=== PATIENT | female | born 1965 | race African-American/Black ===

== ENCOUNTER 2019-01-21 18:12 | Inpatient (IN) | payer MEDICARE ==
[2019-01-21] MEDS ORDERED: Magnesium 2 GM/50 ML BAG (IN WATER) ONE (19:46)
[2019-01-21] MEDS ORDERED: Acetaminophen 325 MG TAB PO PRN (21:33)
[2019-01-21] MEDS ORDERED: Insulin Regular 300 UNITS/3 ML VIAL SC PRN (21:39)
[2019-01-21] MEDS ORDERED: Dextrose 5% in Water 1,000 ML IV PRN (21:39)
[2019-01-21] MEDS ORDERED: HumaLOG 300 UNITS/3 ML VIAL SC PRN (21:39)
[2019-01-21] MEDS ORDERED: Dextrose 50% Abboject 50 ML SYRINGE SLOW IVP PRN (21:39)
[2019-01-21 21:41] LABS: Troponin I 0.016 ng/mL (< 0.028)
[2019-01-21] MEDS ORDERED: Metoprolol Tartrate 100 MG TAB PO SCH ×2 (23:30)
[2019-01-21] MEDS ORDERED: Gabapentin 300 MG CAP PO SCH (23:30)
[2019-01-21] MEDS ORDERED: Insulin Glargine 75 UNITS in Pre-Filled Syringe 1 EACH SC SCH (23:30)
[2019-01-21 23:55] LABS: Troponin I Less than 0.010 ng/mL (< 0.028)
--- NOTE | 2019-01-22 01:20 | HP ---
CHIEF COMPLAINT: Shortness of breath. PRIMARY CARE PHYSICIAN: Jessica Jon MD HISTORY OF PRESENT ILLNESS: Ms. Mcdonald is a very pleasant 53-year-old female who reported to the emergency room in [place] today with 2 days to 3 days of progressive cough and wheezing with worsening intensity and developing some respiratory distress this afternoon prior to arrival. She describes symptoms as tightness, wheezing. She reports that she does have a history of COPD, but when asked she denies a history of CHF or been told that she had a large heart. She does have a past medical history pertinent for non-Hodgkin lymphoma, has been in remission for the last 4 years, anemia, hypertension. In the emergency room, labs white blood cell count 11.7, hemoglobin 8.7. The patient was found to be wheezing, some moderate respiratory distress. Chest x-ray there showed some mild pulmonary vascular congestion, was given 2 DuoNebs, Solu-Medrol 125, Lasix 40, and was sent over to [facility] for admission. The patient also has chronic kidney disease. In November 2018, creatinine was 1.34 today, it is 2.06. The patient was given magnesium 2 g IV piggyback here and then admitted to observation for further management. REVIEW OF SYSTEMS: The patient reports shortness of breath, dyspnea on exertion, some orthopnea and wheezing. Denies any fever or chills. Denies any abdominal pain. Denies nausea, vomiting, diarrhea. Denies any dizziness. All systems were reviewed and are negative unless mentioned above or in HPI. PAST MEDICAL HISTORY: Anemia, hypertension, diabetes, is in remission for non-Hodgkin's lymphoma. PAST SURGICAL HISTORY: None. PSYCHIATRIC HISTORY: None. SOCIAL HISTORY: Denies any alcohol or drug use. Denies any smoking history. She lives at home with her family. KNOWN ALLERGIES: None. CURRENT MEDICATIONS: 1. Albuterol 2 puffs q.4 hours as needed. 2. Norvasc 10 mg p.o. daily. 3. Lipitor 40 mg p.o. daily. 4. Vitamin D2 44077 units p.o. q.7 days. 5. Furosemide 20 mg p.o. b.i.d. 6. Gabapentin 300 mg p.o. t.i.d. 7. Glyburide 5 mg p.o. b.i.d. 8. Levemir 75 units subcu b.i.d. 9. Humalog 20 units subcu t.i.d. 10. Metformin 1000 mg p.o. daily. 11. Toprol-XL 100 mg p.o. b.i.d. 12. Protonix 40 mg p.o. daily. 13. Potassium chloride 10 mEq p.o. daily. 14. Sertraline 2 tablets p.o. daily. 15. Triamterene/hydrochlorothiazide 37.5/25 mg p.o. daily. PHYSICAL EXAMINATION: VITAL SIGNS: Blood pressure 175/87, pulse 75, respiratory rate is 24, temp is 98.3, pO2 sats are 98% on 2 L. CONSTITUTIONAL: The patient appears in mild distress. She appears ill. She is alert and oriented to person, place, and time. HEENT: Head is atraumatic and normocephalic. Eyes, pupils are equally round and reactive to light. Extraocular muscles are intact. ENT; mouth exam is beatris. Mucous membranes are moist. NECK: Normal range of motion. Trachea is midline. RESPIRATORY: Chest breath sounds with occasional rhonchi. No wheezing. Chest expansion is equal. Breath sounds bilaterally decreased in the bases. CARDIOVASCULAR: . ABDOMEN: Nontender. Bowel sounds are heard. Exam is limited by body habitus. No CVA tenderness. BACK: Normal range of motion. EXTREMITIES: Upper extremity normal range of motion. Inspection is normal. Radial pulses normal. Lower extremity, inspection has normal range of motion. Pedal pulses are normal. There is +2 edema. NEUROLOGIC: The patient is alert and oriented to person, place, and time. Speech is normal. SKIN: Warm, dry. Normal color. PSYCHIATRIC: Normal affect. She is alert and oriented to person, place, and time. LABORATORY DATA: EKG in the emergency room shows conduction normal, ST segments, T-waves are normal, axis is normal. PLAN/ASSESSMENT: Dyspnea with a history of chronic obstructive pulmonary disease. The patient was given 3 DuoNebs. We will continue these q.6 hours scheduled. We will hold off on the steroids for now. Patient x-ray shows mild cardiomegaly with some pulmonary congestion. The patient denies a history of congestive heart failure. We will obtain an echocardiogram. The patient's D-dimer was also elevated, [id number] renal failure with a creatinine over 2, get a V/Q scan, x2 troponins undetectable. 1. [id number] kidney, hold any nephrotoxic drugs. Recheck in the morning. 2. Hypercalcemia at 5.2. We will recheck this in the morning. 3. Diabetes type 2. Accu-Cheks before meals and at bedtime, sliding-scale as needed. We will restart her basal insulin. 4. Anemia. The patient has had a drop in her hemoglobin. Check guaiac. Recheck in the a.m. 5. History of hypertension. We will restart home medications. We will trend. 6. Hyperlipidemia. We will restart home medications. Hospital course dependent on clinical findings. Case discussed with Dr. Amaya who agrees with plan. Job ID: [id number]
[2019-01-22 05:29] LABS: #Lymphocytes 0.9 thou/uL (1.20-3.40); #Monocytes 0.2 thou/uL (0.11-0.59); #Neutrophils 12.1 thou/uL (1.40-6.50); %Basophils 0.1 % (0.0-1.0); %Eosinophils 0.1 % (0.0-10.0); %Lymphocytes 6.7 % (21.0-51.0); %Monocytes 1.5 % (0.0-10.0); %Neutrophils 91.6 % (42.0-75.0); Hemoglobin 8.8 g/dL (12.0-16.0); Mean Corpuscular HGB CONC 30.2 g/dL (32.0-36.0); Mean Corpuscular Hemoglobin 23.8 pg (27.0-31.0); Mean Corpuscular Volume 78.8 fL (78.0-98.0); Mean Platelet Volume 9.4 fL (7.4-10.4); Platelet Count 343 thou/uL (130-400); RBC Distribution Width 16.8 % (11.5-14.5); Red Blood Cell (RBC) Count 3.68 mill/uL (4.20-5.40); White Blood Cell (WBC) Count 13.2 thou/uL (4.8-10.8)
[2019-01-22 06:03] LABS: ALT (SGPT) 12 U/L (8-55); AST (SGOT) 7 U/L (5-34); Albumin 3.7 g/dL (3.5-5.0); Alkaline Phosphatase 145 U/L (40-110); Anion Gap 13 mmol/L (10-20); BUN (Urea Nitrogen) 41 mg/dL (9.8-20.1); Bilirubin, Total 0.5 mg/dL (0.2-1.2); Calc. Creatinine Clearance 86 mL/min (70-130); Carbon Dioxide 23 mmol/L (22-29); Chloride 105 mmol/L (98-107); Estimated GFR-MDRD 34; Glucose 280 mg/dL (70-105); Potassium 5.6 mmol/L (3.5-5.1); Protein, Total 6.7 g/dL (6.0-8.3); Sodium 135 mmol/L (136-145)
[2019-01-22] MEDS: HumaLOG 300 UNITS/3 ML VIAL SC SCH ×3 (08:30→16:34)
[2019-01-22] MEDS: Insulin Glargine 75 UNITS in Pre-Filled Syringe 1 EACH SC SCH ×2 (08:30→21:38)
[2019-01-22] MEDS: Gabapentin 300 MG CAP PO SCH ×3 (08:32→20:34)
[2019-01-22] MEDS: Atorvastatin Calcium 40 MG TAB PO SCH (08:32)
[2019-01-22] MEDS ORDERED: Furosemide 40 MG/4 ML VIAL SLOW IVP SCH (09:00)
[2019-01-22] MEDS ORDERED: Heparin 5,000 UNITS/ML VIAL SC SCH (09:00)
[2019-01-22] MEDS ORDERED: Triamterene/Hydrochlorothiazide 37.5 mg/25 mg Tablet PO SCH (09:00)
[2019-01-22] MEDS ORDERED: INSULIN DETEMIR 75 UNIT SC SCH (09:00)
[2019-01-22 10:16] LABS: Troponin I Less than 0.010 ng/mL (< 0.028)
[2019-01-22] MEDS: Ipratropium Bromide 2.5 ml Neb NEB SCH ×4 (10:35→22:53)
--- NOTE | 2019-01-22 11:13 | NM ---
VENTILATION PERFUSION SCAN: INDICATION: Shortness of breath. Tachypnea. Elevated D-dimer. COMPARISON: Correlation is made to a portable chest film of 01/21/2019. That exam showed mild vascular congestio n. FINDINGS: Ventilation scan performed administering 13 mCi of inhaled Xenon gas. Images show symmetric ventilation. No ventilation defect or significant air trapping. Perfusion scan performed administering 6.5 mCi of Technetium labelled MAA IV. Lungs were imaged in 8 projections. No perfusion defect. IMPRESSION: Low probability of pulmonary embolus. POS: OFF
--- NOTE | 2019-01-22 11:15 | PDOC.HOSPP ---
- Subjective Encounter Date: 01/22/19 Encounter Time: 11:15 Subjective: Patient reports SOB with minimal exertion over the past 2 days. Associated with orthopnea and PND. Reports 10 lb weight gain over the past 4-5 days. Reports that her abdomen has gotten bigger and dresses are tighter to wear. Reports new onset leg swelling over the past week. Denies cough, wheezing, fever, chills, chest pain. Has palpitations with activity but no lightheadedness. No urinary symptoms. Never tested for GENOVEVA. Reports history of asthma as a child and uses albuterol PRN. Never smoked. Diagnosed with CHF 4 yrs ago but never had LHC or stress test. Denies CAD, [place], CVA. Has DM for about 15 yrs now. - Objective Vital Signs & Weight: Vital Signs (12 hours) Temp Pulse Resp BP Pulse Ox 01/22/19 11:00 98.3 F 73 18 152/74 H 98 01/22/19 07:13 97.1 F L 70 20 149/75 H 98 01/22/19 06:35 95 01/22/19 06:34 67 16 01/22/19 04:05 97.1 F L 73 16 160/76 H 97 01/22/19 00:23 81 18 92 L 01/21/19 23:30 98 F 94 20 188/90 H 96 Weight Weight 350 lb I&O: 01/21/19 01/22/19 01/23/19 06:59 06:59 06:59 Intake Total 590 Output Total 1050 Balance -460 Result Diagrams: 01/22/19 05:13 01/22/19 05:13 Additional Labs: Accuchecks 01/22/19 01/21/19 05:16 22:33 POC Glucose 279 H 279 H Hospitalist ROS - Medication Medications: Active Medications Generic Name Dose Route Start Last Admin Trade Name Freq PRN Reason Stop Dose Admin Atorvastatin Calcium 40 mg 01/22/19 09:00 01/22/19 08:32 Lipitor PO 40 mg DAILY JONATHAN Administration Cholecalciferol 1,000 units 01/22/19 09:00 01/22/19 08:31 Vitamin D3 PO 1,000 units DAILY JONATHAN Administration Gabapentin 300 mg 01/22/19 09:00 01/22/19 08:32 Neurontin PO 300 mg TID JONATHAN Administration Heparin Sodium (Porcine) 5,000 units 01/22/19 09:00 01/22/19 08:30 Heparin SC 5,000 units TID JONATHAN Administration Insulin Glargine 75 units/ 0.75 mls @ 0 mls/hr 01/22/19 09:00 01/22/19 08:30 Miscellaneous Medication SC 0.75 mls BID JONATHAN Administration Insulin Human Lispro 20 units 01/22/19 08:00 01/22/19 08:30 Humalog SC 20 units TID-WM JONATHAN Administration Ipratropium [place] 2.5 ml 01/22/19 10:30 01/22/19 10:35 Atrovent NEB Not Given [id number] JONATHAN Metoprolol Succinate 100 mg 01/22/19 09:00 01/22/19 08:32 Toprol Xl PO 100 mg BID JONATHAN Administration Pantoprazole Sodium 40 mg 01/22/19 09:00 01/22/19 08:32 Protonix PO 40 mg DAILY JONATHAN Administration Sertraline HCl 200 mg 01/22/19 09:00 01/22/19 08:32 Zoloft PO 200 mg DAILY JONATHAN Administration Sodium Polystyrene Sulfonate 15 gm 01/22/19 08:15 01/22/19 08:31 Kayexalate Oral Susp 15 Gm/60 Ml PO 01/22/19 12:00 15 gm NOW JONATHAN Administration - Exam General Appearance: ill appearing (in mild distress) Eye: PERRL, anicteric sclera ENT: normocephalic atraumatic, no oropharyngeal lesions, moist mucosa Neck: supple, symmetric, no thyromegaly, no lymphadenopathy Heart: RRR, no murmur, no gallops, normal peripheral pulses Heart - other findings: Bilateral 2+ pitting pedal edema present Respiratory: normal chest expansion, no tachypnea Respiratory - other findings: Reduced air entry bilateral bases with mild creps Gastrointestinal: soft, non-tender, normal bowel sounds, no palpable masses Gastrointestinal - other findings: obese Extremities: no cyanosis, no clubbing, 2+ LE edema Skin: normal turgor, no lesions, no rashes Neurological: cranial nerve grossly intact, normal sensation to touch, no focal deficits Musculoskeletal: normal tone, normal strength, no muscle wasting Psychiatric: normal affect, normal behavior, A&O x 3 Hosp A/P (1) CHF (congestive heart failure) Code(s): I50.9 - HEART FAILURE, UNSPECIFIED Status: Acute Qualifiers: Heart failure type: unspecified Heart failure chronicity: acute on chronic Qualified Code(s): I50.9 - Heart failure, unspecified Plan: History of CHF 4 yrs ago but patient not aware which type Never had ischemia evaluation Patient now with orthopnea, weight gain, PND and pedal edema Switch to inpatient status. Expected to stay at least 2 midnights High risk due to need for IV diuretics and CARLA on CKD Cardio consult ECHO done this AM IV lasix and fluid restriction Pillai cath for strict I/Os (2) Hyperkalemia Code(s): E87.5 - HYPERKALEMIA Status: Acute Plan: PO kayaxelate given x 1 (3) CARLA (acute kidney injury) Code(s): N17.9 - ACUTE KIDNEY FAILURE, UNSPECIFIED Status: Acute Plan: Baseline creatinine of 1.3 Now with worsened function Related to CHF exacerbation Nephrology consulted Avoid nephrotoxic meds and hypotension Renal US ordered (4) DM type 2 (diabetes mellitus, type 2) Status: Chronic Qualifiers: Diabetes mellitus assisted insulin use: with row boss hoeing use Diabetes mellitus complication status: with kidney complications Diabetes mellitus complication detail: with chronic kidney disease Chronic kidney disease stage : stage 3 (moderate) Qualified Code(s): E11.22 - Type 2 diabetes mellitus with diabetic chronic kidney disease; N18.3 - Chronic kidney disease, stage 3 ( moderate); Z79.4 - 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 Self consulted PTH elevated (5) Hyperparathyroidism Code(s): E21.3 - HYPERPARATHYROIDISM, UNSPECIFIED Status: Chronic Plan: Likely related to CKD and Vit. D deficiency Continue Vit. D supplementation Nephrology consulted (6) Vitamin D deficiency Code(s): E55.9 - VITAMIN D DEFICIENCY, UNSPECIFIED Status: Chronic Plan: Replacement (7) GENOVEVA (obstructive sleep apnea) Code(s): G47.33 - OBSTRUCTIVE SLEEP APNEA (ADULT) (PEDIATRIC) Status: Suspected Plan: Never had a PSG done Pulm. consulted and case DW Dr. Calderón Also suspicion for OHS. ABG ordered to evaluate for hypercapnia (8) Asthma Code(s): J45.909 - UNSPECIFIED ASTHMA, UNCOMPLICATED Status: Chronic Qualifiers: Asthma severity: mild Asthma persistence: intermittent Asthma complication type: uncomplicated Qualified Code(s): J45.20 - Mild intermittent asthma, uncomplicated Plan: On albuterol PRN Duonebs PRN for now Not in exacerbation Pulm. consulted (9) HTN (hypertension) Code(s): I10 - ESSENTIAL (PRIMARY) HYPERTENSION Status: Chronic Qualifiers: Hypertension type: essential hypertension Qualified Code(s): I10 - Essential (primary) hypertension Plan: Hold anti-HTN due to being on IV diuretics and her CARLA (10) Morbid obesity with BMI of 50.0-59.9, adult Code(s): E66.01 - MORBID (SEVERE) OBESITY DUE TO EXCESS CALORIES; Z68.43 - BODY MASS INDEX (BMI) 50.0-59.9, ADULT Status: Chronic - Plan plan discussed w/ family, pillai catheter, DVT proph w/heparin
--- NOTE | 2019-01-22 11:52 | CON ---
DATE OF CONSULTATION: REASON FOR CONSULTATION: Hyperkalemia. HISTORY OF PRESENT ILLNESS: This is a very pleasant 53-year-old female, living in [place], presented to the hospital with shortness of breath. The patient had a creatinine of 2.0, which decreased to 1.89, prior baseline in November was 1.3. The patient denies headache, numbness, tingling, or weakness. Denies nausea, vomiting, or chest pain. The patient was admitted for possible COPD exacerbation and rule out myocardial infarction. PAST MEDICAL HISTORY: Significant for hypertension, non-Hodgkin lymphoma, and anemia. PAST SURGICAL HISTORY: None. SOCIOECONOMIC HISTORY: No alcohol or drug use. FAMILY HISTORY: Negative for ESRD. ALLERGIES: REVIEWED. MEDICATIONS: Home medications list, reviewed. Hospital medications list, reviewed. REVIEW OF SYSTEMS: A 15-point review of systems was performed and was negative except for positives noted above. GENERAL: HEAD: NECK: No swelling or lumps. NOSE: No epistaxis or discharge. EYES: No diplopia or pain. RESPIRATORY: CARDIOVASCULAR: GASTROINTESTINAL: /FOAM FABRICATOR: MUSCULOSKELETAL: No joint pain. NEUROPSYCHIATIC SYSTEMS: No suicidal ideation. No ideation. SKIN: Denies any rash or ulcer. CONSTITUTIONAL: No fever or chills. PHYSICAL EXAMINATION: GENERAL: The patient is awake and alert. VITAL SIGNS: Afebrile, pulse 73, blood pressure 152/74. GENERAL APPEARANCE AND MENTAL STATUS: Fair. HEAD/NECK: Normocephalic. Atraumatic. EYES: EOMI. No deformity. EARS: Clear. No ulcers. NOSE: Intact. No lesions. MOUTH: Clear. No discharge. THROAT: Clear. No exudate. LUNGS: Clear. No crackles. CARDIAC: S1, S2. No rub. ABDOMEN: Benign. Bowel sounds positive. GENITALIA/RECTUM: Ureña absent. BACK/EXTREMITIES: Edema 0+. NEUROLOGICAL: Alert and motor intact. SKIN: LYMPHATICS: LABORATORY DATA: Reviewed. ASSESSMENT AND PLAN: 1. Acute kidney injury with chronic kidney disease, most likely due to progressive diabetic nephropathy versus acute tubular necrosis. We will follow renal function closely and await echo. 2. Hypertension, stable. 3. Anemia, stable. 4. Hyperkalemia. We will stop heparin and recheck potassium. 5. Proteinuria. We will order random urine protein to creatinine ratio and follow labs closely. Job ID: [id number]
--- NOTE | 2019-01-22 12:48 | ULT ---
RENAL ULTRASOUND: HISTORY: Acute kidney insufficiency. FINDINGS: Both kidneys measure approximately 11 cm in length. No evidence of hydronephrosis. No renal mass [place]. Cortical thickness and echogenicity appears preserved. Images of the bladder region show no evidence of distended bladder. The bladder appears to be contra cted and is not evaluated. IMPRESSION: Unremarkable renal ultrasound. POS: OFF
[2019-01-22 12:49] LABS: Actual Bicarbonate (HCO3a) 26.1 mEq/L (22-28); Base Excess (BEa) -0.6 mEq/L (-2.0 to +3.0); CO2 Tension 53.1 mmHg (35.0-45.0); Calcium, Ionized 1.21 mmol/L (1.12-1.30); Carboxyhemoglobin (COHb) 1.2 gm% (0.0-3.0); Potassium - ABG Lab 5.02 mmol/L (3.70-5.30); pH, Arterial 7.31 (7.35-7.45)
[2019-01-22 12:51] LABS: O2 Tension (PaO2) 53.1 mmHg (80.0-100.0)
[2019-01-22 12:52] LABS: ALV-art Gradient 30.255 (0-20); Puncture Site RRA
[2019-01-22 13:47] LABS: ALV-art Gradient 13.905 (0-20); Actual Bicarbonate (HCO3a) 23.8 mEq/L (22-28); Base Excess (BEa) -2.4 mEq/L (-2.0 to +3.0); CO2 Tension 47.7 mmHg (35.0-45.0); Calcium, Ionized 1.21 mmol/L (1.12-1.30); Hemoglobin (Hb) 9.3 g/dL (12.0-16.0); O2 Tension (PaO2) 76.2 mmHg (80.0-100.0); Potassium - ABG Lab 4.83 mmol/L (3.70-5.30); Puncture Site RRA; pH, Arterial 7.32 (7.35-7.45)
[2019-01-22 13:52] LABS: Anion Gap 14 mmol/L (10-20); BUN (Urea Nitrogen) 42 mg/dL (9.8-20.1); Calc. Creatinine Clearance 89 mL/min (70-130); Calcium 9.3 mg/dL (7.8-10.44); Carbon Dioxide 24 mmol/L (22-29); Chloride 105 mmol/L (98-107); Estimated GFR-MDRD 35; Glucose 94 mg/dL (70-105); Potassium 5.3 mmol/L (3.5-5.1); Sodium 138 mmol/L (136-145)
[2019-01-22] MEDS: Furosemide 40 MG/4 ML VIAL SLOW IVP SCH (14:09)
--- NOTE | 2019-01-22 14:28 | CON ---
DATE OF CONSULTATION: 01/22/2019 CONSULTING PHYSICIAN: Sebastián Caraballo. REASON FOR CONSULTATION: Shortness of breath. HISTORY OF PRESENT ILLNESS: The patient is a 53-year-old female, who comes into the hospital with increasing shortness of breath over the last one week. She tells me that she has a history of congestive heart failure and she has been accumulating fluid for the last several days. She says she has been told she has asthma in the past and has used inhalers at home. She has been given some diuretics in this hospitalization and started to breathe better. PAST MEDICAL HISTORY: 1. Diastolic congestive heart failure. 2. Anemia. 3. Hypertension. 4. Diabetes mellitus. 5. Non-Hodgkin lymphoma. PAST SURGICAL HISTORY: Unremarkable. SOCIAL HISTORY: Nonsmoker. Does not consume alcohol. Lives at home with her family. ALLERGIES: NONE. MEDICATIONS: Prior to admission; 1. Albuterol. 2. Norvasc. 3. Lipitor. 4. Vitamin D2. 5. Furosemide. 6. Gabapentin. 7. Glyburide. 8. Levemir insulin. 9. Humalog insulin. 10. Metformin. 11. Metoprolol-XL. 12. Protonix. 13. Sertraline. 14. Triamterene/hydrochlorothiazide. REVIEW OF SYSTEMS: Remarkable for swelling and increased shortness of breath. No nausea, vomiting, hematemesis, melena, hematochezia, hematuria, or dysuria. PHYSICAL EXAMINATION: VITAL SIGNS: Temperature 98.3, pulse 73, respirations 18, O2 saturation 98% on 2 L, and blood pressure 152/74. Height 5 feet 9 inches, weight 350 pounds, and BMI is 51. GENERAL: She is awake and alert, and in no distress. HEENT: She has a class 4 Mallampati airway. NECK: Without adenopathy or JVD. LUNGS: Diminished breath sounds in the bases. CARDIAC: S1 and S2. Regular without audible murmur. ABDOMEN: Soft and nontender. EXTREMITIES: She has 2+ edema from her thighs downward. Her chest x-ray shows cardiomegaly poorly penetrated film. A perfusion pulmonary scan was low probability for pulmonary emboli. LABORATORY DATA: White blood cell count 13, hematocrit 29, and platelet count 343. A pH of 7.32, pCO2 of 47, pO2 of 76, that was on room air. Sodium 138, potassium 5.3, chloride 105, CO2 of 24, BUN 42, creatinine 1.8, and glucose 94. Parathyroid hormone level is 236 and calcium level is 9.3. ASSESSMENT: 1. Diastolic congestive heart failure with fluid overload. 2. Renal insufficiency. 3. Secondary hyperparathyroidism. 4. Probable underlying obstructive sleep apnea/cor pulmonale/obesity hypoventilation syndrome. PLAN: Agree with the diuretics, nebulization therapy, and general cardiac workup. As an outpatient, she will need a sleep study to further workup for GENOVEVA. Job ID: [id number]
[2019-01-22 15:25] LABS: Bilirubin Negative (Negative); Blood, Urine Negative (Negative); Clarity Clear (Clear); Glucose, Urine (Dipstick) Normal (Negative); Leukocyte Negative Leu/uL (Negative); Nitrite Negative (Negative); Protein, Urine (Dipstick) 20 mg/dL (Neg-Trace); Urobilinogen Normal mg/dL (Less than 2)
[2019-01-22 15:43] LABS: Creatinine, Urine 20.11 mg/dL (47-110)
--- NOTE | 2019-01-22 17:01 | CON ---
DATE OF CONSULTATION: 01/22/2019 REASON FOR CONSULTATION: Shortness of breath. HISTORY OF PRESENT ILLNESS: Ms. Mcdonald is a pleasant 53-year-old female, who comes to the hospital for worsening shortness of breath. She states for the last week, she has been noticing accumulation of fluid in her legs and getting a lot more shortness of breath to the point where she had to come in for evaluation. She has had this happened in the past. She has been told at some point she had asthma. She has been given some IV diuretics and has already urinated a whole lot of fluid and is feeling much better already. PAST MEDICAL HISTORY: 1. History of diastolic heart failure in the past. 2. Anemia. 3. Hypertension. 4. Type 2 diabetes. 5. Non-Hodgkin's lymphoma in the past. PAST SURGICAL HISTORY: None. SOCIAL HISTORY: No alcohol, tobacco, or drugs. OUTPATIENT MEDICATIONS: Include; 1. Albuterol. 2. Metformin 1000 mg a day. 3. Insulin lispro 20 units t.i.d. 4. Levemir 75 units b.i.d. 5. Sertraline. 6. Triamterene-hydrochlorothiazide. 7. Potassium chloride 10 mEq a day. 8. Atorvastatin 40 mg a day. 9. Furosemide 20 mg b.i.d. 10. Amlodipine 10 mg a day. 11. Pantoprazole 40 mg a day. 12. Metoprolol succinate 100 mg b.i.d. 13. Vitamin D. 14. Gabapentin. 15. Glyburide 5 mg b.i.d. ALLERGIES: PENICILLIN GIVES HER HIVES. REVIEW OF SYSTEMS: A 12-point review of system is unremarkable except stated in history of present illness. FAMILY HISTORY: Noncontributory. PHYSICAL EXAMINATION: VITAL SIGNS: Temperature 98.3, pulse 72, respiratory rate 18, sat 98% on 2 L, blood pressure 138/65. GENERAL: Awake, alert, and oriented x3. No distress. HEENT: Normocephalic and atraumatic. NECK: Supple. LUNGS: Clear. CARDIOVASCULAR: S1 and S2. No S3 or S4. Distant heart sounds. ABDOMEN: Soft. Positive bowel sounds. EXTREMITIES: 2+ edema. SKIN: Warm and dry. LABORATORY DATA: Laboratory work was reviewed. White count of 13, hemoglobin 8.8, hematocrit of 29, platelet count of 243. ABG was reviewed chemistries were reviewed. Sodium 138, potassium is 5.3, BUN of 42, creatinine 1.83, this is down from 1.89 after some diuresis. PTH was elevated. Alkaline phosphatase was elevated. Troponin I is undetectable. UA unremarkable. EKG was reviewed. Chest x-ray was reviewed. Echocardiogram showed what appeared to be normal EF, however, this is difficult to assess. There is a technically difficult study. Right ventricular pressures are elevated estimated about 41 mmHg that is assuming 5 mmHg from the IVC which was not well seen. ASSESSMENT: 1. Acute on chronic diastolic heart failure. 2. Type 2 diabetes. 3. Obesity. 4. Concern for obesity hypoventilation syndrome and severe sleep apnea. PLAN: 1. Agree with continued IV diuresis. She is already feeling much better. 2. I will recommend a MUGA scan to get a better evaluation of her LV function. Her inferior wall and inferolateral wall, I cannot really see on the echo and I cannot tell if they are hypokinetic or normokinetic. Thank you for letting us to participate in the care of your patient. We will follow. Job ID: [id number]
[2019-01-23] MEDS: Ipratropium Bromide 2.5 ml Neb NEB SCH ×6 (02:29→22:43)
[2019-01-23 04:20] LABS: #Basophils 0.1 thou/uL (0.0-0.2); #Eosinphils 0.1 thou/uL (0.0-0.7); #Lymphocytes 2.6 thou/uL (1.20-3.40); #Monocytes 0.5 thou/uL (0.11-0.59); #Neutrophils 9.6 thou/uL (1.40-6.50); %Basophils 0.5 % (0.0-1.0); %Eosinophils 0.7 % (0.0-10.0); %Lymphocytes 20.1 % (21.0-51.0); %Monocytes 3.8 % (0.0-10.0); %Neutrophils 74.9 % (42.0-75.0); Hemoglobin 9.1 g/dL (12.0-16.0); Mean Corpuscular HGB CONC 30.4 g/dL (32.0-36.0); Mean Corpuscular Hemoglobin 23.8 pg (27.0-31.0); Mean Corpuscular Volume 78.3 fL (78.0-98.0); Mean Platelet Volume 9.5 fL (7.4-10.4); Platelet Count 404 thou/uL (130-400); RBC Distribution Width 16.8 % (11.5-14.5); White Blood Cell (WBC) Count 12.8 thou/uL (4.8-10.8)
[2019-01-23 04:44] LABS: ALT (SGPT) 16 U/L (8-55); AST (SGOT) 9 U/L (5-34); Albumin 3.8 g/dL (3.5-5.0); Alkaline Phosphatase 139 U/L (40-110); Anion Gap 12 mmol/L (10-20); BUN (Urea Nitrogen) 45 mg/dL (9.8-20.1); Bilirubin, Total 0.6 mg/dL (0.2-1.2); Calc. Creatinine Clearance 92 mL/min (70-130); Calcium 9.5 mg/dL (7.8-10.44); Carbon Dioxide 29 mmol/L (22-29); Chloride 103 mmol/L (98-107); Estimated GFR-MDRD 36; Glucose 64 mg/dL (70-105); Potassium 4.3 mmol/L (3.5-5.1); Protein, Total 6.8 g/dL (6.0-8.3); Sodium 140 mmol/L (136-145)
[2019-01-23] MEDS: Furosemide 40 MG/4 ML VIAL SLOW IVP SCH ×2 (05:58→14:23)
[2019-01-23] MEDS ORDERED: Furosemide 40 MG/4 ML VIAL ONE (05:59)
[2019-01-23 06:12] VITALS: BMI 52.0
[2019-01-23] MEDS: HumaLOG 300 UNITS/3 ML VIAL SC SCH ×3 (09:04→17:22)
[2019-01-23] MEDS: Insulin Glargine 75 UNITS in Pre-Filled Syringe 1 EACH SC SCH ×2 (09:07→20:54)
[2019-01-23] MEDS: Atorvastatin Calcium 40 MG TAB PO SCH (09:14)
[2019-01-23] MEDS: Gabapentin 300 MG CAP PO SCH ×3 (09:15→20:53)
--- NOTE | 2019-01-23 13:09 | PDOC.HOSPP ---
- Subjective Encounter Date: 01/23/19 Encounter Time: 13:00 Subjective: f/u for Acute/Chronic diast CHF on IV Lasix. Overall feels better and less SOB. Ambulated in halls today. - Objective Vital Signs & Weight: Vital Signs (12 hours) Temp Pulse Resp BP Pulse Ox 01/23/19 12:00 96.6 F L 66 28 H 170/83 H 92 L 01/23/19 10:19 68 16 93 L 01/23/19 07:33 97.5 F L 66 18 133/64 95 01/23/19 06:57 77 18 96 01/23/19 04:00 97.9 F 64 24 H 145/66 H 93 L 01/23/19 02:29 53 L 16 94 L Weight Weight 352 lb 4.8 oz I&O: 01/22/19 01/23/19 01/24/19 06:59 06:59 06:59 Intake Total 590 840 Output Total 1050 1700 Balance -460 -860 Result Diagrams: 01/23/19 03:51 01/23/19 03:51 Additional Labs: Accuchecks 01/23/19 01/23/19 01/22/19 10:24 05:38 20:07 POC Glucose 120 H 97 128 H Microbiology 01/22/19 11:40 Stool Stool Occult Blood (CAROL) - Final Laboratory Tests 01/22/19 01/22/19 01/23/19 05:13 13:25 03:51 WBC 13.2 H Hgb 8.8 L Neutrophils % 91.6 H 74.9 Potassium 5.3 H BUN 42 H Creatinine 1.83 H Radiology Reviewed by me: Yes (Echo - Grade I/III diast dsfxn, LV not fully assessed) EKG Reviewed by me: Yes (Tele - SR) Hospitalist ROS - Medication Medications: Active Medications Generic Name Dose Route Start Last Admin Trade Name Freq PRN Reason Stop Dose Admin Acetaminophen 650 mg 01/21/19 21:33 01/22/19 17:04 Tylenol PO 650 mg Q4H PRN Administration Headache/Fever/Mild Pain (1-3) Atorvastatin Calcium 40 mg 01/22/19 09:00 01/23/19 09:14 Lipitor PO 40 mg DAILY JONATHAN Administration Cholecalciferol 1,000 units 01/22/19 09:00 01/23/19 09:14 Vitamin D3 PO 1,000 units DAILY JONATHAN Administration Furosemide 60 mg 01/22/19 14:00 01/23/19 05:58 Lasix SLOW IVP 60 mg 0600,1400 JONATHAN Administration Gabapentin 300 mg 01/22/19 09:00 01/23/19 09:15 Neurontin PO 300 mg TID JONATHAN Administration Insulin Glargine 75 units/ 0.75 mls @ 0 mls/hr 01/22/19 09:00 01/23/19 09:07 Miscellaneous Medication SC Not Given BID JONATHAN Insulin Human Lispro 20 units 01/22/19 08:00 01/23/19 12:09 Humalog SC Not Given TID-WM JONATHAN Ipratropium [place] 2.5 ml 01/22/19 10:30 01/23/19 10:19 Atrovent NEB 2.5 ml [id number] JONATAHN Administration Metoprolol Succinate 100 mg 01/22/19 09:00 01/23/19 09:15 Toprol Xl PO 100 mg BID JONATHAN Administration Pantoprazole Sodium 40 mg 01/22/19 09:00 01/23/19 09:15 Protonix PO 40 mg DAILY JONATHAN Administration Sertraline HCl 200 mg 01/22/19 09:00 01/23/19 09:15 Zoloft PO 200 mg DAILY JONATHAN Administration - Exam General Appearance: NAD, awake alert Eye: PERRL, anicteric sclera ENT: normocephalic atraumatic, no oropharyngeal lesions Neck: supple, symmetric, no JVD, no thyromegaly, no lymphadenopathy Heart: RRR, no gallops, no rubs, normal peripheral pulses Respiratory: CTAB Respiratory - other findings: diminished in bases bilat, scattered coarse sounds Gastrointestinal: soft, non-tender, non-distended, normal bowel sounds Extremities: no cyanosis, no clubbing, 2+ LE edema Skin: normal turgor, no lesions Neurological: cranial nerve grossly intact, no new deficit Musculoskeletal: normal tone, generalized weakness Psychiatric: normal affect, A&O x 3 Hosp A/P (1) Acute on chronic diastolic (congestive) heart failure Code(s): I50.33 - ACUTE ON CHRONIC DIASTOLIC (CONGESTIVE) HEART FAILURE Status : Acute Plan: Continue Lasix 60mg IV BID, serial I/O's, accurate daily weights, MUGA scan pending (2) CARLA (acute kidney injury) Code(s): N17.9 - ACUTE KIDNEY FAILURE, UNSPECIFIED Status: Acute Plan: Improved, avoid nephrotoxic meds and limit contrast exposure, serial creatinine (3) Hyperkalemia Code(s): E87.5 - HYPERKALEMIA Status: Acute Plan: Resolved, continue serial monitoring (4) DM type 2 (diabetes mellitus, type 2) Status: Chronic Qualifiers: Diabetes mellitus correction insulin use: with correction use Diabetes mellitus complication status: with kidney complications Diabetes mellitus complication detail: with chronic kidney disease Chronic kidney disease stage : stage 3 (moderate) Qualified Code(s): E11.22 - Type 2 diabetes mellitus with diabetic chronic kidney disease; N18.3 - Chronic kidney disease, stage 3 ( moderate); Z79.4 - intermediate (current) use of insulin Plan: Hold Glargine due to relative hypoglycemia, serial accuchecks, ISS (5) HTN (hypertension) Code(s): I10 - ESSENTIAL (PRIMARY) HYPERTENSION Status: Chronic Qualifiers: Hypertension type: essential hypertension Qualified Code(s): I10 - Essential (primary) hypertension Plan: Stable, continue current BP regimen, serial monitoring (6) Morbid obesity with BMI of 50.0-59.9, adult Code(s): E66.01 - MORBID (SEVERE) OBESITY DUE TO EXCESS CALORIES; Z68.43 - BODY MASS INDEX (BMI) 50.0-59.9, ADULT Status: Chronic (7) GENOVEVA (obstructive sleep apnea) Code(s): G47.33 - OBSTRUCTIVE SLEEP APNEA (ADULT) (PEDIATRIC) Status: Chronic Plan: Outpt sleep study - Plan plan discussed w/ family, PT/OT, social insurance adviser, out of bed/ambulate Stable currently Continue Lasix 60mg IV BID OOB/ambulate MUGA scan pending AM lab: BMP Likely home in 24h
--- NOTE | 2019-01-23 13:20 | PRG ---
DATE OF SERVICE: 01/23/2019 SUBJECTIVE: This is a 53-year-old female, being seen for acute kidney injury. The patient denies any nausea, vomiting, or chest pain. OBJECTIVE: GENERAL: The patient is awake and alert. VITAL SIGNS: Afebrile, pulse 75, breathing at 16, blood pressure was 133/64. GENERAL APPEARANCE AND MENTAL STATUS: Fair. HEAD/NECK: Normocephalic. Atraumatic. EYES: EOMI. No deformity. EARS: Clear. No ulcers. NOSE: Intact. No lesions. MOUTH: Clear. No discharge. THROAT: Clear. No exudate. LUNGS: Clear. No crackles. CARDIAC: S1, S2. No rub. ABDOMEN: Benign. Bowel sounds positive. GENITALIA/RECTUM: Ureña absent. BACK/EXTREMITIES: Edema 0+. NEUROLOGICAL: Alert and motor intact. SKIN: LYMPHATICS: LABORATORY DATA: Reviewed. ASSESSMENT AND PLAN: 1. Acute kidney injury with chronic kidney disease, stage 3, stable. 2. Acute tubular necrosis, improved. 3. Hypertension, stable. 4. Anemia, stable. Medication based on GFR, appropriate. No indication for dialysis. Renal ultrasound shows no hydronephrosis or renal mass. Proteinuria 1.5 g. We will consider ADRIANA inhibitor once renal function improves. Job ID: [id number]
--- NOTE | 2019-01-23 13:27 | PRG ---
DATE OF SERVICE: 01/23/2019 SUBJECTIVE: Ms. Mcdonald is sitting up in bed. She feels better today. She is not having difficulty breathing at this time. OBJECTIVE: VITAL SIGNS: Her temperature is 96.6, pulse 66, respirations 20, O2 saturation 92% on room air, blood pressure 170/83. HEENT: Unchanged. NECK: No adenopathy or JVD. CHEST: Clear. CARDIAC: S1 and S2. Regular. ABDOMEN: Soft. EXTREMITIES: No edema. LABORATORY DATA: White blood cell count 12.8, hematocrit 29.8, and platelet count 404. Sodium 140, potassium 4.3, BUN 45, creatinine 1.7, and glucose 64. ASSESSMENT: 1. Diastolic heart failure. 2. Renal insufficiency. 3. Likely underlying GENOVEVA/obesity hypoventilation syndrome. PLAN: 1. Continue diuresis. 2. Outpatient sleep study. 3. Not much more at this time. Job ID: [id number]
--- NOTE | 2019-01-23 15:17 | PDOC.CPN ---
- Subjective Date: 01/23/19 Time: 15:15 Interval history: She feels much better. - Review of Systems General: denies: fever/chills, weight/appetite/sleep changes, night sweats, fatigue Respiratory: denies: cough, congestion, shortness of breath, exercise intolerance Cardiovascular: denies: chest pain, palpitation, edema, paroxysmal nocturnal dyspnea, orthopnea Gastrointestinal: denies: nausea, vomiting, diarrhea, constipation, abd pain, GI bleeding Musculoskeletal: denies: pain, tenderness, stiffness, swelling, arthritis/ arthralgias Neurological: denies: numbness, syncope, seizure, weakness - Objective Allergies/Adverse Reactions: Allergies Allergy/AdvReac Type Severity Reaction Status Date / Time Penicillins Allergy Hives Verified 01/21/19 22:07 Visit Medications: Current Medications Acetaminophen (Tylenol) 650 mg PO Q4H PRN PRN Reason: Headache/Fever/Mild Pain (1-3) Last Admin: 01/22/19 17:04 Dose: 650 mg Albuterol/Ipratropium (Duoneb) 3 ml NEB [id number] PRN PRN Reason: SOB &/or Wheezing Atorvastatin Calcium (Lipitor) 40 mg PO DAILY [facility] Last Admin: 01/23/19 09:14 Dose: 40 mg Cholecalciferol (Vitamin D3) 1,000 units PO DAILY [facility] Last Admin: 01/23/19 09:14 Dose: 1,000 units Dextrose/Water (Dextrose 50%) 25 gm SLOW IVP PRN PRN PRN Reason: Hypoglycemia Furosemide (Lasix) 60 mg SLOW IVP 0600,1400 [facility] Last Admin: 01/23/19 14:23 Dose: 60 mg Gabapentin (Neurontin) 300 mg PO TID [facility] Last Admin: 01/23/19 14:23 Dose: 300 mg Glucagon (Glucagon) 1 mg IM PRN PRN PRN Reason: Hypoglycemia Dextrose/Water (D5w) 1,000 mls @ 0 mls/hr IV .Q0M PRN PRN Reason: Hypoglycemia Insulin Glargine 75 units/ (Miscellaneous Medication) 0.75 mls @ 0 mls/hr SC BID [facility] Last Admin: 01/23/19 09:07 Dose: Not Given Insulin Human Lispro (Humalog) 0 units SC .MILD SLIDING SCALE PRN PRN Reason: Mild Correctional Scale Insulin Human Lispro (Humalog) 20 units SC TID-WM [facility] Last Admin: 01/23/19 12:09 Dose: Not Given Insulin Human Regular (Humulin R) 0 units SC .BEDTIME SLIDING SC PRN PRN Reason: Bedtime Correctional Scale Ipratropium [place] (Atrovent) 2.5 ml NEB [id number] [facility] Last Admin: 01/23/19 13:57 Dose: 2.5 ml Metoprolol Succinate (Toprol Xl) 100 mg PO BID [facility] Last Admin: 01/23/19 09:15 Dose: 100 mg Pantoprazole Sodium (Protonix) 40 mg PO DAILY [facility] Last Admin: 01/23/19 09:15 Dose: 40 mg Sertraline HCl (Zoloft) 200 mg PO DAILY [facility] Last Admin: 01/23/19 09:15 Dose: 200 mg Sodium Chloride (Flush - Normal Saline) 10 ml IVF PRN PRN PRN Reason: Saline Flush Vital Signs & Weight: Vital Signs Temp Pulse Resp BP Pulse Ox 01/23/19 15:12 97 F L 68 18 144/68 H 95 01/23/19 13:57 67 18 93 L 01/23/19 12:00 96.6 F L 66 28 H 170/83 H 92 L 01/23/19 10:19 68 16 93 L 01/23/19 07:33 97.5 F L 66 18 133/64 95 01/23/19 06:57 77 18 96 01/23/19 04:00 97.9 F 64 24 H 145/66 H 93 L Weight 352 lb 4.8 oz - Physical Exam General: alert & oriented x3 HEENT: mucus membranes moist, normocephaly Neck: supple neck, midline trachea Cardiac: regular rate and rhythm, no murmur Lungs: normal breath sounds Neuro: grossly intact Abdomen: active bowel sounds, soft, non-tender Extremities: 1+ LE edema Skin: clear Musculoskeletal: no pain - Labs Result Diagrams: 01/23/19 03:51 01/23/19 03:51 Troponin/CKMB Troponin I Less than 0.010 ng/mL (< 0.028) 01/22/19 09:34 - Telemetry Sinus rhythms and dysrhythmias: sinus rhythm - Assessment/Plan Assessment/Plan: 1. Acute diastolic CHF 2. Obesity 3. Probably GENOVEVA PLAN: - Continue IV lasix today,Switch to PO tomorrow. - MUGA scan tomorrow. - If LV function normal may d/c home with follow up for GENOVEVA evaluation.;
[2019-01-24] MEDS: Ipratropium Bromide 2.5 ml Neb NEB SCH ×4 (02:26→16:16)
[2019-01-24 05:03] LABS: Anion Gap 11 mmol/L (10-20); BUN (Urea Nitrogen) 41 mg/dL (9.8-20.1); Calc. Creatinine Clearance 95 mL/min (70-130); Calcium 8.9 mg/dL (7.8-10.44); Carbon Dioxide 33 mmol/L (22-29); Chloride 98 mmol/L (98-107); Estimated GFR-MDRD 37; Glucose 180 mg/dL (70-105); Sodium 138 mmol/L (136-145)
[2019-01-24] MEDS: Furosemide 40 MG/4 ML VIAL SLOW IVP SCH ×2 (05:20→14:44)
[2019-01-24] MEDS: HumaLOG 300 UNITS/3 ML VIAL SC SCH ×3 (07:59→16:56)
[2019-01-24] MEDS: Gabapentin 300 MG CAP PO SCH ×2 (09:37→14:44)
[2019-01-24] MEDS: Atorvastatin Calcium 40 MG TAB PO SCH (09:37)
[2019-01-24] MEDS: Insulin Glargine 75 UNITS in Pre-Filled Syringe 1 EACH SC SCH (09:38)
--- NOTE | 2019-01-24 10:14 | PRG ---
DATE OF SERVICE: 01/24/2019 SUBJECTIVE: The patient is feeling better. She has no acute complaints regarding her breathing. OBJECTIVE: VITAL SIGNS: Temperature 97.6, pulse 60, respirations 18, O2 saturation 93% on room air, blood pressure 137/66. HEENT: Unremarkable. NECK: No adenopathy or JVD. LUNGS: Clear anteriorly. CARDIAC: S1, S2. Regular. ABDOMEN: Soft. EXTREMITIES: No edema. ASSESSMENT: 1. Diastolic heart dysfunction with pulmonary edema. 2. Likely underlying obstructive sleep apnea. PLAN: She needs an outpatient sleep study down the road. She can follow up with me in the office for that. No further pulmonary intervention plan at this time. We will sign off. Please recall further assistance as needed. Job ID: [id number]
--- NOTE | 2019-01-24 13:41 | NM ---
MUGA SCAN: HISTORY: Shortness of breath. Exam requested to evaluate LV function RADIOPHARMACEUTICAL: 32.3 mCi technetium 99m labeled RBCs injected intravenously. Comparison: None FINDINGS: The left ventricular ejection fraction [id number] Wall motion is normal. IMPRESSION: LVEF is 73%.
--- NOTE | 2019-01-24 13:58 | PRG ---
DATE OF SERVICE: 01/24/2019 SUBJECTIVE: A 53-year-old female, being seen for acute kidney injury. The patient denied any nausea, vomiting, or chest pain. OBJECTIVE: CONSTITUTIONAL: The patient is awake and alert. VITAL SIGNS: Afebrile, pulse 68, breathing 16, and blood pressure 137/66. GENERAL APPEARANCE AND MENTAL STATUS: Fair. HEAD/NECK: Normocephalic. Atraumatic. EYES: EOMI. No deformity. EARS: Clear. No ulcers. NOSE: Intact. No lesions. MOUTH: Clear. No discharge. THROAT: Clear. No exudate. LUNGS: Clear. No crackles. CARDIAC: S1, S2. No rub. ABDOMEN: Benign. Bowel sounds positive. GENITALIA/RECTUM: Ureña absent. BACK/EXTREMITIES: Edema 0+. NEUROLOGICAL: Alert and motor intact. SKIN: LYMPHATICS: LABORATORY DATA: Labs show hemoglobin 9.1. Creatinine 1.7. ASSESSMENT AND PLAN: 1. Acute kidney injury with chronic kidney disease stage 3, stable. 2. Hypertension, stable. 3. Anemia, stable. 4. Acute tubular necrosis, stable. No indication for dialysis. Job ID: [id number]
--- NOTE | 2019-01-24 14:57 | PDOC.CPN ---
- Subjective Date: 01/24/19 Time: 14:56 Interval history: She is doing much better. MUGA scan pending. - Review of Systems General: denies: fever/chills, weight/appetite/sleep changes, night sweats, fatigue Respiratory: denies: cough, congestion, shortness of breath, exercise intolerance Cardiovascular: denies: chest pain, palpitation, edema, paroxysmal nocturnal dyspnea, orthopnea Gastrointestinal: denies: nausea, vomiting, diarrhea, constipation, abd pain, GI bleeding Musculoskeletal: denies: pain, tenderness, stiffness, swelling, arthritis/ arthralgias Neurological: denies: numbness, syncope, seizure, weakness - Objective Allergies/Adverse Reactions: Allergies Allergy/AdvReac Type Severity Reaction Status Date / Time Penicillins Allergy Hives Verified 01/21/19 22:07 Visit Medications: Current Medications Acetaminophen (Tylenol) 650 mg PO Q4H PRN PRN Reason: Headache/Fever/Mild Pain (1-3) Last Admin: 01/22/19 17:04 Dose: 650 mg Albuterol/Ipratropium (Duoneb) 3 ml NEB [id number] PRN PRN Reason: SOB &/or Wheezing Last Admin: 01/24/19 10:58 Dose: 3 ml Atorvastatin Calcium (Lipitor) 40 mg PO DAILY [facility] Last Admin: 01/24/19 09:37 Dose: 40 mg Cholecalciferol (Vitamin D3) 1,000 units PO DAILY [facility] Last Admin: 01/24/19 09:37 Dose: 1,000 units Dextrose/Water (Dextrose 50%) 25 gm SLOW IVP PRN PRN PRN Reason: Hypoglycemia Furosemide (Lasix) 60 mg SLOW IVP 0600,1400 [facility] Last Admin: 01/24/19 14:44 Dose: 60 mg Gabapentin (Neurontin) 300 mg PO TID [facility] Last Admin: 01/24/19 14:44 Dose: 300 mg Glucagon (Glucagon) 1 mg IM PRN PRN PRN Reason: Hypoglycemia Dextrose/Water (D5w) 1,000 mls @ 0 mls/hr IV .Q0M PRN PRN Reason: Hypoglycemia Insulin Glargine 75 units/ (Miscellaneous Medication) 0.75 mls @ 0 mls/hr SC BID [facility] Last Admin: 01/24/19 09:38 Dose: 0.75 mls Insulin Human Lispro (Humalog) 0 units SC .MILD SLIDING SCALE PRN PRN Reason: Mild Correctional Scale Insulin Human Lispro (Humalog) 20 units SC TID-WM [facility] Last Admin: 01/24/19 13:17 Dose: Not Given Insulin Human Regular (Humulin R) 0 units SC .BEDTIME SLIDING SC PRN PRN Reason: Bedtime Correctional Scale Ipratropium [place] (Atrovent) 2.5 ml NEB [id number] [facility] Last Admin: 01/24/19 10:58 Dose: Not Given Metoprolol Succinate (Toprol Xl) 100 mg PO BID [facility] Last Admin: 01/24/19 09:37 Dose: 100 mg Pantoprazole Sodium (Protonix) 40 mg PO DAILY [facility] Last Admin: 01/24/19 09:37 Dose: 40 mg Sertraline HCl (Zoloft) 200 mg PO DAILY [facility] Last Admin: 01/24/19 09:37 Dose: 200 mg Sodium Chloride (Flush - Normal Saline) 10 ml IVF PRN PRN PRN Reason: Saline Flush Last Admin: 01/23/19 20:52 Dose: 10 ml Vital Signs & Weight: Vital Signs Temp Pulse Resp BP BP Pulse Ox 01/24/19 13:44 78 18 157/79 H 01/24/19 11:08 98.2 F 68 16 171/76 H 100 01/24/19 07:55 93 L 01/24/19 07:53 97.6 F 68 18 137/66 93 L 01/24/19 03:30 97.3 F L 75 20 124/60 94 L Weight 338 lb 9.6 oz - Physical Exam General: alert & oriented x3 HEENT: mucus membranes moist Neck: supple neck Cardiac: regular rate and rhythm, no murmur Lungs: normal breath sounds Neuro: grossly intact Abdomen: active bowel sounds, soft, non-tender Extremities: 1+ LE edema Skin: clear Musculoskeletal: no pain - Labs Result Diagrams: 01/23/19 03:51 01/24/19 04:08 Troponin/CKMB Troponin I Less than 0.010 ng/mL (< 0.028) 01/22/19 09:34 - Telemetry Sinus rhythms and dysrhythmias: sinus rhythm - Assessment/Plan Assessment/Plan: 1. Acute diastolic CHF 2. Obesity 3. Probably GENOVEVA PLAN: - Switch to PO lasix today. - MUGA scan pending. - If LV function normal may d/c home with follow up in 1 month with me and for GENOVEVA evaluation with Dr. Calderón.
[2019-01-24] MEDS ORDERED: Heparin 1,000 UNITS/ML VIAL ONE (15:53)
[2019-01-24 16:04] VITALS: TEMP 98.3
[2019-01-24 18:22] VITALS: BP 144/65
--- NOTE | 2019-01-25 05:44 | DIS ---
DATE OF ADMISSION: 01/22/2019 DATE OF DISCHARGE: 01/24/2019 DISCHARGE DIAGNOSES: 1. [id number] diastolic congestive heart failure with ejection fraction of 70%. 2. Acute kidney injury on chronic kidney disease stage 3. 3. Hyperkalemia, resolved. 4. Diabetes mellitus type 2 with nephropathy. 5. Hypertension, labile. 6. Morbid obesity. 7. Obstructive sleep apnea, suspected. CONSULTATIONS: 1. Dr. Calderón with Pulmonology Service. 2. Dr. Self with Nephrology Service. 3. Dr. Carrillo with Cardiology Service. PERTINENT LABORATORY AND X-RAY FINDINGS: Potassium ranging between 4.0 to 5.6. Creatinine ranging between 1.73-1.89. Estimated GFR ranging between 34-37. Troponin I negative x3. CBC showed a white blood cell count ranging between 12.8 to 13.2, hemoglobin ranging between 8.8 to 9.1, MCV 78. Stool Hemoccult x1, 01/22/2019. Portable chest x-ray dated 01/21/2019, showed mild cardiomegaly with pulmonary vascular congestion. Ventilation perfusion scan dated 01/22/2019, showed low probability for pulmonary embolus. Bilateral renal ultrasound dated 01/22/2019, showed negative findings. 2D transthoracic echocardiogram dated 01/22/2019, showed technically limited exam due to body habitus. Grade 1/3 diastolic dysfunction noted. Right ventricular systolic pressure 41 mmHg. MUGA scan dated 01/24/2019, showed ejection fraction of 73%. HOSPITAL COURSE: The patient was initially admitted to the telemetry unit after presenting with increased shortness of breath and lower extremity edema. Chest imaging confirmed pulmonary vascular congestion and the patient received IV Lasix. The patient was also initially treated with bronchodilator therapy with DuoNebs and IV Solu-Medrol. The patient continued to diurese with IV Lasix throughout the hospital course with approximate 10-pound weight loss during the hospital stay. Cardiac evaluation included 2D transthoracic echocardiogram and MUGA scan showing preserved ejection fraction of 73%. The patient continued IV Lasix with symptomatic improvement and decrease dyspnea with exertion. The patient was also noted with mild CARLA on chronic kidney disease, avoiding nephrotoxic agents and serial creatinine monitoring. Renal function stabilized with supportive management with recommendations for ongoing outpatient surveillance. Overall, the patient did remain clinically stable during the hospital course. The patient was noted with symptoms and signs consistent with obstructive sleep apnea with pulmonology recommending outpatient sleep study after discharge. I have examined the patient at the time of discharge and discussed followup instructions. The patient verbalized understanding and agreement, ready for discharge on 01/24/2019. DISCHARGE MEDICATIONS: 1. Albuterol sulfate 2 puffs inhaled q.4 hours p.r.n. 2. Norvasc 10 mg p.o. daily. 3. Lipitor 40 mg p.o. daily. 4. Vitamin D2 20258 units p.o. q.7 days. 5. Lasix 20 mg p.o. b.i.d. 6. Gabapentin 300 mg p.o. t.i.d. 7. Glyburide 5 mg p.o. b.i.d. 8. Levemir 75 units subcutaneously b.i.d. 9. Humalog 20 units subcutaneously t.i.d. with meals. 10. Metformin 1000 mg p.o. daily. 11. Toprol-XL 100 mg p.o. b.i.d. 12. Protonix 40 mg p.o. daily. 13. Potassium chloride 10 mEq p.o. daily. 14. Sertraline 200 mg p.o. daily. FOLLOWUP: The patient may follow up with her primary care provider, Dr. Fry within 7 days of discharge. The patient will follow up with Dr. Carrillo 2 to 3 weeks after discharge. The patient will follow up with Dr. Norm Calderón of pulmonology Service. CONDITION ON DISCHARGE: Stable. ACTIVITY: Ad-reina. DIET: Heart healthy and ADA. CODE STATUS: Full. DISPOSITION: To home 01/24/2019. TIME SPENT WITH PATIENT: Total time preparing and coordinating discharge is 31 minutes. Job ID: [id number]
== END 2019-01-24 18:36 | disposition home or self-care (01) | DRG 291 ==
LOC: ERS 18:12 → 2SW 21:31 → OBSVTOIN 01-22 08:06 → 2NO 01-22 10:22
PROVIDERS: ADMIT Internal Medicine; ATTEND Internal Medicine
DX: I13.0 Hypertensive heart and chronic kidney disease with heart failure and stage 1 through stage 4 chronic kidney disease, or unspecified chronic kidney disease (principal); I50.33 Acute on chronic diastolic (congestive) heart failure; N17.0 Acute kidney failure with tubular necrosis; C85.90 Non-Hodgkin lymphoma, unspecified, unspecified site; N25.81 Secondary hyperparathyroidism of renal origin; Z68.43 Body mass index [BMI] 50.0-59.9, adult; J44.9 Chronic obstructive pulmonary disease, unspecified; D63.1 Anemia in chronic kidney disease; E83.52 Hypercalcemia; E78.5 Hyperlipidemia, unspecified; E87.5 Hyperkalemia; G47.33 Obstructive sleep apnea (adult) (pediatric); J45.20 Mild intermittent asthma, uncomplicated; E66.01 Morbid (severe) obesity due to excess calories; N18.3 Chronic kidney disease, stage 3 (moderate); E11.22 Type 2 diabetes mellitus with diabetic chronic kidney disease; Z79.4 Long term (current) use of insulin; Z88.0 Allergy status to penicillin; Z88.8 Allergy status to other drugs, medicaments and biological substances
CPT/HCPCS: 36415; 36416; 76770; 78472; 78582; 80048; 80053; 81003; 82274; 82570; 82805; 83970; 84156; 84484; 85025; 93306; 94640; 96365; A9540; A9558; A9604; J1644; J1815; J1940; J3475; J7620

== ENCOUNTER 2019-02-07 17:36 | Inpatient (IN) | payer MEDICARE ==
[2019-02-07] MEDS ORDERED: Calcium Carbonate 500 MG ChewTAB PO PRN (20:13)
[2019-02-07] MEDS ORDERED: Senokot S 8.6-50 MG TAB PO PRN (20:13)
[2019-02-07] MEDS ORDERED: Guaifenesin DM 100-10/5 ML UDCUP PO PRN (20:13)
[2019-02-07] MEDS ORDERED: Ondansetron ODT 4 MG TAB PO PRN (20:13)
[2019-02-07] MEDS ORDERED: Bisacodyl 5 MG TAB PO PRN (20:13)
[2019-02-07] MEDS ORDERED: Acetaminophen 325 MG TAB PO PRN (20:13)
[2019-02-07] MEDS ORDERED: HYDROcodone/Acetaminophen 5/325 mg Tablet PO PRN (20:13)
[2019-02-07] MEDS ORDERED: Morphine 2 MG/ML SYRINGE SLOW IVP PRN (20:17)
[2019-02-07] MEDS ORDERED: Dextrose 5% in Water 1,000 ML IV PRN (20:18)
[2019-02-07] MEDS ORDERED: Dextrose 50% Abboject 50 ML SYRINGE SLOW IVP PRN (20:18)
[2019-02-07] MEDS ORDERED: Furosemide 100 MG/10 ML VIAL SLOW IVP SCH (20:45)
--- NOTE | 2019-02-07 20:59 | HP ---
PRESENTING COMPLAINT: Shortness of breath and wheeze with cough since 1 week. HISTORY OF PRESENT ILLNESS: Tamara Portillo is a 53-year-old female with past medical history of longstanding hypertension, relatively uncontrolled, diabetes mellitus type 2, history of non-Hodgkin's lymphoma treated with chemotherapy for 2 years, diagnosed 3 years ago, she has not seen her oncologist since over the last one year, recent admission 2 months ago for shortness of breath with echocardiogram showing EF of about 65%, although for study, but also noted grade 3 diastolic dysfunction with elevated right ventricular systolic pressure at 41 mm Hg. The patient presented because of worsening shortness of breath and wheezing since one week. She admits to a 20 pounds weight gain since the last one month after her last hospitalization. She denies any sputum. She denies any fever or chills. She denies any cough contact. Shortness of breath initially started out with exertion, but later became at rest. She has intermittent cough that is nonproductive. She admits to orthopnea with paroxysmal nocturnal dyspnea. She admits to increasing body swelling. She denies any recent travel. No chest pain. PAST MEDICAL HISTORY: Hypertension, diabetes mellitus, non-Hodgkin's lymphoma, obesity. PAST SURGICAL HISTORY: Unknown. ALLERGIES: PENICILLIN. SOCIAL HISTORY: The patient is a lifelong nonsmoker. No history of alcohol or illicit drug use. FAMILY HISTORY: Significant for history of CAD and CVA in her mother. REVIEW OF SYSTEMS: All systems reviewed x14 were negative. The patient denies any hematochezia or hematemesis. PHYSICAL EXAMINATION: VITAL SIGNS: Initially on presentation, blood pressure was 152/63 eight hours ago. Current blood pressure of 191/81, pulse of 76, respiratory rate of 19, on 2 L nasal cannula with O2 saturation 100%. GENERAL: Moderately obese, middle-aged female, not in any distress on nasal cannula O2. HEENT: Head is atraumatic, normocephalic. Pupils equal, reactive to light. No periorbital edema. [place] conjunctivae. Moist oral mucosa. NECK: No JVD. No carotid bruit. RESPIRATORY: Coarse crepitation at bilateral bases. No wheeze or rhonchi elicited. CARDIOVASCULAR: S1, S2. Rate and rhythm regular. No reproducible chest wall tenderness. ABDOMEN: Obese, soft. Bowel sounds positive. No epigastric tenderness. No CVA tenderness. No suprapubic fullness. MUSCULOSKELETAL/EXTREMITIES: 1 to 2+ bilateral pedal edema, more prominent over the left lower extremity. No calf tenderness. Negative Homans sign. NEUROLOGIC: The patient is alert conversant. No neurological focal motor deficit. LABORATORY DATA: Chest x-ray shows mild pulmonary congestive changes, otherwise no acute cardiological event. Echo from 01/22/2019, reviewed with diastolic dysfunction and normal EF, although poor study and MUGA scan recommended. Perfusion study from 01/22/2019 also show normal perfusion. Labs today, creatinine of 1.45, potassium of 5.0, hemoglobin of 9.6. EKG shows normal sinus rhythm, no ST-segment changes. IMPRESSION: 1. Acute diastolic congestive heart failure exacerbation, likely due to uncontrolled hypertension and unrestricted salt intake. 2. Questionable history of chronic obstructive pulmonary disease although patient denies record. 3. Hypertension-uncontrolled. 4. Chronic kidney disease stage 3. 5. Obesity. 6. Diabetes mellitus. PLAN: We will manage the patient for the following in an inpatient setting. 1. Acute diastolic CHF exacerbation. We will start the patient on IV Lasix 80 mg q.12h for now. Monitor intake and output. Follow daily weights. No need for repeat echocardiogram given poor studies due to size and last echo. Possibility of pulmonary hypertension consistent with patient symptoms. The patient might benefit from pulmonary evaluation for elevated pulmonary hypertension. 2. COPD-doubt and less likely at this time. We will do DuoNeb p.r.n. but no steroids as likely it will worsen CHF exacerbation. Follow with diuresis. 3. Hypertension, on amlodipine and Lasix. We will add hydralazine since elevated creatinine for now. 4. CKD stage 3. We will consult Nephrology. Progressive CKD may be contributing to patient's fluid retention. It may also be beneficial to rule out nephrotic range proteinuria causing the patient's fluid retention. 5. Advanced directive, the patient is full code. 6. DVT prophylaxis with subcutaneous Lovenox. 7. Diabetes mellitus. Continue home insulin detemir dose as well as glyburide. We will hold metformin for now. Insulin sliding scale with Accu-Cheks. Total time spent in review of record, discussion with patient and explaining fluid restriction as well as reduce salt intake and followup greater than 60 minutes. Job ID: [id number]
[2019-02-07] MEDS ORDERED: INSULIN DETEMIR 75 UNIT SC SCH (21:00)
[2019-02-07 21:01] LABS: Anion Gap 12 mmol/L (10-20); BUN (Urea Nitrogen) 19 mg/dL (9.8-20.1); Calc. Creatinine Clearance 0 mL/min (70-130); Calcium 9.9 mg/dL (7.8-10.44); Carbon Dioxide 33 mmol/L (22-29); Chloride 98 mmol/L (98-107); Estimated GFR-MDRD 43; Glucose 269 mg/dL (70-105); Iron Binding Capacity, Total 318 mcg/dL (265-497); Potassium 4.5 mmol/L (3.5-5.1); Sodium 138 mmol/L (136-145)
[2019-02-07 21:06] LABS: Troponin I Less than 0.010 ng/mL (< 0.028)
[2019-02-07 21:09] LABS: Iron 28 ug/dL (50-170); Iron Binding Capacity, Total 318 mcg/dL (265-497)
[2019-02-07 23:48] LABS: Troponin I Less than 0.010 ng/mL (< 0.028)
[2019-02-08 00:47] VITALS: BMI 50.5
[2019-02-08] MEDS: Insulin Glargine 75 UNITS in Pre-Filled Syringe 1 EACH SC SCH ×3 (01:12→21:54)
[2019-02-08] MEDS: hydrALAZINE 25 MG TAB PO SCH ×4 (01:19→19:14)
[2019-02-08] MEDS: Gabapentin 300 MG CAP PO SCH ×4 (01:19→19:14)
[2019-02-08 04:29] LABS: Bacteria/HPF 2+ HPF (None Seen); Bilirubin Negative (Negative); Blood, Urine Negative (Negative); Clarity Clear (Clear); Glucose, Urine (Dipstick) Normal (Negative); Leukocyte Negative Leu/uL (Negative); Nitrite Negative (Negative); Protein, Urine (Dipstick) 50 mg/dL (Neg-Trace); RBC/HPF 0-3 HPF (0-3); Squamous Epithelial 0-3 HPF (0-3); Urobilinogen Normal mg/dL (Less than 2); WBC/HPF 0-3 HPF (0-3)
[2019-02-08 04:30] LABS: Unclassified Crystals Rare HPF (None Seen)
[2019-02-08 05:00] LABS: #Eosinphils 0.2 thou/uL (0.0-0.7); #Lymphocytes 0.9 thou/uL (1.20-3.40); #Monocytes 0.5 thou/uL (0.11-0.59); #Neutrophils 9.9 thou/uL (1.40-6.50); %Basophils 0.1 % (0.0-1.0); %Eosinophils 1.3 % (0.0-10.0); %Neutrophils 86.6 % (42.0-75.0); Mean Corpuscular Hemoglobin 23.4 pg (27.0-31.0); Mean Corpuscular Volume 77.9 fL (78.0-98.0); Mean Platelet Volume 10.7 fL (7.4-10.4); Platelet Count 298 thou/uL (130-400); RBC Distribution Width 17.7 % (11.5-14.5); Red Blood Cell (RBC) Count 3.86 mill/uL (4.20-5.40); White Blood Cell (WBC) Count 11.5 thou/uL (4.8-10.8)
[2019-02-08 05:09] LABS: Anion Gap 16 mmol/L (10-20); BUN (Urea Nitrogen) 24 mg/dL (9.8-20.1); Calc. Creatinine Clearance 98 mL/min (70-130); Calcium 9.4 mg/dL (7.8-10.44); Carbon Dioxide 26 mmol/L (22-29); Chloride 99 mmol/L (98-107); Estimated GFR-MDRD 40; Glucose 296 mg/dL (70-105); Magnesium 1.3 mg/dL (1.6-2.6); Potassium 4.7 mmol/L (3.5-5.1); Sodium 136 mmol/L (136-145)
[2019-02-08] MEDS: hydrALAZINE 20 MG/ML VIAL SLOW IVP PRN ×2 (05:37→17:59)
[2019-02-08] MEDS ORDERED: Furosemide 100 MG/10 ML VIAL SLOW IVP SCH (06:00)
[2019-02-08] MEDS ORDERED: Amlodipine 10 MG TAB PO SCH (09:00)
[2019-02-08] MEDS ORDERED: Furosemide 40 MG/4 ML VIAL SLOW IVP SCH (09:15)
[2019-02-08] MEDS: Enoxaparin Sodium 40 MG/0.4 ML SYRINGE SC SCH (10:08)
[2019-02-08] MEDS: glyBURIDE 5 MG TAB PO SCH ×2 (10:08→17:53)
[2019-02-08] MEDS: Atorvastatin Calcium 40 MG TAB PO SCH (10:08)
[2019-02-08] MEDS ORDERED: Albuterol Sulfate 2.5 mg/3 ml Neb NEB PRN (10:09)
--- NOTE | 2019-02-08 10:41 | PDOC.HOSPP ---
- Subjective Subjective: Pt is doing well. She just showered without difficulty. - Objective Vital Signs & Weight: Vital Signs (12 hours) Temp Pulse Resp BP BP Pulse Ox 02/08/19 07:21 97.7 F 85 18 147/68 H 98 02/08/19 05:37 79 172/78 H 02/08/19 03:24 97.8 F 83 18 168/81 H 93 L 02/08/19 01:40 99 02/08/19 01:19 83 159/77 H 02/08/19 00:47 97.5 F L 83 16 159/77 H 99 02/08/19 00:46 97.5 F L 83 16 159/77 H 99 Weight Weight 342 lb I&O: 02/07/19 02/08/19 02/09/19 06:59 06:59 06:59 Intake Total 400 Output Total 1500 Balance -1100 Result Diagrams: 02/08/19 04:19 02/08/19 04:19 Additional Labs: Accuchecks 02/08/19 05:38 POC Glucose 283 H Hospitalist ROS - Medication Medications: Active Medications Generic Name Dose Route Start Last Admin Trade Name Freq PRN Reason Stop Dose Admin Amlodipine Besylate 10 mg 02/08/19 09:00 02/08/19 10:08 Norvasc PO 10 mg DAILY JONATHAN Administration Atorvastatin Calcium 40 mg 02/08/19 09:00 02/08/19 10:08 Lipitor PO 40 mg DAILY JONATHAN Administration Enoxaparin Sodium 40 mg 02/08/19 09:00 02/08/19 10:08 Lovenox SC 40 mg 0900 JONATHAN Administration Furosemide 40 mg 02/08/19 09:15 02/08/19 10:10 Lasix SLOW IVP 02/08/19 11:15 40 mg NOW JONATHAN Administration Gabapentin 300 mg 02/07/19 21:00 02/08/19 10:09 Neurontin PO 300 mg TID JONATHAN Administration Glyburide 5 mg 02/08/19 08:00 02/08/19 10:08 Diabeta PO 5 mg BID-WM JONATHAN Administration Hydralazine HCl 10 mg 02/07/19 20:17 02/08/19 05:37 Apresoline SLOW IVP 10 mg Q4H PRN Administration Blood Pressure Hydralazine HCl 25 mg 02/07/19 21:00 02/08/19 10:09 Apresoline PO 25 mg TID JONATHAN Administration Insulin Glargine 75 units/ 0.75 mls @ 0 mls/hr 02/07/19 21:00 02/08/19 01:12 Miscellaneous Medication SC Not Given BID JONATHAN Levofloxacin 750 mg 02/08/19 09:00 02/08/19 10:09 Levaquin PO 750 mg DAILY JONATHAN Administration - Exam General Appearance: NAD, awake alert Heart: RRR, no murmur, no gallops, no rubs Respiratory: CTAB, no wheezes, no rales, no ronchi, normal chest expansion, no tachypnea Extremities: 2+ LE edema Hosp A/P (1) CKD (chronic kidney disease), stage III Code(s): N18.3 - CHRONIC KIDNEY DISEASE, STAGE 3 (MODERATE) Status: Acute (2) DM type 2 (diabetes mellitus, type 2) Status: Chronic Qualifiers: Diabetes mellitus custodial insulin use: with custodial use Diabetes mellitus complication status: with kidney complications Diabetes mellitus complication detail: with chronic kidney disease Chronic kidney disease stage : stage 3 (moderate) Qualified Code(s): E11.22 - Type 2 diabetes mellitus with diabetic chronic kidney disease; N18.3 - Chronic kidney disease, stage 3 ( moderate); Z79.4 - termite helper (current) use of insulin (3) HTN (hypertension) Code(s): I10 - ESSENTIAL (PRIMARY) HYPERTENSION Status: Chronic Qualifiers: Hypertension type: essential hypertension Qualified Code(s): I10 - Essential (primary) hypertension (4) Morbid obesity with BMI of 50.0-59.9, adult Code(s): E66.01 - MORBID (SEVERE) OBESITY DUE TO EXCESS CALORIES; Z68.43 - BODY MASS INDEX (BMI) 50.0-59.9, ADULT Status: Chronic (5) GENOVEVA (obstructive sleep apnea) Code(s): G47.33 - OBSTRUCTIVE SLEEP APNEA (ADULT) (PEDIATRIC) Status: Chronic (6) Iron deficiency anemia Code(s): D50.9 - IRON DEFICIENCY ANEMIA, UNSPECIFIED Status: Acute (7) Hypomagnesemia Code(s): E83.42 - HYPOMAGNESEMIA Status: Acute - Plan Acute on chronic exacerbation of diastolic CHF stage III: Dec Lasix from 80 IV BID to 40 IV BID. Will monitor potassium and replace orally prn. Acute hypoxic respiratory failure: Pulmonology consulted. Will follow recommendations. Pt off O2 and sats are good on room air. CKD Stage IIIB: Nephrology consulted. Will follow recommendations. DM Type II: Continue home glyburide and insulin glargine, humalog. Accuchecks. Anemia: Start oral iron supplementation. Hypomag: IV Mag. Recheck in am. Do not suspect UTI. MIRIAM Davenport.
[2019-02-08] MEDS: HumaLOG 300 UNITS/3 ML VIAL SC PRN (13:33)
--- NOTE | 2019-02-08 14:01 | CON ---
DATE OF CONSULTATION: REASON FOR CONSULTATION: CKD, stage 3. HISTORY OF PRESENT ILLNESS: This is a very pleasant 53-year-old female, who was admitted last night for shortness of breath and wheezing. The patient denies any nausea, vomiting, or chest pain. Her baseline creatinine has ranged anywhere from since last year. PAST MEDICAL HISTORY: Hypertension, diabetes mellitus, obesity, non-Hodgkin lymphoma. SURGICAL HISTORY: Unknown. ALLERGIES: REVIEWED. HOME MEDICATIONS: List reviewed. HOSPITAL MEDICATIONS: Reviewed. SOCIAL HISTORY: No alcohol or drug use. FAMILY HISTORY: Negative for ESRD. REVIEW OF SYSTEMS: A 15-point review of system was performed, negative except for positive noted above. GENERAL: HEAD: NECK: No swelling or lumps. NOSE: No epistaxis or discharge. EYES: No diplopia or pain. 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 NEUROPSYCHIATIC SYSTEMS: No suicidal ideation. No ideation. SKIN: Denies any rash or ulcer. CONSTITUTIONAL: No fever or chills. PHYSICAL EXAMINATION: CONSTITUTIONAL: The patient is awake and alert. VITAL SIGNS: Afebrile. Pulse 85, breathing 16, blood pressure 147/68. GENERAL APPEARANCE AND MENTAL STATUS: Fair. HEAD/NECK: Normocephalic. Atraumatic. EYES: EOMI. No deformity. EARS: Clear. No ulcers. NOSE: Intact. No lesions. MOUTH: Clear. No discharge. THROAT: Clear. No exudate. LUNGS: Clear. No crackles. CARDIAC: S1, S2. No rub. ABDOMEN: Benign. Bowel sounds positive. GENITALIA/RECTUM: Ureña absent. BACK/EXTREMITIES: Edema 0+. NEUROLOGICAL: Alert and motor intact. SKIN: LYMPHATICS: LABORATORY DATA: Reviewed. ASSESSMENT AND PLAN: 1. Chronic kidney disease, stage with acute kidney injury due to hypertension, stable. 2. Anemia, stable. 3. Medication based on GFR, appropriate. No indication for dialysis. 4. Proteinuria, it is controlled. Job ID: [id number]
[2019-02-08] MEDS: Furosemide 40 MG/4 ML VIAL SLOW IVP SCH (14:54)
[2019-02-08] MEDS ORDERED: Sodium Chloride 0.9% 250 ML IVPB SCH (16:00)
[2019-02-09] MEDS: hydrALAZINE 20 MG/ML VIAL SLOW IVP PRN ×2 (03:43→12:09)
[2019-02-09 04:14] LABS: #Eosinphils 0.2 thou/uL (0.0-0.7); #Lymphocytes 2.2 thou/uL (1.20-3.40); #Monocytes 0.6 thou/uL (0.11-0.59); #Neutrophils 8.6 thou/uL (1.40-6.50); %Basophils 0.2 % (0.0-1.0); %Eosinophils 1.6 % (0.0-10.0); %Monocytes 4.8 % (0.0-10.0); %Neutrophils 74.4 % (42.0-75.0); Hemoglobin 10.1 g/dL (12.0-16.0); Mean Corpuscular HGB CONC 30.1 g/dL (32.0-36.0); Mean Corpuscular Hemoglobin 23.5 pg (27.0-31.0); Mean Corpuscular Volume 78.2 fL (78.0-98.0); Mean Platelet Volume 9.7 fL (7.4-10.4); Platelet Count 378 thou/uL (130-400); RBC Distribution Width 17.5 % (11.5-14.5); Red Blood Cell (RBC) Count 4.29 mill/uL (4.20-5.40); White Blood Cell (WBC) Count 11.6 thou/uL (4.8-10.8)
[2019-02-09 04:31] LABS: Anion Gap 14 mmol/L (10-20); BUN (Urea Nitrogen) 27 mg/dL (9.8-20.1); Calc. Creatinine Clearance 101 mL/min (70-130); Calcium 9.6 mg/dL (7.8-10.44); Carbon Dioxide 33 mmol/L (22-29); Chloride 97 mmol/L (98-107); Estimated GFR-MDRD 41; Glucose 123 mg/dL (70-105); Potassium 3.7 mmol/L (3.5-5.1); Sodium 140 mmol/L (136-145)
[2019-02-09] MEDS: Furosemide 40 MG/4 ML VIAL SLOW IVP SCH ×2 (05:11→13:30)
[2019-02-09] MEDS ORDERED: Amlodipine 10 MG TAB PO SCH (08:08)
[2019-02-09] MEDS: Gabapentin 300 MG CAP PO SCH ×3 (08:29→20:55)
[2019-02-09] MEDS: Ferrous Sulfate 325 MG TAB PO SCH (08:30)
[2019-02-09] MEDS: glyBURIDE 5 MG TAB PO SCH ×2 (08:30→16:34)
[2019-02-09] MEDS: Spironolactone 25 MG TAB PO SCH (08:30)
[2019-02-09] MEDS: hydrALAZINE 25 MG TAB PO SCH ×3 (08:30→20:55)
[2019-02-09] MEDS: Atorvastatin Calcium 40 MG TAB PO SCH (08:30)
[2019-02-09] MEDS: Insulin Glargine 75 UNITS in Pre-Filled Syringe 1 EACH SC SCH ×2 (08:31→20:56)
[2019-02-09] MEDS: Enoxaparin Sodium 40 MG/0.4 ML SYRINGE SC SCH (08:31)
[2019-02-09] MEDS: Lisinopril 5 MG TAB PO SCH (09:12)
--- NOTE | 2019-02-09 09:54 | PDOC.HOSPP ---
- Subjective Subjective: Pt reports that she is doing well today and is about to get up and walk with PT. Breathing difficulty has resolved. - Objective Vital Signs & Weight: Vital Signs (12 hours) Temp Pulse Resp BP BP Pulse Ox 02/09/19 08:29 97.8 F 92 20 138/68 95 02/09/19 07:30 94 L 02/09/19 03:43 90 169/73 H 02/09/19 03:00 98.3 F 93 18 169/80 H 94 L 02/08/19 23:43 157/72 H Weight Weight 342 lb I&O: 02/08/19 02/09/19 02/10/19 06:59 06:59 06:59 Intake Total 400 1430 Output Total 1500 3050 Balance -1100 -1620 Result Diagrams: 02/09/19 03:41 02/09/19 03:41 Additional Labs: Accuchecks 02/09/19 02/08/19 02/08/19 03:54 20:21 16:38 POC Glucose 131 H 164 H 147 H 02/08/19 11:19 POC Glucose 240 H Hospitalist ROS - Medication Medications: Active Medications Generic Name Dose Route Start Last Admin Trade Name Freq PRN Reason Stop Dose Admin Albuterol Sulfate 90 mg 02/08/19 10:09 02/09/19 03:56 Ventolin NEB 90 mg DAILY PRN Administration Dyspnea/Wheezing/SOB Atorvastatin Calcium 40 mg 02/08/19 09:00 02/09/19 08:30 Lipitor PO 40 mg DAILY JONATHAN Administration Enoxaparin Sodium 40 mg 02/08/19 09:00 02/09/19 08:31 Lovenox SC 40 mg 0900 JONATHAN Administration Ferrous Sulfate 325 mg 02/09/19 08:00 02/09/19 08:30 Feosol PO 325 mg QAM-WM JONATHAN Administration Furosemide 40 mg 02/08/19 14:00 02/09/19 05:11 Lasix SLOW IVP 40 mg 0600,1400 JONATHAN Administration Gabapentin 300 mg 02/07/19 21:00 02/09/19 08:29 Neurontin PO 300 mg TID JONATHAN Administration Glyburide 5 mg 02/08/19 08:00 02/09/19 08:30 Diabeta PO 5 mg BID-WM JONATHAN Administration Hydralazine HCl 10 mg 02/07/19 20:17 02/09/19 03:43 Apresoline SLOW IVP 10 mg Q4H PRN Administration Blood Pressure Hydralazine HCl 25 mg 02/07/19 21:00 02/09/19 08:30 Apresoline PO 25 mg TID JONATHAN Administration Insulin Glargine 75 units/ 0.75 mls @ 0 mls/hr 02/07/19 21:00 02/09/19 08:31 Miscellaneous Medication SC 0.75 mls BID JONATHAN Administration Insulin Human Lispro 0 units 02/07/19 20:18 02/08/19 13:33 Humalog SC 6 unit .AGGRESSIVE SLIDING PRN Administration Aggressive Correctional Scale Lisinopril 5 mg 02/09/19 09:00 02/09/19 09:12 Zestril PO 5 mg DAILY JONATHAN Administration Spironolactone 25 mg 02/09/19 09:00 02/09/19 08:30 Aldactone PO 25 mg DAILY JONATHAN Administration Venlafaxine HCl 75 mg 02/09/19 09:00 02/09/19 08:30 Effexor PO 75 mg DAILY JOANTHAN Administration - Exam General Appearance: NAD, awake alert Heart: RRR, no gallops, no rubs, murmur present (I/ systolic murmur at right upper sternal border) Respiratory: CTAB, no wheezes, no rales, no ronchi, normal chest expansion, no tachypnea Gastrointestinal: soft, non-tender, non-distended Extremities - other findings: trace edema Hosp A/P (1) CKD (chronic kidney disease), stage III Code(s): N18.3 - CHRONIC KIDNEY DISEASE, STAGE 3 (MODERATE) Status: Acute (2) DM type 2 (diabetes mellitus, type 2) Status: Chronic Qualifiers: Diabetes mellitus superintendent container terminal insulin use: with correction use Diabetes mellitus complication status: with kidney complications Diabetes mellitus complication detail: with chronic kidney disease Chronic kidney disease stage : stage 3 (moderate) Qualified Code(s): E11.22 - Type 2 diabetes mellitus with diabetic chronic kidney disease; N18.3 - Chronic kidney disease, stage 3 ( moderate); Z79.4 - assisted (current) use of insulin (3) HTN (hypertension) Code(s): I10 - ESSENTIAL (PRIMARY) HYPERTENSION Status: Chronic Qualifiers: Hypertension type: essential hypertension Qualified Code(s): I10 - Essential (primary) hypertension (4) Morbid obesity with BMI of 50.0-59.9, adult Code(s): E66.01 - MORBID (SEVERE) OBESITY DUE TO EXCESS CALORIES; Z68.43 - BODY MASS INDEX (BMI) 50.0-59.9, ADULT Status: Chronic (5) GENOVEVA (obstructive sleep apnea) Code(s): G47.33 - OBSTRUCTIVE SLEEP APNEA (ADULT) (PEDIATRIC) Status: Chronic (6) Iron deficiency anemia Code(s): D50.9 - IRON DEFICIENCY ANEMIA, UNSPECIFIED Status: Acute (7) Hypomagnesemia Code(s): E83.42 - HYPOMAGNESEMIA Status: Acute - Plan Acute on chronic exacerbation of diastolic CHF grade I/III: Switch from IV Lasix to PO prn. Will discharge patient with oral potassium to take along with Lasix. Discontinued Amlodipine and added Lisinopril 5 mg and Coreg 3.125 mg. Recommend patient to follow up with cardiology outpatient. Acute hypoxic respiratory failure: Pt off O2 and sats are good on room air. Resolved. CKD Stage IIIB: Nephrology said no dialysis needed at this time. Proteinuria controlled. DM Type II: Continue home glyburide and insulin glargine, humalog. Accuchecks. Anemia: Start oral iron supplementation. Hypomag: IV Mag. Pt to ambulate with PT this morning. If doing well, will discharge this afternoon.
[2019-02-09] MEDS: HumaLOG 300 UNITS/3 ML VIAL SC PRN (11:21)
--- NOTE | 2019-02-09 14:16 | PRG ---
DATE OF SERVICE: 02/09/2019 SUBJECTIVE: A 53-year-old female, being seen for acute kidney injury. The patient denies any nausea, vomiting, or chest pain. OBJECTIVE: GENERAL: The patient is awake and alert. VITAL SIGNS: Afebrile, pulse 101, breathing 16, blood pressure 131/70. GENERAL APPEARANCE AND MENTAL STATUS: Fair. HEAD/NECK: Normocephalic. Atraumatic. EYES: EOMI. No deformity. EARS: Clear. No ulcers. NOSE: Intact. No lesions. MOUTH: Clear. No discharge. THROAT: Clear. No exudate. LUNGS: Clear. No crackles. CARDIAC: S1, S2. No rub. ABDOMEN: Benign. Bowel sounds positive. GENITALIA/RECTUM: Ureña absent. BACK/EXTREMITIES: Edema 0+. NEUROLOGICAL: Alert and motor intact. SKIN: LYMPHATICS: LABORATORY DATA: Reviewed. ASSESSMENT AND PLAN: 1. Chronic kidney disease, stage 3, stable. 2. Hypertension, stable. 3. Anemia, stable. 4. Medication based on GFR, appropriate. Job ID: [id number]
[2019-02-09] MEDS ORDERED: Carvedilol 3.125 MG TAB PO SCH (17:00)
[2019-02-10] MEDS ORDERED: Carvedilol 3.125 MG TAB PO SCH (06:13)
[2019-02-10] MEDS: Furosemide 40 MG/4 ML VIAL SLOW IVP SCH (06:24)
--- NOTE | 2019-02-10 09:07 | PDOC.HOSPP ---
- Subjective Subjective: Patient reports that she is doing well and breathing without difficulty. She is resting comfortably in the bed. - Objective Vital Signs & Weight: Vital Signs (12 hours) Temp Pulse Resp BP BP Pulse Ox 02/10/19 07:59 94 L 02/10/19 07:56 98.2 F 107 H 18 132/67 94 L 02/10/19 04:16 97.7 F 106 H 16 122/59 L 93 L Weight Weight 339 lb 8.19 oz I&O: 02/09/19 02/10/19 02/11/19 06:59 06:59 06:59 Intake Total 1430 1989 Output Total 3050 1800 Balance -1620 190 Result Diagrams: 02/09/19 03:41 02/09/19 03:41 Additional Labs: Accuchecks 02/09/19 02/09/19 02/09/19 20:41 16:59 10:58 POC Glucose 209 H 138 H 168 H Hospitalist ROS - Medication Medications: Active Medications Generic Name Dose Route Start Last Admin Trade Name Freq PRN Reason Stop Dose Admin Albuterol Sulfate 90 mg 02/08/19 10:09 02/09/19 03:56 Ventolin NEB 90 mg DAILY PRN Administration Dyspnea/Wheezing/SOB Atorvastatin Calcium 40 mg 02/08/19 09:00 02/09/19 08:30 Lipitor PO 40 mg DAILY JONATHAN Administration Enoxaparin Sodium 40 mg 02/08/19 09:00 02/09/19 08:31 Lovenox SC 40 mg 0900 JONATHAN Administration Ferrous Sulfate 325 mg 02/09/19 08:00 02/09/19 08:30 Feosol PO 325 mg QAM-WM JONATHAN Administration Furosemide 40 mg 02/08/19 14:00 02/10/19 06:24 Lasix SLOW IVP 40 mg 0600,1400 JONATHAN Administration Gabapentin 300 mg 02/07/19 21:00 02/09/19 20:55 Neurontin PO 300 mg TID JONATHAN Administration Glyburide 5 mg 02/08/19 08:00 02/09/19 16:34 Diabeta PO 5 mg BID-WM JONATHAN Administration Hydralazine HCl 10 mg 02/07/19 20:17 02/09/19 12:09 Apresoline SLOW IVP 10 mg Q4H PRN Administration Blood Pressure Hydralazine HCl 25 mg 02/07/19 21:00 02/09/19 20:55 Apresoline PO 25 mg TID JONATHAN Administration Insulin Glargine 75 units/ 0.75 mls @ 0 mls/hr 02/07/19 21:00 02/09/19 20:56 Miscellaneous Medication SC 0.75 mls BID JONATHAN Administration Insulin Human Lispro 0 units 02/07/19 20:18 02/09/19 11:21 Humalog SC 3 unit .AGGRESSIVE SLIDING PRN Administration Aggressive Correctional Scale Lisinopril 5 mg 02/09/19 09:00 02/09/19 09:12 Zestril PO 5 mg DAILY JONATHAN Administration Sodium Chloride 10 ml 02/07/19 20:13 02/10/19 06:24 Flush - Normal Saline IVF 10 ml PRN PRN Administration Saline Flush Spironolactone 25 mg 02/09/19 09:00 02/09/19 08:30 Aldactone PO 25 mg DAILY JONATHAN Administration Venlafaxine HCl 75 mg 02/09/19 09:00 02/09/19 08:30 Effexor PO 75 mg DAILY JONATHAN Administration - Exam General Appearance: NAD, awake alert Heart: RRR, no murmur, no gallops, no rubs Respiratory: CTAB, no wheezes, no rales, no ronchi, normal chest expansion, no tachypnea, normal percussion Gastrointestinal: soft, non-tender, non-distended Extremities: 1+ LE edema Hosp A/P (1) CKD (chronic kidney disease), stage III Code(s): N18.3 - CHRONIC KIDNEY DISEASE, STAGE 3 (MODERATE) Status: Acute (2) DM type 2 (diabetes mellitus, type 2) Status: Chronic Qualifiers: Diabetes mellitus termite treater helper insulin use: with skilled nursing use Diabetes mellitus complication status: with kidney complications Diabetes mellitus complication detail: with chronic kidney disease Chronic kidney disease stage : stage 3 (moderate) Qualified Code(s): E11.22 - Type 2 diabetes mellitus with diabetic chronic kidney disease; N18.3 - Chronic kidney disease, stage 3 ( moderate); Z79.4 - retirement (current) use of insulin (3) HTN (hypertension) Code(s): I10 - ESSENTIAL (PRIMARY) HYPERTENSION Status: Chronic Qualifiers: Hypertension type: essential hypertension Qualified Code(s): I10 - Essential (primary) hypertension (4) Morbid obesity with BMI of 50.0-59.9, adult Code(s): E66.01 - MORBID (SEVERE) OBESITY DUE TO EXCESS CALORIES; Z68.43 - BODY MASS INDEX (BMI) 50.0-59.9, ADULT Status: Chronic (5) GENOVEVA (obstructive sleep apnea) Code(s): G47.33 - OBSTRUCTIVE SLEEP APNEA (ADULT) (PEDIATRIC) Status: Chronic (6) Iron deficiency anemia Code(s): D50.9 - IRON DEFICIENCY ANEMIA, UNSPECIFIED Status: Acute (7) Hypomagnesemia Code(s): E83.42 - HYPOMAGNESEMIA Status: Acute - Plan Acute on chronic exacerbation of diastolic CHF grade I/III: Will discharge pt on Lasix 20 PO daily and oral potassium. On Lisinopril 5 mg and Coreg 6.25 mg. Recommend patient to follow up with cardiology outpatient. Acute hypoxic respiratory failure: Resolved. Will discharge patient with prn nebs. CKD Stage IIIB: Nephrology says renal function stable. Follow up outpatient. DM Type II: Continue home glyburide and insulin glargine, humalog. Accuchecks. Anemia: Start oral iron supplementation. Hypomag: Awating level this morning Plan to discharge patient today after Mg level returns. Follow up with PCP.
[2019-02-10] MEDS: hydrALAZINE 25 MG TAB PO SCH (09:47)
[2019-02-10] MEDS: Enoxaparin Sodium 40 MG/0.4 ML SYRINGE SC SCH (09:47)
[2019-02-10] MEDS: Atorvastatin Calcium 40 MG TAB PO SCH (09:48)
[2019-02-10] MEDS: Gabapentin 300 MG CAP PO SCH (09:48)
[2019-02-10] MEDS: glyBURIDE 5 MG TAB PO SCH (09:48)
[2019-02-10] MEDS: Lisinopril 5 MG TAB PO SCH (09:48)
[2019-02-10] MEDS: Ferrous Sulfate 325 MG TAB PO SCH (09:48)
[2019-02-10] MEDS: Spironolactone 25 MG TAB PO SCH (09:49)
[2019-02-10] MEDS: Insulin Glargine 75 UNITS in Pre-Filled Syringe 1 EACH SC SCH (09:49)
[2019-02-10] MEDS: HumaLOG 300 UNITS/3 ML VIAL SC PRN (10:39)
[2019-02-10 11:38] VITALS: BP 113/66; TEMP 97.9
--- NOTE | 2019-02-10 12:49 | PRG ---
DATE OF SERVICE: 02/10/2019 SUBJECTIVE: A 53-year-old female, being seen for acute kidney injury. The patient denies any nausea, vomiting, or chest pain. OBJECTIVE: See above. Awake, alert, in no acute distress. CONSTITUTIONAL: The patient is awake, alert. VITAL SIGNS: Afebrile, pulse 76, breathing 16, blood pressure 113/66. GENERAL APPEARANCE AND MENTAL STATUS: Fair. HEAD/NECK: Normocephalic. Atraumatic. EYES: EOMI. No deformity. EARS: Clear. No ulcers. NOSE: Intact. No lesions. MOUTH: Clear. No discharge. THROAT: Clear. No exudate. LUNGS: Clear. No crackles. CARDIAC: S1, S2. No rub. ABDOMEN: Benign. Bowel sounds positive. GENITALIA/RECTUM: Ureña absent. BACK/EXTREMITIES: Edema 0+. NEUROLOGICAL: Alert and motor intact. SKIN: LYMPHATICS: LABORATORY DATA: Labs reviewed. ASSESSMENT AND PLAN: 1. Stage 3 chronic kidney disease, stable. 2. Hypertension, stable. 3. Anemia, stable. 4. Medication based on GFR appropriate. Job ID: [id number]
--- NOTE | 2019-02-11 13:59 | DIS ---
DATE OF ADMISSION: 02/07/2019 DATE OF DISCHARGE: 02/10/2019 DISCHARGE DIAGNOSES: 1. Acute on chronic diastolic congestive heart failure. 2. Acute hypoxic respiratory failure. 3. Chronic kidney disease, stage IIIB. 4. Diabetes mellitus type 2. 5. Anemia. 6. Hypomagnesemia. 7. Morbid obesity. 8. Obstructive sleep apnea. 9. Iron deficiency anemia. HISTORY OF PRESENT ILLNESS: The patient is a 53-year-old female, who had recently been admitted to the hospital with decompensated heart failure, at which time, she had an echocardiogram, which revealed diastolic dysfunction. Ejection fraction could not fully be elucidated on echo. Therefore, she had a MUGA scan, which revealed an ejection fraction of 73%. The patient presented back to the hospital on this occasion with shortness of breath over approximately 1 week. She also had a 20-pound weight gain and it was unclear that she had been completely compliant with diet recommendations. Her chest x-ray showed mild pulmonary congestive changes. Creatinine was 1.5. EKG showed normal sinus rhythm with no ST-segment changes. HOSPITAL COURSE: The patient was admitted to the hospital with decompensated congestive heart failure. She had 2+ peripheral edema. She was subsequently diuresed and she was seen in consultation by Nephrology. Her GFR was at her baseline if not a little better. She responded well to diuresis, fluid restrictions, and appropriate diet and once her symptoms had improved, edema improved, she was able to wean off the oxygen and had good oxygen saturations on room air. She was noted to have hypomagnesemia with some difficulty in getting her supplementation ordered appropriately. At the time of discharge, it was at 1.5 , and she would be prescribed oral supplementation. She did have iron studies with an iron level of 28, TIBC 318, and percent saturation 9% with ferritin levels of 107 on the day of discharge. Please see the dictated progress note for physical exam findings. DISPOSITION: The patient is discharged to home. ACTIVITY: As tolerated. She will be on a heart healthy, low-sodium diet. DISCHARGE MEDICATIONS: Will include; 1. Carvedilol 6.25 mg one p.o. b.i.d. 2. Ferrous sulfate 325 mg daily. 3. DuoNebs t.i.d. 4. Lisinopril 5 mg daily. 5. Magnesium 200 mg b.i.d. 6. Insulin Humalog 15 units subcu t.i.d. 7. Detemir insulin 75 units subcu b.i.d. 8. Potassium chloride 10 mEq p.o. daily. 9. Atorvastatin 40 mg daily. 10. Lasix 20 mg b.i.d. 11. Protonix 40 mg daily. 12. Vitamin D2 5000 units q.week. 13. Gabapentin 300 mg t.i.d. 14. Glyburide 5 mg b.i.d. 15. Venlafaxine 75 mg daily. 16. Aldactone 25 mg daily. 17. Albuterol ProAir 90 mcg inhalation q.6 hours p.r.n. 18. Amlodipine will be discontinued. 19. Metoprolol-XL will be discontinued and we will give Coreg. FOLLOWUP: She will have follow up with Dr. Carol Fry, Dr. Robert Self, and Dr. Luciano Otoole. She can return to the hospital should she need to do so at any time in the future. Time spent in discharge activities was 31 min. Job ID: [id number] MTDD
== END 2019-02-10 11:55 | disposition home or self-care (01) | DRG 291 ==
LOC: ERS 17:36 → ERHOLD 22:13 → 2NO 02-08 00:41
PROVIDERS: ADMIT Internal Medicine; ATTEND Internal Medicine
DX: I13.0 Hypertensive heart and chronic kidney disease with heart failure and stage 1 through stage 4 chronic kidney disease, or unspecified chronic kidney disease (principal); I50.33 Acute on chronic diastolic (congestive) heart failure; J96.01 Acute respiratory failure with hypoxia; C85.90 Non-Hodgkin lymphoma, unspecified, unspecified site; Z68.43 Body mass index [BMI] 50.0-59.9, adult; N17.9 Acute kidney failure, unspecified; Z88.0 Allergy status to penicillin; E11.22 Type 2 diabetes mellitus with diabetic chronic kidney disease; N18.3 Chronic kidney disease, stage 3 (moderate); R80.9 Proteinuria, unspecified; Z79.4 Long term (current) use of insulin; E66.01 Morbid (severe) obesity due to excess calories; G47.33 Obstructive sleep apnea (adult) (pediatric); D50.9 Iron deficiency anemia, unspecified; E83.42 Hypomagnesemia; R40.2362 Coma scale, best motor response, obeys commands, at arrival to emergency department; R40.2142 Coma scale, eyes open, spontaneous, at arrival to emergency department; R40.2252 Coma scale, best verbal response, oriented, at arrival to emergency department; J44.9 Chronic obstructive pulmonary disease, unspecified
CPT/HCPCS: 36415; 36416; 80048; 81001; 82274; 82728; 83540; 83550; 83735; 85025; 93005; 93798; 94640; J0360; J1650; J1815; J1940; J3475; J3490; J7611

== ENCOUNTER 2020-01-14 14:14 | Inpatient (IN) | payer MEDICARE ==
[2020-01-14] MEDS ORDERED: Rocuronium Bromide 10 MG/ML (10ML VIAL) ONE (14:17)
[2020-01-14] MEDS ORDERED: Ketamine 50 MG/ML (10ML VIAL) ONE (14:17)
[2020-01-14] MEDS ORDERED: Nitroglycerin 2% Ointment 1 INCH/1 GM Packet ONE ×3 (14:34→17:22)
[2020-01-14] MEDS ORDERED: Furosemide 40 MG/4 ML VIAL ONE (14:34)
[2020-01-14] MEDS ORDERED: Propofol 1,000 MG/100 ML VIAL IV ONE ×2 (14:39→17:52)
[2020-01-14] MEDS ORDERED: cefTRIAXone\\ROCEPHIN 2 GM VIAL ONE (14:59)
--- NOTE | 2020-01-14 15:04 | RAD ---
EXAM: Chest one view: HISTORY: Congestive heart failure exacerbation, altered mental status COMPARISON: 10/03/2019 FINDINGS: Endotracheal tube and NG tube in place. Heart size: Within normal limits. Lungs: Evidence for bilateral perihilar alveolar edema. Slight blunting of the costophrenic angles. No evidence for confluent lobar pneumonia, significant pleural effusion, acute edema, or pneumothorax , or other significant acute process. IMPRESSION: Evidence for bilateral perihilar edema and possible small pleural effusions Continued short-term follow-up.
[2020-01-14] MEDS ORDERED: Azithromycin 500 MG in Sodium Chloride 0.9% 250 ML 250 ML IVPB SCH (15:15)
[2020-01-14 15:28] LABS: Bacteria/HPF 3+ HPF (None Seen); Bilirubin Negative (Negative); Blood, Urine 2+ (Negative); Clarity Turbid (Clear); Glucose, Urine (Dipstick) 30 mg/dL (Negative); Ketone, Urine Negative (Negative); Leukocyte Negative Leu/uL (Negative); Nitrite Negative (Negative); Protein, Urine (Dipstick) 600 mg/dL (Neg-Trace); Specific Gravity, Urine 1.015 (1.002-1.036); Squamous Epithelial 0-3 HPF (0-3); Urobilinogen Normal mg/dL (Less than 2)
[2020-01-14 15:43] LABS: ALT (SGPT) 14 U/L (8-55); AST (SGOT) 14 U/L (5-34); Albumin 3.5 g/dL (3.5-5.0); Alkaline Phosphatase 170 U/L (40-110); Anion Gap 15 mmol/L (10-20); BUN (Urea Nitrogen) 21 mg/dL (9.8-20.1); Bilirubin, Total 0.5 mg/dL (0.2-1.2); Calc. Creatinine Clearance 0 mL/min (70-130); Calcium 8.6 mg/dL (7.8-10.44); Carbon Dioxide 27 mmol/L (22-29); Chloride 103 mmol/L (98-107); Globulin 2.9 g/dL (2.4-3.5); Glucose 222 mg/dL (70-105); Potassium 4.3 mmol/L (3.5-5.1); Protein, Total 6.4 g/dL (6.0-8.3); Sodium 141 mmol/L (136-145)
[2020-01-14 15:48] LABS: #Eosinphils 0.1 thou/uL (0.0-0.7); #Lymphocytes 0.5 thou/uL (1.20-3.40); #Monocytes 0.5 thou/uL (0.11-0.59); #Neutrophils 12.3 thou/uL (1.40-6.50); %Basophils 0.2 % (0.0-1.0); %Eosinophils 0.4 % (0.0-10.0); %Lymphocytes 4.1 % (21.0-51.0); %Neutrophils 91.3 % (42.0-75.0); Hemoglobin 8.1 g/dL (12.0-16.0); Mean Corpuscular HGB CONC 29.6 g/dL (32.0-36.0); Mean Corpuscular Hemoglobin 23.7 pg (27.0-31.0); Mean Corpuscular Volume 79.8 fL (78.0-98.0); Mean Platelet Volume 9.7 fL (7.4-10.4); Platelet Count 346 thou/uL (130-400); RBC Distribution Width 17.3 % (11.5-14.5); Red Blood Cell (RBC) Count 3.43 mill/uL (4.20-5.40); White Blood Cell (WBC) Count 13.4 thou/uL (4.8-10.8)
--- NOTE | 2020-01-14 16:02 | RAD ---
EXAM: Chest one view: HISTORY: Intubation and central line placement COMPARISON: 01/14/2020 FINDINGS: Right central line placed with the tip extending into the distal superior vena cava. Distal NG tube i s poorly seen on this study. Endotracheal tube remains in satisfactory location. Heart size: Within normal limits. Lungs: Stable extensive bilateral perihilar mostly alveolar parenchymal changes. IMPRESSION: Lines in place. No new process.
[2020-01-14 17:01] LABS: Actual Bicarbonate (HCO3a) 27.3 mEq/L (22-28); Analyzer IN Cardio ER; Base Excess (BEa) 1.9 mEq/L (-2.0 to +3.0); CO2 Tension 47.4 mmHg (35.0-45.0); Calcium, Ionized (arterial) 1.11 mmol/L (1.12-1.30); Carboxyhemoglobin (COHb) 0.5 gm% (0.0-3.0); Hemoglobin (Hb) 8.6 g/dL (12.0-16.0); O2 Tension (PaO2), arterial 101.2 mmHg (80.0-100.0); Potassium - ABG Lab 4.27 mmol/L (3.70-5.30); pH, Arterial 7.38 (7.35-7.45)
[2020-01-14 17:05] LABS: Puncture Site LRA
[2020-01-14 17:07] LABS: SARS-CoV-2 NAA Rapid Test Not Detected (NotDetected)
[2020-01-14] MEDS ORDERED: Acetaminophen 650 MG Suppository PR PRN (17:39)
[2020-01-14] MEDS ORDERED: Bisacodyl 10 MG SUPP PR PRN (17:39)
[2020-01-14] MEDS ORDERED: Acetaminophen 650 MG/20.3 ML UDCUP PO PRN (17:39)
[2020-01-14] MEDS ORDERED: Insulin Regular 300 UNITS/3 ML VIAL SC PRN ×2 (17:45)
[2020-01-14] MEDS ORDERED: Dextrose 5% in Water 1,000 ML IV PRN (17:45)
[2020-01-14] MEDS ORDERED: Ventilator Sedation Protocol 1 EACH FS SCH (17:45)
[2020-01-14] MEDS ORDERED: Dextrose 50% Abboject 50 ML SYRINGE SLOW IVP PRN (17:45)
[2020-01-14] MEDS ORDERED: methylPREDNISolone Sod Succ 40 MG VIAL IVP SCH (18:00)
[2020-01-14 18:27] LABS: Troponin I 0.042 ng/mL (< 0.028)
[2020-01-14] MEDS ORDERED: Propofol BOLUS 1,000 MG/100 ML VIAL IV PRN (19:00)
[2020-01-14] MEDS ORDERED: Fentanyl BOLUS 250 ML IVPB PRN (19:00)
[2020-01-14] MEDS ORDERED: Morphine 2 MG/ML VIAL SLOW IVP PRN (19:00)
[2020-01-14] MEDS ORDERED: DISCONTINUE PREVIOUS NARCOTIC PAIN MEDICATIONS AND BENZODIAZEPINES FS SCH (19:00)
[2020-01-14] MEDS: Lorazepam 2 MG/ML VIAL SLOW IVP PRN ×2 (19:26→23:08)
[2020-01-14] MEDS: methylPREDNISolone Sod Succ 40 MG VIAL IVP SCH (19:26)
[2020-01-14] MEDS: Propofol 1,000 MG/100 ML VIAL IV PRN ×4 (19:27→23:08)
[2020-01-14] MEDS: Sodium Chloride 0.9% 1,000 ML IV SCH (19:42)
--- NOTE | 2020-01-14 19:58 | PDOC.HHP ---
Hospitalist HPI - History of Present Illness Shortness of breath History of Present Illness: Patient is 54-year-old female with chronic diastolic heart failure, asthma, obstructive sleep apnea and hypertension was brought in by EMS with above complaints. At this time patient is intubated and sedated. Per ER record EMS was called due to worsening shortness of breath. Initially patient was hypotensive with blood pressure of 240/130. Nitroglycerin patch was placed after which blood pressure dropped to 95/71. Nitroglycerin patch was subsequently removed. Her O2 saturation initially was 89% on room air. She was placed on CPAP. Her mental status gradually worsened requiring intubation. A central line was also placed at the same time. Per daughter, Patient has been SOB with wheezing for last 3-4 days and has been progressively getting worse. No CP/syncope reported to family by patient. PAST MEDICAL HISTORY: Bronchial asthma, chronic diastolic heart failure, obstructive sleep apneacurrently not on CPAP, ?Obesity hypoventilation, hypertension, diabetes mellitus type 2, morbid obesity, chronic anemia, history of non-Hodgkin's lymphoma completed chemotherapy, chronic hypoxic respiratory failure on home oxygen PAST SURGICAL HISTORY: Cholecystectomy, tubal ligation, Port-A-Cath, lymph node removal SOCIAL HISTORY: Currently lives at home close to her family. Patient is disabled. She ambulates with the help of a walker. No tobacco, alcohol or drug use FAMILY HISTORY: Diabetes and hypertension runs in her family. Breast cancer in her mother. Father in his 60s from massive ME. ED Course: MEDICATION ADMINISTRATION SUMMARY Sat Jan 14, 2020 19:57 Drug Name Dose Ordered Route Status Time *ketamine injection 150 mg IV Push Canceled 14:21 01/14/2020 *azithromycin intravenous 500 mg IV Piggy Back Given 15:51 01/14/2020 *Rocephin injection 2 g IV Piggy Back Given 15:35 01/14/2020 *Diprivan titrate mcg/kg/min IV Fluid Infusion Given 15:02 01/14/2020 *sodium chloride 0.9 % intravenous 1 L IV Fluid Infusion Given 14:47 01/14/2020 *furosemide injection 80 mg IV Push Given 14:45 01/14/2020 *Nitro-Bid transdermal 1 inch Topical Given 14:44 01/14/2020 *vecuronium bromide 150 mg IV Push Given 14:28 01/14/2020 *Amidate 30 mg IV Push Given 14:27 01/14/2020 Hospitalist ROS - Review of Systems ROS unobtainable: due to endotracheal tube - Medication Medications: Allergies Penicillins Allergy (Verified 05/15/19 04:57) Hives Medication Instructions Recorded Confirmed Type Atorvastatin Calcium [Lipitor] 40 mg PO DAILY 01/21/19 10/03/19 History Ergocalciferol (Vitamin D2) 5,000 unit PO Q7DAYS 01/21/19 10/03/19 History [Vitamin D2] Furosemide 20 mg PO BID 01/21/19 10/03/19 History Gabapentin 300 mg PO TID 01/21/19 10/03/19 History Insulin Detemir [Levemir Flextouch] 75 units SC BID 01/21/19 10/03/19 History Insulin Lispro [Humalog Kwikpen 15 unit SQ TID-WM 01/21/19 10/03/19 History U-100] Pantoprazole Sodium 40 mg PO DAILY 01/21/19 10/03/19 History Potassium Chloride 10 meq PO DAILY 01/21/19 10/03/19 History Albuterol Sulfate [Proair 90 mcg IH DAILY PRN 02/08/19 10/03/19 History Respiclick] Venlafaxine HCl [Effexor] 75 mg PO DAILY 02/08/19 10/03/19 History Ferrous Sulfate [Feosol] 325 mg PO QA-WM #30 tab 02/10/19 10/03/19 Rx Ipratropium/Albuterol Sulfate 3 ml NEB QID PRN #30 neb 02/10/19 10/03/19 Rx [DuoNeb] Lisinopril 20 mg PO DAILY 10/03/19 10/03/19 History Metoprolol Succinate 100 mg PO BID 10/03/19 10/03/19 History metFORMIN HCl [Metformin HCl] 1,000 mg PO DAILY 10/03/19 10/03/19 History NIFEdipine [Procardia XL] 60 mg PO DAILY #30 tab 10/06/19 Rx - Exam General Appearance: ill appearing Eye: PERRL, anicteric sclera ENT: normocephalic atraumatic, no oropharyngeal lesions Neck: supple, symmetric Neck - other findings: JVD cannot be appreciated due to body habitus Heart: RRR, no gallops, no rubs, normal peripheral pulses Respiratory: no wheezes, rales, rhonchi, tachypneic Respiratory - other findings: Intubated Gastrointestinal: soft, normal bowel sounds, no guarding, no rigidity Gastrointestinal - other findings: Obese Extremities: no cyanosis, 2+ LE edema Skin: normal turgor Neurological - other findings: Neuro/psych exam limited due to current mentation Hospitalist Results - Labs Result Diagrams: 01/14/20 15:06 01/14/20 15:06 Lab results: WBC 13.4 thou/uL (4.8-10.8) H 01/14/20 15:06 Hgb 8.1 g/dL (12.0-16.0) L 01/14/20 15:06 Hct 27.4 % (36.0-47.0) L 01/14/20 15:06 MCV 79.8 fL (78.0-98.0) 01/14/20 15:06 Plt Count 346 thou/uL (130-400) 01/14/20 15:06 Neutrophils % 91.3 % (42.0-75.0) H 01/14/20 15:06 ABG pH 7.38 (7.35-7.45) 01/14/20 14:56 ABG pCO2 47.4 mmHg (35.0-45.0) H 01/14/20 14:56 ABG pO2 101.2 mmHg (80.0-100.0) H 01/14/20 14:56 Sodium 141 mmol/L (136-145) 01/14/20 15:06 Potassium 4.3 mmol/L (3.5-5.1) 01/14/20 15:06 Chloride 103 mmol/L (98-107) 01/14/20 15:06 Carbon Dioxide 27 mmol/L (22-29) 01/14/20 15:06 BUN 21 mg/dL (9.8-20.1) H 01/14/20 15:06 Creatinine 1.44 mg/dL (0.6-1.1) H 01/14/20 15:06 Glucose 222 mg/dL (70-105) H 01/14/20 15:06 Calcium 8.6 mg/dL (7.8-10.44) 01/14/20 15:06 Total Bilirubin 0.5 mg/dL (0.2-1.2) 01/14/20 15:06 AST 14 U/L (5-34) 01/14/20 15:06 ALT 14 U/L (8-55) 01/14/20 15:06 Alkaline Phosphatase 170 U/L (40-110) H 01/14/20 15:06 Troponin I 0.042 ng/mL (< 0.028) H 01/14/20 17:50 B-Natriuretic Peptide 348.2 pg/mL (0-100) H 01/14/20 15:06 Serum Total Protein 6.4 g/dL (6.0-8.3) 01/14/20 15:06 Albumin 3.5 g/dL (3.5-5.0) 01/14/20 15:06 Urine Ketones Negative mg/dL (Negative) 01/14/20 14:54 Urine Blood 2+ (Negative) A 01/14/20 14:54 Urine Nitrite Negative (Negative) 01/14/20 14:54 Ur Leukocyte Esterase Negative Kei/uL (Negative) 01/14/20 14:54 Urine RBC 4-6 HPF (0-3) A 01/14/20 14:54 Urine WBC 4-6 HPF (0-3) A 01/14/20 14:54 Ur Squamous Epith Cells 0-3 HPF (0-3) 01/14/20 14:54 Urine Bacteria 3+ HPF (None Seen) A 01/14/20 14:54 ABG pH 7.38 (7.35-7.45) 01/14/20 14:56 ABG pCO2 47.4 mmHg (35.0-45.0) H 01/14/20 14:56 ABG Base Excess 1.9 mEq/L (-2.0 to +3.0) 01/14/20 14:56 - EKG Interpretation EKG: Sinus rhythmreviewed by me - Radiology Interpretation Chest x-ray Status: image reviewed by me Additional Comment: Evidence for bilateral perihilar edema and possible small pleural effusions Hospitalist H&P A/P - Plan Plan: Acute hypoxic and hypercapnic respiratory failure Acute on chronic diastolic heart failure exacerbation Acute asthma exacerbation Hypertension with hypertensive urgency on admission Diabetes mellitus type 2 Obstructive sleep apnea Morbid obesity with a BMI 51.2 Chronic anemia with hemoglobin 8.1 CKD stage III Suspected UTI Hyperlipidemia Anxiety Plan: Patient will be monitored in the intensive care unit. We will continue mechanical ventilation. Consult pulmonary critical care. IV diuretics. Ventilation sedation protocol. Empiric antibiotics. Nitroglycerin patch as needed restart home medications once verified. Insulin sliding scale. Urine cultures have been sent. Recheck ABGs and chest x-ray in a.m. Verify home medications. Full code for now. Will verify the CODE STATUS with the family. Daughter is the DPOA based on previous records. DVT and GI prophylaxis.
[2020-01-14] MEDS: fentaNYL Citrate/PF 2,000 MCG in Sodium Chloride 0.9% 60 ML IV SCH (20:14)
[2020-01-14] MEDS ORDERED: Senokot S 8.6-50 MG TAB PO PRN (20:17)
[2020-01-14] MEDS: Enoxaparin Sodium 40 MG/0.4 ML SYRINGE SC SCH (20:24)
[2020-01-14] MEDS: Lisinopril 20 MG TAB PO SCH (20:39)
[2020-01-14] MEDS: hydrALAZINE 20 MG/ML VIAL SLOW IVP PRN (20:50)
[2020-01-14] MEDS: Furosemide 40 MG/4 ML VIAL SLOW IVP SCH (20:58)
[2020-01-14] MEDS ORDERED: Famotidine 20 MG TAB PO SCH (21:00)
[2020-01-14] MEDS ORDERED: Famotidine/PF 20 mg/2ml Vial SLOW IVP SCH (21:00)
[2020-01-14] MEDS: Labetalol HCl 100 MG/20 ML VIAL SLOW IVP PRN (21:45)
[2020-01-14] MEDS ORDERED: Nitroglycerin 2% Ointment 1 INCH/1 GM Packet TOP SCH ×2 (22:00→23:00)
[2020-01-14 22:40] LABS: Troponin I 0.037 ng/mL (< 0.028)
[2020-01-15] MEDS: Propofol 1,000 MG/100 ML VIAL IV PRN ×11 (00:54→22:58)
[2020-01-15] MEDS: hydrALAZINE 20 MG/ML VIAL SLOW IVP PRN ×2 (02:14→07:30)
[2020-01-15] MEDS: methylPREDNISolone Sod Succ 40 MG VIAL IVP SCH ×4 (02:15→20:30)
[2020-01-15] MEDS: Labetalol HCl 100 MG/20 ML VIAL SLOW IVP PRN (04:42)
[2020-01-15 04:54] LABS: Reticulocyte Count 1.5 % (0.5-1.5)
[2020-01-15 04:59] LABS: INR-International Normal Ratio 1.2; PTT 37.3 sec (22.9-36.1); Prothrombin Time 15.1 sec (12.0-14.7)
[2020-01-15 05:16] LABS: Anion Gap 18 mmol/L (10-20); BUN (Urea Nitrogen) 26 mg/dL (9.8-20.1); Calc. Creatinine Clearance 103 mL/min (70-130); Calcium 8.6 mg/dL (7.8-10.44); Carbon Dioxide 26 mmol/L (22-29); Chloride 100 mmol/L (98-107); Glucose 252 mg/dL (70-105); Iron 11 ug/dL (50-170); Iron Binding Capacity, Total 240 mcg/dL (265-497); Magnesium 1.1 mg/dL (1.6-2.6); Potassium 3.4 mmol/L (3.5-5.1); Sodium 141 mmol/L (136-145)
[2020-01-15 05:19] LABS: Troponin I 0.037 ng/mL (< 0.028)
[2020-01-15] MEDS: Furosemide 40 MG/4 ML VIAL SLOW IVP SCH (05:53)
[2020-01-15] MEDS: Nitroglycerin 2% Ointment 1 INCH/1 GM Packet TOP SCH ×2 (05:53→14:38)
[2020-01-15] MEDS ORDERED: Furosemide 40 MG/4 ML VIAL SLOW IVP SCH ×2 (06:00→22:00)
[2020-01-15] MEDS: Insulin Regular 300 UNITS/3 ML VIAL SC PRN ×4 (06:04→17:49)
[2020-01-15 07:28] LABS: Actual Bicarbonate (HCO3a) 25.6 mEq/L (22-28); Base Excess (BEa) 3.5 mEq/L (-2.0 to +3.0); CO2 Tension 28.8 mmHg (35.0-45.0); Calcium, Ionized (arterial) 1.05 mmol/L (1.12-1.30); Carboxyhemoglobin (COHb) 0.3 gm% (0.0-3.0); Hemoglobin (Hb) 7.9 g/dL (12.0-16.0)
[2020-01-15 07:30] LABS: O2 Tension (PaO2), arterial 59.9 mmHg (80.0-100.0); Puncture Site RRA; pH, Arterial 7.57 (7.35-7.45)
--- NOTE | 2020-01-15 08:41 | RAD ---
Chest one view HISTORY: Respiratory failure. Follow-up. COMPARISON: 01/14/2020. FINDINGS: Cardiac silhouette is magnified and upper limits of normal in size. Margins partially obscu red by ill-defined patchy infiltrates throughout each lung, including the lung bases. Upper lobe infiltrates have progressed slightly. Mediastinum is midline. Lines and tubes unchanged in position. Pulmonary vasculature markedly engorged. No evidence of pneumothorax. IMPRESSION : Interval worsening of upper lobe infiltrates. Bibasilar infiltrates, pulmonary vascular congestion, a nd other findings are otherwise stable.
[2020-01-15] MEDS: Aspirin Chewable 81 MG TAB PO SCH (08:54)
[2020-01-15] MEDS ORDERED: FLU VACC QS2020-21(6MOS UP)/PF 60 MCG/0.5 ML SYRINGE IM ONE (09:00)
--- NOTE | 2020-01-15 10:57 | CON ---
DATE OF CONSULTATION: 01/14/2020 HISTORY OF PRESENT ILLNESS: Corine Mcdonald is a morbidly obese female, 162 pounds, recently discharged from the hospital with COPD exacerbation, asthma, CHF, comes into the hospital with a pulse of 89, shortness of breath, worsening mentation, on CPAP. She was intubated after she got worse. Now in the ICU. PAST MEDICAL HISTORY: Additional past medical history is well outlined. 1. Obesity hypoventilation syndrome. 2. Anemia. 3. Hypertension. 4. Non-Hodgkin lymphoma. 5. COPD. 6. Diabetes. 7. Obesity. 8. Probably diastolic dysfunction. PREVIOUS SURGERIES: In 2013, lymph node from the groin, lymphoma, unclear whom she is seeing, previous gallbladder surgery, tubal ligation. SOCIAL HISTORY: No alcohol or tobacco abuse. ALLERGIES: PENICILLIN. CHRONIC MEDICATIONS: 1. Metformin. 2. Effexor. 3. Potassium. 4. Procardia 60. 5. Metoprolol 100. 6. . 7. Neb treatment. 8. Insulin. 9. Gabapentin. 10. Lasix. ALLERGIES: PENICILLIN. REVIEW OF SYSTEMS: Unremarkable. PHYSICAL EXAMINATION: VITAL SIGNS: Pulse 72, blood pressure 160/100, sats 97%, respirations 20. CHEST: Decreased breath sounds. No wheezing. No crackles. CARDIAC: Normal S1, S2. No gallops. ABDOMEN: No masses. DIAGNOSTIC DATA: X-ray shows questionable infiltrate, cardiomegaly. PO2 of 101, pCO2 or 47, pH 7.38, rate of 28, 80%, PEEP of 5, pressure support 10. White count 13,000, H and H of 8 and 27, platelet count is normal. Lytes are normal. Creatinine 1.4. Urine infection. Coronavirus serology done, negative. ASSESSMENT: Morbid obesity, respiratory failure, diastolic dysfunction, chronic asthma, probable sleep apnea, azotemia. Steroids, neb treatment, broad-spectrum antibiotics. DVT prophylaxis and proton pump inhibitors. We will wean as tolerated. over the next 24 to 48 hours when she stabilizes. We will notify Dr. Calderón. TIME SPENT: 45 minutes of critical care time. Job ID: [id number]
[2020-01-15 11:14] LABS: #Lymphocytes 0.5 thou/uL (1.20-3.40); #Monocytes 0.3 thou/uL (0.11-0.59); #Neutrophils 10.4 thou/uL (1.40-6.50); %Basophils 0.4 % (0.0-1.0); %Eosinophils 0.1 % (0.0-10.0); %Lymphocytes 4.2 % (21.0-51.0); %Monocytes 2.2 % (0.0-10.0); %Neutrophils 93.1 % (42.0-75.0); Mean Corpuscular HGB CONC 30.8 g/dL (32.0-36.0); Mean Corpuscular Hemoglobin 23.7 pg (27.0-31.0); Mean Corpuscular Volume 76.9 fL (78.0-98.0); Mean Platelet Volume 10.2 fL (7.4-10.4); Platelet Count 341 thou/uL (130-400); RBC Distribution Width 18.2 % (11.5-14.5); Red Blood Cell (RBC) Count 2.96 mill/uL (4.20-5.40); White Blood Cell (WBC) Count 11.2 thou/uL (4.8-10.8)
--- NOTE | 2020-01-15 13:11 | PRG ---
DATE OF SERVICE: 01/15/2020 Morbidly obese female, remains intubated in the vent, sedated. OBJECTIVE: VITAL SIGNS: Temperature is 98, pulse 81, blood pressure is 140/80, sats %, respiratory rate 18. CHEST: No wheezing, no crackles. CARDIAC: Normal S1, S2. ABDOMEN: No masses. LABORATORY STUDIES: pO2 is 59, pCO2 of 28, pH 7.57, rate of 20, 40%, PEEP of 5. Creatinine is 1.6, it has gone up. Sodium 141, potassium 3.4 ASSESSMENT: Respiratory failure, morbid obesity, diastolic dysfunction, mildly elevated BNP. PLAN: She is getting too much diuretics. She has mainly diastolic dysfunction. Restart home medication including Cardizem. Continue steroids, neb treatment, antibiotics. We will notify Dr. Calderón in the morning. One-half hour of critical time. Job ID: [id number]
[2020-01-15] MEDS ORDERED: Insulin Glargine 25 UNITS in Pre-Filled Syringe 1 EACH SC SCH (13:15)
[2020-01-15] MEDS: cefTRIAXone\\ROCEPHIN 1 GM in Sodium Chloride 0.9% 100 ML IVPB SCH (14:34)
[2020-01-15] MEDS: Albumin 25% 25 GM/100 ML BOT IVPB SCH ×2 (14:38→22:55)
--- NOTE | 2020-01-15 14:59 | CON ---
DATE OF CONSULTATION: 01/15/2020 REASON FOR CONSULTATION: Respiratory failure, history of COPD, and diastolic heart failure. PRIMARY SHOWER ATTENDANT: Dr. Micah Carrillo. HISTORY OF PRESENT ILLNESS: Ms. Mcdonald is a 54-year-old woman with the above listed problems as well as morbid obesity. The patient came in with the difficulty breathing and progressive difficulty and required intubation. The patient's family member says that Ms. Mcdonald gets worse when the "weather changes." REVIEW OF SYSTEMS: Currently not available as she is intubated and on ventilator. PHYSICAL EXAMINATION: VITAL SIGNS: Her blood pressure 150/70, pulse 80 and it is sinus. LUNGS: Clear anteriorly, laterally. CARDIAC: Normal S1, normal S2. ABDOMEN: Obese, nontender. EXTREMITIES: Warm, dry. No clubbing or cyanosis. There is mild edema. PERTINENT LABORATORY DATA: Her creatinine went from 1.44 to 1.60, which is really near her baseline. Potassium 3.4. Troponin 0.037. BNP is 348. Chest x-ray reveals mildly enlarged pulmonary vasculature, probably some congestive heart failure. Her BNP was 348. ASSESSMENT: 1. Morbid obesity, BMI is over 50. 2. History of diastolic congestive heart failure. 3. History of hypertension. 4. Renal insufficiency. PLAN: 1. We will reduce metoprolol dose. Patients with diastolic heart failure frequently do better with somewhat more rapid heart rate. 2. Give an extra dose of Lasix tonight. We will follow with you. Job ID: [id number]
--- NOTE | 2020-01-15 16:27 | PDOC.HOSPP ---
- Subjective Encounter Date: 01/15/20 Encounter Time: 12:30 Subjective: Patient seen and examined for respiratory failure. Remains on mechanical ventilation. Tube feeding started. Poor urine output per RN. No other overnight events. - Objective Vital Signs & Weight: Vital Signs (12 hours) Temp Pulse Resp BP Pulse Ox 01/15/20 16:00 10 L 01/15/20 15:07 77 148/69 H 01/15/20 15:00 97.6 F 01/15/20 14:00 10 L 01/15/20 13:20 70 01/15/20 12:00 10 L 01/15/20 11:00 98.4 F 01/15/20 10:40 81 140/65 01/15/20 10:00 12 01/15/20 08:00 12 95 01/15/20 07:30 81 177/84 H 01/15/20 07:17 81 177/84 H 01/15/20 07:00 98.2 F 01/15/20 06:00 20 Weight Weight 355 lb 6.162 oz Most Recent Monitor Data Heart Rate from ECG 74 NIBP 135/65 NIBP BP-Mean 88 Respiration from ECG 10 SpO2 95 I&O: 01/14/20 01/15/20 01/16/20 06:59 06:59 06:59 Intake Total 2098 195 Output Total 1620 552 Balance 478 -357 Result Diagrams: 01/15/20 11:02 01/15/20 04:05 Additional Labs: Accuchecks 01/15/20 01/15/20 01/15/20 12:38 09:39 00:10 POC Glucose 227 H 262 H 192 H 01/14/20 21:55 POC Glucose 146 H Abnormal Lab Results - Last 48 hrs 01/14/20 14:54: Urine Clarity Turbid A, Urine Protein 600 A, Urine Blood 2+ A, Urine RBC 4-6 A, Urine WBC 4-6 A, Urine Bacteria 3+ A 01/14/20 14:56: ABG pCO2 47.4 H, ABG pO2 101.2 H, ABG O2 Content 11.8 L, ABG Hematocrit 25.0 L, ABG Hemoglobin 8.6 L, A-a O2 Gradient 409.950 H, Ionized Calcium 1.11 L 01/14/20 15:06: B-Natriuretic Peptide 348.2 H 01/14/20 15:06: WBC 13.4 H, RBC 3.43 L, Hgb 8.1 L, Hct 27.4 L, MCH 23.7 L, MCHC 29.6 L, RDW 17.3 H, Neutrophils % 91.3 H, Lymphocytes % 4.1 L, Neutrophils # 12.3 H, Lymphocytes # 0.5 L 01/14/20 15:06: BUN 21 H, Creatinine 1.44 H, Alkaline Phosphatase 170 H 01/14/20 17:50: Troponin I 0.042 H 01/14/20 22:06: Troponin I 0.037 H 01/15/20 04:05: Potassium 3.4 L, BUN 26 H, Creatinine 1.60 H, Magnesium 1.1 L, Iron 11 L, TIBC 240 L 01/15/20 04:05: Troponin I 0.037 H 01/15/20 04:05: PT 15.1 H, APTT 37.3 H 01/15/20 07:18: ABG pH 7.57 H*, ABG pCO2 28.8 L, ABG pO2 59.9 L*, ABG O2 Sat (Measured) 92.8 L, ABG O2 Content 10.3 L, ABG Base Excess 3.5 H, ABG Hematocrit 23.0 L, ABG Hemoglobin 7.9 L, ABG Oxyhemoglobin 92.2 L, ABG Deoxyhemoglobin 7.2 H, A-a O2 Gradient 189.300 H, Ionized Calcium 1.05 L, Potassium 3.20 L 01/15/20 11:02: WBC 11.2 H, RBC 2.96 L, Hgb 7.0 L, Hct 22.7 L, MCV 76.9 L, MCH 23.7 L, MCHC 30.8 L, RDW 18.2 H, Neutrophils % 93.1 H, Lymphocytes % 4.2 L, Neutrophils # 10.4 H, Lymphocytes # 0.5 L Microbiology - Entire Visit 01/14/20 14:54 Urine pillai catheter Urine Culture - Preliminary NO GROWTH AT 24 HOURS Radiology Reviewed by me: Yes (Chest x-raypulmonary vascular congestion) EKG Reviewed by me: Yes (Sinus rhythm on telemetry) Hospitalist ROS - Review of Systems ROS unobtainable: due to mental status - Medication Medications: Active Medications Generic Name Dose Route Start Last Admin Trade Name Freq PRN Reason Stop Dose Admin Albumin Human 25 gm 01/15/20 14:00 01/15/20 14:38 Albumin 25% 25 Gm/100 Ml Bot IVPB 01/16/20 14:01 25 gm Q8HR JONATHAN Administration Albuterol/Ipratropium 3 ml 01/14/20 19:00 01/15/20 13:20 Ipratropium/Albuterol Sulfate 3 Ml Neb NEB 3 ml [id number] JONATHAN Administration Aspirin 81 mg 01/15/20 09:00 01/15/20 08:54 Aspirin Chewable 81 Mg Tab PO 81 mg DAILY JONATHAN Administration Diltiazem HCl 30 mg 01/15/20 15:00 01/15/20 14:34 Diltiazem Hcl 30 Mg Tablet PO 30 mg TID JONATHAN Administration Enoxaparin Sodium 40 mg 01/14/20 21:00 01/14/20 20:24 Enoxaparin Sodium 40 Mg/0.4 Ml Syringe SC 40 mg 2100 JONATHAN Administration Hydralazine HCl 10 mg 01/14/20 20:06 01/15/20 07:30 Hydralazine 20 Mg/Ml Vial SLOW IVP 10 mg Q4H PRN Administration SBP Greater Than 180 Sodium Chloride 1,000 mls @ 30 mls/hr 01/14/20 19:15 01/14/20 19:42 Normal Saline 0.9% IV 1,000 mls .Q24H JONATHAN Administration Ceftriaxone Sodium 1 gm/ 100 mls @ 200 mls/hr 01/15/20 15:00 01/15/20 14:34 Sodium Chloride IVPB 100 mls 1500 JONATHAN Administration Fentanyl Citrate 2,000 mcg/ 100 mls @ 0 mls/hr 01/14/20 19:00 01/14/20 20:14 Sodium Chloride IV 02/13/20 19:00 100 mls INF JONATHAN Administration Protocol Per Protocol Insulin Human Regular 0 units 01/14/20 19:07 01/15/20 14:11 Insulin Regular 300 Units/3 Ml Vial SC 6 unit .AGGRESSIVE SLIDING PRN Administration Aggressive [employer]al Scale Labetalol HCl 10 mg 01/14/20 20:15 01/15/20 04:42 Labetalol Hcl 100 Mg/20 Ml Vial SLOW IVP 10 mg Q4H PRN Administration Systolic BP > 180 Lisinopril 20 mg 01/14/20 21:00 01/14/20 20:39 Lisinopril 20 Mg Tab PO 20 mg HS JONATHAN Administration Lorazepam 2 mg 01/14/20 19:00 01/14/20 23:08 Lorazepam 2 Mg/Ml Vial SLOW IVP 02/13/20 19:00 2 mg Q1H PRN Administration Breakthrough agitation Methylprednisolone Sodium Succinate 40 mg 01/14/20 21:00 01/15/20 14:37 Methylprednisolone Sod Succ 40 Mg Vial IVP 40 mg 0300,0900,1500,2100 JONATHAN Administration Nitroglycerin 1 inch 01/15/20 06:00 01/15/20 14:38 Nitroglycerin 2% Ointment 1 Inch/1 Gm Packet TOP 1 inch Q8HR JONATHAN Administration Pantoprazole Sodium 40 mg 01/15/20 09:00 01/15/20 08:54 Pantoprazole 40 Mg Tab PO 40 mg DAILY JONATHAN Administration Propofol 1,000 mg 01/14/20 19:00 01/15/20 14:29 Propofol 1,000 Mg/100 Ml Vial IV 02/13/20 19:00 1,000 mg INF PRN Administration TO ACHIEVE GOAL RASS Protocol - Exam General Appearance: ill appearing General - other findings: On mechanical ventilation Neck: supple Heart: RRR, no gallops, no rubs, normal peripheral pulses Respiratory: no wheezes, normal chest expansion, rales, rhonchi Respiratory - other findings: Intubated Gastrointestinal: soft, normal bowel sounds, no guarding, no rigidity Extremities: no cyanosis, no clubbing, 2+ LE edema Skin: normal turgor, no lesions Neurological - other findings: Neuro/psych exam limited due to current mentation Hosp A/P - Plan DVT proph w/SCDs Acute hypoxic and hypercapnic respiratory failure Acute on chronic diastolic heart failure exacerbation Acute asthma exacerbation Hypertension with hypertensive urgency on admission Diabetes mellitus type 2 Hypomagnesemia/hypokalemia Obstructive sleep apnea Morbid obesity with a BMI 51.2 Chronic anemia with hemoglobin 8.1 due to iron deficiency CKD stage III Suspected UTI Hyperlipidemia Anxiety Penicillin allergy Plan: Continue supportive care. Diuretics discontinued this morning. Await cardiology input. Continue nebulizer treatment. Add IV albumin. Reticulocyte 1.5. Replace magnesium. 1 dose of iron infusion. Continue tube feeding. Add Lantus at low-dose and gradually increase based on the blood sugars. Discontinue Nitropatch. Recheck labs in a.m. Continue empiric antibiotics. Continue ventilation sedation protocol. Continue current dose of Toprol-XL
[2020-01-15] MEDS ORDERED: Electrolyte Replacement Protocol 1 EACH IVPB PRN (16:31)
[2020-01-15] MEDS ORDERED: Electrolyte Replacement Protocol FS PRN (16:45)
[2020-01-15] MEDS: Azithromycin 500 MG in Sodium Chloride 0.9% 250 ML 250 ML IVPB SCH (16:57)
[2020-01-15] MEDS ORDERED: Iron, Sodium Ferric Gluconate 250 MG in Sodium Chloride 0.9% 100 ML IVPB SCH (17:00)
[2020-01-15] MEDS ORDERED: Magnesium Sulfate 4 GM in Sodium Chloride 0.9% 250 ML 250 ML IVPB SCH (17:00)
[2020-01-15] MEDS: Sodium Chloride 0.9% 1,000 ML IV SCH (20:28)
[2020-01-15] MEDS: Insulin Glargine 25 UNITS in Pre-Filled Syringe 1 EACH SC SCH (20:29)
[2020-01-15] MEDS: Enoxaparin Sodium 40 MG/0.4 ML SYRINGE SC SCH (20:30)
[2020-01-15] MEDS: Lisinopril 20 MG TAB PO SCH (20:31)
[2020-01-15] MEDS: fentaNYL Citrate/PF 2,000 MCG in Sodium Chloride 0.9% 60 ML IV SCH (23:35)
[2020-01-16] MEDS: Propofol 1,000 MG/100 ML VIAL IV PRN ×8 (00:37→23:20)
[2020-01-16] MEDS: Insulin Regular 300 UNITS/3 ML VIAL SC PRN ×3 (00:44→12:59)
[2020-01-16] MEDS: methylPREDNISolone Sod Succ 40 MG VIAL IVP SCH ×3 (02:51→20:13)
[2020-01-16] MEDS: Albumin 25% 25 GM/100 ML BOT IVPB SCH (05:34)
[2020-01-16 05:42] LABS: #Lymphocytes 0.6 thou/uL (1.20-3.40); #Monocytes 0.3 thou/uL (0.11-0.59); #Neutrophils 9.5 thou/uL (1.40-6.50); %Eosinophils 0.2 % (0.0-10.0); %Lymphocytes 5.3 % (21.0-51.0); %Monocytes 2.6 % (0.0-10.0); %Neutrophils 91.9 % (42.0-75.0); Hemoglobin 6.8 g/dL (12.0-16.0); Mean Corpuscular HGB CONC 30.2 g/dL (32.0-36.0); Mean Corpuscular Hemoglobin 23.6 pg (27.0-31.0); Mean Corpuscular Volume 78.2 fL (78.0-98.0); Mean Platelet Volume 10.1 fL (7.4-10.4); Platelet Count 318 thou/uL (130-400); RBC Distribution Width 17.8 % (11.5-14.5); Red Blood Cell (RBC) Count 2.87 mill/uL (4.20-5.40); White Blood Cell (WBC) Count 10.4 thou/uL (4.8-10.8)
[2020-01-16 06:05] LABS: Phosphorus 4.1 mg/dL (2.3-4.7)
[2020-01-16 06:06] LABS: Anion Gap 16 mmol/L (10-20); BUN (Urea Nitrogen) 33 mg/dL (9.8-20.1); Calc. Creatinine Clearance 72 mL/min (70-130); Calcium 8.6 mg/dL (7.8-10.44); Carbon Dioxide 30 mmol/L (22-29); Chloride 99 mmol/L (98-107); Glucose 258 mg/dL (70-105); Potassium 3.5 mmol/L (3.5-5.1); Sodium 141 mmol/L (136-145)
[2020-01-16] MEDS ORDERED: Magnesium 2 GM/50 ML 2 GM in Premix Bag 1 BAG IVPB SCH (06:30)
[2020-01-16] MEDS ORDERED: Potassium Chloride 20 MEQ TAB PO SCH (06:45)
[2020-01-16] MEDS ORDERED: Furosemide 40 MG/4 ML VIAL SLOW IVP SCH (07:45)
[2020-01-16] MEDS ORDERED: Metolazone 5 MG TAB PER TUBE SCH (07:45)
--- NOTE | 2020-01-16 07:54 | PRG ---
DATE OF SERVICE: 01/16/2020 A 35 minutes of critical care time. SUBJECTIVE: This patient is intubated on mechanical ventilation. She will wake up. OBJECTIVE: VITAL SIGNS: Temperature 98.4, pulse 81, blood pressure 173/81, and O2 saturation 100%. 24-hour intake 3034 and output 1424. It looks like she has been in positive fluid balance since admission and her weight is up about 6 pounds. HEENT: Remarkable for a 7.5 endotracheal tube in the mouth. NECK: No adenopathy or JVD. LUNGS: Diminished breath sounds bilaterally. CARDIOVASCULAR: S1 and S2. Regular. ABDOMEN: Obese, soft, and nontender. EXTREMITIES: No clubbing or cyanosis. Has trace edema throughout. LABORATORY DATA: White blood cell count 10.4, hematocrit 22.5, and platelet count 318. ABG pending. Sodium 141, potassium 3.5, chloride 99, CO2 of 30, BUN 33, creatinine 2.2, and glucose 258. ASSESSMENT: 1. Acute respiratory failure requiring mechanical ventilation. 2. Diastolic heart dysfunction. 3. Profound volume overload. 4. Renal insufficiency. PLAN: 1. I would actually like to see her diuresis some even though that will affect her renal function somewhat. Continue antihypertensive control. 2. Try to reduce sedation in hopes of extubating her soon. Job ID: [id number]
[2020-01-16] MEDS: Aspirin Chewable 81 MG TAB PO SCH (08:14)
[2020-01-16] MEDS: Folic Acid 1 MG TAB PER TUBE SCH (08:14)
[2020-01-16] MEDS: Multivit, Therapeutic 1 TAB PER TUBE SCH (08:15)
[2020-01-16 08:18] LABS: Actual Bicarbonate (HCO3a) 30.8 mEq/L (22-28); Calcium, Ionized (arterial) 1.12 mmol/L (1.12-1.30); Carboxyhemoglobin (COHb) 1.1 gm% (0.0-3.0); Hemoglobin (Hb) 8.3 g/dL (12.0-16.0); O2 Tension (PaO2), arterial 70.7 mmHg (80.0-100.0); Potassium - ABG Lab 3.77 mmol/L (3.70-5.30); pH, Arterial 7.32 (7.35-7.45)
--- NOTE | 2020-01-16 08:25 | RAD ---
PORTABLE CHEST: INDICATION: CCU followup on ventilator. COMPARISON: 01/15/2020. FINDINGS/IMPRESSION: ET tube, NG tube, and central line are unchanged. Bilateral effusions. Linear opacity in the right upper lung is stable possibly representing subsegmental atelectasis. Hazy perihilar infiltrates appe ar unchanged. POS: AGW
[2020-01-16 08:54] LABS: CO2 Tension 60.8 mmHg (35.0-45.0); Puncture Site LRA
[2020-01-16] MEDS ORDERED: Insulin Glargine 25 UNITS in Pre-Filled Syringe 1 EACH SC SCH (09:00)
[2020-01-16] MEDS: Cyanocobalamin (Vitamin B-12) 1,000 MCG TAB PER TUBE SCH (09:09)
[2020-01-16] MEDS: Insulin Glargine 25 UNITS in Pre-Filled Syringe 1 EACH SC SCH (11:39)
--- NOTE | 2020-01-16 11:52 | PDOC.HOSPP ---
- Subjective Encounter Date: 01/16/20 Encounter Time: 11:51 Subjective: intubated on vent.sedated - Objective Vital Signs & Weight: Vital Signs (12 hours) Temp Pulse Resp BP Pulse Ox 01/16/20 11:10 77 162/98 H 01/16/20 11:00 97.8 F 01/16/20 10:00 10 L 01/16/20 08:12 84 204/97 H 01/16/20 08:10 84 12 95 01/16/20 08:00 98.4 F 10 L 95 01/16/20 06:00 10 L 01/16/20 04:00 10 L 01/16/20 02:45 74 150/61 H 01/16/20 02:00 10 L 01/16/20 00:00 10 L Weight Weight 361 lb 12.457 oz Most Recent Monitor Data Heart Rate from ECG 83 NIBP 162/98 NIBP BP-Mean 119 Respiration from ECG 10 SpO2 94 I&O: 01/15/20 01/16/20 01/17/20 06:59 06:59 06:59 Intake Total 2098 3034 188 Output Total 1620 1424 137 Balance 478 1610 51 Result Diagrams: 01/16/20 03:55 01/16/20 03:55 Additional Labs: Accuchecks 01/16/20 01/16/20 01/15/20 09:16 00:16 20:35 POC Glucose 227 H 208 H 228 H 01/15/20 01/15/20 16:52 12:38 POC Glucose 217 H 227 H Hospitalist ROS - Medication Medications: Active Medications Generic Name Dose Route Start Last Admin Trade Name Freq PRN Reason Stop Dose Admin Albuterol/Ipratropium 3 ml 01/14/20 19:00 01/16/20 08:10 Ipratropium/Albuterol Sulfate 3 Ml Neb NEB 3 ml [id number] JONATHAN Administration Aspirin 81 mg 01/15/20 09:00 01/16/20 08:14 Aspirin Chewable 81 Mg Tab PO 81 mg DAILY JONATHAN Administration Bisacodyl 10 mg 01/14/20 17:39 01/16/20 05:33 Bisacodyl 10 Mg Supp CA 10 mg DAILYPRN PRN Administration Constipation Cyanocobalamin 1,000 mcg 01/16/20 09:00 01/16/20 09:09 Cyanocobalamin (Vitamin B-12) 1,000 Mcg Tab PER TUBE 1,000 mcg DAILY JONATHAN Administration Diltiazem HCl 30 mg 01/15/20 15:00 01/16/20 08:14 Diltiazem Hcl 30 Mg Tablet PO 30 mg TID JONATHAN Administration Enoxaparin Sodium 40 mg 01/14/20 21:00 01/15/20 20:30 Enoxaparin Sodium 40 Mg/0.4 Ml Syringe SC 40 mg 2100 JONATHAN Administration Folic Acid 1 mg 01/16/20 09:00 01/16/20 08:14 Folic Acid 1 Mg Tab PER TUBE 1 mg DAILY JONATHAN Administration Hydralazine HCl 10 mg 01/14/20 20:06 01/15/20 07:30 Hydralazine 20 Mg/Ml Vial SLOW IVP 10 mg Q4H PRN Administration SBP Greater Than 180 Azithromycin 500 mg/ Sodium 250 mls @ 250 mls/hr 01/15/20 14:00 01/15/20 16:57 Chloride IVPB 250 mls 1400 JONATHAN Administration Sodium Chloride 1,000 mls @ 30 mls/hr 01/14/20 19:15 01/15/20 20:28 Normal Saline 0.9% IV 1,000 mls .Q24H JONATHAN Administration Ceftriaxone Sodium 1 gm/ 100 mls @ 200 mls/hr 01/15/20 15:00 01/15/20 14:34 Sodium Chloride IVPB 100 mls 1500 JONATHAN Administration Fentanyl Citrate 2,000 mcg/ 100 mls @ 0 mls/hr 01/14/20 19:00 01/15/20 23:35 Sodium Chloride IV 02/13/20 19:00 100 mls INF JONATHAN Administration Protocol Per Protocol Insulin Glargine 25 units/ 0.25 mls @ 0 mls/hr 01/15/20 21:00 01/16/20 11:39 Miscellaneous Medication SC 0.25 mls BID JONATHAN Administration Insulin Human Regular 0 units 01/14/20 17:45 01/15/20 20:36 Insulin Regular 300 Units/3 Ml Vial SC 3 units .BEDTIME SLIDING SC PRN Administration Bedtime Correctional Scale Insulin Human Regular 0 units 01/14/20 19:07 01/16/20 09:35 Insulin Regular 300 Units/3 Ml Vial SC 6 unit .AGGRESSIVE SLIDING PRN Administration Aggressive Correctional Scale Labetalol HCl 10 mg 01/14/20 20:15 01/15/20 04:42 Labetalol Hcl 100 Mg/20 Ml Vial SLOW IVP 10 mg Q4H PRN Administration Systolic BP > 180 Lisinopril 20 mg 01/14/20 21:00 01/15/20 20:31 Lisinopril 20 Mg Tab PO 20 mg HS JONATHAN Administration Lorazepam 2 mg 01/14/20 19:00 01/14/20 23:08 Lorazepam 2 Mg/Ml Vial SLOW IVP 02/13/20 19:00 2 mg Q1H PRN Administration Breakthrough agitation Methylprednisolone Sodium Succinate 20 mg 01/16/20 09:00 01/16/20 09:08 Methylprednisolone Sod Succ 40 Mg Vial IVP 20 mg BID JONATHAN Administration Metoprolol Succinate 50 mg 01/15/20 21:00 01/16/20 08:14 Metoprolol Succinate Xl 50 Mg Tab PO 50 mg BID JONATHAN Administration Multivitamins 1 tab 01/16/20 09:00 01/16/20 08:15 Multivit, Therapeutic 1 Tab PER TUBE 1 tab DAILY JONATHAN Administration Pantoprazole Sodium 40 mg 01/15/20 09:00 01/16/20 08:15 Pantoprazole 40 Mg Tab PO 40 mg DAILY JONATHAN Administration Propofol 1,000 mg 01/14/20 19:00 01/16/20 08:00 Propofol 1,000 Mg/100 Ml Vial IV 02/13/20 19:00 1,000 mg INF PRN Administration TO ACHIEVE GOAL RASS Protocol - Exam Neck: no JVD Heart: RRR, no murmur Respiratory - other findings: clear anterior. marked decreased BS with rales post Gastrointestinal: soft, non-tender, non-distended, normal bowel sounds Extremities - other findings: mild anasarca Hosp A/P (1) Acute on chronic diastolic (congestive) heart failure Code(s): I50.33 - ACUTE ON CHRONIC DIASTOLIC (CONGESTIVE) HEART FAILURE Status: Resolved (2) Acute respiratory failure with hypoxia Code(s): J96.01 - ACUTE RESPIRATORY FAILURE WITH HYPOXIA Status: Acute (3) Asthma Code(s): J45.909 - UNSPECIFIED ASTHMA, UNCOMPLICATED Status: Chronic Qualifiers: Asthma severity: mild Asthma persistence: intermittent Asthma comp lication type: uncomplicated Qualified Code(s): J45.20 - Mild intermittent asthma, uncomplicated (4) DM type 2 (diabetes mellitus, type 2) Status: Chronic Qualifiers: Diabetes mellitus fdc insulin use: with terminal system operator use Diabetes mellitus complication status: with kidney complications Diabetes mellitus complication detail: with chronic kidney disease Chronic kidney disease stage: stage 3 (moderate) Qualified Code(s): E11.22 - Type 2 diabetes mellitus with diabetic chronic kidney disease; N18.3 - Chronic kidney disease, stage 3 (moderate); Z79.4 - vermin exterminator (current) use of insulin (5) HTN (hypertension) Code(s): I10 - ESSENTIAL (PRIMARY) HYPERTENSION Status: Chronic Qualifiers: Hypertension type: essential hypertension - Plan wean from vent as able Cardiology reduced b-danielle gentle diuresis accu/ss [place] insulin
[2020-01-16] MEDS ORDERED: Insulin Glargine 35 UNITS in Pre-Filled Syringe 1 EACH SC SCH (12:00)
[2020-01-16] MEDS: Labetalol HCl 100 MG/20 ML VIAL SLOW IVP PRN (13:48)
[2020-01-16] MEDS: Azithromycin 500 MG in Sodium Chloride 0.9% 250 ML 250 ML IVPB SCH (14:14)
[2020-01-16] MEDS: hydrALAZINE 20 MG/ML VIAL SLOW IVP PRN (15:25)
[2020-01-16] MEDS: cefTRIAXone\\ROCEPHIN 1 GM in Sodium Chloride 0.9% 100 ML IVPB SCH (15:26)
[2020-01-16] MEDS: fentaNYL Citrate/PF 2,000 MCG in Sodium Chloride 0.9% 60 ML IV SCH (15:45)
--- NOTE | 2020-01-16 18:34 | PRG ---
DATE OF SERVICE: 01/16/2020 SUBJECTIVE: Ms. Mcdonald is currently intubated and sedated. OBJECTIVE: VITAL SIGNS: Blood pressure 180/90, pulse 80, respirations 20. LUNGS: Clear to auscultation. HEART: Regular rate and rhythm. ABDOMEN: Soft, nontender, and nondistended. EXTREMITIES: 2+ pitting edema. PERTINENT LABORATORY DATA: Hemoglobin 6.8. Creatinine 2.27. IMPRESSION: 1. Diastolic dysfunction. 2. Malignant hypertension. 3. Chronic kidney disease. 4. Morbid obesity. 5. Respiratory failure. RECOMMENDATIONS: 1. Continue pulmonary support. 2. On p.o. Cardizem and we will add IV Cardizem. Continue ICU support. Job ID: [id number]
[2020-01-16] MEDS: Enoxaparin Sodium 40 MG/0.4 ML SYRINGE SC SCH (20:12)
[2020-01-16] MEDS: Lisinopril 20 MG TAB PO SCH (20:12)
[2020-01-16] MEDS: Sodium Chloride 0.9% 1,000 ML IV SCH (20:13)
[2020-01-16] MEDS: Insulin Glargine 35 UNITS in Pre-Filled Syringe 1 EACH SC SCH (23:24)
[2020-01-17] MEDS: Propofol 1,000 MG/100 ML VIAL IV PRN ×5 (03:17→21:54)
[2020-01-17] MEDS: Insulin Regular 300 UNITS/3 ML VIAL SC PRN (04:21)
[2020-01-17 04:33] LABS: Anion Gap 18 mmol/L (10-20); BUN (Urea Nitrogen) 43 mg/dL (9.8-20.1); Calc. Creatinine Clearance 62 mL/min (70-130); Carbon Dioxide 30 mmol/L (22-29); Chloride 99 mmol/L (98-107); Glucose 179 mg/dL (70-105); Phosphorus 5.6 mg/dL (2.3-4.7); Potassium 3.5 mmol/L (3.5-5.1); Sodium 143 mmol/L (136-145)
[2020-01-17 05:27] LABS: #Lymphocytes 1.1 thou/uL (1.20-3.40); #Monocytes 0.7 thou/uL (0.11-0.59); #Neutrophils 11.9 thou/uL (1.40-6.50); %Basophils 0.1 % (0.0-1.0); %Eosinophils 0.3 % (0.0-10.0); %Lymphocytes 7.9 % (21.0-51.0); %Monocytes 4.9 % (0.0-10.0); %Neutrophils 86.8 % (42.0-75.0); Anisocytosis SLIGHT = 6-15 cells (100X) (0-5/hpf); Hemoglobin 7.4 g/dL (12.0-16.0); MDiff Complete? YES; Mean Corpuscular HGB CONC 30.1 g/dL (32.0-36.0); Mean Corpuscular Hemoglobin 23.5 pg (27.0-31.0); Mean Corpuscular Volume 78.1 fL (78.0-98.0); Mean Platelet Volume 9.9 fL (7.4-10.4); Platelet Count 387 thou/uL (130-400); Red Blood Cell (RBC) Count 3.15 mill/uL (4.20-5.40); White Blood Cell (WBC) Count 13.7 thou/uL (4.8-10.8)
[2020-01-17 06:51] LABS: Actual Bicarbonate (HCO3a) 29.1 mEq/L (22-28); Base Excess (BEa) 3.1 mEq/L (-2.0 to +3.0); CO2 Tension 52.5 mmHg (35.0-45.0); Calcium, Ionized (arterial) 1.12 mmol/L (1.12-1.30); Carboxyhemoglobin (COHb) 0.6 gm% (0.0-3.0); Hemoglobin (Hb) 7.8 g/dL (12.0-16.0); O2 Tension (PaO2), arterial 74.6 mmHg (80.0-100.0); Puncture Site RRA; pH, Arterial 7.36 (7.35-7.45)
[2020-01-17 06:52] LABS: ALV-art Gradient 144.975 mmHg (0-20)
--- NOTE | 2020-01-17 07:57 | PDOC.HOSPP ---
- Subjective Encounter Date: 01/17/20 Encounter Time: 07:53 Subjective: unresponsive - Objective Vital Signs & Weight: Vital Signs (12 hours) Temp Pulse Resp BP Pulse Ox 01/17/20 07:19 70 169/81 H 01/17/20 06:00 10 L 01/17/20 04:00 97.7 F 13 01/17/20 02:39 79 161/91 H 01/17/20 02:00 10 L 01/17/20 00:26 64 10 L 97 01/17/20 00:00 98.5 F 10 L 01/16/20 22:26 68 144/69 H 01/16/20 22:00 10 L 01/16/20 20:12 123/57 L 01/16/20 20:00 98.4 F 10 L 97 Weight Admit Weight 361 lb Weight 337 lb 8.443 oz Most Recent Monitor Data Heart Rate from ECG 74 NIBP 169/81 NIBP BP-Mean 110 Respiration from ECG 10 SpO2 99 I&O: 01/16/20 01/17/20 01/18/20 06:59 06:59 06:59 Intake Total 3034 1464 Output Total 1424 2232 155 Balance 1610 -768 -155 Result Diagrams: 01/17/20 03:20 01/17/20 03:30 Additional Labs: Accuchecks 01/17/20 01/16/20 01/16/20 03:22 23:07 20:17 POC Glucose 170 H 133 H 142 H 01/16/20 01/16/20 01/16/20 16:38 12:22 09:16 POC Glucose 177 H 200 H 227 H Hospitalist ROS - Medication Medications: Active Medications Generic Name Dose Route Start Last Admin Trade Name Freq PRN Reason Stop Dose Admin Albuterol/Ipratropium 3 ml 01/14/20 19:00 01/17/20 07:19 Ipratropium/Albuterol Sulfate 3 Ml Neb NEB 3 ml [id number] JONATHAN Administration Aspirin 81 mg 01/15/20 09:00 01/16/20 08:14 Aspirin Chewable 81 Mg Tab PO 81 mg DAILY JONATHAN Administration Bisacodyl 10 mg 01/14/20 17:39 01/16/20 05:33 Bisacodyl 10 Mg Supp AR 10 mg DAILYPRN PRN Administration Constipation Cyanocobalamin 1,000 mcg 01/16/20 09:00 01/16/20 09:09 Cyanocobalamin (Vitamin B-12) 1,000 Mcg Tab PER TUBE 1,000 mcg DAILY JONATHAN Administration Enoxaparin Sodium 40 mg 01/14/20 21:00 01/16/20 20:12 Enoxaparin Sodium 40 Mg/0.4 Ml Syringe SC 40 mg 2100 JONATHAN Administration Folic Acid 1 mg 01/16/20 09:00 01/16/20 08:14 Folic Acid 1 Mg Tab PER TUBE 1 mg DAILY JONATHAN Administration Hydralazine HCl 10 mg 01/14/20 20:06 01/16/20 15:25 Hydralazine 20 Mg/Ml Vial SLOW IVP 10 mg Q4H PRN Administration SBP Greater Than 180 Sodium Chloride 1,000 mls @ 30 mls/hr 01/14/20 19:15 01/16/20 20:13 Normal Saline 0.9% IV Not Given .Q24H JONATHAN Fentanyl Citrate 2,000 mcg/ 100 mls @ 0 mls/hr 01/14/20 19:00 01/16/20 15:45 Sodium Chloride IV 02/13/20 19:00 100 mls INF JONATHAN Administration Protocol Per Protocol Insulin Glargine 35 units/ 0.35 mls @ 0 mls/hr 01/16/20 21:00 01/16/20 23:24 Miscellaneous Medication SC Not Given Q12HR [facility] Insulin Human Regular 0 units 01/14/20 17:45 01/15/20 20:36 Insulin Regular 300 Units/3 Ml Vial SC 3 units .BEDTIME SLIDING SC PRN Administration Bedtime Correctional Scale Insulin Human Regular 0 units 01/14/20 19:07 01/17/20 04:21 Insulin Regular 300 Units/3 Ml Vial SC 3 unit .AGGRESSIVE SLIDING PRN Administration Aggressive Correctional Scale Labetalol HCl 10 mg 01/14/20 20:15 01/16/20 13:48 Labetalol Hcl 100 Mg/20 Ml Vial SLOW IVP 10 mg Q4H PRN Administration Systolic BP > 180 Lisinopril 20 mg 01/14/20 21:00 01/16/20 20:12 Lisinopril 20 Mg Tab PO 20 mg HS JONATHAN Administration Lorazepam 2 mg 01/14/20 19:00 01/14/20 23:08 Lorazepam 2 Mg/Ml Vial SLOW IVP 02/13/20 19:00 2 mg Q1H PRN Administration Breakthrough agitation Methylprednisolone Sodium Succinate 20 mg 01/16/20 09:00 01/16/20 20:13 Methylprednisolone Sod Succ 40 Mg Vial IVP 20 mg BID JONATHAN Administration Multivitamins 1 tab 01/16/20 09:00 01/16/20 08:15 Multivit, Therapeutic 1 Tab PER TUBE 1 tab DAILY JONATHAN Administration Pantoprazole Sodium 40 mg 01/15/20 09:00 01/16/20 08:15 Pantoprazole 40 Mg Tab PO 40 mg DAILY JONATHAN Administration Propofol 1,000 mg 01/14/20 19:00 01/17/20 06:24 Propofol 1,000 Mg/100 Ml Vial IV 02/13/20 19:00 1,000 mg INF PRN Administration TO ACHIEVE GOAL RASS Protocol - Exam Neck: no JVD Heart: RRR, no murmur Respiratory - other findings: decreased BS post with rales Gastrointestinal: soft, non-distended, diminished bowl sounds Extremities: 1+ LE edema Neurological - other findings: eyes open. doesnt track, pos dolls eye manuver Hosp A/P (1) Acute on chronic diastolic (congestive) heart failure Code(s): I50.33 - ACUTE ON CHRONIC DIASTOLIC (CONGESTIVE) HEART FAILURE Status: Resolved (2) Acute respiratory failure with hypoxia Code(s): J96.01 - ACUTE RESPIRATORY FAILURE WITH HYPOXIA Status: Acute (3) Asthma Code(s): J45.909 - UNSPECIFIED ASTHMA, UNCOMPLICATED Status: Chronic Qualifiers: Asthma severity: mild Asthma persistence: intermittent Asthma complication type: uncomplicated Qualified Code(s): J45.20 - Mild intermittent asthma, uncomplicated (4) DM type 2 (diabetes mellitus, type 2) Status: Chronic Qualifiers: Diabetes mellitus care home insulin use: with care home use Diabetes mellitus complication status: with kidney complications Diabetes mellitus complication detail: with chronic kidney disease Chronic kidney disease stage: stage 3 (moderate) Qualified Code(s): E11.22 - Type 2 diabetes mellitus with diabetic chronic kidney disease; N18.3 - Chronic kidney disease, stage 3 (moderate); Z79.4 - long-term (current) use of insulin (5) HTN (hypertension) Code(s): I10 - ESSENTIAL (PRIMARY) HYPERTENSION Status: Chronic Qualifiers: Hypertension type: essential hypertension (6) Encephalopathy acute Code(s): G93.40 - ENCEPHALOPATHY, UNSPECIFIED Status: Acute (7) CKD (chronic kidney disease), stage III Code(s): N18.3 - CHRONIC KIDNEY DISEASE, STAGE 3 (MODERATE) * DO NOT USE * Status: Acute (8) Obesity hypoventilation syndrome Code(s): E66.2 - MORBID (SEVERE) OBESITY WITH ALVEOLAR HYPOVENTILATION Status: Suspected - Plan DVT proph w/lovenox wean from vent as able Cardiology reduced b-danielle gentle diuresis accu/ss LA insulin will discuss with cardroom worker, ECHOcardiagram
[2020-01-17] MEDS: fentaNYL Citrate/PF 2,000 MCG in Sodium Chloride 0.9% 60 ML IV SCH (08:20)
[2020-01-17] MEDS ORDERED: Amlodipine 5 MG TAB PO SCH (09:00)
[2020-01-17] MEDS: Insulin Glargine 35 UNITS in Pre-Filled Syringe 1 EACH SC SCH ×2 (09:10→21:36)
[2020-01-17] MEDS ORDERED: Furosemide 40 MG/4 ML VIAL SLOW IVP SCH (09:15)
[2020-01-17] MEDS ORDERED: Metolazone 5 MG TAB PO SCH (09:15)
--- NOTE | 2020-01-17 09:24 | PRG ---
DATE OF SERVICE: 01/17/2020 35 minutes of critical care time. SUBJECTIVE: The patient remains intubated on mechanical ventilation. I can get her to wake up and follow commands without limitation. She blinks to threat. She does move her eyes laterally. OBJECTIVE: VITAL SIGNS: Temperature 98, pulse 116, and blood pressure 176/87. HEENT: Unremarkable. NECK: No adenopathy or JVD. LUNGS: Coarse breath sounds. CARDIAC: S1, S2. Regular. ABDOMEN: Soft. EXTREMITIES: No edema. LABORATORY DATA: Sodium 143, potassium 3.5, chloride 96, CO2 of 30, BUN 43, creatinine 2.6, glucose 179. White blood cell count 13.7, hematocrit 24.6, and platelet count 387. The pH 7.36, pCO2 of 52, PO2 of 74 on SIMV rate of 10, tidal volume 550, PEEP 5, pressure support 10, FiO2 40%. X-ray continues to show profound pulmonary vascular congestion. ASSESSMENT: 1. Acute respiratory failure, requiring mechanical ventilation. 2. Diastolic dysfunction with overt pulmonary edema. 3. Renal insufficiency. PLAN: 1. The patient needs to be diuresed some more, this will compromise her renal function somewhat. I do think we probably need to go ahead and hold her lisinopril. 2. Adjust enoxaparin to a renal dose. 3. Continue Lasix and metolazone. Job ID: [id number]
--- NOTE | 2020-01-17 09:28 | RAD ---
PORTABLE CHEST; Date: 01/17/2020 HISTORY: CCU follow-up, on ventilator. COMPARISON: 01/16/2020. FINDINGS/IMPRESSION: ET tube and NG tube and central line are unchanged. Bilateral effusions with bibasilar infiltrates an d atelectasis. Linear atelectasis in the right upper lobe again noted. No evidence of acute interval change. POS: AGW
[2020-01-17] MEDS: Azithromycin 500 MG in Sodium Chloride 0.9% 250 ML 250 ML IVPB SCH (09:43)
--- NOTE | 2020-01-17 09:43 | PRG ---
DATE OF SERVICE: 01/17/2020 SUBJECTIVE: Ms. Mcdonald's status is unchanged. There is a concern for metabolic encephalopathy. Her blood pressure remains markedly elevated. There is also concern for her not absorbing her pills given that it is being seen on her NG tube aspirations. OBJECTIVE: VITAL SIGNS: Blood pressure 176/87, pulse 70, temperature afebrile. LUNGS: Clear to auscultation. HEART: Regular rate and rhythm. ABDOMEN: Soft, nontender, and nondistended. EXTREMITIES: 2+ pitting edema. PERTINENT LABORATORY DATA: Hemoglobin 7.4. IMPRESSION: 1. Respiratory failure. 2. Metabolic encephalopathy. 3. Hypertension. 4. Renal insufficiency. RECOMMENDATIONS: Echo has been ordered by Dr. Bridgett Durham. Her last echo was dated 01/22/2019 with LVEF not well visualized. Unfortunately, echo images are unlikely to be different, but we will reassess. I have made some changes in her medications, but unfortunately given that it does not appear she is absorbing p.o., may consider IV hydralazine versus IV Cardizem. Her creatinine is 2.67 with a GFR of 23. We would also recommend renal consultation to assist in management. Her elevated blood pressure may also be secondary to renal dysfunction. Job ID: [id number]
[2020-01-17] MEDS: Aspirin Chewable 81 MG TAB PO SCH (09:44)
[2020-01-17] MEDS: Multivit, Therapeutic 1 TAB PER TUBE SCH (09:44)
[2020-01-17] MEDS: Carvedilol 6.25 MG TAB PO SCH ×3 (09:44→20:56)
[2020-01-17] MEDS: methylPREDNISolone Sod Succ 40 MG VIAL IVP SCH ×2 (09:45→20:56)
[2020-01-17] MEDS: Folic Acid 1 MG TAB PER TUBE SCH (09:45)
[2020-01-17] MEDS: cefTRIAXone\\ROCEPHIN 1 GM in Sodium Chloride 0.9% 100 ML IVPB SCH (09:46)
[2020-01-17] MEDS: Cyanocobalamin (Vitamin B-12) 1,000 MCG TAB PER TUBE SCH (09:47)
[2020-01-17] MEDS: hydrALAZINE 20 MG/ML VIAL SLOW IVP PRN (17:17)
--- NOTE | 2020-01-17 17:43 | CON ---
DATE OF CONSULTATION: 01/17/2020 CONSULTING PHYSICIAN: Hospitalist Services. IMPRESSION: 1. Multifactorial encephalopathy related to medication. 2. Renal insufficiency. 3. Hypoxia. PLAN: 1. Rule out other metabolic factors. 2. Continue supportive care and weaning off sedation as possible. HISTORY OF PRESENT ILLNESS: Ms. Mcdonald is a 54-year-old obese black female with history of COPD. She was admitted with respiratory failure secondary to her COPD. She has been intubated and sedated for the last few days. She was noted to have elevated BUN and creatinine. She has been gradually weaned from the sedation. She started to awaken and was able to follow some commands with Dr. Calderón earlier in the day when she has lightened up too much, the nurses reports she becomes agitated and fights the ventilator. She is moving all 4 extremities for them during these periods of agitation. She had an EEG done earlier today, which showed some diffuse slowing, but no epileptiform features. Her other available lab is otherwise unremarkable. PAST MEDICAL HISTORY: As noted per chart. ALLERGIES: PENICILLIN. SOCIAL HISTORY: No alcohol or drug use known. FAMILY HISTORY: Unknown. REVIEW OF SYSTEMS: Not obtainable. PHYSICAL EXAMINATION: GENERAL: She is a morbidly obese, middle-aged woman, on ventilatory support. VITAL SIGNS: Have been stable. She is afebrile. HEENT: Pupils equal and reactive. Conjunctivae clear. Eyes are conjugate. She is orally intubated. NECK: No lymphadenopathy noted. ABDOMEN: Rotund, soft, without any obvious tenderness. EXTREMITIES: There is some peripheral swelling, but no cyanosis. Her skin is clear. NEUROLOGIC: She would awaken when stimulated verbally. I could not get her to follow any commands purposefully. She would localize to auditory stimuli. Her tone appeared to be symmetric. Plantar responses were mute. No abnormal movements were seen. DIAGNOSTIC STUDIES: Chest x-rays were reviewed. SUMMARY: This is a middle-aged woman who has been sedated for the last few days due to her respiratory failure. She has some renal insufficiency, which may contribute to some degree to prolonged clearing of drugs. Rule out a few other metabolic factors, although more than likely it will just take some time for her to clear. Job ID: [id number]
[2020-01-17] MEDS: Labetalol HCl 100 MG/20 ML VIAL SLOW IVP PRN (19:03)
[2020-01-17] MEDS: Sodium Chloride 0.9% 1,000 ML IV SCH (20:35)
[2020-01-17] MEDS: Enoxaparin Sodium 30 MG/0.3 ML SYRINGE SC SCH (20:56)
[2020-01-17] MEDS: Nitroglycerin 2% Ointment 1 INCH/1 GM Packet TOP PRN (21:55)
--- NOTE | 2020-01-18 00:24 | CON ---
DATE OF CONSULTATION: 01/17/2020 CONSULTING PHYSICIAN: Rickey Wilhelm MD REASON FOR CONSULTATION: Acute kidney injury. REASON FOR ADMISSION: Shortness of breath. HISTORY OF PRESENT ILLNESS: A 54-year-old female with history of congestive heart failure with diastolic heart failure, asthma, obstructive sleep apnea, and hypertension, came to the hospital with shortness of breath and is being treated. She remains in ICU intubated. She was COVID negative, but she was found to be fluid overloaded, started on IV diuretics today, but her creatinine was rising up. Nephrology is consulted. The patient's baseline creatinine seems to be around 1.4 to 1.6. Her admission creatinine was 1.4, now it is 2.67 with a BUN of 43. The patient is intubated and currently in ICU. Her blood pressure was elevated and there is concern that she is not absorbing her oral medications and plan is to change it to IV medications and monitor her closely. She is also very fluid overloaded mostly in the upper extremities. No family members available. No history of any fever or chills reported. PAST MEDICAL HISTORY: Positive for chronic diastolic heart failure, obstructive sleep apnea, morbid obesity, bronchial asthma, questionable obesity hypoventilation, hypertension, diabetes, CKD, morbid obesity, anemia, history of non-Hodgkin's lymphoma, and chronic hypoxic respiratory failure on home oxygen. PAST SURGICAL HISTORY: Cholecystectomy, tubal ligation, Port-A-Cath placement, and lymph node removal. HOME MEDICATIONS: Reviewed. ALLERGIES: TO PENICILLIN. SOCIAL HISTORY: No history of smoking, alcohol, or illicit drug abuse reported initially. FAMILY HISTORY: No history of kidney disease. REVIEW OF SYSTEMS: Could not be obtained, she is intubated. PHYSICAL EXAMINATION: GENERAL: This is a morbidly obese female, seen in ICU, intubated. VITAL SIGNS: Temperature 97.9, pulse 86, respiratory rate , and blood pressure . HEENT: Intubated. CV: S1 and S2 heard. RESPIRATORY: Scattered wheezes bilaterally. GI: Abdomen is obese and soft. MUSCULOSKELETAL: 1 to 2+ edema, more edema in the upper extremities. NEUROLOGIC: Intubated, but following verbal commands, but slowly. PSYCHIATRY: Not assessed. LABORATORY DATA: Hemoglobin is 7.4, WBC is 13.7, and platelets is 387. INR was 1.2. A pH of 7.36 with a pCO2 of 52.5. Potassium 3.5, BUN is 43, creatinine is 2.67, bicarb is 30, calcium was 9.0, phosphorus 5.6, and albumin 3.5. Cortisol level of 1.4. Urine showed bacteriuria. COVID was negative. Chest x-ray with signs of bilateral pleural effusion with bibasilar infiltrates, and linear atelectasis present. Echocardiogram pending. ASSESSMENT AND PLAN: 1. Acute kidney injury on chronic kidney disease stage 3 most likely seems to be cardiorenal syndrome. The patient is on diuretics now. The patient remains fluid overloaded and signs of cardiac failure. Cardiology and Pulmonology are involved. Agree with diuretics for now. We will have close monitoring of renal function and electrolytes. Agree with holding lisinopril while maintaining diuresis. 2. Acute hypoxic respiratory failure, intubated. 3. Fluid overload on diuretics now. 4. Cardiorenal syndrome. 5. History of diastolic heart failure. 6. Morbid obesity. 7. Anemia, seems to be from chronic disease. Rule out any bleed and monitor hemoglobin. 8. Alkalosis per the labs. 9. Mild hyperphosphatemia. 10. Mild hypoalbuminemia. 11. Edema. 12. History of hypertension, currently hypertensive, titrate medication and now on diuretics. 13. Agree with diuretics with close monitoring of renal function and electrolytes. Agree with holding the lisinopril while on diuretics and agree with titrating blood pressure medicine. Consider changing to IV with concerns for poor absorption of medications orally. 14. We will continue to follow. Thank you for the consult. Renally dose the medications. Job ID: [id number]
[2020-01-18] MEDS: fentaNYL Citrate/PF 2,000 MCG in Sodium Chloride 0.9% 60 ML IV SCH (00:28)
[2020-01-18] MEDS: Labetalol HCl 100 MG/20 ML VIAL SLOW IVP PRN (02:34)
[2020-01-18] MEDS: Lorazepam 2 MG/ML VIAL SLOW IVP PRN (02:34)
[2020-01-18 05:34] LABS: #Lymphocytes 1.5 thou/uL (1.20-3.40); #Monocytes 0.9 thou/uL (0.11-0.59); #Neutrophils 11.1 thou/uL (1.40-6.50); %Basophils 0.3 % (0.0-1.0); %Eosinophils 0.3 % (0.0-10.0); %Lymphocytes 11.1 % (21.0-51.0); %Monocytes 6.7 % (0.0-10.0); %Neutrophils 81.6 % (42.0-75.0); Anisocytosis SLIGHT = 6-15 cells (100X) (0-5/hpf); Elliptocytes SLIGHT = 2-5 cells (100X) (0-1/hpf); Hemoglobin 7.2 g/dL (12.0-16.0); Hypochromia SLIGHT = 6-15 cells (100X) (0-5/hpf); MDiff Complete? YES; Mean Corpuscular HGB CONC 29.7 g/dL (32.0-36.0); Mean Corpuscular Hemoglobin 23.5 pg (27.0-31.0); Mean Corpuscular Volume 79.1 fL (78.0-98.0); Mean Platelet Volume 9.7 fL (7.4-10.4); Platelet Count 393 thou/uL (130-400); RBC Distribution Width 18.3 % (11.5-14.5); Red Blood Cell (RBC) Count 3.04 mill/uL (4.20-5.40); White Blood Cell (WBC) Count 13.6 thou/uL (4.8-10.8)
[2020-01-18 05:37] LABS: Anion Gap 17 mmol/L (10-20); BUN (Urea Nitrogen) 50 mg/dL (9.8-20.1); Calc. Creatinine Clearance 57 mL/min (70-130); Calcium 8.7 mg/dL (7.8-10.44); Carbon Dioxide 31 mmol/L (22-29); Chloride 99 mmol/L (98-107); Glucose 101 mg/dL (70-105); Potassium 3.5 mmol/L (3.5-5.1); Sodium 143 mmol/L (136-145)
[2020-01-18 06:30] LABS: Actual Bicarbonate (HCO3a) 29.2 mEq/L (22-28); Base Excess (BEa) 2.4 mEq/L (-2.0 to +3.0); CO2 Tension 59.7 mmHg (35.0-45.0); Calcium, Ionized (arterial) 1.13 mmol/L (1.12-1.30); Carboxyhemoglobin (COHb) 1.5 gm% (0.0-3.0); O2 Tension (PaO2), arterial 62.1 mmHg (80.0-100.0); Potassium - ABG Lab 3.52 mmol/L (3.70-5.30); pH, Arterial 7.31 (7.35-7.45)
[2020-01-18 06:31] LABS: ALV-art Gradient 148.475 mmHg (0-20); Puncture Site RRA
--- NOTE | 2020-01-18 08:28 | PRG ---
DATE OF SERVICE: 01/18/2020 SUBJECTIVE: Ms. Mcdonald is currently intubated and sedated. She is on propofol. OBJECTIVE: VITAL SIGNS: Blood pressure 149/75, pulse 83, temperature afebrile. LUNGS: Clear to auscultation. HEART: Regular rate and rhythm. ABDOMEN: Soft, nontender, nondistended. EXTREMITIES: 1+ pitting edema. PERTINENT LABORATORY DATA: Hemoglobin 7.2, hematocrit 24, creatinine 2.72. IMPRESSION: 1. Respiratory failure. 2. Acute diastolic dysfunction. 3. Metabolic encephalopathy. RECOMMENDATIONS: 1. I have increased her Norvasc from 5 mg q.a.m. to b.i.d. 2. Continue aspirin. 3. Increase carvedilol to 12.5 b.i.d. Otherwise, at this point, I have no further recommendations. The patient will likely have slow improvement in function, but her prognosis remains guarded. Job ID: [id number]
[2020-01-18] MEDS: Aspirin Chewable 81 MG TAB PO SCH (08:36)
[2020-01-18] MEDS: Folic Acid 1 MG TAB PER TUBE SCH (08:36)
[2020-01-18] MEDS: Multivit, Therapeutic 1 TAB PER TUBE SCH (08:36)
[2020-01-18] MEDS: methylPREDNISolone Sod Succ 40 MG VIAL IVP SCH ×2 (08:36→21:21)
[2020-01-18] MEDS: Carvedilol 6.25 MG TAB PO SCH ×3 (08:36→21:20)
[2020-01-18] MEDS: Amlodipine 5 MG TAB PO SCH ×2 (08:36→21:20)
[2020-01-18] MEDS: Insulin Glargine 35 UNITS in Pre-Filled Syringe 1 EACH SC SCH ×3 (08:37→21:21)
[2020-01-18] MEDS: cefTRIAXone\\ROCEPHIN 1 GM in Sodium Chloride 0.9% 100 ML IVPB SCH (08:37)
[2020-01-18] MEDS ORDERED: Furosemide 40 MG/4 ML VIAL SLOW IVP SCH (08:45)
[2020-01-18] MEDS: Cyanocobalamin (Vitamin B-12) 1,000 MCG TAB PER TUBE SCH (09:06)
[2020-01-18] MEDS: Azithromycin 500 MG in Sodium Chloride 0.9% 250 ML 250 ML IVPB SCH (09:14)
--- NOTE | 2020-01-18 09:27 | PRG ---
DATE OF SERVICE: CRITICAL CARE TIME: 35 minutes. SUBJECTIVE: The patient is much less interactive with me than she was yesterday. Her blood pressure is very high. OBJECTIVE: VITAL SIGNS: Temperature 98.1, pulse 83, blood pressure 216/111, O2 saturation 96%. GENERAL: In general, I found her tachypneic, not responding to commands, like she was yesterday. HEENT: Pupils reactive. Sclerae anicteric. Oropharynx clear. NECK: No JVD. LUNGS: Coarse rhonchi CARDIOVASCULAR: S1, S2. Regular. ABDOMEN: Obese, soft, nontender. EXTREMITIES: Edematous. IMAGING: Echocardiogram did not really show anything new, but it is a suboptimal view. LABORATORY DATA: White blood cell count 13.6, hematocrit 24, and platelet count 393, pH 7.31, pCO2 of 59, pO2 of 62, that was on CPAP 5, pressure support 10, FiO2 of 40%. Sodium 143, potassium 3.5, chloride 99, CO2 of 31, BUN 50, creatinine 2.7, glucose 101. ASSESSMENT: 1. Diastolic congestive heart failure. 2. Acute respiratory failure requiring mechanical ventilation. 3. Metabolic encephalopathy. 4. Renal insufficiency. PLAN: I did not deem the patient stable to extubate. She really needs to have more fluid removed, but it is a delicate balance given her renal function. I will give her another dose of Lasix today. I have put her back on volume control ventilation. Job ID: [id number]
--- NOTE | 2020-01-18 11:03 | PDOC.HOSPP ---
- Subjective Encounter Date: 01/18/20 Encounter Time: 10:48 Subjective: non-responsive to painfull stimuli. toes neutral to plantar stimulation. DTRs grossly symmetric - Objective Vital Signs & Weight: Vital Signs (12 hours) Temp Pulse Resp BP Pulse Ox 01/18/20 10:24 91 01/18/20 10:00 14 01/18/20 09:00 99.0 F 01/18/20 08:36 85 214/108 H 01/18/20 08:00 14 01/18/20 06:26 85 01/18/20 06:00 15 01/18/20 04:00 98.1 F 16 01/18/20 02:34 93 214/108 H 01/18/20 02:30 93 214/108 H 01/18/20 02:00 17 01/18/20 01:00 98.7 F 01/18/20 00:39 86 21 H 95 01/18/20 00:00 98.7 F 14 Weight Admit Weight 361 lb Weight 347 lb 10.703 oz Most Recent Monitor Data Heart Rate from ECG 91 NIBP 170/78 NIBP BP-Mean 146 Respiration from ECG 13 SpO2 96 I&O: 01/17/20 01/18/20 01/19/20 06:59 06:59 06:59 Intake Total 1464 1299.9 80 Output Total 2232 1692 210 [facility] -768 -392.1 -130 Result Diagrams: 01/18/20 04:35 01/18/20 04:35 Additional Labs: Accuchecks 01/18/20 01/18/20 01/17/20 10:22 00:05 21:07 POC Glucose 88 97 109 H 01/17/20 01/17/20 17:15 12:34 POC Glucose 119 H 125 H Hospitalist ROS - Medication Medications: Active Medications Generic Name Dose Route Start Last Admin Trade Name Freq PRN Reason Stop Dose Admin Albuterol/Ipratropium 3 ml 01/14/20 19:00 01/18/20 06:20 Ipratropium/Albuterol Sulfate 3 Ml Neb NEB 3 ml [id number] JONATHAN Administration Amlodipine Besylate 5 mg 01/18/20 09:00 01/18/20 08:36 Amlodipine 5 Mg Tab PO 5 mg BID JONATHAN Administration Aspirin 81 mg 01/15/20 09:00 01/18/20 08:36 Aspirin Chewable 81 Mg Tab PO 81 mg DAILY JONATHAN Administration Bisacodyl 10 mg 01/14/20 17:39 01/16/20 05:33 Bisacodyl 10 Mg Supp DE 10 mg DAILYPRN PRN Administration Constipation Carvedilol 6.25 mg 01/17/20 09:00 01/18/20 08:36 Carvedilol 6.25 Mg Tab PO 6.25 mg TID JONATHAN Administration Cyanocobalamin 1,000 mcg 01/16/20 09:00 01/18/20 09:06 Cyanocobalamin (Vitamin B-12) 1,000 Mcg Tab PER TUBE 1,000 mcg DAILY JONATHAN Administration Enoxaparin Sodium 30 mg 01/17/20 21:00 01/17/20 20:56 Enoxaparin Sodium 30 Mg/0.3 Ml Syringe SC 30 mg 2100 JONATHAN Administration Folic Acid 1 mg 01/16/20 09:00 01/18/20 08:36 Folic Acid 1 Mg Tab PER TUBE 1 mg DAILY JONATHAN Administration Furosemide 40 mg 01/18/20 08:45 01/18/20 09:28 Furosemide 40 Mg/4 Ml Vial SLOW IVP 01/18/20 11:00 40 mg NOW JONATHAN Administration Hydralazine HCl 10 mg 01/14/20 20:06 01/17/20 17:17 Hydralazine 20 Mg/Ml Vial SLOW IVP 10 mg Q4H PRN Administration SBP Greater Than 180 Sodium Chloride 1,000 mls @ 30 mls/hr 01/14/20 19:15 01/17/20 20:35 Normal Saline 0.9% IV Not Given .Q24H JONATHAN Fentanyl Citrate 2,000 mcg/ 100 mls @ 0 mls/hr 01/14/20 19:00 01/18/20 00:28 Sodium Chloride IV 02/13/20 19:00 100 mls INF JONATHAN Administration Protocol Per Protocol Insulin Glargine 35 units/ 0.35 mls @ 0 mls/hr 01/16/20 21:00 01/18/20 10:23 Miscellaneous Medication SC Not Given Q12HR JONATHAN Azithromycin 500 mg/ Sodium 250 mls @ 250 mls/hr 01/17/20 09:00 01/18/20 09:14 Chloride IVPB 250 mls 0900 JONATHAN Administration Ceftriaxone Sodium 1 gm/ 100 mls @ 200 mls/hr 01/17/20 09:00 01/18/20 08:37 Sodium Chloride IVPB 100 mls 0900 JONATHAN Administration Insulin Human Regular 0 units 01/14/20 17:45 01/15/20 20:36 Insulin Regular 300 Units/3 Ml Vial SC 3 units .BEDTIME SLIDING SC PRN Administration Bedtime Correctional Scale Insulin Human Regular 0 units 01/14/20 19:07 01/17/20 04:21 Insulin Regular 300 Units/3 Ml Vial SC 3 unit .AGGRESSIVE SLIDING PRN Administration Aggressive Correctional Scale Labetalol HCl 10 mg 01/14/20 20:15 01/18/20 02:34 Labetalol Hcl 100 Mg/20 Ml Vial SLOW IVP 10 mg Q4H PRN Administration Systolic BP > 180 Lorazepam 2 mg 01/14/20 19:00 01/18/20 02:34 Lorazepam 2 Mg/Ml Vial SLOW IVP 02/13/20 19:00 2 mg Q1H PRN Administration Breakthrough agitation Methylprednisolone Sodium Succinate 20 mg 01/16/20 09:00 01/18/20 08:36 Methylprednisolone Sod Succ 40 Mg Vial IVP 20 mg BID JONATHAN Administration Multivitamins 1 tab 01/16/20 09:00 01/18/20 08:36 Multivit, Therapeutic 1 Tab PER TUBE 1 tab DAILY JONATHAN Administration Nitroglycerin 0.5 inch 01/15/20 16:30 01/17/20 21:55 Nitroglycerin 2% Ointment 1 Inch/1 Gm Packet TOP 0.5 inch Q8H PRN Administration SBP Greater Than 180 Pantoprazole Sodium 40 mg 01/15/20 09:00 01/18/20 08:36 Pantoprazole 40 Mg Tab PO 40 mg DAILY JONATHAN Administration Propofol 1,000 mg 01/14/20 19:00 01/17/20 21:54 Propofol 1,000 Mg/100 Ml Vial IV 02/13/20 19:00 1,000 mg INF PRN Administration TO ACHIEVE GOAL RASS Protocol - Exam Neck: no JVD Heart: RRR, murmur present, II/IV Respiratory - other findings: decreased BS with rales posteriorly Gastrointestinal: soft, non-distended, no palpable masses Extremities: 2+ LE edema Hosp A/P (1) Acute on chronic diastolic (congestive) heart failure Code(s): I50.33 - ACUTE ON CHRONIC DIASTOLIC (CONGESTIVE) HEART FAILURE Status: Resolved (2) Acute respiratory failure with hypoxia Code(s): J96.01 - ACUTE RESPIRATORY FAILURE WITH HYPOXIA Status: Acute (3) Asthma Code(s): J45.909 - UNSPECIFIED ASTHMA, UNCOMPLICATED Status: Chronic Qualifiers: Asthma severity: mild Asthma persistence: intermittent Asthma complication type: uncomplicated Qualified Code(s): J45.20 - Mild intermittent asthma, uncomplicated (4) DM type 2 (diabetes mellitus, type 2) Status: Chronic Qualifiers: Diabetes mellitus care home insulin use: with care home use Diabetes mellitus complication status: with kidney complications Diabetes mellitus complication detail: with chronic kidney disease Chronic kidney disease stage: stage 3 (moderate) Qualified Code(s): E11.22 - Type 2 diabetes mellitus with diabetic chronic kidney disease; N18.3 - Chronic kidney disease, stage 3 (moderate); Z79.4 - ocean transportation intermediary (current) use of insulin (5) HTN (hypertension) Code(s): I10 - ESSENTIAL (PRIMARY) HYPERTENSION Status: Chronic Qualifiers: Hypertension type: essential hypertension (6) Encephalopathy acute Code(s): G93.40 - ENCEPHALOPATHY, UNSPECIFIED Status: Acute (7) CKD (chronic kidney disease), stage III Code(s): N18.3 - CHRONIC KIDNEY DISEASE, STAGE 3 (MODERATE) * DO NOT USE * Status: Acute Qualifiers: Chronic kidney disease stage 3 subtype: stage 3a (GFR 45-59) Qualified Code(s): N18.31 - Chronic kidney disease, stage 3a (8) Obesity hypoventilation syndrome Code(s): E66.2 - MORBID (SEVERE) OBESITY WITH ALVEOLAR HYPOVENTILATION Status: Suspected - Plan ECHO- normal LVEF, no significant valvular issues renal fcn decreased, judicious use diuretics going forward currently non-weanable from vent cont b-danielle still consiider anoxic brain injury likely prognosis for recovery guarded
[2020-01-18] MEDS ORDERED: Potassium Chloride 40 MEQ in Sodium Chloride 0.9% 250 ML 250 ML IVPB SCH (11:30)
--- NOTE | 2020-01-18 11:38 | PRG ---
DATE OF SERVICE: 01/18/2020 SUBJECTIVE: Patient is seen and examined at bedside. She is in ICU. She is intubated. Bedside nurse is updated. OBJECTIVE: GENERAL: This is a morbidly obese female, intubated. VITAL SIGNS: Temperature 99.0, pulse 91, respiratory rate 14, blood pressure 170/78. HEENT: Intubated. CV: S1 and S2 heard. RESPIRATORY: Wheezes. GASTROINTESTINAL: Abdomen is obese. MUSCULOSKELETAL: 1 to 2+ edema. NEUROLOGIC: Intubated. LABORATORY DATA: Potassium 3.5, BUN is 50, creatinine is 2.7. ASSESSMENT AND PLAN: 1. Acute kidney injury on chronic kidney disease, stage 3 secondary to cardiorenal syndrome. Agree with diuretics for now. 2. Acute hypoxic respiratory failure. Remains intubated. 3. History of diastolic heart failure. 4. Cardiorenal syndrome. 5. Alkalosis edema. 6. Mild hypokalemia. 7. Replace potassium cautiously and continue diuretics as tolerated. Job ID: [id number]
--- NOTE | 2020-01-18 14:34 | CT ---
CT BRAIN NONCONTRAST: DATE: 01/18/2020 2:22 PM HISTORY: 54-year-old female with altered mental status and left upper extremity paresis. FINDINGS: There is no evidence of acute intra-axial or extra-axial hemorrhage. There is no midline shift or any other mass effect. There is no extra-axial fluid collection. There is no evidence of obstructive hydrocephalus. Calvarium is intact. There is a small, approximately 1.5 x 0.5 cm patch of moderate hy podensity in the right marroquin radiata, very close to the lateral surface of the right caudate body, consistent with a small lacunar infarction. It is uncertain whether this is old, subacute, or acute. Posterior and inferior to this, there is a more hypodense, similar size lesion in the posterior aspect of the right external capsule, consistent with an old lacunar infarction. IMPRESSION: 1) very small lacunar infarction in the region of the right corpus striatum of indeterminate age, pos sibly acute or subacute. 2) no acute intracranial hemorrhage or mass effect. 3) incidental finding of old lacunar infarction in the right external capsule.
[2020-01-18] MEDS: Enoxaparin Sodium 30 MG/0.3 ML SYRINGE SC SCH (21:21)
[2020-01-19] MEDS: Propofol 1,000 MG/100 ML VIAL IV PRN ×7 (00:45→23:36)
[2020-01-19 04:32] LABS: #Monocytes 0.6 thou/uL (0.11-0.59); #Neutrophils 8.6 thou/uL (1.40-6.50); %Basophils 0.5 % (0.0-1.0); %Eosinophils 0.5 % (0.0-10.0); %Lymphocytes 9.8 % (21.0-51.0); %Monocytes 5.4 % (0.0-10.0); %Neutrophils 83.9 % (42.0-75.0); Hemoglobin 6.5 g/dL (12.0-16.0); Mean Corpuscular HGB CONC 29.7 g/dL (32.0-36.0); Mean Corpuscular Hemoglobin 23.5 pg (27.0-31.0); Mean Platelet Volume 9.9 fL (7.4-10.4); Platelet Count 331 thou/uL (130-400); RBC Distribution Width 18.5 % (11.5-14.5); Red Blood Cell (RBC) Count 2.75 mill/uL (4.20-5.40); White Blood Cell (WBC) Count 10.3 thou/uL (4.8-10.8)
[2020-01-19 04:51] LABS: Anion Gap 17 mmol/L (10-20); BUN (Urea Nitrogen) 58 mg/dL (9.8-20.1); Calc. Creatinine Clearance 65 mL/min (70-130); Calcium 8.5 mg/dL (7.8-10.44); Carbon Dioxide 30 mmol/L (22-29); Chloride 101 mmol/L (98-107); Glucose 111 mg/dL (70-105); Potassium 3.9 mmol/L (3.5-5.1); Sodium 144 mmol/L (136-145)
[2020-01-19] MEDS: Sodium Chloride 0.9% 1,000 ML IV SCH ×2 (05:05→22:08)
[2020-01-19 07:55] LABS: Actual Bicarbonate (HCO3a) 28.6 mEq/L (22-28); Base Excess (BEa) 2.2 mEq/L (-2.0 to +3.0); CO2 Tension 54.8 mmHg (35.0-45.0); Calcium, Ionized (arterial) 1.15 mmol/L (1.12-1.30); Carboxyhemoglobin (COHb) 0.5 gm% (0.0-3.0); O2 Tension (PaO2), arterial 84.3 mmHg (80.0-100.0); Potassium - ABG Lab 3.71 mmol/L (3.70-5.30); pH, Arterial 7.34 (7.35-7.45)
[2020-01-19 07:57] LABS: Puncture Site LRA
[2020-01-19] MEDS: Amlodipine 5 MG TAB PO SCH ×2 (08:00→21:28)
[2020-01-19] MEDS: Carvedilol 6.25 MG TAB PO SCH ×2 (08:01→17:05)
[2020-01-19] MEDS: Aspirin Chewable 81 MG TAB PO SCH (08:05)
[2020-01-19] MEDS: Multivit, Therapeutic 1 TAB PER TUBE SCH (08:05)
[2020-01-19] MEDS: cefTRIAXone\\ROCEPHIN 1 GM in Sodium Chloride 0.9% 100 ML IVPB SCH (08:06)
[2020-01-19] MEDS: Folic Acid 1 MG TAB PER TUBE SCH (08:06)
[2020-01-19] MEDS: methylPREDNISolone Sod Succ 40 MG VIAL IVP SCH ×2 (08:07→21:29)
[2020-01-19] MEDS: Insulin Glargine 35 UNITS in Pre-Filled Syringe 1 EACH SC SCH (09:00)
[2020-01-19] MEDS ORDERED: Carvedilol 6.25 MG TAB PO SCH (09:15)
[2020-01-19] MEDS: Azithromycin 500 MG in Sodium Chloride 0.9% 250 ML 250 ML IVPB SCH (09:46)
[2020-01-19] MEDS: Cyanocobalamin (Vitamin B-12) 1,000 MCG TAB PER TUBE SCH (09:53)
[2020-01-19] MEDS: Pantoprazole 40 MG GRANULES PACKET PER TUBE SCH (09:53)
[2020-01-19] MEDS: Lorazepam 2 MG/ML VIAL SLOW IVP PRN ×3 (09:58→23:36)
--- NOTE | 2020-01-19 10:15 | PRG ---
DATE OF SERVICE: 01/19/2020 SUBJECTIVE: Corine Mcdonald is morbidly obese female, remains intubated in the vent, sedated. She is moving all 4 extremities. OBJECTIVE: VITAL SIGNS: Maximal temperature is 99.7, pulse 96, blood pressure 190/80, on 40% saturations 92%, respirations 13. I's and O's negative. CHEST: Extensive rhonchi, crackles. CARDIAC: Sinus tach. ABDOMEN: Massive and soft. LABORATORY DATA: White count 65826, H and H are 6 and 21, platelet count 331. PO2 was 84, pCO2 was 54, and pH 7.37. Creatinine 2, BUN 58. ASSESSMENT: Morbid obesity, respiratory failure, diastolic dysfunction, renal failure, encephalopathy, CVA. She is not weanable at this stage, continue antibiotics. Continue steroids, supportive care. One-half hour of critical care time. Job ID: [id number]
--- NOTE | 2020-01-19 12:23 | PRG ---
DATE OF SERVICE: 01/19/2020 SUBJECTIVE: The patient seen in ICU, intubated. OBJECTIVE: GENERAL: This is a morbidly obese female, intubated. VITAL SIGNS: Temperature 98.5, pulse 85, respiratory rate 18, blood pressure noted HEENT: Intubated. CV: S1 and S2 heard. RESPIRATORY: Clear. GI: Abdomen is obese. MUSCULOSKELETAL: 2+ edema. NEUROLOGIC: Intubated. LABORATORY DATA: Potassium 3.9, BUN is 58 from 50, creatinine is 2.4. ASSESSMENT AND PLAN: 1. Acute kidney injury on chronic kidney disease, stage 3. Creatinine is better. BUN may be high, most likely from steroids. Adjust the steroids if tolerated. 2. Acute hypoxic respiratory failure. 3. Cardiorenal syndrome. 4. Alkalosis. 5. Edema. 6. Hypokalemia, stable. 7. No diuretics, plan today. We will monitor renal function. Job ID: [id number] MTDD
--- NOTE | 2020-01-19 15:07 | PDOC.HOSPP ---
- Subjective Encounter Date: 01/19/20 Encounter Time: 15:00 Subjective: f/u for acute/chronic resp failure with current SIMV 40% FIO2 with rate 8. No new events noted other than low glucose on current Lantus 35u BID and receiving Nepro TF's @ 15ml/h with low residuals. - Objective Vital Signs & Weight: Vital Signs (12 hours) Temp Pulse Pulse Pulse Resp BP BP 01/19/20 14:00 99.2 F 12 01/19/20 13:26 76 01/19/20 12:00 98 F 17 01/19/20 11:24 85 85 116/54 L 01/19/20 10:27 78 01/19/20 10:00 20 01/19/20 09:53 190/80 H 01/19/20 08:01 190/80 H 01/19/20 08:00 98.5 F 96 14 190/80 H 01/19/20 07:52 96 01/19/20 06:00 16 01/19/20 04:00 12 BP Pulse Ox Pulse Ox Pulse Ox 01/19/20 14:00 01/19/20 13:26 01/19/20 12:00 01/19/20 11:24 157/72 H 96 99 01/19/20 10:27 01/19/20 10:00 01/19/20 09:53 01/19/20 08:01 01/19/20 08:00 94 L 01/19/20 07:52 01/19/20 06:00 01/19/20 04:00 Weight Admit Weight 361 lb Weight 340 lb 9.827 oz Most Recent Monitor Data Heart Rate from ECG 75 NIBP 129/58 NIBP BP-Mean 81 Respiration from ECG 14 SpO2 97 I&O: 01/18/20 01/19/20 01/20/20 06:59 06:59 06:59 Intake Total 1299.9 1308 90 Output Total 1692 1765 820 Balance -392.1 -457 -730 Result Diagrams: 01/19/20 03:55 01/19/20 03:55 Additional Labs: Accuchecks 01/18/20 01/18/20 20:17 17:29 POC Glucose 87 97 Microbiology 01/22/19 11:40 Stool Stool Occult Blood (CAROL) - Final 01/14/20 14:54 Urine pillai catheter Urine Culture - Final NO GROWTH AT 48 HOURS Laboratory Tests 01/22/19 01/22/19 01/23/19 05:13 13:25 03:51 WBC 13.2 H Hgb 8.8 L Neutrophils % 91.6 H 74.9 Potassium 5.3 H BUN 42 H Creatinine 1.83 H Iron Ferritin TSH 3rd Generation SARS-CoV-2 Rap RNA(RT-PCR) 01/14/20 01/14/20 01/15/20 16:00 22:06 04:05 WBC Hgb Neutrophils % Potassium BUN Creatinine Iron 11 L Ferritin TSH 3rd Generation 1.1967 SARS-CoV-2 Rap RNA(RT-PCR) Not Detected 01/15/20 01/15/20 01/16/20 04:05 11:02 03:55 WBC 11.2 H Hgb 7.0 L Neutrophils % Potassium BUN Creatinine 2.27 H Iron Ferritin 127.01 TSH 3rd Generation SARS-CoV-2 Rap RNA(RT-PCR) 01/16/20 01/17/20 01/17/20 03:55 03:20 03:30 WBC 10.4 13.7 H Hgb 6.8 L 7.4 L Neutrophils % Potassium BUN Creatinine 2.67 H Iron Ferritin TSH 3rd Generation SARS-CoV-2 Rap RNA(RT-PCR) 01/18/20 01/18/20 04:35 04:35 WBC 13.6 H Hgb 7.2 L Neutrophils % Potassium BUN Creatinine 2.72 H Iron Ferritin TSH 3rd Generation SARS-CoV-2 Rap RNA(RT-PCR) Radiology Reviewed by me: Yes (2D echo- EF 50-55%, suboptimal exam due to habitus) EKG Reviewed by me: Yes (Tele - SR) Hospitalist ROS - Medication Medications: Active Medications Generic Name Dose Route Start Last Admin Trade Name Freq PRN Reason Stop Dose Admin Albuterol/Ipratropium 3 ml 01/14/20 19:00 01/19/20 13:25 Ipratropium/Albuterol Sulfate 3 Ml Neb NEB 3 ml [id number] JONATHAN Administration Amlodipine Besylate 5 mg 01/18/20 09:00 01/19/20 08:00 Amlodipine 5 Mg Tab PO 5 mg BID JONATHAN Administration Aspirin 81 mg 01/15/20 09:00 01/19/20 08:05 Aspirin Chewable 81 Mg Tab PO 81 mg DAILY JONATHAN Administration Bisacodyl 10 mg 01/14/20 17:39 01/16/20 05:33 Bisacodyl 10 Mg Supp PA 10 mg DAILYPRN PRN Administration Constipation Cyanocobalamin 1,000 mcg 01/16/20 09:00 01/19/20 09:53 Cyanocobalamin (Vitamin B-12) 1,000 Mcg Tab PER TUBE 1,000 mcg DAILY JONATHAN Administration Enoxaparin Sodium 30 mg 01/17/20 21:00 01/18/20 21:21 Enoxaparin Sodium 30 Mg/0.3 Ml Syringe SC 30 mg 2100 JONATHAN Administration Folic Acid 1 mg 01/16/20 09:00 01/19/20 08:06 Folic Acid 1 Mg Tab PER TUBE 1 mg DAILY JONATHAN Administration Hydralazine HCl 10 mg 01/14/20 20:06 01/17/20 17:17 Hydralazine 20 Mg/Ml Vial SLOW IVP 10 mg Q4H PRN Administration SBP Greater Than 180 Sodium Chloride 1,000 mls @ 30 mls/hr 01/14/20 19:15 01/19/20 05:05 Normal Saline 0.9% IV Not Given .Q24H JONATHNA Fentanyl Citrate 2,000 mcg/ 100 mls @ 0 mls/hr 01/14/20 19:00 01/18/20 00:28 Sodium Chloride IV 02/13/20 19:00 100 mls INF JONATHAN Administration Protocol Per Protocol Azithromycin 500 mg/ Sodium 250 mls @ 250 mls/hr 01/17/20 09:00 01/19/20 09:46 Chloride IVPB 250 mls 0900 JONATHAN Administration Ceftriaxone Sodium 1 gm/ 100 mls @ 200 mls/hr 01/17/20 09:00 01/19/20 08:06 Sodium Chloride IVPB 100 mls 0900 JONATHAN Administration Insulin Human Regular 0 units 01/14/20 17:45 01/15/20 20:36 Insulin Regular 300 Units/3 Ml Vial SC 3 units .BEDTIME SLIDING SC PRN Administration Bedtime Correctional Scale Insulin Human Regular 0 units 01/14/20 19:07 01/17/20 04:21 Insulin Regular 300 Units/3 Ml Vial SC 3 unit .AGGRESSIVE SLIDING PRN Administration Aggressive Correctional Scale Labetalol HCl 10 mg 01/14/20 20:15 01/18/20 02:34 Labetalol Hcl 100 Mg/20 Ml Vial SLOW IVP 10 mg Q4H PRN Administration Systolic BP > 180 Lorazepam 2 mg 01/14/20 19:00 01/19/20 09:58 Lorazepam 2 Mg/Ml Vial SLOW IVP 02/13/20 19:00 2 mg Q1H PRN Administration Breakthrough agitation Methylprednisolone Sodium Succinate 20 mg 01/16/20 09:00 01/19/20 08:07 Methylprednisolone Sod Succ 40 Mg Vial IVP 20 mg BID JONATHAN Administration Multivitamins 1 tab 01/16/20 09:00 01/19/20 08:05 Multivit, Therapeutic 1 Tab PER TUBE 1 tab DAILY JONATHAN Administration Nitroglycerin 0.5 inch 01/15/20 16:30 01/17/20 21:55 Nitroglycerin 2% Ointment 1 Inch/1 Gm Packet TOP 0.5 inch Q8H PRN Administration SBP Greater Than 180 Pantoprazole Sodium 40 mg 01/19/20 09:00 01/19/20 09:53 Pantoprazole 40 Mg Granules Packet PER TUBE 40 mg DAILY JONATHAN Administration Propofol 1,000 mg 01/14/20 19:00 01/19/20 14:08 Propofol 1,000 Mg/100 Ml Vial IV 02/13/20 19:00 1,000 mg INF PRN Administration TO ACHIEVE GOAL RASS Protocol - Exam General Appearance: ill appearing General - other findings: sedate on mech vent Eye: PERRL, anicteric sclera ENT: normocephalic atraumatic, no oropharyngeal lesions ENT - other findings: NGT in L nares, ETT in place Neck: supple, symmetric, no JVD, no thyromegaly, no lymphadenopathy Heart: RRR, no murmur, no gallops, no rubs, normal peripheral pulses Heart - other findings: S1, S2 Respiratory - other findings: diminished bilat, few basilar crackles Gastrointestinal: soft, non-tender, non-distended, normal bowel sounds, no pa lpable masses Gastrointestinal - other findings: obese Extremities: no cyanosis, 1+ LE edema Skin: normal turgor, no lesions Neurological - other findings: sedate on mech vent Psychiatric: somnolent, lethargic Hosp A/P (1) Acute respiratory failure with hypoxia Code(s): J96.01 - ACUTE RESPIRATORY FAILURE WITH HYPOXIA Status: Acute Plan: Continue mech ventilation SIMV, wean as clinically indicated (2) Acute on chronic diastolic (congestive) heart failure Code(s): I50.33 - ACUTE ON CHRONIC DIASTOLIC (CONGESTIVE) HEART FAILURE Status: Acute Plan: EF 50-55%, Lasix d/c'd due to CARLA (3) Obesity hypoventilation syndrome Code(s): E66.2 - MORBID (SEVERE) OBESITY WITH ALVEOLAR HYPOVENTILATION Status: Chronic (4) CARLA (acute kidney injury) Code(s): N17.9 - ACUTE KIDNEY FAILURE, UNSPECIFIED Status: Acute Plan: Slow improvement, avoid nephrotoxic meds and limit contrast, serial creatinine (5) CKD (chronic kidney disease), stage III Code(s): N18.3 - CHRONIC KIDNEY DISEASE, STAGE 3 (MODERATE) * DO NOT USE * Status: Acute Qualifiers: Chronic kidney disease stage 3 subtype: stage 3a (GFR 45-59) Qualified Code(s): N18.31 - Chronic kidney disease, stage 3a (6) DM type 2 (diabetes mellitus, type 2) Status: Chronic Qualifiers: Diabetes mellitus terminal 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 insulin 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: with 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 Diabetes mellitus complication status: with kidney complications Diabetes mellitus complication detail: with chronic kidney disease Chronic kidney disease stage: stage 3 (moderate) Qualified Code(s): E11.22 - Type 2 diabetes mellitus with diabetic chronic kidney disease; N18.3 - Chronic kidney disease, stage 3 (moderate); Z79.4 - MCFP (current) use of insulin Plan: Glucose trend lower, decrease Lantus 20u BID, accuchecks q6h, ISS (7) Iron deficiency anemia Code(s): D50.9 - IRON DEFICIENCY ANEMIA, UNSPECIFIED Status: Chronic Qualifiers: Iron deficiency anemia type: inadequate dietary iron intake Qualified Code(s): D50.8 - Other iron deficiency anemias Plan: Worsening anemia, T&C for 1u PRBC's and transfuse today, serial H/H, no active blood loss noted, likely multifactorial including iron-deficiency - Plan continue antibiotics, social professionals, respiratory therapy, DVT proph w/SCDs Continue critical support T&C for 1u PRBC's today IV Iron infusion today Decrease Lantus 20u BID Continue Zithromax/Rocephin Protonix 40mg PT daily Check stool guaiac AM lab: BMP, CBC
[2020-01-19] MEDS ORDERED: Iron, Sodium Ferric Gluconate 250 MG in Sodium Chloride 0.9% 100 ML IVPB SCH (15:30)
[2020-01-19] MEDS: Enoxaparin Sodium 30 MG/0.3 ML SYRINGE SC SCH (21:29)
[2020-01-19] MEDS: Insulin Glargine 20 UNITS in Pre-Filled Syringe 1 EACH SC SCH (22:09)
[2020-01-20] MEDS: Propofol 1,000 MG/100 ML VIAL IV PRN ×8 (02:22→21:50)
[2020-01-20] MEDS: Lorazepam 2 MG/ML VIAL SLOW IVP PRN ×3 (02:43→21:43)
[2020-01-20] MEDS: hydrALAZINE 20 MG/ML VIAL SLOW IVP PRN ×2 (04:05→15:03)
[2020-01-20] MEDS: Nitroglycerin 2% Ointment 1 INCH/1 GM Packet TOP PRN (04:32)
[2020-01-20 04:57] LABS: #Eosinphils 0.1 thou/uL (0.0-0.7); #Lymphocytes 0.8 thou/uL (1.20-3.40); #Monocytes 0.7 thou/uL (0.11-0.59); #Neutrophils 9.5 thou/uL (1.40-6.50); %Basophils 0.2 % (0.0-1.0); %Eosinophils 0.5 % (0.0-10.0); %Monocytes 6.1 % (0.0-10.0); %Neutrophils 86.2 % (42.0-75.0); Hemoglobin 8.6 g/dL (12.0-16.0); Mean Corpuscular HGB CONC 30.8 g/dL (32.0-36.0); Mean Corpuscular Hemoglobin 24.3 pg (27.0-31.0); Mean Corpuscular Volume 78.8 fL (78.0-98.0); Mean Platelet Volume 10.4 fL (7.4-10.4); Platelet Count 346 thou/uL (130-400); RBC Distribution Width 18.6 % (11.5-14.5); Red Blood Cell (RBC) Count 3.52 mill/uL (4.20-5.40)
[2020-01-20 05:21] LABS: Anion Gap 16 mmol/L (10-20); BUN (Urea Nitrogen) 54 mg/dL (9.8-20.1); Calc. Creatinine Clearance 88 mL/min (70-130); Carbon Dioxide 30 mmol/L (22-29); Chloride 101 mmol/L (98-107); Glucose 174 mg/dL (70-105); Potassium 3.9 mmol/L (3.5-5.1); Sodium 143 mmol/L (136-145)
[2020-01-20] MEDS: Insulin Regular 300 UNITS/3 ML VIAL SC PRN ×2 (05:45→18:21)
[2020-01-20 07:20] LABS: Actual Bicarbonate (HCO3a) 29.4 mEq/L (22-28); Base Excess (BEa) 2.3 mEq/L (-2.0 to +3.0); CO2 Tension 58.5 mmHg (35.0-45.0); Calcium, Ionized (arterial) 1.19 mmol/L (1.12-1.30); Carboxyhemoglobin (COHb) 0.3 gm% (0.0-3.0); Hemoglobin (Hb) 11.1 g/dL (12.0-16.0); O2 Tension (PaO2), arterial 77.8 mmHg (80.0-100.0); Potassium - ABG Lab 3.71 mmol/L (3.70-5.30); pH, Arterial 7.32 (7.35-7.45)
[2020-01-20 07:21] LABS: ALV-art Gradient 134.275 mmHg (0-20); Puncture Site LRA
[2020-01-20] MEDS: Amlodipine 5 MG TAB PO SCH ×2 (08:03→20:06)
[2020-01-20] MEDS: Pantoprazole 40 MG GRANULES PACKET PER TUBE SCH (08:06)
[2020-01-20] MEDS: Aspirin Chewable 81 MG TAB PO SCH (08:06)
[2020-01-20] MEDS: Multivit, Therapeutic 1 TAB PER TUBE SCH (08:06)
[2020-01-20] MEDS: Carvedilol 6.25 MG TAB PO SCH (08:07)
[2020-01-20] MEDS: Folic Acid 1 MG TAB PER TUBE SCH (08:07)
[2020-01-20] MEDS: cefTRIAXone\\ROCEPHIN 1 GM in Sodium Chloride 0.9% 100 ML IVPB SCH (08:08)
[2020-01-20] MEDS ORDERED: Carvedilol 6.25 MG TAB PO SCH ×2 (08:55→17:00)
[2020-01-20] MEDS ORDERED: Carvedilol 25 MG TAB PO SCH (09:00)
[2020-01-20] MEDS: Azithromycin 500 MG in Sodium Chloride 0.9% 250 ML 250 ML IVPB SCH (09:34)
[2020-01-20] MEDS: methylPREDNISolone Sod Succ 40 MG VIAL IVP SCH ×2 (09:36→20:07)
--- NOTE | 2020-01-20 10:41 | PRG ---
DATE OF SERVICE: 01/20/2020 37 minutes critical care time. SUBJECTIVE: The patient remains intubated on mechanical ventilation. She will wake up, but does not follow commands for me specifically. OBJECTIVE: VITAL SIGNS: Temperature 97.6, pulse 83, blood pressure 180/91. 24-hour intake 3100, output 2445. Weight 353 pounds. HEENT: Unremarkable. NECK: No JVD. LUNGS: Clear anteriorly. CARDIOVASCULAR: S1, S2. Regular. ABDOMEN: Soft, obese, nontender, nondistended. EXTREMITIES: Edematous. LABORATORY DATA: PH 7.32, pCO2 of 58, PO2 of 77, on SIMV rate of 8, tidal volume 450, PEEP 5, pressure support 10, FiO2 of 40%. White blood cell count 11, hematocrit 27.8, and platelet count 346. Sodium 143, potassium 3.9, chloride 101, CO2 of 30, BUN 54, creatinine 1.8, glucose 174. ASSESSMENT: 1. Acute respiratory failure requiring mechanical ventilation. 2. Diastolic heart dysfunction. 3. Cerebrovascular accident. 4. Cephalopathy. 5. Renal insufficiency. PLAN: 1. She is not weanable at this time. I tried her on spontaneous breathing for a while, but she cannot order puller 200 mL tidal volume. 2. We are facing the prospect of having to do tracheostomy on this patient next week. I do not see a scenario when she is going to be weanable without a trach. The alternative would be to get palliative care involved. 3. Niyah today. Job ID: [id number]
[2020-01-20] MEDS: Cyanocobalamin (Vitamin B-12) 1,000 MCG TAB PER TUBE SCH (10:50)
[2020-01-20] MEDS: Insulin Glargine 20 UNITS in Pre-Filled Syringe 1 EACH SC SCH ×2 (11:00→20:08)
--- NOTE | 2020-01-20 11:19 | PRG ---
DATE OF SERVICE: 01/20/2020 SUBJECTIVE: The patient is seen in ICU, intubated. Apparently, she remains not weanable at this point. Pulmonology is following. OBJECTIVE: GENERAL: This is a morbidly obese female, intubated. VITAL SIGNS: Temperature 97.6, pulse 75, respiratory rate 14, and blood pressure noted. HEENT: Intubated. CV: S1 and S2 heard. RESPIRATORY: Clear. GASTROINTESTINAL: Abdomen is obese. MUSCULOSKELETAL: 2+ edema. LABORATORY DATA: Potassium 3.9, BUN is 54, and creatinine is 1.85. ASSESSMENT AND PLAN: 1. Acute kidney injury on chronic kidney disease, stable, but the patient remains fluid overloaded, could not tolerate Lasix much. 2. Alkalosis. 3. Acute hypoxic respiratory failure. 4. Cardiorenal syndrome. 5. Edema. 6. Hyperkalemia. Renal function getting better. Avoid nephrotoxins. Job ID: [id number] MTDD
--- NOTE | 2020-01-20 14:15 | PDOC.HOSPP ---
- Subjective Encounter Date: 01/20/20 Encounter Time: 14:15 Subjective: f/u for resp failure/diastolic HF/mech ventilation with SIMV/HTN. Nursing reports BP labile and trending upward. - Objective Vital Signs & Weight: Vital Signs (12 hours) Temp Pulse Resp BP Pulse Ox 01/20/20 11:02 75 01/20/20 10:00 20 01/20/20 08:07 185/97 H 01/20/20 08:03 76 185/97 H 01/20/20 08:00 98.5 F 01/20/20 06:54 91 01/20/20 06:52 85 14 99 01/20/20 06:00 21 H 01/20/20 04:05 78 191/82 H 01/20/20 04:00 97.6 F 17 Weight Admit Weight 361 lb Weight 353 lb 2.888 oz Most Recent Monitor Data Heart Rate from ECG 78 NIBP 187/92 NIBP BP-Mean 123 Respiration from ECG 23 SpO2 98 I&O: 01/19/20 01/20/20 01/21/20 06:59 06:59 06:59 Intake Total 1308 3100 140 Output Total 1765 2445 350 Balance -457 615 -210 Result Diagrams: 01/20/20 04:00 01/20/20 04:00 Additional Labs: Accuchecks 01/20/20 01/20/20 01/19/20 11:07 00:16 21:07 POC Glucose 131 H 138 H 102 H 01/19/20 17:23 POC Glucose 137 H Microbiology 01/22/19 11:40 Stool Stool Occult Blood (CAROL) - Final 01/14/20 14:54 Urine pillai catheter Urine Culture - Final NO GROWTH AT 48 HOURS Laboratory Tests 01/22/19 01/22/19 01/23/19 05:13 13:25 03:51 WBC 13.2 H Hgb 8.8 L Neutrophils % 91.6 H 74.9 Potassium 5.3 H Carbon Dioxide BUN 42 H Creatinine 1.83 H Iron Ferritin TSH 3rd Generation SARS-CoV-2 Rap RNA(RT-PCR) 01/14/20 01/14/20 01/15/20 16:00 22:06 04:05 WBC Hgb Neutrophils % Potassium Carbon Dioxide BUN Creatinine Iron 11 L Ferritin TSH 3rd Generation 1.1967 SARS-CoV-2 Rap RNA(RT-PCR) Not Detected 01/15/20 01/15/20 01/16/20 04:05 11:02 03:55 WBC 11.2 H Hgb 7.0 L Neutrophils % Potassium Carbon Dioxide BUN Creatinine 2.27 H Iron Ferritin 127.01 TSH 3rd Generation SARS-CoV-2 Rap RNA(RT-PCR) 01/16/20 01/17/20 01/17/20 03:55 03:20 03:30 WBC 10.4 13.7 H Hgb 6.8 L 7.4 L Neutrophils % Potassium Carbon Dioxide BUN Creatinine 2.67 H Iron Ferritin TSH 3rd Generation SARS-CoV-2 Rap RNA(RT-PCR) 01/18/20 01/18/20 01/19/20 04:35 04:35 03:55 WBC 13.6 H Hgb 7.2 L Neutrophils % Potassium Carbon Dioxide 30 H BUN 58 H Creatinine 2.72 H 2.46 H Iron Ferritin TSH 3rd Generation SARS-CoV-2 Rap RNA(RT-PCR) 01/19/20 01/20/20 03:55 04:00 WBC Hgb 6.5 L Neutrophils % 83.9 H 86.2 H Potassium Carbon Dioxide BUN Creatinine Iron Ferritin TSH 3rd Generation SARS-CoV-2 Rap RNA(RT-PCR) EKG Reviewed by me: Yes (Tele - SR) Hospitalist ROS - Medication Medications: Active Medications Generic Name Dose Route Start Last Admin Trade Name Freq PRN Reason Stop Dose Admin Albuterol/Ipratropium 3 ml 01/14/20 19:00 01/20/20 06:52 Ipratropium/Albuterol Sulfate 3 Ml Neb NEB 3 ml [id number] JONATHAN Administration Amlodipine Besylate 5 mg 01/18/20 09:00 01/20/20 08:03 Amlodipine 5 Mg Tab PO 5 mg BID JONATHAN Administration Aspirin 81 mg 01/15/20 09:00 01/20/20 08:06 Aspirin Chewable 81 Mg Tab PO 81 mg DAILY JONATHAN Administration Bisacodyl 10 mg 01/14/20 17:39 01/16/20 05:33 Bisacodyl 10 Mg Supp ND 10 mg DAILYPRN PRN Administration Constipation Cyanocobalamin 1,000 mcg 01/16/20 09:00 01/20/20 10:50 Cyanocobalamin (Vitamin B-12) 1,000 Mcg Tab PER TUBE 1,000 mcg DAILY JONATHAN Administration Enoxaparin Sodium 30 mg 01/17/20 21:00 01/19/20 21:29 Enoxaparin Sodium 30 Mg/0.3 Ml Syringe SC 30 mg 2100 JONATHAN Administration Folic Acid 1 mg 01/16/20 09:00 01/20/20 08:07 Folic Acid 1 Mg Tab PER TUBE 1 mg DAILY JONATHAN Administration Fentanyl Citrate 2,000 mcg/ 100 mls @ 0 mls/hr 01/14/20 19:00 01/18/20 00:28 Sodium Chloride IV 02/13/20 19:00 100 mls INF JONATHAN Administration Protocol Per Protocol Azithromycin 500 mg/ Sodium 250 mls @ 250 mls/hr 01/17/20 09:00 01/20/20 09:34 Chloride IVPB 250 mls 0900 JONATHAN Administration Ceftriaxone Sodium 1 gm/ 100 mls @ 200 mls/hr 01/17/20 09:00 01/20/20 08:08 Sodium Chloride IVPB 100 mls 0900 JONATHAN Administration Insulin Glargine 20 units/ 0.2 mls @ 0.1 mls/hr 01/19/20 21:00 01/20/20 11:00 Miscellaneous Medication SC 0.2 mls Q12HR JONATHAN Administration Insulin Human Regular 0 units 01/14/20 17:45 01/15/20 20:36 Insulin Regular 300 Units/3 Ml Vial SC 3 units .BEDTIME SLIDING SC PRN Administration Bedtime Correctional Scale Insulin Human Regular 0 units 01/14/20 19:07 01/20/20 05:45 Insulin Regular 300 Units/3 Ml Vial SC 3 unit .AGGRESSIVE SLIDING PRN Administration Aggressive Correctional Scale Labetalol HCl 10 mg 01/14/20 20:15 01/18/20 02:34 Labetalol Hcl 100 Mg/20 Ml Vial SLOW IVP 10 mg Q4H PRN Administration Systolic BP > 180 Lorazepam 2 mg 01/14/20 19:00 01/20/20 11:51 Lorazepam 2 Mg/Ml Vial SLOW IVP 02/13/20 19:00 2 mg Q1H PRN Administration Breakthrough agitation Methylprednisolone Sodium Succinate 20 mg 01/16/20 09:00 01/20/20 09:36 Methylprednisolone Sod Succ 40 Mg Vial IVP 20 mg BID JONATHAN Administration Multivitamins 1 tab 01/16/20 09:00 01/20/20 08:06 Multivit, Therapeutic 1 Tab PER TUBE 1 tab DAILY JONATHAN Administration Nitroglycerin 0.5 inch 01/15/20 16:30 01/20/20 04:32 Nitroglycerin 2% Ointment 1 Inch/1 Gm Packet TOP 0.5 inch Q8H PRN Administration SBP Greater Than 180 Pantoprazole Sodium 40 mg 01/19/20 09:00 01/20/20 08:06 Pantoprazole 40 Mg Granules Packet PER TUBE 40 mg DAILY JONATHAN Administration Propofol 1,000 mg 01/14/20 19:00 01/20/20 13:35 Propofol 1,000 Mg/100 Ml Vial IV 02/13/20 19:00 1,000 mg INF PRN Administration TO ACHIEVE GOAL RASS Protocol - Exam General - other findings: sedate on mech vent Eye: PERRL, anicteric sclera ENT: normocephalic atraumatic, no oropharyngeal lesions ENT - other findings: ETT/NGT in place Neck: supple, symmetric, no JVD, no thyromegaly, no lymphadenopathy Heart: RRR, no gallops, no rubs, normal peripheral pulses Heart - other findings: S1, S2 Respiratory: tachypneic Respiratory - other findings: diminished in bases bilat Gastrointestinal: soft, non-distended, normal bowel sounds Gastrointestinal - other findings: obese Extremities: no cyanosis, no clubbing, 1+ LE edema Skin: normal turgor, no lesions Neurological - other findings: sedate on mech vent Musculoskeletal: generalized weakness Psychiatric: somnolent, lethargic Hosp A/P (1) Acute respiratory failure with hypoxia Code(s): J96.01 - ACUTE RESPIRATORY FAILURE WITH HYPOXIA Status: Acute Plan: Continue SIMV 40% FIO2, rate 8, general pulmonary support (2) Acute on chronic diastolic (congestive) heart failure Code(s): I50.33 - ACUTE ON CHRONIC DIASTOLIC (CONGESTIVE) HEART FAILURE Status: Acute Plan: Lasix 40mg IV BID, give Lasix 40mg IV x 1 now, serial I/O's, daily weight (3) Obesity hypoventilation syndrome Code(s): E66.2 - MORBID (SEVERE) OBESITY WITH ALVEOLAR HYPOVENTILATION Status: Chronic (4) CARLA (acute kidney injury) Code(s): N17.9 - ACUTE KIDNEY FAILURE, UNSPECIFIED Status: Acute Plan: Improving, avoid nephrotoxic meds and limit contrast exposure (5) CKD (chronic kidney disease), stage III Code(s): N18.3 - CHRONIC KIDNEY DISEASE, STAGE 3 (MODERATE) * DO NOT USE * Status: Acute Qualifiers: Chronic kidney disease stage 3 subtype: stage 3a (GFR 45-59) Qualified Code(s): N18.31 - Chronic kidney disease, stage 3a (6) DM type 2 (diabetes mellitus, type 2) Status: Chronic Qualifiers: Diabetes mellitus fpc insulin use: with fpc use Diabetes mellitus complication status: with kidney complications Diabetes mellitus complication detail: with chronic kidney disease Chronic kidney disease stage: stage 3 (moderate) Qualified Code(s): E11.22 - Type 2 diabetes mellitus with diabetic chronic kidney disease; N18.3 - Chronic kidney disease, stage 3 (moderate); Z79.4 - jail (current) use of insulin Plan: Glucose trend stable, continue serial accuchecks, ISS (7) Iron deficiency anemia Code(s): D50.9 - IRON DEFICIENCY ANEMIA, UNSPECIFIED Status: Chronic Qualifiers: Iron deficiency anemia type: inadequate dietary iron intake Qualified Code(s): D50.8 - Other iron deficiency anemias Plan: s/p IV Iron infusion, resume FeSO4 - Plan continue antibiotics, PT/OT, social psychologist, speech therapy, respiratory therapy, DVT proph w/SCDs Continue critical support s/p 1u PRBC's s/p IV Iron infusion Decrease Lantus 20u BID Continue Zithromax/Rocephin Protonix 40mg PT daily Lasix 40mg IV BID Hydralazine 20mg IV q4h PRN Check stool guaiac AM lab: BMP, CBC, ABG
[2020-01-20] MEDS: Furosemide 40 MG/4 ML VIAL SLOW IVP SCH ×2 (14:24→20:07)
[2020-01-20] MEDS ORDERED: Furosemide 40 MG/4 ML VIAL SLOW IVP SCH (14:30)
[2020-01-20] MEDS: Carvedilol 25 MG TAB PO SCH (16:50)
[2020-01-20] MEDS: Enoxaparin Sodium 30 MG/0.3 ML SYRINGE SC SCH (20:07)
[2020-01-21] MEDS: Propofol 1,000 MG/100 ML VIAL IV PRN ×9 (00:16→23:06)
[2020-01-21] MEDS: Lorazepam 2 MG/ML VIAL SLOW IVP PRN ×2 (01:42→11:36)
[2020-01-21] MEDS: hydrALAZINE 20 MG/ML VIAL SLOW IVP PRN ×2 (02:38→23:51)
[2020-01-21 05:33] LABS: #Eosinphils 0.2 thou/uL (0.0-0.7); #Lymphocytes 1.1 thou/uL (1.20-3.40); #Monocytes 0.7 thou/uL (0.11-0.59); #Neutrophils 9.7 thou/uL (1.40-6.50); %Basophils 0.3 % (0.0-1.0); %Eosinophils 1.5 % (0.0-10.0); %Lymphocytes 9.2 % (21.0-51.0); %Monocytes 5.7 % (0.0-10.0); %Neutrophils 83.3 % (42.0-75.0); Mean Corpuscular HGB CONC 30.7 g/dL (32.0-36.0); Mean Corpuscular Hemoglobin 24.4 pg (27.0-31.0); Mean Corpuscular Volume 79.5 fL (78.0-98.0); Mean Platelet Volume 10.2 fL (7.4-10.4); Platelet Count 358 thou/uL (130-400); RBC Distribution Width 18.6 % (11.5-14.5); Red Blood Cell (RBC) Count 3.26 mill/uL (4.20-5.40); White Blood Cell (WBC) Count 11.7 thou/uL (4.8-10.8)
[2020-01-21 05:59] LABS: Anion Gap 12 mmol/L (10-20); BUN (Urea Nitrogen) 48 mg/dL (9.8-20.1); Calc. Creatinine Clearance 107 mL/min (70-130); Calcium 8.9 mg/dL (7.8-10.44); Carbon Dioxide 32 mmol/L (22-29); Chloride 103 mmol/L (98-107); Glucose 136 mg/dL (70-105); Potassium 3.3 mmol/L (3.5-5.1); Sodium 144 mmol/L (136-145)
[2020-01-21 07:21] LABS: Analyzer IN Cardio ER; Base Excess (BEa) 4.2 mEq/L (-2.0 to +3.0); CO2 Tension 44.8 mmHg (35.0-45.0); Calcium, Ionized (arterial) 1.21 mmol/L (1.12-1.30); Carboxyhemoglobin (COHb) 0.4 gm% (0.0-3.0); Hemoglobin (Hb) 9.5 g/dL (12.0-16.0); Potassium - ABG Lab 3.45 mmol/L (3.70-5.30); pH, Arterial 7.43 (7.35-7.45)
[2020-01-21 07:24] LABS: O2 Tension (PaO2), arterial 54.7 mmHg (80.0-100.0)
[2020-01-21 07:25] LABS: Puncture Site LRA
[2020-01-21] MEDS: Carvedilol 25 MG TAB PO SCH ×2 (07:58→16:00)
[2020-01-21] MEDS: Aspirin Chewable 81 MG TAB PO SCH (07:58)
[2020-01-21] MEDS: Pantoprazole 40 MG GRANULES PACKET PER TUBE SCH (07:59)
[2020-01-21] MEDS: Folic Acid 1 MG TAB PER TUBE SCH (07:59)
[2020-01-21] MEDS: Amlodipine 5 MG TAB PO SCH ×2 (07:59→21:24)
[2020-01-21] MEDS: Multivit, Therapeutic 1 TAB PER TUBE SCH (07:59)
[2020-01-21] MEDS: Cyanocobalamin (Vitamin B-12) 1,000 MCG TAB PER TUBE SCH (08:00)
[2020-01-21] MEDS: cefTRIAXone\\ROCEPHIN 1 GM in Sodium Chloride 0.9% 100 ML IVPB SCH (09:11)
[2020-01-21] MEDS: Furosemide 40 MG/4 ML VIAL SLOW IVP SCH ×2 (09:11→21:24)
[2020-01-21] MEDS: methylPREDNISolone Sod Succ 40 MG VIAL IVP SCH ×2 (09:14→21:24)
[2020-01-21] MEDS: Insulin Glargine 20 UNITS in Pre-Filled Syringe 1 EACH SC SCH ×2 (09:22→21:24)
[2020-01-21] MEDS ORDERED: Potassium Chloride 40 MEQ in Premix Bag 1 BAG IVPB SCH (09:45)
[2020-01-21] MEDS: Azithromycin 500 MG in Sodium Chloride 0.9% 250 ML 250 ML IVPB SCH (09:53)
--- NOTE | 2020-01-21 10:07 | PRG ---
DATE OF SERVICE: 01/21/2020 SUBJECTIVE: The patient was seen and examined in ICU and remains intubated. OBJECTIVE: GENERAL: This is a morbidly obese female seen in the ICU and intubated. VITAL SIGNS: Temperature 97.7, pulse 84, respiratory rate 20, blood pressure 189/86. HEENT: Intubated. CV: S1, S2 heard. RESPIRATORY: Clear. GI: Abdomen is obese. MUSCULOSKELETAL: 2+ edema. NEUROLOGICAL: Intubated. LABORATORY DATA: Potassium 3.3, BUN is 48, creatinine is 1.5. ASSESSMENT: 1. Acute kidney injury on chronic kidney disease, stage 3. Renal function is better. 2. Hypokalemia. We will replace and recheck magnesium and phosphorus with potassium in the evening. Bedside nurse updated. 3. Acute hypoxic respiratory failure. 4. Alkalosis. 5. Cardiorenal syndrome. 6. Edema. PLAN: Cautious replacement of electrolytes with close monitoring of cardiorespiratory status. Patient currently on diuretics, but renal function is getting better. She remains fluid overloaded. We will follow. Appreciate the consult. Job ID: [id number]
--- NOTE | 2020-01-21 10:11 | PDOC.HOSPP ---
- Subjective Encounter Date: 01/21/20 Encounter Time: 11:00 non-verbal Subjective: no events overnight, BP has been running high and needing prn labetalol. - Objective Vital Signs & Weight: Vital Signs (12 hours) Temp Pulse Resp BP Pulse Ox 01/21/20 08:16 97.7 F 01/21/20 08:00 23 H 01/21/20 07:59 77 175/74 H 01/21/20 07:03 77 175/74 H 01/21/20 06:56 78 19 99 01/21/20 02:38 81 186/88 H 01/21/20 02:21 80 180/83 H 01/21/20 00:00 99.0 F 01/20/20 23:33 72 141/65 H Weight Admit Weight 361 lb Weight 350 lb 5.032 oz Most Recent Monitor Data Heart Rate from ECG 84 NIBP 189/86 NIBP BP-Mean 120 Respiration from ECG 21 SpO2 95 I&O: 01/20/20 01/21/20 01/22/20 06:59 06:59 06:59 Intake Total 3100 1818 60 Output Total 2445 3280 60 Balance 655 -1462 0 Result Diagrams: 01/21/20 04:20 01/21/20 04:20 Additional Labs: Accuchecks 01/21/20 01/20/20 00:37 11:07 POC Glucose 109 H 131 H Hospitalist ROS - Review of Systems ROS unobtainable: due to endotracheal tube - Medication Medications: Active Medications Generic Name Dose Route Start Last Admin Trade Name Freq PRN Reason Stop Dose Admin Acetaminophen 650 mg 01/14/20 17:39 01/20/20 14:13 Acetaminophen 650 Mg/20.3 Ml Udcup PO 650 mg Q6H PRN Administration Fever > 101 or Mild Pain Albuterol/Ipratropium 3 ml 01/14/20 19:00 01/21/20 06:56 Ipratropium/Albuterol Sulfate 3 Ml Neb NEB 3 ml [id number] JONATHAN Administration Amlodipine Besylate 5 mg 01/18/20 09:00 01/21/20 07:59 Amlodipine 5 Mg Tab PO 5 mg BID JONATHAN Administration Aspirin 81 mg 01/15/20 09:00 01/21/20 07:58 Aspirin Chewable 81 Mg Tab PO 81 mg DAILY JONATHAN Administration Bisacodyl 10 mg 01/14/20 17:39 01/16/20 05:33 Bisacodyl 10 Mg Supp NC 10 mg DAILYPRN PRN Administration Constipation Carvedilol 25 mg 01/20/20 17:00 01/21/20 07:58 Carvedilol 25 Mg Tab PO 25 mg BID-WM JONATHAN Administration Cyanocobalamin 1,000 mcg 01/16/20 09:00 01/21/20 08:00 Cyanocobalamin (Vitamin B-12) 1,000 Mcg Tab PER TUBE 1,000 mcg DAILY JONATHAN Administration Enoxaparin Sodium 30 mg 01/17/20 21:00 01/20/20 20:07 Enoxaparin Sodium 30 Mg/0.3 Ml Syringe SC 30 mg 2100 JONATHAN Administration Folic Acid 1 mg 01/16/20 09:00 01/21/20 07:59 Folic Acid 1 Mg Tab PER TUBE 1 mg DAILY JONATHAN Administration Furosemide 40 mg 01/20/20 21:00 01/21/20 09:11 Furosemide 40 Mg/4 Ml Vial SLOW IVP 40 mg BID JONATHAN Administration Hydralazine HCl 20 mg 01/20/20 14:13 01/21/20 02:38 Hydralazine 20 Mg/Ml Vial SLOW IVP 20 mg Q4H PRN Administration SBP Greater Than 180 Fentanyl Citrate 2,000 mcg/ 100 mls @ 0 mls/hr 01/14/20 19:00 01/18/20 00:28 Sodium Chloride IV 02/13/20 19:00 100 mls INF JONATHAN Administration Protocol Per Protocol Azithromycin 500 mg/ Sodium 250 mls @ 250 mls/hr 01/17/20 09:00 01/21/20 09:53 Chloride IVPB 250 mls 0900 JONATHAN Administration Ceftriaxone Sodium 1 gm/ 100 mls @ 200 mls/hr 01/17/20 09:00 01/21/20 09:11 Sodium Chloride IVPB 100 mls 0900 JONATHAN Administration Insulin Glargine 20 units/ 0.2 mls @ 0.1 mls/hr 01/19/20 21:00 01/21/20 09:22 Miscellaneous Medication SC 0.2 mls Q12HR JONATHAN Administration Potassium Chloride 40 meq/ 100 mls @ 25 mls/hr 01/21/20 09:45 01/21/20 09:56 Device IVPB 01/21/20 13:44 100 mls NOW JONATHAN Administration Insulin Human Regular 0 units 01/14/20 17:45 01/15/20 20:36 Insulin Regular 300 Units/3 Ml Vial SC 3 units .BEDTIME SLIDING SC PRN Administration Bedtime Correctional Scale Insulin Human Regular 0 units 01/14/20 19:07 01/20/20 18:21 Insulin Regular 300 Units/3 Ml Vial SC 3 unit .AGGRESSIVE SLIDING PRN Administration Aggressive Correctional Scale Labetalol HCl 10 mg 01/14/20 20:15 01/18/20 02:34 Labetalol Hcl 100 Mg/20 Ml Vial SLOW IVP 10 mg Q4H PRN Administration Systolic BP > 180 Lorazepam 2 mg 01/14/20 19:00 01/21/20 01:42 Lorazepam 2 Mg/Ml Vial SLOW IVP 02/13/20 19:00 2 mg Q1H PRN Administration Breakthrough agitation Methylprednisolone Sodium Succinate 20 mg 01/16/20 09:00 01/21/20 09:14 Methylprednisolone Sod Succ 40 Mg Vial IVP 20 mg BID JONATHAN Administration Multivitamins 1 tab 01/16/20 09:00 01/21/20 07:59 Multivit, Therapeutic 1 Tab PER TUBE 1 tab DAILY JONATHAN Administration Nitroglycerin 0.5 inch 01/15/20 16:30 01/20/20 04:32 Nitroglycerin 2% Ointment 1 Inch/1 Gm Packet TOP 0.5 inch Q8H PRN Administration SBP Greater Than 180 Pantoprazole Sodium 40 mg 01/19/20 09:00 01/21/20 07:59 Pantoprazole 40 Mg Granules Packet PER TUBE 40 mg DAILY JONATHAN Administration Propofol 1,000 mg 01/14/20 19:00 01/21/20 06:28 Propofol 1,000 Mg/100 Ml Vial IV 02/13/20 19:00 1,000 mg INF PRN Administration TO ACHIEVE GOAL RASS Protocol Venlafaxine HCl 75 mg 01/21/20 09:00 01/21/20 07:58 Venlafaxine Hcl 75 Mg Tab PO 75 mg DAILY JONATHAN Administration - Exam General - other findings: sedated on vent ENT: moist mucosa Heart: RRR, no murmur, no gallops, no rubs Respiratory: CTAB, no wheezes, no rales, no ronchi Gastrointestinal: soft, non-tender, non-distended, normal bowel sounds Extremities - other findings: not moving left arm or leg Psychiatric - other findings: sedated on the vent Hosp A/P - Plan (1) Acute respiratory failure with hypoxia Code(s): J96.01 - ACUTE RESPIRATORY FAILURE WITH HYPOXIA Status: Acute Plan: Continue Vent, not able to wean, possible trach next week (2) Acute on chronic diastolic (congestive) heart failure Code(s): I50.33 - ACUTE ON CHRONIC DIASTOLIC (CONGESTIVE) HEART FAILURE Status: Acute Plan: Lasix 40mg IV BID, give Lasix 40mg IV x 1 now, serial I/O's, daily weight (3) Obesity hypoventilation syndrome Code(s): E66.2 - MORBID (SEVERE) OBESITY WITH ALVEOLAR HYPOVENTILATION Status: Chronic (4) CARLA (acute kidney injury) Code(s): N17.9 - ACUTE KIDNEY FAILURE, UNSPECIFIED Status: Acute Plan: Improving, avoid nephrotoxic meds and limit contrast exposure (5) CKD (chronic kidney disease), stage III Code(s): N18.3 - CHRONIC KIDNEY DISEASE, STAGE 3 (MODERATE) * DO NOT USE * St atus: Acute Qualifiers: Chronic kidney disease stage 3 subtype: stage 3a (GFR 45-59) Qualified Code(s): N18.31 - Chronic kidney disease, stage 3a (6) DM type 2 (diabetes mellitus, type 2) Status: Chronic Qualifiers: Diabetes mellitus long term care phlebotomist insulin use: with long term care phlebotomist use Diabetes mellitus complication status: with kidney complications Diabetes mellitus complication detail: with chronic kidney disease Chronic kidney disease stage: stage 3 (moderate) Qualified Code(s): E11.22 - Type 2 diabetes mellitus with diabetic chronic kidney disease; N18.3 - Chronic kidney disease, stage 3 (moderate); Z79.4 - half-way (current) use of insulin Plan: Glucose trend stable, continue serial accuchecks, ISS (7) Iron deficiency anemia Code(s): D50.9 - IRON DEFICIENCY ANEMIA, UNSPECIFIED Status: Chronic Qualifiers: Iron deficiency anemia type: inadequate dietary iron intake Qualified Code(s): D50.8 - Other iron deficiency anemias Plan: s/p IV Iron infusion, resume FeSO4 Continue critical support s/p 1u PRBC's s/p IV Iron infusion Decreased Lantus 20u BID Continue Zithromax/Rocephin Protonix 40mg PT daily Lasix 40mg IV BID Hydralazine 20mg IV q4h PRN Check stool guaiac Palliative care consult AM lab: BMP, CBC, ABG
[2020-01-21] MEDS: Labetalol HCl 100 MG/20 ML VIAL SLOW IVP PRN ×2 (11:04→22:24)
[2020-01-21] MEDS: Nitroglycerin 2% Ointment 1 INCH/1 GM Packet TOP SCH ×2 (15:18→22:25)
--- NOTE | 2020-01-21 15:41 | PRG ---
DATE OF SERVICE: 01/21/2020 SUBJECTIVE: Ms. Mcdonald remains mechanically ventilated. OBJECTIVE: VITAL SIGNS: Heart rates in the 80s, respiratory rates in the teens, oximetry is 99, blood pressure 180/72. LUNGS: Remarkable for coarse equal breath sounds. HEART: Regular rhythm. ABDOMEN: Soft. EXTREMITIES: With edema. LABORATORY DATA: White count 11.7; hemoglobin 8.0, yesterday was 8.6; platelets 358. Potassium 3.3; BUN 48; creatinine 1.5, yesterday creatinine is 1.8. PH 7.43, CO2 of 44, and pO2 of 54. IMPRESSION: 1. Diastolic heart failure. 2. Respiratory failure. 3. Acute on chronic kidney disease. 4. CVA. 5. Encephalopathy. She goes from having pressure support, tidal volume of 100 mL, sometimes 300 or 400 mL, but the majority of them at 200 mL or less. I suspect Dr. Calderón has write about the tracheostomy. Job ID: [id number]
[2020-01-21 16:34] LABS: Magnesium 1.8 mg/dL (1.6-2.6); Phosphorus 3.8 mg/dL (2.3-4.7); Potassium 3.9 mmol/L (3.5-5.1)
[2020-01-21] MEDS ORDERED: Potassium Chloride 40 MEQ, Magnesium Sulfate 1 GM in Sodium Chloride 0.9% 250 ML 250 ML IVPB SCH (17:30)
[2020-01-21] MEDS: Enoxaparin Sodium 30 MG/0.3 ML SYRINGE SC SCH (21:24)
[2020-01-22] MEDS ORDERED: cloNIDine 0.1 MG TAB PER TUBE SCH (01:45)
[2020-01-22] MEDS: Propofol 1,000 MG/100 ML VIAL IV PRN ×7 (02:09→21:18)
[2020-01-22 04:44] LABS: #Eosinphils 0.3 thou/uL (0.0-0.7); #Monocytes 0.7 thou/uL (0.11-0.59); #Neutrophils 11.5 thou/uL (1.40-6.50); %Basophils 0.2 % (0.0-1.0); %Lymphocytes 7.4 % (21.0-51.0); %Neutrophils 85.5 % (42.0-75.0); Hemoglobin 8.9 g/dL (12.0-16.0); Mean Corpuscular HGB CONC 29.9 g/dL (32.0-36.0); Mean Corpuscular Volume 80.2 fL (78.0-98.0); Platelet Count 414 thou/uL (130-400); RBC Distribution Width 18.9 % (11.5-14.5); Red Blood Cell (RBC) Count 3.71 mill/uL (4.20-5.40); White Blood Cell (WBC) Count 13.5 thou/uL (4.8-10.8)
[2020-01-22 05:01] LABS: Anion Gap 17 mmol/L (10-20); BUN (Urea Nitrogen) 49 mg/dL (9.8-20.1); Calc. Creatinine Clearance 104 mL/min (70-130); Calcium 9.7 mg/dL (7.8-10.44); Carbon Dioxide 30 mmol/L (22-29); Chloride 101 mmol/L (98-107); Glucose 167 mg/dL (70-105); Potassium 4.1 mmol/L (3.5-5.1); Sodium 144 mmol/L (136-145)
[2020-01-22] MEDS: Nitroglycerin 2% Ointment 1 INCH/1 GM Packet TOP SCH ×3 (07:44→22:49)
[2020-01-22] MEDS: Aspirin Chewable 81 MG TAB PO SCH (07:49)
[2020-01-22] MEDS: Folic Acid 1 MG TAB PER TUBE SCH (07:49)
[2020-01-22] MEDS: Amlodipine 5 MG TAB PO SCH ×2 (07:49→20:07)
[2020-01-22] MEDS: Pantoprazole 40 MG GRANULES PACKET PER TUBE SCH (07:50)
[2020-01-22] MEDS: Cyanocobalamin (Vitamin B-12) 1,000 MCG TAB PER TUBE SCH (07:50)
[2020-01-22] MEDS: Carvedilol 25 MG TAB PO SCH ×2 (07:50→17:00)
[2020-01-22] MEDS: Multivit, Therapeutic 1 TAB PER TUBE SCH (07:50)
[2020-01-22] MEDS ORDERED: Potassium Bicarbonate/Cit Ac 20 MEQ TAB PO SCH (08:15)
[2020-01-22] MEDS: Furosemide 40 MG/4 ML VIAL SLOW IVP SCH ×2 (08:24→20:08)
[2020-01-22] MEDS: methylPREDNISolone Sod Succ 40 MG VIAL IVP SCH ×2 (08:24→20:08)
[2020-01-22] MEDS: cefTRIAXone\\ROCEPHIN 1 GM in Sodium Chloride 0.9% 100 ML IVPB SCH (08:24)
--- NOTE | 2020-01-22 08:26 | PRG ---
DATE OF SERVICE: 01/22/2020 SUBJECTIVE: The patient was seen and examined in the ICU, remains intubated. OBJECTIVE: GENERAL: This is a morbidly obese female in the ICU. VITAL SIGNS: Temperature 99.3, pulse 87, respiratory rate 20, blood pressure 146/66. HEENT: Intubated. CV: S1, S2 heard. RESPIRATORY: Clear. GI: Abdomen is obese. MUSCULOSKELETAL: 1 to 2+ edema. NEUROLOGICAL: Intubated. LABORATORY DATA: Potassium 4.1, BUN is 49, creatinine is 1.4. ASSESSMENT AND PLAN: 1. Acute kidney injury on chronic kidney disease stage 3 with improvement in renal function. Recommended cautious use of diuretics. 2. Fluid overload. 3. Hypokalemia. Replace and monitor electrolytes. 4. Alkalosis. 5. Cardiorenal syndrome. 6. Monitor electrolytes closely. Monitor renal function. Job ID: [id number]
[2020-01-22] MEDS: Insulin Glargine 20 UNITS in Pre-Filled Syringe 1 EACH SC SCH ×2 (08:39→20:08)
--- NOTE | 2020-01-22 08:56 | RAD ---
PORTABLE CHEST 1 VIEW: Date: 01/22/2020 Time: 0422 hours HISTORY: Respiratory failure. FINDINGS/IMPRESSION: No significant interval change is seen since the previous day's exam. POS: WINSOME
[2020-01-22] MEDS: Azithromycin 500 MG in Sodium Chloride 0.9% 250 ML 250 ML IVPB SCH (09:16)
[2020-01-22 09:29] LABS: Actual Bicarbonate (HCO3a) 30.3 mEq/L (22-28); Base Excess (BEa) 4.5 mEq/L (-2.0 to +3.0); CO2 Tension 51.4 mmHg (35.0-45.0); Calcium, Ionized (arterial) 1.27 mmol/L (1.12-1.30); Carboxyhemoglobin (COHb) 0.5 gm% (0.0-3.0); Hemoglobin (Hb) 10.3 g/dL (12.0-16.0); O2 Tension (PaO2), arterial 90.7 mmHg (80.0-100.0); Potassium - ABG Lab 3.53 mmol/L (3.70-5.30); pH, Arterial 7.39 (7.35-7.45)
[2020-01-22 09:30] LABS: Puncture Site LRA
[2020-01-22] MEDS: Lorazepam 2 MG/ML VIAL SLOW IVP PRN (14:35)
--- NOTE | 2020-01-22 14:50 | PRG ---
DATE OF SERVICE: 01/22/2020 SUBJECTIVE: Ms. Mcdonald was evaluated today. With 20 of pressure support, her exhaled volumes are 400 mL. Her pressure support has dropped to 10. Her exhaled volumes are 100 to 150 mL. OBJECTIVE: VITAL SIGNS: Blood pressure 166/79, heart rate is 80, respiratory rate is 18, oximetry is in the high 90s, FiO2 of 40%. LUNGS: Clear anteriorly. HEART: Regular rhythm. ABDOMEN: Soft. EXTREMITIES: Without asymmetry. LABORATORY DATA: Chest x-ray today is unchanged. White count 13.5, hemoglobin 8.9, platelets 414. Electrolytes are unremarkable. BUN 49, creatinine 1.49. Intake and outputs negative 1083. IMPRESSION: 1. Congestive heart failure. 2. History of unilateral weakness, but no history of a stroke by her report. She ambulates very slowly and deliberately with a cane from what I can tell by yes and no questions. Deconditioning and muscle weakness will likely be a huge factor in successfully weaning her from mechanical ventilation. It is unclear at this point whether or not she will need a tracheostomy, but is certainly a possibility in her future. Critical care time 30 min. Job ID: [id number] MTDD
--- NOTE | 2020-01-22 16:43 | PDOC.HOSPP ---
- Subjective Encounter Date: 01/22/20 Encounter Time: 16:25 Subjective: f/u for resp failure/diast CHF receiving Lasix/mech ventilation with FIO2 40%. Not weanable and severely deconditioned with prolonged CCU stay. - Objective Vital Signs & Weight: Vital Signs (12 hours) Temp Pulse Resp BP Pulse Ox 01/22/20 16:00 16 01/22/20 15:39 83 175/134 H 01/22/20 15:38 84 19 98 01/22/20 14:00 18 01/22/20 12:00 98.8 F 16 01/22/20 11:40 85 163/74 H 01/22/20 10:00 14 01/22/20 08:00 99.0 F 12 99 01/22/20 07:49 88 160/78 H 01/22/20 06:00 15 01/22/20 04:55 88 160/78 H 01/22/20 04:52 88 16 99 Weight Admit Weight 361 lb Weight 335 lb 15.752 oz Most Recent Monitor Data Heart Rate from ECG 82 NIBP 178/83 NIBP BP-Mean 114 Respiration from ECG 16 SpO2 98 I&O: 01/21/20 01/22/20 01/23/20 06:59 06:59 06:59 Intake Total 1818 2427 150 Output Total 3280 3510 1090 [facility]1462 -[phone] -940 Result Diagrams: 01/22/20 04:10 01/22/20 04:10 Additional Labs: Accuchecks 01/22/20 01/22/20 01/22/20 11:08 06:14 00:33 POC Glucose 150 H 135 H 144 H Microbiology 01/22/19 11:40 Stool Stool Occult Blood (CAROL) - Final 01/14/20 14:54 Urine pillai catheter Urine Culture - Final NO GROWTH AT 48 HOURS Laboratory Tests 01/22/19 01/22/19 01/23/19 05:13 13:25 03:51 WBC 13.2 H Hgb 8.8 L Neutrophils % 91.6 H 74.9 Potassium 5.3 H Carbon Dioxide BUN 42 H Creatinine 1.83 H Iron Ferritin TSH 3rd Generation SARS-CoV-2 Rap RNA(RT-PCR) 01/14/20 01/14/20 01/15/20 16:00 22:06 04:05 WBC Hgb Neutrophils % Potassium Carbon Dioxide BUN Creatinine Iron 11 L Ferritin TSH 3rd Generation 1.1967 SARS-CoV-2 Rap RNA(RT-PCR) Not Detected 01/15/20 01/15/20 01/16/20 04:05 11:02 03:55 WBC 11.2 H Hgb 7.0 L Neutrophils % Potassium Carbon Dioxide BUN Creatinine 2.27 H Iron Ferritin 127.01 TSH 3rd Generation SARS-CoV-2 Rap RNA(RT-PCR) 01/16/20 01/17/20 01/17/20 03:55 03:20 03:30 WBC 10.4 13.7 H Hgb 6.8 L 7.4 L Neutrophils % Potassium Carbon Dioxide BUN Creatinine 2.67 H Iron Ferritin TSH 3rd Generation SARS-CoV-2 Rap RNA(RT-PCR) 01/18/20 01/18/20 01/19/20 04:35 04:35 03:55 WBC 13.6 H Hgb 7.2 L Neutrophils % Potassium Carbon Dioxide 30 H BUN 58 H Creatinine 2.72 H 2.46 H Iron Ferritin TSH 3rd Generation SARS-CoV-2 Rap RNA(RT-PCR) 01/19/20 01/20/20 03:55 04:00 WBC Hgb 6.5 L Neutrophils % 83.9 H 86.2 H Potassium Carbon Dioxide BUN Creatinine Iron Ferritin TSH 3rd Generation SARS-CoV-2 Rap RNA(RT-PCR) Radiology Reviewed by me: Yes (PCXR - lines/tubes in position, no significant interval change) EKG Reviewed by me: Yes (Tele - SR) Hospitalist ROS - Medication Medications: Active Medications Generic Name Dose Route Start Last Admin Trade Name Baldemarq PRN Reason Stop Dose Admin Acetaminophen 650 mg 01/14/20 17:39 01/20/20 14:13 Acetaminophen 650 Mg/20.3 Ml Udcup PO 650 mg Q6H PRN Administration Fever > 101 or Mild Pain Albuterol/Ipratropium 3 ml 01/14/20 19:00 01/22/20 15:38 Ipratropium/Albuterol Sulfate 3 Ml Neb NEB 3 ml [id number] JONATHAN Administration Amlodipine Besylate 5 mg 01/18/20 09:00 01/22/20 07:49 Amlodipine 5 Mg Tab PO 5 mg BID JONATHAN Administration Aspirin 81 mg 01/15/20 09:00 01/22/20 07:49 Aspirin Chewable 81 Mg Tab PO 81 mg DAILY JONATHAN Administration Bisacodyl 10 mg 01/14/20 17:39 01/16/20 05:33 Bisacodyl 10 Mg Supp AR 10 mg DAILYPRN PRN Administration Constipation Carvedilol 25 mg 01/20/20 17:00 01/22/20 07:50 Carvedilol 25 Mg Tab PO 25 mg BID-WM JONATHAN Administration Cyanocobalamin 1,000 mcg 01/16/20 09:00 01/22/20 07:50 Cyanocobalamin (Vitamin B-12) 1,000 Mcg Tab PER TUBE 1,000 mcg DAILY JONATHAN Administration Enoxaparin Sodium 30 mg 01/17/20 21:00 01/21/20 21:24 Enoxaparin Sodium 30 Mg/0.3 Ml Syringe SC 30 mg 2100 JONATHAN Administration Folic Acid 1 mg 01/16/20 09:00 01/22/20 07:49 Folic Acid 1 Mg Tab PER TUBE 1 mg DAILY JONATHAN Administration Furosemide 40 mg 01/20/20 21:00 01/22/20 08:24 Furosemide 40 Mg/4 Ml Vial SLOW IVP 40 mg BID JONATHAN Administration Hydralazine HCl 20 mg 01/20/20 14:13 01/21/20 23:51 Hydralazine 20 Mg/Ml Vial SLOW IVP 20 mg Q4H PRN Administration SBP Greater Than 180 Fentanyl Citrate 2,000 mcg/ 100 mls @ 0 mls/hr 01/14/20 19:00 01/18/20 00:28 Sodium Chloride IV 02/13/20 19:00 100 mls INF JONATHAN Administration Protocol Per Protocol Azithromycin 500 mg/ Sodium 250 mls @ 250 mls/hr 01/17/20 09:00 01/22/20 09:16 Chloride IVPB 250 mls 0900 JONATHAN Administration Ceftriaxone Sodium 1 gm/ 100 mls @ 200 mls/hr 01/17/20 09:00 01/22/20 08:24 Sodium Chloride IVPB 100 mls 0900 JONATHAN Administration Insulin Glargine 20 units/ 0.2 mls @ 0.1 mls/hr 01/19/20 21:00 01/22/20 08:39 Miscellaneous Medication SC 0.2 mls Q12HR JONATHAN Administration Insulin Human Regular 0 units 01/14/20 17:45 01/15/20 20:36 Insulin Regular 300 Units/3 Ml Vial SC 3 units .BEDTIME SLIDING SC PRN Administration Bedtime Correctional Scale Insulin Human Regular 0 units 01/14/20 19:07 01/20/20 18:21 Insulin Regular 300 Units/3 Ml Vial SC 3 unit .AGGRESSIVE SLIDING PRN Administration Aggressive Correctional Scale Labetalol HCl 10 mg 01/14/20 20:15 01/21/20 22:24 Labetalol Hcl 100 Mg/20 Ml Vial SLOW IVP 10 mg Q4H PRN Administration Systolic BP > 180 Lorazepam 2 mg 01/14/20 19:00 01/22/20 14:35 Lorazepam 2 Mg/Ml Vial SLOW IVP 02/13/20 19:00 2 mg Q1H PRN Administration Breakthrough agitation Methylprednisolone Sodium Succinate 20 mg 01/16/20 09:00 01/22/20 08:24 Methylprednisolone Sod Succ 40 Mg Vial IVP 20 mg BID JONATHAN Administration Multivitamins 1 tab 01/16/20 09:00 01/22/20 07:50 Multivit, Therapeutic 1 Tab PER TUBE 1 tab DAILY JONATHAN Administration Nitroglycerin 0.5 inch 01/21/20 15:15 01/22/20 14:35 Nitroglycerin 2% Ointment 1 Inch/1 Gm Packet TOP 0.5 inch Q8H JONATHAN Administration Pantoprazole Sodium 40 mg 01/19/20 09:00 01/22/20 07:50 Pantoprazole 40 Mg Granules Packet PER TUBE 40 mg DAILY JONATHAN Administration Propofol 1,000 mg 01/14/20 19:00 01/22/20 14:34 Propofol 1,000 Mg/100 Ml Vial IV 02/13/20 19:00 1,000 mg INF PRN Administration TO ACHIEVE GOAL RASS Protocol Venlafaxine HCl 75 mg 01/21/20 09:00 01/22/20 07:49 Venlafaxine Hcl 75 Mg Tab PO 75 mg DAILY JONATHAN Administration - Exam General - other findings: sedate on mech vent, opens eyes to name briefly Eye: PERRL, anicteric sclera ENT: normocephalic atraumatic, no oropharyngeal lesions ENT - other findings: ETT in place Neck: supple, symmetric, no JVD, no thyromegaly, no lymphadenopathy Heart: RRR, no murmur, no gallops, no rubs, normal peripheral pulses Heart - other findings: S1, S2 Respiratory: no ronchi, no tachypnea Respiratory - other findings: diminished bilat, few scattered coarse sounds Gastrointestinal: soft, non-tender, non-distended, normal bowel sounds, no palpable masses Gastrointestinal - other findings: obese Extremities: no cyanosis, no clubbing, 1+ LE edema Skin: normal turgor, no lesions Neurological - other findings: sedate on mech vent Psychiatric: somnolent, lethargic Hosp A/P (1) Acute respiratory failure with hypoxia Code(s): J96.01 - ACUTE RESPIRATORY FAILURE WITH HYPOXIA Status: Acute Plan: Persistent requiring mech vent, may need to consider trach, continue mech ventilation, general pulm support (2) Acute on chronic diastolic (congestive) heart failure Code(s): I50.33 - ACUTE ON CHRONIC DIASTOLIC (CONGESTIVE) HEART FAILURE Status: Acute Plan: Continue Lasix 40mg IV BID, serial I/O's, Daily weight (3) Obesity hypoventilation syndrome Code(s): E66.2 - MORBID (SEVERE) OBESITY WITH ALVEOLAR HYPOVENTILATION Status: Chronic (4) CARLA (acute kidney injury) Code(s): N17.9 - ACUTE KIDNEY FAILURE, UNSPECIFIED Status: Acute Plan: Improved, monitor closely given diuretic exposure, free-H2O per Nephrology (5) CKD (chronic kidney disease), stage III Code(s): N18.3 - CHRONIC KIDNEY DISEASE, STAGE 3 (MODERATE) * DO NOT USE * Status: Chronic Qualifiers: Chronic kidney disease stage 3 subtype: stage 3a (GFR 45-59) Qualified Code(s): N18.31 - Chronic kidney disease, stage 3a (6) DM type 2 (diabetes mellitus, type 2) Status: Chronic Qualifiers: Diabetes mellitus senior care insulin use: with senior care use Diabetes mellitus complication status: with kidney complications Diabetes mellitus complication detail: with chronic kidney disease Chronic kidney disease stage: stage 3 (moderate) Qualified Code(s): E11.22 - Type 2 diabetes mellitus with diabetic chronic kidney disease; N18.3 - Chronic kidney disease, stage 3 (moderate); Z79.4 - [facility] use of insulin Plan: Stable currently, continue Lantus 20u BID, ISS (7) Iron deficiency anemia Code(s): D50.9 - IRON DEFICIENCY ANEMIA, UNSPECIFIED Status: Chronic Qualifiers: Iron deficiency anemia type: inadequate dietary iron intake Qualified Code(s): D50.8 - Other iron deficiency anemias - Plan continue antibiotics, PT/OT, social director, speech therapy, respiratory therapy, DVT proph w/SCDs Continue critical support s/p 1u PRBC's s/p IV Iron infusion Continue Lantus 20u BID Continue Zithromax/Rocephin Protonix 40mg PT daily Lasix 40mg IV BID Hydralazine 20mg IV q4h PRN AM lab: BMP, CBC, ABG
[2020-01-22] MEDS: Enoxaparin Sodium 30 MG/0.3 ML SYRINGE SC SCH (20:07)
[2020-01-23] MEDS: Propofol 1,000 MG/100 ML VIAL IV PRN ×3 (00:29→06:07)
[2020-01-23 04:16] LABS: #Eosinphils 0.2 thou/uL (0.0-0.7); #Lymphocytes 0.9 thou/uL (1.20-3.40); #Monocytes 0.5 thou/uL (0.11-0.59); #Neutrophils 8.2 thou/uL (1.40-6.50); %Basophils 0.2 % (0.0-1.0); %Eosinophils 1.7 % (0.0-10.0); %Lymphocytes 9.4 % (21.0-51.0); %Monocytes 5.5 % (0.0-10.0); %Neutrophils 83.2 % (42.0-75.0); Hemoglobin 7.8 g/dL (12.0-16.0); Mean Corpuscular HGB CONC 30.2 g/dL (32.0-36.0); Mean Corpuscular Hemoglobin 24.4 pg (27.0-31.0); Mean Corpuscular Volume 80.5 fL (78.0-98.0); Mean Platelet Volume 10.3 fL (7.4-10.4); Platelet Count 339 thou/uL (130-400); RBC Distribution Width 18.9 % (11.5-14.5); Red Blood Cell (RBC) Count 3.19 mill/uL (4.20-5.40); White Blood Cell (WBC) Count 9.8 thou/uL (4.8-10.8)
[2020-01-23 04:51] LABS: Anion Gap 13 mmol/L (10-20); BUN (Urea Nitrogen) 54 mg/dL (9.8-20.1); Calc. Creatinine Clearance 103 mL/min (70-130); Calcium 9.2 mg/dL (7.8-10.44); Carbon Dioxide 35 mmol/L (22-29); Chloride 102 mmol/L (98-107); Glucose 173 mg/dL (70-105); Potassium 3.7 mmol/L (3.5-5.1); Sodium 146 mmol/L (136-145)
[2020-01-23 07:13] LABS: Actual Bicarbonate (HCO3a) 34.2 mEq/L (22-28); CO2 Tension 57.6 mmHg (35.0-45.0); Calcium, Ionized (arterial) 1.24 mmol/L (1.12-1.30); Carboxyhemoglobin (COHb) 0.6 gm% (0.0-3.0); Hemoglobin (Hb) 8.9 g/dL (12.0-16.0); O2 Tension (PaO2), arterial 86.3 mmHg (80.0-100.0); Potassium - ABG Lab 3.61 mmol/L (3.70-5.30); pH, Arterial 7.39 (7.35-7.45)
[2020-01-23 07:14] LABS: Puncture Site RRA
[2020-01-23] MEDS: Nitroglycerin 2% Ointment 1 INCH/1 GM Packet TOP SCH ×3 (07:35→23:49)
--- NOTE | 2020-01-23 08:41 | RAD ---
PORTABLE CHEST: INDICATION: O ventilator. CCU followup. COMPARISON: 01/22/2020. FINDINGS/IMPRESSION: ET tube, NG tube, and central line remain in place. Cardiomegaly with vascular engorgement. Small b ilateral effusions and bibasilar atelectasis and/or infiltrates. Suboptimally evaluated due to soft tissue attenuation from body habitus. No significant interval change apparent from 01/22/2020. POS: OFF
[2020-01-23] MEDS: Amlodipine 5 MG TAB PO SCH ×2 (09:08→20:07)
[2020-01-23] MEDS: Furosemide 40 MG/4 ML VIAL SLOW IVP SCH (09:08)
[2020-01-23] MEDS: cefTRIAXone\\ROCEPHIN 1 GM in Sodium Chloride 0.9% 100 ML IVPB SCH (09:09)
[2020-01-23] MEDS: Folic Acid 1 MG TAB PER TUBE SCH (09:14)
[2020-01-23] MEDS: Pantoprazole 40 MG GRANULES PACKET PER TUBE SCH (09:14)
[2020-01-23] MEDS: Carvedilol 25 MG TAB PO SCH ×2 (09:14→17:14)
[2020-01-23] MEDS: Insulin Glargine 20 UNITS in Pre-Filled Syringe 1 EACH SC SCH ×2 (09:14→20:07)
[2020-01-23] MEDS: Multivit, Therapeutic 1 TAB PER TUBE SCH (09:14)
[2020-01-23] MEDS: Aspirin Chewable 81 MG TAB PO SCH (09:14)
[2020-01-23] MEDS: methylPREDNISolone Sod Succ 40 MG VIAL IVP SCH (09:22)
[2020-01-23] MEDS: Cyanocobalamin (Vitamin B-12) 1,000 MCG TAB PER TUBE SCH (09:22)
[2020-01-23] MEDS ORDERED: Potassium Chloride 40 MEQ in Sodium Chloride 0.9% 250 ML 250 ML IVPB SCH (09:45)
--- NOTE | 2020-01-23 10:00 | PRG ---
DATE OF SERVICE: 01/23/2020 SUBJECTIVE: The patient was seen and examined in the ICU, remains intubated. OBJECTIVE: VITAL SIGNS: Temperature 98.9, pulse 81, respiratory rate 19, blood pressure 180/77. HEENT: Intubated. CV: S1, S2 heard. RESPIRATORY: Clear. GI: Abdomen is obese. MUSCULOSKELETAL: 1+ edema. NEUROLOGIC: Intubated. LABORATORY DATA: Sodium 146, potassium 3.7, BUN 54, creatinine is 1.5. ASSESSMENT AND PLAN: 1. Acute kidney injury on chronic kidney disease stage 3, stable labs. 2. Hypernatremia. Recommend free water. 3. Hypokalemia. Replace and we will monitor. 4. Alkalosis. 5. Cardiorenal syndrome. 6. Fluid overload. 7. Acute hypoxic respiratory failure. 8. Replace potassium and recommend free water. Job ID: [id number]
[2020-01-23] MEDS: Azithromycin 500 MG in Sodium Chloride 0.9% 250 ML 250 ML IVPB SCH (10:10)
--- NOTE | 2020-01-23 10:14 | PRG ---
DATE OF SERVICE: 01/23/2020 SUBJECTIVE: Ms. Mcdonald is doing much better, terms of waking up, but still remains on mechanical ventilation for very poor respiratory muscle function. OBJECTIVE: VITAL SIGNS: Temperature 98.9, pulse 83, blood pressure 180/77, O2 saturation 100%. 24-hour intake 2953, output 2295. HEENT: Unremarkable. NECK: No JVD. LUNGS: Coarse breath sounds. CARDIAC: S1 and S2 regular. ABDOMEN: Obese, soft, nontender. EXTREMITIES: No edema. NEUROLOGIC: She can move her right side without difficulty. She is very weak in her left arm. LABORATORY DATA: White blood cell count 9.8, hematocrit 25.7, and platelet count 339. PH 7.39, pCO2 of 57, PO2 of 86 on SIMV rate of 8, tidal volume 450, PEEP 5, pressure support 20, FiO2 of 40%. Sodium 146, potassium 3.7, chloride 102, CO2 of 35, BUN 54, creatinine 1.5, glucose 173. ASSESSMENT: 1. Acute hypoxic and hypercapnic respiratory failure requiring mechanical ventilation. 2. Diastolic heart dysfunction. 3. Cerebrovascular accident. 4. Encephalopathy. 5. Renal insufficiency. PLAN: 1. Due to neuromuscular weakness, she is not weanable at this time. I think we can probably stop her antibiotics after tomorrow. I think she is likely headed toward its tracheostomy and feeding tube placement. I have not been able to discuss that with the family so far. 2. I will reduce her diuretic dose to daily. Job ID: [id number]
[2020-01-23] MEDS: Lorazepam 2 MG/ML VIAL SLOW IVP PRN ×2 (10:56→21:34)
[2020-01-23] MEDS: hydrALAZINE 20 MG/ML VIAL SLOW IVP PRN (18:23)
--- NOTE | 2020-01-23 19:55 | PDOC.HOSPP ---
- Subjective Encounter Date: 01/23/20 Encounter Time: 18:00 Subjective: [facility] more alert per nursing, follows commands, tracks with eyes and nods to questions. Receiving Lasix and CARLA noted with increase in free-H2O administration. - Objective Vital Signs & Weight: Vital Signs (12 hours) Temp Pulse Pulse Pulse Resp BP BP 01/23/20 18:34 73 143/68 H 01/23/20 18:33 73 14 01/23/20 18:23 71 208/92 H 01/23/20 18:00 16 01/23/20 16:00 98.7 F 16 01/23/20 14:55 71 152/77 H 01/23/20 14:00 16 01/23/20 13:31 69 154/66 H 01/23/20 12:00 98.4 F 12 01/23/20 10:37 82 169/78 H 01/23/20 10:10 81 79 175/79 H 01/23/20 10:00 20 01/23/20 09:08 82 163/77 H 01/23/20 08:00 12 BP Pulse Ox Pulse Ox Pulse Ox 01/23/20 18:34 01/23/20 18:33 99 01/23/20 18:23 01/23/20 18:00 01/23/20 16:00 01/23/20 14:55 01/23/20 14:00 01/23/20 13:31 01/23/20 12:00 01/23/20 10:37 01/23/20 10:10 167/76 H 99 99 01/23/20 10:00 01/23/20 09:08 01/23/20 08:00 97 Weight Admit Weight 361 lb Weight 332 lb 7.313 oz Most Recent Monitor Data Heart Rate from ECG 77 NIBP 194/101 NIBP BP-Mean 132 Respiration from ECG 13 SpO2 99 I&O: 01/22/20 01/23/20 01/24/20 06:59 06:59 06:59 Intake Total 2427 2953 1795.9 Output Total 3510 2295 1440 Balance -1083 658 355.9 Result Diagrams: 01/23/20 03:10 01/23/20 03:10 Additional Labs: Accuchecks 01/23/20 01/23/20 01/23/20 11:33 06:13 00:19 POC Glucose 149 H 129 H 151 H 01/22/20 01/20/20 01/19/20 16:05 17:45 11:52 POC Glucose 140 H 170 H 126 H 01/19/20 00:59 POC Glucose 89 Microbiology 01/22/19 11:40 Stool Stool Occult Blood (CAROL) - Final 01/14/20 14:54 Urine pillai catheter Urine Culture - Final NO GROWTH AT 48 HOURS Laboratory Tests 01/22/19 01/22/19 01/23/19 05:13 13:25 03:51 WBC 13.2 H Hgb 8.8 L Neutrophils % 91.6 H 74.9 Potassium 5.3 H Carbon Dioxide BUN 42 H Creatinine 1.83 H Iron Ferritin TSH 3rd Generation SARS-CoV-2 Rap RNA(RT-PCR) 01/14/20 01/14/20 01/15/20 16:00 22:06 04:05 WBC Hgb Neutrophils % Potassium Carbon Dioxide BUN Creatinine Iron 11 L Ferritin TSH 3rd Generation 1.1967 SARS-CoV-2 Rap RNA(RT-PCR) Not Detected 01/15/20 01/15/20 01/16/20 04:05 11:02 03:55 WBC 11.2 H Hgb 7.0 L Neutrophils % Potassium Carbon Dioxide BUN Creatinine 2.27 H Iron Ferritin 127.01 TSH 3rd Generation SARS-CoV-2 Rap RNA(RT-PCR) 01/16/20 01/17/20 01/17/20 03:55 03:20 03:30 WBC 10.4 13.7 H Hgb 6.8 L 7.4 L Neutrophils % Potassium Carbon Dioxide BUN Creatinine 2.67 H Iron Ferritin TSH 3rd Generation SARS-CoV-2 Rap RNA(RT-PCR) 01/18/20 01/18/20 01/19/20 04:35 04:35 03:55 WBC 13.6 H Hgb 7.2 L Neutrophils % Potassium Carbon Dioxide 30 H BUN 58 H Creatinine 2.72 H 2.46 H Iron Ferritin TSH 3rd Generation SARS-CoV-2 Rap RNA(RT-PCR) 01/19/20 01/20/20 03:55 04:00 WBC Hgb 6.5 L Neutrophils % 83.9 H 86.2 H Potassium Carbon Dioxide BUN Creatinine Iron Ferritin TSH 3rd Generation SARS-CoV-2 Rap RNA(RT-PCR) Radiology Reviewed by me: Yes (PCXR - lines/tubes in place, atelectasis in bases, vasc prominence) EKG Reviewed by me: Yes (Tele - SR) Hospitalist ROS - Medication Medications: Active Medications Generic Name Dose Route Start Last Admin Trade Name Freq PRN Reason Stop Dose Admin Acetaminophen 650 mg 01/14/20 17:39 01/20/20 14:13 Acetaminophen 650 Mg/20.3 Ml Udcup PO 650 mg Q6H PRN Administration Fever > 101 or Mild Pain Albuterol/Ipratropium 3 ml 01/14/20 19:00 01/23/20 18:33 Ipratropium/Albuterol Sulfate 3 Ml Neb NEB 3 ml [id number] JONATHAN Administration Amlodipine Besylate 5 mg 01/18/20 09:00 01/23/20 09:08 Amlodipine 5 Mg Tab PO 5 mg BID JONATHAN Administration Aspirin 81 mg 01/15/20 09:00 01/23/20 09:14 Aspirin Chewable 81 Mg Tab PO 81 mg DAILY JONATHAN Administration Bisacodyl 10 mg 01/14/20 17:39 01/16/20 05:33 Bisacodyl 10 Mg Supp DC 10 mg DAILYPRN PRN Administration Constipation Carvedilol 25 mg 01/20/20 17:00 01/23/20 17:14 Carvedilol 25 Mg Tab PO 25 mg BID-WM JONATHAN Administration Cyanocobalamin 1,000 mcg 01/16/20 09:00 01/23/20 09:22 Cyanocobalamin (Vitamin B-12) 1,000 Mcg Tab PER TUBE 1,000 mcg DAILY JONATHAN Administration Enoxaparin Sodium 30 mg 01/17/20 21:00 01/22/20 20:07 Enoxaparin Sodium 30 Mg/0.3 Ml Syringe SC 30 mg 2100 JONATHAN Administration Folic Acid 1 mg 01/16/20 09:00 01/23/20 09:14 Folic Acid 1 Mg Tab PER TUBE 1 mg DAILY JONATHAN Administration Hydralazine HCl 20 mg 01/20/20 14:13 01/23/20 18:23 Hydralazine 20 Mg/Ml Vial SLOW IVP 20 mg Q4H PRN Administration SBP Greater Than 180 Fentanyl Citrate 2,000 mcg/ 100 mls @ 0 mls/hr 01/14/20 19:00 01/18/20 00:28 Sodium Chloride IV 02/13/20 19:00 100 mls INF JONATHAN Administration Protocol Per Protocol Azithromycin 500 mg/ Sodium 250 mls @ 250 mls/hr 01/17/20 09:00 01/23/20 10:10 Chloride IVPB 250 mls 0900 JONATHAN Administration Ceftriaxone Sodium 1 gm/ 100 mls @ 200 mls/hr 01/17/20 09:00 01/23/20 09:09 Sodium Chloride IVPB 100 mls 0900 JONATHAN Administration Insulin Glargine 20 units/ 0.2 mls @ 0.1 mls/hr 01/19/20 21:00 01/23/20 09:14 Miscellaneous Medication SC 0.2 mls Q12HR JONATHAN Administration Dexmedetomidine HCl 400 mcg/ 100 mls @ 0 mls/hr 01/23/20 10:45 01/23/20 11:16 Sodium Chloride IVPB 100 mls INF JONATHAN Administration Protocol Per Protocol Insulin Human Regular 0 units 01/14/20 17:45 01/15/20 20:36 Insulin Regular 300 Units/3 Ml Vial SC 3 units .BEDTIME SLIDING SC PRN Administration Bedtime Correctional Scale Insulin Human Regular 0 units 01/14/20 19:07 01/20/20 18:21 Insulin Regular 300 Units/3 Ml Vial SC 3 unit .AGGRESSIVE SLIDING PRN Administration Aggressive Correctional Scale Labetalol HCl 10 mg 01/14/20 20:15 01/21/20 22:24 Labetalol Hcl 100 Mg/20 Ml Vial SLOW IVP 10 mg Q4H PRN Administration Systolic BP > 180 Lorazepam 2 mg 01/14/20 19:00 01/23/20 10:56 Lorazepam 2 Mg/Ml Vial SLOW IVP 02/13/20 19:00 2 mg Q1H PRN Administration Breakthrough agitation Multivitamins 1 tab 01/16/20 09:00 01/23/20 09:14 Multivit, Therapeutic 1 Tab PER TUBE 1 tab DAILY JONATHAN Administration Nitroglycerin 0.5 inch 01/21/20 15:15 01/23/20 14:40 Nitroglycerin 2% Ointment 1 Inch/1 Gm Packet TOP 0.5 inch Q8H JONATHAN Administration Pantoprazole Sodium 40 mg 01/19/20 09:00 01/23/20 09:14 Pantoprazole 40 Mg Granules Packet PER TUBE 40 mg DAILY JONATHAN Administration Propofol 1,000 mg 01/14/20 19:00 01/23/20 06:07 Propofol 1,000 Mg/100 Ml Vial IV 02/13/20 19:00 1,000 mg INF PRN Administration TO ACHIEVE GOAL RASS Protocol Venlafaxine HCl 75 mg 01/21/20 09:00 01/23/20 09:14 Venlafaxine Hcl 75 Mg Tab PO 75 mg DAILY JONATHAN Administration - Exam General Appearance: awake alert General - other findings: tracks with eyes, nods and moves extremities Eye: PERRL, anicteric sclera ENT: normocephalic atraumatic, no oropharyngeal lesions ENT - other findings: ETT in place Neck: supple, symmetric, no JVD, no thyromegaly, no lymphadenopathy Heart: RRR, no gallops, no rubs, normal peripheral pulses Heart - other findings: S1, S2 Respiratory: rhonchi Respiratory - other findings: diminished in bases bilat, coughing Gastrointestinal: soft, non-tender, non-distended, normal bowel sounds, no palpable masses Gastrointestinal - other findings: obese Extremities: no cyanosis, 2+ LE edema Skin: normal turgor, no lesions Neurological: no new deficit Musculoskeletal: generalized weakness Psychiatric: oriented to person, flat affect, somnolent Hosp A/P (1) Acute respiratory failure with hypoxia Code(s): J96.01 - ACUTE RESPIRATORY FAILURE WITH HYPOXIA Status: Acute Plan: Continue mech vent and wean as clinically indicated, PCXR in am (2) Acute on chronic diastolic (congestive) heart failure Code(s): I50.33 - ACUTE ON CHRONIC DIASTOLIC (CONGESTIVE) HEART FAILURE Status: Acute Plan: Lasix 40mg IV daily, serial I/O's, Daily weight (3) Obesity hypoventilation syndrome Code(s): E66.2 - MORBID (SEVERE) OBESITY WITH ALVEOLAR HYPOVENTILATION Status: Chronic (4) CARLA (acute kidney injury) Code(s): N17.9 - ACUTE KIDNEY FAILURE, UNSPECIFIED Status: Acute Plan: Monitor closely given diuretic exposure, free-H2O 250ml Q6H (5) CKD (chronic kidney disease), stage III Code(s): N18.3 - CHRONIC KIDNEY DISEASE, STAGE 3 (MODERATE) * DO NOT USE * Status: Chronic Qualifiers: Chronic kidney disease stage 3 subtype: stage 3a (GFR 45-59) Qualified Code(s): N18.31 - Chronic kidney disease, stage 3a (6) DM type 2 (diabetes mellitus, type 2) Status: Chronic Qualifiers: Diabetes mellitus [facility] insulin use: with medical information officer use Diabetes mellitus complication status: with kidney complications Diabetes mellitus complication detail: with chronic kidney disease Chronic kidney disease stage: stage 3 (moderate) Qualified Code(s): E11.22 - Type 2 diabetes mellitus with diabetic chronic kidney disease; N18.3 - Chronic kidney disease, stage 3 (moderate); Z79.4 - [facility] (current) use of insulin (7) Iron deficiency anemia Code(s): D50.9 - IRON DEFICIENCY ANEMIA, UNSPECIFIED Status: Chronic Qualifiers: Iron deficiency anemia type: inadequate dietary iron intake Qualified Code(s): D50.8 - Other iron deficiency anemias - Plan pillai catheter, continue antibiotics, PT/OT, social studies teacher, respiratory therapy, DVT proph w/SCDs Consults: Palliative Care Continue critical support s/p 1u PRBC's s/p IV Iron infusion Continue Lantus 20u BID Continue Zithromax/Rocephin Protonix 40mg PT daily Lasix 40mg IV Daily Hydralazine 20mg IV q4h PRN Wean mech ventilation per protocol AM lab: BMP, CBC, Mg++, PO3, ABG PCXR in am
[2020-01-23] MEDS: Enoxaparin Sodium 30 MG/0.3 ML SYRINGE SC SCH (20:07)
[2020-01-24] MEDS: Lorazepam 2 MG/ML VIAL SLOW IVP PRN (03:13)
[2020-01-24] MEDS: hydrALAZINE 20 MG/ML VIAL SLOW IVP PRN ×2 (03:19→22:14)
[2020-01-24 05:12] LABS: #Basophils 0.1 thou/uL (0.0-0.2); #Eosinphils 0.3 thou/uL (0.0-0.7); #Lymphocytes 1.5 thou/uL (1.20-3.40); #Monocytes 0.7 thou/uL (0.11-0.59); #Neutrophils 7.1 thou/uL (1.40-6.50); %Basophils 1.1 % (0.0-1.0); %Eosinophils 2.7 % (0.0-10.0); %Lymphocytes 15.1 % (21.0-51.0); %Monocytes 7.5 % (0.0-10.0); %Neutrophils 73.6 % (42.0-75.0); Hemoglobin 8.2 g/dL (12.0-16.0); Mean Corpuscular HGB CONC 29.4 g/dL (32.0-36.0); Mean Corpuscular Hemoglobin 23.7 pg (27.0-31.0); Mean Corpuscular Volume 80.7 fL (78.0-98.0); Mean Platelet Volume 10.2 fL (7.4-10.4); Platelet Count 330 thou/uL (130-400); RBC Distribution Width 19.2 % (11.5-14.5); Red Blood Cell (RBC) Count 3.47 mill/uL (4.20-5.40); White Blood Cell (WBC) Count 9.6 thou/uL (4.8-10.8)
[2020-01-24 05:36] LABS: Phosphorus 4.5 mg/dL (2.3-4.7)
[2020-01-24 05:40] LABS: Anion Gap 15 mmol/L (10-20); BUN (Urea Nitrogen) 55 mg/dL (9.8-20.1); Calc. Creatinine Clearance 104 mL/min (70-130); Calcium 9.3 mg/dL (7.8-10.44); Carbon Dioxide 32 mmol/L (22-29); Chloride 104 mmol/L (98-107); Glucose 121 mg/dL (70-105); Magnesium 1.5 mg/dL (1.6-2.6); Potassium 3.5 mmol/L (3.5-5.1); Sodium 147 mmol/L (136-145)
[2020-01-24 07:01] LABS: Actual Bicarbonate (HCO3a) 34.5 mEq/L (22-28); Base Excess (BEa) 8.8 mEq/L (-2.0 to +3.0); CO2 Tension 55.3 mmHg (35.0-45.0); Calcium, Ionized (arterial) 1.22 mmol/L (1.12-1.30); Carboxyhemoglobin (COHb) 0.9 gm% (0.0-3.0); Hemoglobin (Hb) 8.5 g/dL (12.0-16.0); Potassium - ABG Lab 3.49 mmol/L (3.70-5.30); pH, Arterial 7.41 (7.35-7.45)
[2020-01-24 07:02] LABS: ALV-art Gradient 128.075 mmHg (0-20); Puncture Site RRA
[2020-01-24] MEDS: Carvedilol 25 MG TAB PO SCH ×2 (08:25→16:02)
[2020-01-24] MEDS: Furosemide 40 MG/4 ML VIAL SLOW IVP SCH (08:25)
[2020-01-24] MEDS: Amlodipine 5 MG TAB PO SCH ×2 (08:25→20:05)
[2020-01-24] MEDS: Pantoprazole 40 MG GRANULES PACKET PER TUBE SCH (08:25)
[2020-01-24] MEDS: Cyanocobalamin (Vitamin B-12) 1,000 MCG TAB PER TUBE SCH (08:25)
[2020-01-24] MEDS: Aspirin Chewable 81 MG TAB PO SCH (08:25)
[2020-01-24] MEDS: Folic Acid 1 MG TAB PER TUBE SCH (08:25)
[2020-01-24] MEDS: cefTRIAXone\\ROCEPHIN 1 GM in Sodium Chloride 0.9% 100 ML IVPB SCH (08:26)
[2020-01-24] MEDS: Nitroglycerin 2% Ointment 1 INCH/1 GM Packet TOP SCH ×3 (08:31→23:48)
--- NOTE | 2020-01-24 08:36 | PRG ---
DATE OF SERVICE: 01/24/2020 35 minutes of critical time. SUBJECTIVE: The patient remains intubated on mechanical ventilation. She is much more awake and interactive than she has been. OBJECTIVE: VITAL SIGNS: Temperature 98.5, pulse rate 80, blood pressure 160/68, O2 saturation 99%. She is sedated on a Precedex drip. Total intake for the last 24 hours was 2950, output 1764 for positive 1186 fluid balance. HEENT: Unremarkable except for the tubes in place. NECK: No JVD. LUNGS: Coarse rhonchi. CARDIOVASCULAR: S1 and S2. Regular. ABDOMEN: Soft and nontender. EXTREMITIES: Edematous. Neurologically, she moves all four extremities, but is a little bit weaker in the left arm. LABORATORY DATA: White blood cell count 9.6, hematocrit 28, and platelet count 330. PH 7.41, pCO2 of 55, PO2 of 88 on SIMV rate of 8, tidal volume 450, PEEP FiO2 40%. Sodium 147, potassium 3.5, chloride 104, CO2 of 32, BUN 55, creatinine 1.4, and glucose 121. IMAGING DATA: Chest x-ray shows cardiomegaly and bilateral pulmonary edema. ASSESSMENT: 1. Acute hypoxic and hypercapnic respiratory failure requiring mechanical ventilation. 2. Diastolic heart dysfunction. 3. Cerebrovascular accident. 4. Encephalopathy. 5. Renal insufficiency. PLAN: 1. We will try on pressure support ventilation and try to slowly wean the pressure support. 2. We can probably stop the antibiotics after today. 3. The daughter is leaning towards a compassionate extubation. Alternative would be a tracheostomy. I think the patient probably suffers from obesity hypoventilation syndrome/sleep apnea that is probably contributing to a large part of her problem. We will follow with you. Job ID: [id number]
--- NOTE | 2020-01-24 08:42 | RAD ---
XPORTABLE SUPINE CHEST: HISTORY: CCU followup on ventilator. COMPARISON: 01/23/2020. FINDINGS: Cardiomegaly. Vascular engorgement. Evidence of small bilateral effusions and bibasilar atelectasis and/or infiltrates. Chest findings show no significant interval change. POS: AGW
--- NOTE | 2020-01-24 09:00 | PDOC.CPN ---
- Subjective Date: 01/23/20 Time: 12:15 Interval history: No overnight events. Not much change. - Review of Systems ROS unobtainable: due to mental status (intubated/sebated) - Objective Allergies/Adverse Reactions: Allergies Allergy/AdvReac Type Severity Reaction Status Date / Time Penicillins Allergy Hives Verified 01/19/20 03:23 Visit Medications: Current Medications Acetaminophen (Acetaminophen 650 Mg/20.3 Ml Udcup) 650 mg PO Q6H PRN PRN Reason: Fever > 101 or Mild Pain Last Admin: 01/20/20 14:13 Dose: 650 mg Documented by: Acetaminophen (Acetaminophen 650 Mg Suppository) 650 mg PA Q6H PRN PRN Reason: Fever > 101 or Mild Pain Acetaminophen (Acetaminophen 325 Mg Tab) 650 mg PO Q4H PRN PRN Reason: Headache/Fever/Mild Pain (1-3) Albuterol/Ipratropium (Ipratropium/Albuterol Sulfate 3 Ml Neb) 3 ml NEB [id number] [facility] Last Admin: 01/24/20 08:07 Dose: 3 ml Documented by: Amlodipine Besylate (Amlodipine 5 Mg Tab) 5 mg PO BID [facility] Last Admin: 01/24/20 08:25 Dose: 5 mg Documented by: Aspirin (Aspirin Chewable 81 Mg Tab) 81 mg PO DAILY [facility] Last Admin: 01/24/20 08:25 Dose: 81 mg Documented by: Bisacodyl (Bisacodyl 10 Mg Supp) 10 mg PA DAILYPRN PRN PRN Reason: Constipation Last Admin: 01/16/20 05:33 Dose: 10 mg Documented by: Carvedilol (Carvedilol 25 Mg Tab) 25 mg PO BID-WM [facility] Last Admin: 01/24/20 08:25 Dose: 25 mg Documented by: Cyanocobalamin (Cyanocobalamin (Vitamin B-12) 1,000 Mcg Tab) 1,000 mcg PER TUBE DAILY [facility] Last Admin: 01/24/20 08:25 Dose: 1,000 mcg Documented by: Dextrose/Water (Dextrose 50% Abboject 50 Ml Syringe) 25 gm SLOW IVP PRN PRN PRN Reason: Hypoglycemia Enoxaparin Sodium (Enoxaparin Sodium 30 Mg/0.3 Ml Syringe) 30 mg SC 2100 [facility] Last Admin: 01/23/20 20:07 Dose: 30 mg Documented by: Folic Acid (Folic Acid 1 Mg Tab) 1 mg PER TUBE DAILY [facility] Last Admin: 01/24/20 08:25 Dose: 1 mg Documented by: Furosemide (Furosemide 40 Mg/4 Ml Vial) 40 mg SLOW IVP DAILY [facility] Last Admin: 01/24/20 08:25 Dose: 40 mg Documented by: Glucagon (Glucagon 1 Mg/Ml Vial) 1 mg IM PRN PRN PRN Reason: Hypoglycemia Hydralazine HCl (Hydralazine 20 Mg/Ml Vial) 20 mg SLOW IVP Q4H PRN PRN Reason: SBP Greater Than 180 Last Admin: 01/24/20 03:19 Dose: 20 mg Documented by: Dextrose/Water (D5w) 1,000 mls @ 0 mls/hr IV .Q0M PRN PRN Reason: Hypoglycemia Fentanyl Citrate 2,000 mcg/ (Sodium Chloride) 100 mls @ 0 mls/hr IV INF [facility]; Protocol Stop: 02/13/20 19:00 Last Admin: 01/18/20 00:28 Dose: 100 mls Documented by: Fentanyl Citrate (Fentanyl Bolus) 250 mls @ 0 mls/hr IVPB PRN PRN PRN Reason: Breakthrough pain/agitation Stop: 02/13/20 19:00 Azithromycin 500 mg/ Sodium (Chloride) 250 mls @ 250 mls/hr IVPB 0900 [facility] Last Admin: 01/23/20 10:10 Dose: 250 mls Documented by: Ceftriaxone Sodium 1 gm/ (Sodium Chloride) 100 mls @ 200 mls/hr IVPB 0900 [facility] Last Admin: 01/24/20 08:26 Dose: 100 mls Documented by: Insulin Glargine 20 units/ (Miscellaneous Medication) 0.2 mls @ 0.1 mls/hr SC Q12HR [facility] Last Admin: 01/23/20 20:07 Dose: 0.2 mls Documented by: Dexmedetomidine HCl 400 mcg/ (Sodium Chloride) 100 mls @ 0 mls/hr IVPB INF [facility]; Protocol Last Admin: 01/23/20 20:09 Dose: 100 mls Documented by: Insulin Human Regular (Insulin Regular 300 Units/3 Ml Vial) 0 units SC .BEDTIME SLIDING SC PRN PRN Reason: Bedtime Correctional Scale Last Admin: 01/15/20 20:36 Dose: 3 units Documented by: Insulin Human Regular (Insulin Regular 300 Units/3 Ml Vial) 0 units SC .AGGRESSIVE SLIDING PRN PRN Reason: Aggressive Correctional Scale Last Admin: 01/20/20 18:21 Dose: 3 unit Documented by: Labetalol HCl (Labetalol Hcl 100 Mg/20 Ml Vial) 10 mg SLOW IVP Q4H PRN PRN Reason: Systolic BP > 180 Last Admin: 01/21/20 22:24 Dose: 10 mg Documented by: Lorazepam (Lorazepam 2 Mg/Ml Vial) 2 mg SLOW IVP Q1H PRN PRN Reason: Breakthrough agitation Stop: 02/13/20 19:00 Last Admin: 01/24/20 03:13 Dose: 2 mg Documented by: Morphine Sulfate (Morphine 2 Mg/Ml Vial) 2 mg SLOW IVP Q1H PRN PRN Reason: Breakthrough Pain/Agitation Stop: 02/13/20 19:00 Multivitamins (Multivit, Therapeutic 1 Tab) 1 tab PER TUBE DAILY [facility] Last Admin: 01/23/20 09:14 Dose: 1 tab Documented by: Nitroglycerin (Nitroglycerin 2% Ointment 1 Inch/1 Gm Packet) 0.5 inch TOP Q8H [facility] Last Admin: 01/24/20 08:31 Dose: 0.5 inch Documented by: Discontinue Previous Narcotic Pain Medications And Benzodiazepines 1 each FS .ONE [facility] Stop: 02/13/20 19:00 Pantoprazole Sodium (Pantoprazole 40 Mg Granules Packet) 40 mg PER TUBE DAILY [facility] Last Admin: 01/24/20 08:25 Dose: 40 mg Documented by: Propofol (Propofol 1,000 Mg/100 Ml Vial) 1,000 mg IV INF PRN; Protocol PRN Reason: TO ACHIEVE GOAL RASS Stop: 02/13/20 19:00 Last Admin: 01/23/20 06:07 Dose: 1,000 mg Documented by: Senna/Docusate Sodium (Senokot S 8.6-50 Mg Tab) 2 tab PO BIDPRN PRN PRN Reason: Constipation Sodium Chloride (Flush - Normal Saline 10 Ml Syringe) 10 ml IVF PRN PRN PRN Reason: Saline Flush Venlafaxine HCl (Venlafaxine Hcl 75 Mg Tab) 75 mg PO DAILY [facility] Last Admin: 01/24/20 08:25 Dose: 75 mg Documented by: Vital Signs & Weight: Vital Signs Temp Pulse Resp BP Pulse Ox 12/01/20 08:25 82 160/68 H 01/24/20 08:08 82 160/68 H 01/24/20 08:00 98.5 F 01/24/20 04:00 97.9 F 01/24/20 03:19 79 208/116 H 01/24/20 02:40 82 165/73 H 01/24/20 00:47 10 L 98 01/24/20 00:00 97.8 F 01/23/20 22:23 80 173/82 H Admit Weight 361 lb Weight 332 lb 7.313 oz - Physical Exam General: no apparent distress HEENT: mucus membranes moist Cardiac: regular rate and rhythm Abdomen: soft - Labs Result Diagrams: 01/24/20 04:50 01/24/20 04:50 Troponin/CKMB Troponin I 0.037 ng/mL (< 0.028) H 01/15/20 04:05 - Assessment/Plan Assessment/Plan: 1. Respiratory Failure 2. Diastolic Dysfunction 3. Encephalopathy 4. Morbid Obesity No changes on my part. Poor overall prognosis
[2020-01-24] MEDS: Insulin Glargine 20 UNITS in Pre-Filled Syringe 1 EACH SC SCH ×2 (09:19→20:05)
[2020-01-24] MEDS: Azithromycin 500 MG in Sodium Chloride 0.9% 250 ML 250 ML IVPB SCH (09:20)
[2020-01-24] MEDS: Multivit, Therapeutic 1 TAB PER TUBE SCH (09:20)
[2020-01-24] MEDS ORDERED: Potassium Chloride 40 MEQ in Sodium Chloride 0.9% 250 ML 250 ML IVPB SCH (09:30)
[2020-01-24] MEDS ORDERED: Magnesium 2 GM/50 ML 2 GM in Premix Bag 1 BAG IVPB SCH (09:30)
--- NOTE | 2020-01-24 09:50 | PRG ---
DATE OF SERVICE: 01/24/2020 SUBJECTIVE: The patient is seen and examined in ICU, talked with the bedside nurse. The patient remains intubated, but awake and respond to verbal commands. OBJECTIVE: GENERAL: This is a morbidly obese female, intubated, seen in ICU. VITAL SIGNS: Temperature 98.5, pulse 80, respiratory rate 18, blood pressure 160/60. HEENT: Intubated. CVS: S1 and S2 heard. RESPIRATORY: Coarse breath sounds. GI: Abdomen is obese. MUSCULOSKELETAL: 1 to 2+ edema. NEUROLOGIC: Intubated, but awake, following verbal commands. No reheard. LABORATORY DATA: Sodium 147, potassium 3.5, BUN is 55, creatinine is 1.47. ASSESSMENT AND PLAN: 1. Acute kidney injury on chronic kidney disease, stable. Creatinine remains stable despite the use of diuretics, which is encouraging. 2. Hypernatremia, on free water as tolerated. I do not want to increase the amount given that she is having diuresis also. 3. Hypokalemia. Continue to replace with 40 mEq today. 4. Alkalosis. 5. Cardiorenal syndrome. 6. Fluid overload. 7. Acute hypoxic respiratory failure. Replace potassium, free water as tolerated. Cautious use of diuretics and continue to talk with family for further goals of care. We will replace magnesium and potassium. Job ID: [id number]
[2020-01-24] MEDS ORDERED: Electrolyte Replacement Protocol FS PRN (11:11)
--- NOTE | 2020-01-24 14:05 | PRG ---
DATE OF SERVICE: 01/24/2020 SUBJECTIVE: Ms. Mcdonald's status overnight is unchanged. She is alert and following commands, but remains intubated. OBJECTIVE: VITAL SIGNS: Blood pressure 174/75, pulse 80, respirations 20. LUNGS: Clear to auscultation. HEART: Regular rate and rhythm. ABDOMEN: Soft, nontender, nondistended. EXTREMITIES: No edema. PERTINENT LABORATORY DATA: Hemoglobin 8.2. Creatinine 1.47. IMPRESSION: 1. Respiratory failure. 2. Pickwickian syndrome. 3. Diastolic dysfunction. RECOMMENDATIONS: At this point, I have no further recommendations to add. Family is coming in later in the week with consideration of extubation. Further recommendations per Pulmonary. We will follow peripherally. Job ID: [id number]
--- NOTE | 2020-01-24 16:40 | PDOC.PALCO ---
Palliative Care Consult - Consult Details Requesting Physician: Dr Olson Reason for Consult: assistance with communication prognosis/disease, family support, complex decision-making - Pertinent HPI 54 year old female who has known chronic heart failure, asthma, obstructive sleep apnea, and hypertension. As noted in review of records patient was found to have increasing shortness of breath with wheezing increasing in severity over the past three days. EMS was called, initially patient was hypertensive and after nitro was placed became hypotensive. CPAP place secondary to poor O2 saturation, respiratory status continued to decline and patient was intubated. Lives independently in the home setting with family, is disabled. Ambulates with a walker. - Pertinent PMH Morbid obesity, heart failure, COPD, Obstructive sleep apnea, HTN, DM II, Chronic anemia, non hodgkins lymphoma in remission, on home O2 secondary to chronic hypoxic respiratory failure - Social History Smoking Status: Never smoker Smoking: no tobacco exposure Alcohol Use: none Drug Use History: none Living Situation: independent - Medications MAR Reviewed: Yes - Allergies Allergies/Adverse Reactions: Allergies Allergy/AdvReac Type Severity Reaction Status Date / Time Penicillins Allergy Hives Verified 01/19/20 03:23 - Subjective Intubated, mechanical ventilation. Light sedation. Opens eyes, makes purposeful eye contact. - ROS Non Response: due to endotracheal tube, due to mental status - Objective Vital Signs: Vital Signs - Most Recent Temp Pulse Resp BP Pulse Ox 98.0 F 80 12 178/74 H 97 01/24/20 12:00 01/24/20 14:29 01/24/20 16:00 01/24/20 14:29 01/24/20 08:00 Palliative Performance Scale: 20 - Physical Exam Constitutional: ill appearing HEENT: EOMI, moist MMs, sclera anicteric Deviation from normal: Bilaterally course, diminished to bases. Intubated Cardiovascular: RRR Gastrointestinal: soft, non-tender Deviation from normal: Obese Genitourinary: pillai catheter Musculoskeletal: diffuse muscle atrophy Neurology: moves all 4 limbs Skin: cap refill <2 seconds Deviation from normal: Alert - Problem List (1) Palliative care encounter Code(s): Z51.5 - ENCOUNTER FOR PALLIATIVE CARE Current Visit: Yes Status: Acute (2) CARLA (acute kidney injury) Code(s): N17.9 - ACUTE KIDNEY FAILURE, UNSPECIFIED Current Visit: No Status: Acute (3) Acute on chronic diastolic (congestive) heart failure Code(s): I50.33 - ACUTE ON CHRONIC DIASTOLIC (CONGESTIVE) HEART FAILURE Current Visit: No Status: Acute (4) Acute respiratory failure with hypoxia Code(s): J96.01 - ACUTE RESPIRATORY FAILURE WITH HYPOXIA Current Visit: No Status: Acute (5) DM type 2 (diabetes mellitus, type 2) Current Visit: No Status: Chronic Qualifiers: 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 They have communicated that their mother has been suffering and would not desire to have a Trach or Peg. Hope is Ms Holland becomes awake and alert enough to participate in conversation related to Goal of Care. If she does not improve or is able to participate in Goal of Care conversation family would elect comfort measures and forgo a Trach/Peg. The children have elected a DNAR status and completed an OOHDNAR. Son is to arrive end of the week, at this time they will revisit Goal of care. Please also refer to Palliative Care notes in note section. [30] minutes spent on this encounter with >50% of the time in counseling and coordination of care. Thank you for this very appropriate consult.
--- NOTE | 2020-01-24 18:45 | PDOC.HOSPP ---
- Subjective Encounter Date: 01/24/20 Encounter Time: 16:30 Subjective: f/u for resp failure/CHF tx with mech ventilation and IV Lasix. More alert, interactive, talking with daughter at bedside. Attempting to wean off mech vent. - Objective Vital Signs & Weight: Vital Signs (12 hours) Temp Pulse Resp BP Pulse Ox 01/24/20 18:19 78 168/75 H 01/24/20 18:00 13 01/24/20 16:00 98.1 F 12 01/24/20 14:29 80 178/74 H 01/24/20 14:00 17 01/24/20 12:45 80 160/81 H 01/24/20 12:00 98.0 F 16 01/24/20 10:22 83 148/69 H 01/24/20 10:00 11 L 01/24/20 08:25 82 160/68 H 01/24/20 08:08 82 160/68 H 01/24/20 08:00 98.5 F 97 Weight Admit Weight 361 lb Weight 332 lb 7.313 oz Most Recent Monitor Data Heart Rate from ECG 77 NIBP 168/75 NIBP BP-Mean 106 Respiration from ECG 16 SpO2 97 I&O: 01/23/20 01/24/20 01/25/20 06:59 06:59 06:59 Intake Total 2953 2950.8 1664.1 Output Total 2295 1764 1690 Balance 658 1186.8 -25.9 Result Diagrams: 01/24/20 04:50 01/24/20 04:50 Additional Labs: Accuchecks 01/24/20 01/23/20 01/23/20 12:53 20:09 17:33 POC Glucose 129 H 146 H 151 H Microbiology 01/22/19 11:40 Stool Stool Occult Blood (CAROL) - Final 01/14/20 14:54 Urine pillai catheter Urine Culture - Final NO GROWTH AT 48 HOURS Laboratory Tests 01/22/19 01/22/19 01/23/19 05:13 13:25 03:51 WBC 13.2 H Hgb 8.8 L Neutrophils % 91.6 H 74.9 Potassium 5.3 H Carbon Dioxide BUN 42 H Creatinine 1.83 H Iron Ferritin TSH 3rd Generation SARS-CoV-2 Rap RNA(RT-PCR) 01/14/20 01/14/20 01/15/20 16:00 22:06 04:05 WBC Hgb Neutrophils % Potassium Carbon Dioxide BUN Creatinine Iron 11 L Ferritin TSH 3rd Generation 1.1967 SARS-CoV-2 Rap RNA(RT-PCR) Not Detected 01/15/20 01/15/20 01/16/20 04:05 11:02 03:55 WBC 11.2 H Hgb 7.0 L Neutrophils % Potassium Carbon Dioxide BUN Creatinine 2.27 H Iron Ferritin 127.01 TSH 3rd Generation SARS-CoV-2 Rap RNA(RT-PCR) 01/16/20 01/17/20 01/17/20 03:55 03:20 03:30 WBC 10.4 13.7 H Hgb 6.8 L 7.4 L Neutrophils % Potassium Carbon Dioxide BUN Creatinine 2.67 H Iron Ferritin TSH 3rd Generation SARS-CoV-2 Rap RNA(RT-PCR) 01/18/20 01/18/20 01/19/20 04:35 04:35 03:55 WBC 13.6 H Hgb 7.2 L Neutrophils % Potassium Carbon Dioxide 30 H BUN 58 H Creatinine 2.72 H 2.46 H Iron Ferritin TSH 3rd Generation SARS-CoV-2 Rap RNA(RT-PCR) 01/19/20 01/20/20 03:55 04:00 WBC Hgb 6.5 L Neutrophils % 83.9 H 86.2 H Potassium Carbon Dioxide BUN Creatinine Iron Ferritin TSH 3rd Generation SARS-CoV-2 Rap RNA(RT-PCR) Radiology Reviewed by me: Yes (PCXR - similar to previous CXR 01/23/20, lines/tubes in place) EKG Reviewed by me: Yes (Tele - SR) Hospitalist ROS - Medication Medications: Active Medications Generic Name Dose Route Start Last Admin Trade Name Freq PRN Reason Stop Dose Admin Acetaminophen 650 mg 01/14/20 17:39 01/20/20 14:13 Acetaminophen 650 Mg/20.3 Ml Udcup PO 650 mg Q6H PRN Administration Fever > 101 or Mild Pain Albuterol/Ipratropium 3 ml 01/14/20 19:00 01/24/20 18:16 Ipratropium/Albuterol Sulfate 3 Ml Neb NEB 3 ml [id number] JONATHAN Administration Amlodipine Besylate 5 mg 01/18/20 09:00 01/24/20 08:25 Amlodipine 5 Mg Tab PO 5 mg BID JONATHAN Administration Aspirin 81 mg 01/15/20 09:00 01/24/20 08:25 Aspirin Chewable 81 Mg Tab PO 81 mg DAILY JONATHAN Administration Bisacodyl 10 mg 01/14/20 17:39 01/16/20 05:33 Bisacodyl 10 Mg Supp MO 10 mg DAILYPRN PRN Administration Constipation Carvedilol 25 mg 01/20/20 17:00 01/24/20 16:02 Carvedilol 25 Mg Tab PO 25 mg BID-WM JONATHAN Administration Cyanocobalamin 1,000 mcg 01/16/20 09:00 01/24/20 08:25 Cyanocobalamin (Vitamin B-12) 1,000 Mcg Tab PER TUBE 1,000 mcg DAILY JONATHAN Administration Enoxaparin Sodium 30 mg 01/17/20 21:00 01/23/20 20:07 Enoxaparin Sodium 30 Mg/0.3 Ml Syringe SC 30 mg 2100 JONATHAN Administration Folic Acid 1 mg 01/16/20 09:00 01/24/20 08:25 Folic Acid 1 Mg Tab PER TUBE 1 mg DAILY JONATHAN Administration Furosemide 40 mg 01/24/20 09:00 01/24/20 08:25 Furosemide 40 Mg/4 Ml Vial SLOW IVP 40 mg DAILY JONATHAN Administration Hydralazine HCl 20 mg 01/20/20 14:13 01/24/20 03:19 Hydralazine 20 Mg/Ml Vial SLOW IVP 20 mg Q4H PRN Administration SBP Greater Than 180 Fentanyl Citrate 2,000 mcg/ 100 mls @ 0 mls/hr 01/14/20 19:00 01/18/20 00:28 Sodium Chloride IV 02/13/20 19:00 100 mls INF JONATHAN Administration Protocol Per Protocol Azithromycin 500 mg/ Sodium 250 mls @ 250 mls/hr 01/17/20 09:00 01/24/20 09:20 Chloride IVPB 250 mls 0900 JONATHAN Administration Ceftriaxone Sodium 1 gm/ 100 mls @ 200 mls/hr 01/17/20 09:00 01/24/20 08:26 Sodium Chloride IVPB 100 mls 0900 JONATHAN Administration Insulin Glargine 20 units/ 0.2 mls @ 0.1 mls/hr 01/19/20 21:00 01/24/20 09:19 Miscellaneous Medication SC 0.2 mls Q12HR JONATHAN Administration Dexmedetomidine HCl 400 mcg/ 100 mls @ 0 mls/hr 01/23/20 10:45 01/23/20 20:09 Sodium Chloride IVPB 100 mls INF JONATHAN Administration Protocol Per Protocol Insulin Human Regular 0 units 01/14/20 17:45 01/15/20 20:36 Insulin Regular 300 Units/3 Ml Vial SC 3 units .BEDTIME SLIDING SC PRN Administration Bedtime Correctional Scale Insulin Human Regular 0 units 01/14/20 19:07 01/20/20 18:21 Insulin Regular 300 Units/3 Ml Vial SC 3 unit .AGGRESSIVE SLIDING PRN Administration Aggressive Correctional Scale Labetalol HCl 10 mg 01/14/20 20:15 01/21/20 22:24 Labetalol Hcl 100 Mg/20 Ml Vial SLOW IVP 10 mg Q4H PRN Administration Systolic BP > 180 Lorazepam 2 mg 01/14/20 19:00 01/24/20 03:13 Lorazepam 2 Mg/Ml Vial SLOW IVP 02/13/20 19:00 2 mg Q1H PRN Administration Breakthrough agitation Multivitamins 1 tab 01/16/20 09:00 01/24/20 09:20 Multivit, Therapeutic 1 Tab PER TUBE 1 tab DAILY JONATHAN Administration Nitroglycerin 0.5 inch 01/21/20 15:15 01/24/20 16:02 Nitroglycerin 2% Ointment 1 Inch/1 Gm Packet TOP 0.5 inch Q8H JONATHAN Administration Pantoprazole Sodium 40 mg 01/19/20 09:00 01/24/20 08:25 Pantoprazole 40 Mg Granules Packet PER TUBE 40 mg DAILY JONATHAN Administration Propofol 1,000 mg 01/14/20 19:00 01/23/20 06:07 Propofol 1,000 Mg/100 Ml Vial IV 02/13/20 19:00 1,000 mg INF PRN Administration TO ACHIEVE GOAL RASS Protocol Venlafaxine HCl 75 mg 01/21/20 09:00 01/24/20 08:25 Venlafaxine Hcl 75 Mg Tab PO 75 mg DAILY JONATHAN Administration - Exam General Appearance: awake alert General - other findings: nods/tracks/speaks a few words, holds head up Eye: PERRL, anicteric sclera ENT: normocephalic atraumatic, no oropharyngeal lesions ENT - other findings: ETT in place Neck: supple, symmetric, no JVD, no thyromegaly, no lymphadenopathy Heart: RRR, no gallops, no rubs, normal peripheral pulses Heart - other findings: S1, S2 Respiratory: tachypneic Respiratory - other findings: diminished in bases, few scattered rhonchi Gastrointestinal: soft, non-tender, non-distended, normal bowel sounds, no palpable masses Gastrointestinal - other findings: obese Extremities: no cyanosis, 1+ LE edema Skin: normal turgor, no lesions Neurological: cranial nerve grossly intact, no new deficit Musculoskeletal: normal tone, generalized weakness Psychiatric: normal affect, oriented to person, oriented to place Hosp A/P (1) Acute respiratory failure with hypoxia Code(s): J96.01 - ACUTE RESPIRATORY FAILURE WITH HYPOXIA Status: Acute Plan: Continue [facility] ventilation attempting to wean off completely, likely able to extubate in 24h (2) Acute on chronic diastolic (congestive) heart failure Code(s): I50.33 - ACUTE ON CHRONIC DIASTOLIC (CONGESTIVE) HEART FAILURE Status: Acute Plan: Approx 30lb weight loss since admit, continue Lasix 40mg IV daily, serial I/O's, Daily weight (3) Obesity hypoventilation syndrome Code(s): E66.2 - MORBID (SEVERE) OBESITY WITH ALVEOLAR HYPOVENTILATION Status: Chronic (4) CARLA (acute kidney injury) Code(s): N17.9 - ACUTE KIDNEY FAILURE, UNSPECIFIED Status: Acute (5) CKD (chronic kidney disease), stage III Code(s): N18.3 - CHRONIC KIDNEY DISEASE, STAGE 3 (MODERATE) * DO NOT USE * Status: Chronic Qualifiers: Chronic kidney disease stage 3 subtype: stage 3a (GFR 45-59) Qualified Code(s): N18.31 - Chronic kidney disease, stage 3a (6) DM type 2 (diabetes mellitus, type 2) Status: Chronic Qualifiers: 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 Diabetes mellitus complication status: with kidney complications Diabetes mellitus complication detail: with chronic kidney disease Chronic kidney disease stage: stage 3 (moderate) (7) Iron deficiency anemia Code(s): D50.9 - IRON DEFICIENCY ANEMIA, UNSPECIFIED Status: Chronic Qualifiers: Iron deficiency anemia type: inadequate dietary iron intake Qualified Code(s): D50.8 - Other iron deficiency anemias - Plan plan discussed w/ family, continue antibiotics, PT/OT, social welfare clerk, respiratory therapy, DVT proph w/SCDs Consults: Palliative Care Continue critical support s/p 1u PRBC's s/p IV Iron infusion Continue Lantus 20u BID Continue Zithromax/Rocephin Protonix 40mg PT daily Lasix 40mg IV Daily Hydralazine 20mg IV q4h PRN Wean mech ventilation per protocol, likely extubate in 24h AM lab: BMP, CBC PCXR in am
[2020-01-24] MEDS: Enoxaparin Sodium 30 MG/0.3 ML SYRINGE SC SCH (20:05)
[2020-01-25] MEDS: Insulin Glargine 20 UNITS in Pre-Filled Syringe 1 EACH SC SCH ×3 (00:48→22:22)
[2020-01-25 04:29] LABS: #Basophils 0.1 thou/uL (0.0-0.2); #Eosinphils 0.3 thou/uL (0.0-0.7); #Lymphocytes 1.1 thou/uL (1.20-3.40); #Monocytes 0.5 thou/uL (0.11-0.59); #Neutrophils 8.8 thou/uL (1.40-6.50); %Basophils 0.6 % (0.0-1.0); %Eosinophils 2.8 % (0.0-10.0); %Neutrophils 81.6 % (42.0-75.0); Hemoglobin 8.2 g/dL (12.0-16.0); Mean Corpuscular HGB CONC 29.5 g/dL (32.0-36.0); Mean Corpuscular Hemoglobin 23.9 pg (27.0-31.0); Mean Corpuscular Volume 81.1 fL (78.0-98.0); Mean Platelet Volume 10.5 fL (7.4-10.4); Platelet Count 318 thou/uL (130-400); RBC Distribution Width 19.1 % (11.5-14.5); Red Blood Cell (RBC) Count 3.42 mill/uL (4.20-5.40); White Blood Cell (WBC) Count 10.8 thou/uL (4.8-10.8)
[2020-01-25 04:32] LABS: Anion Gap 15 mmol/L (10-20); BUN (Urea Nitrogen) 51 mg/dL (9.8-20.1); Calc. Creatinine Clearance 110 mL/min (70-130); Calcium 9.6 mg/dL (7.8-10.44); Carbon Dioxide 33 mmol/L (22-29); Chloride 105 mmol/L (98-107); Glucose 120 mg/dL (70-105); Potassium 3.6 mmol/L (3.5-5.1); Sodium 149 mmol/L (136-145)
[2020-01-25 07:33] LABS: Actual Bicarbonate (HCO3a) 34.2 mEq/L (22-28); Base Excess (BEa) 8.5 mEq/L (-2.0 to +3.0); CO2 Tension 54.5 mmHg (35.0-45.0); Calcium, Ionized (arterial) 1.27 mmol/L (1.12-1.30); Carboxyhemoglobin (COHb) 0.7 gm% (0.0-3.0); Hemoglobin (Hb) 8.9 g/dL (12.0-16.0); O2 Tension (PaO2), arterial 98.5 mmHg (80.0-100.0); Potassium - ABG Lab 3.71 mmol/L (3.70-5.30); pH, Arterial 7.42 (7.35-7.45)
[2020-01-25 07:35] LABS: Puncture Site RRA
[2020-01-25 07:36] LABS: ALV-art Gradient 118.575 mmHg (0-20)
--- NOTE | 2020-01-25 08:01 | RAD ---
PORTABLE CHEST: HISTORY: CCU followup on ventilator. COMPARISON: 01/24/2020. FINDINGS/IMPRESSION: ET tube, NG tube, and central line unchanged. Cardiomegaly with vascular engorgement. Soft tissue a ttenuation from body habitus limits detail. Small effusions and mild left basilar atelectasis or inf iltrate cannot be excluded. No evidence of significant interval change. POS: AGW
--- NOTE | 2020-01-25 08:42 | PRG ---
DATE OF SERVICE: 01/25/2020 SUBJECTIVE: The patient was seen and examined in ICU. OBJECTIVE: GENERAL: Morbidly obese female, intubated in ICU. VITAL SIGNS: Temperature 98.9, pulse 89, respiratory rate 18, and blood pressure 151/89. HEENT: Intubated. CV: S1 and S2 heard. MUSCULOSKELETAL: 1+ edema. NEUROLOGIC: Intubated. LABORATORY DATA: Potassium is 3.6, sodium 149, BUN is 51, and creatinine is 1.3. ASSESSMENT AND PLAN: 1. Acute kidney injury on chronic kidney disease, stage 3, stable. 2. Hypernatremia. Recommend free water if okay with Pulmonology. 3. Hypokalemia, replaced. 4. Cardiorenal syndrome. 5. Alkalosis. 6. Fluid overload. 7. Acute hypoxic respiratory failure. On diuretics. Monitor renal function, which is stable and recommend free water. Replace potassium. Job ID: [id number]
[2020-01-25] MEDS ORDERED: Potassium Chloride 40 MEQ in Sodium Chloride 0.9% 250 ML 250 ML IVPB SCH (08:45)
[2020-01-25] MEDS: Folic Acid 1 MG TAB PER TUBE SCH (08:59)
[2020-01-25] MEDS: Amlodipine 5 MG TAB PO SCH ×2 (08:59→20:17)
[2020-01-25] MEDS: Aspirin Chewable 81 MG TAB PO SCH (08:59)
[2020-01-25] MEDS: Pantoprazole 40 MG GRANULES PACKET PER TUBE SCH (08:59)
[2020-01-25] MEDS: Furosemide 40 MG/4 ML VIAL SLOW IVP SCH (08:59)
[2020-01-25] MEDS: Multivit, Therapeutic 1 TAB PER TUBE SCH (09:00)
[2020-01-25] MEDS: Carvedilol 25 MG TAB PO SCH ×2 (09:00→16:43)
[2020-01-25] MEDS: cefTRIAXone\\ROCEPHIN 1 GM in Sodium Chloride 0.9% 100 ML IVPB SCH (09:02)
[2020-01-25] MEDS: Nitroglycerin 2% Ointment 1 INCH/1 GM Packet TOP SCH ×3 (09:07→23:15)
[2020-01-25] MEDS: Azithromycin 500 MG in Sodium Chloride 0.9% 250 ML 250 ML IVPB SCH (09:08)
[2020-01-25] MEDS: Cyanocobalamin (Vitamin B-12) 1,000 MCG TAB PER TUBE SCH (09:14)
--- NOTE | 2020-01-25 10:20 | PRG ---
DATE OF SERVICE: 01/25/2020 35 minutes critical care time. SUBJECTIVE: When I walked in the room this morning, Ms. Mcdonald was talking around her endotracheal tube without much difficulty. She was on pressure support ventilation, but she was warming off because she could never achieve her high pressure because of the leak. OBJECTIVE: VITAL SIGNS: Temperature 99.0, pulse rate 76, blood pressure 170/78, and O2 saturation 98%. HEENT: Unremarkable. NECK: No JVD. LUNGS: Clear. CARDIAC: S1 and S2. Regular. ABDOMEN: Soft. EXTREMITIES: Edematous. She is able move all 4 extremities without much difficulty. LABORATORY DATA: PH 7.42, pCO2 of 54, PO2 of 98. White blood cell count 10.8, hematocrit 27.8, and platelet count 318. Sodium 149, potassium 3.6, chloride 105, CO2 of 33, BUN 51, creatinine 1.3, and glucose 120. Chest x-ray looks like it is clearing. ASSESSMENT: 1. Acute respiratory failure requiring mechanical ventilation. 2. Morbid obesity. 3. Diastolic heart dysfunction. 4. Renal insufficiency. 5. Mild hypernatremia. PLAN: I went ahead and extubated her because. She was going to have to be reintubated because the cuff leak. I wanted to try her without the ventilator and she is doing perfectly fine. We will initiate oral diet if she can tolerate that. Physical therapy is seeing her. I have stopped all the sedation. I would anticipate continued improvement. I have stopped her antibiotics. I will go ahead and hold the diuretics for a day or two given the elevated sodium. Job ID: [id number]
--- NOTE | 2020-01-25 12:35 | PDOC.PALPN ---
Palliative Progress Note - Subjective Extubated, awake, alert. Daughter at bedside. - Objective Vital Signs: Vital Signs - Most Recent Temp Pulse Resp BP Pulse Ox 99 F 85 19 154/88 H 97 01/25/20 08:00 01/25/20 10:00 01/25/20 10:00 01/25/20 08:59 01/25/20 10:00 - Physical Exam Constitutional: NAD, ill appearing HEENT: EOMI, moist MMs, sclera anicteric, poor dentition Respiratory: no wheezing, diminished lung sound Cardiovascular: RRR, diminished peripheral pulses Gastrointestinal: soft, non-tender Deviation from normal: Obese Genitourinary: pillai catheter Musculoskeletal: diffuse muscle atrophy Neurology: moves all 4 limbs, no focal deficits Skin: cap refill <2 seconds Psychiatric: A&O x 3 - Assessment (1) Palliative care encounter Code(s): Z51.5 - ENCOUNTER FOR PALLIATIVE CARE Current Visit: Yes Status: Acute (2) CARLA (acute kidney injury) Code(s): N17.9 - ACUTE KIDNEY FAILURE, UNSPECIFIED Current Visit: No Status: Acute (3) Acute on chronic diastolic (congestive) heart failure Code(s): I50.33 - ACUTE ON CHRONIC DIASTOLIC (CONGESTIVE) HEART FAILURE Current Visit: No Status: Acute (4) Acute respiratory failure with hypoxia Code(s): J96.01 - ACUTE RESPIRATORY FAILURE WITH HYPOXIA Current Visit: No Status: Acute (5) DM type 2 (diabetes mellitus, type 2) Current Visit: No Status: Chronic Qualifiers: Diabetes mellitus snf insulin use: with manager long term care use Diabetes mellitus complication status: with kidney complications Diabetes mellitus complication detail: with chronic kidney disease Chronic kidney disease stage: stage 3 (moderate) - Plan Plan: Happy she is no longer intubated. Discussed that if she desires we will revisit Directive to Physician and complete so that her wishes are known. Ms Mcdonald is agreeable. Palliative Care will also revisit Goal of care with patient and family as she continues to improve. Emotional Support [35] minutes spent on this encounter with >50% of the time in counseling and coordination of care. - ROS Constitutional: weakness ENT: dry mouth Respiratory: shortness of breath Cardiology: other (Denies chest pain/palpitations) Gastrointestinal: other (Denies nausea or vomiting)
--- NOTE | 2020-01-25 14:17 | EEG ---
DATE OF SERVICE: DESCRIPTION OF THE RECORD: The best waking background is a 7 hertz low amplitude theta frequency. Majority of the background is in the range of 5 hertz over both hemispheres. There is quite a bit of muscle and movement artifact throughout the study. Photic stimulation was unremarkable. No epileptiform features were seen. IMPRESSION: This is an abnormal study for the findings of diffuse slowing consistent with a diffuse encephalopathic process. Job ID: [id number]
--- NOTE | 2020-01-25 16:57 | PDOC.HOSPP ---
- Subjective Encounter Date: 01/25/20 Encounter Time: 16:55 Subjective: f/u for resp failure/CHF s/p mech ventilation with successful extubation today. Feels much better and remains on O2 @ 2L/min NC. - Objective Vital Signs & Weight: Vital Signs (12 hours) Temp Pulse Pulse Pulse Resp BP BP 01/25/20 13:14 84 16 01/25/20 12:00 98.8 F 01/25/20 10:00 85 19 01/25/20 08:59 85 154/88 H 01/25/20 08:45 83 79 156/65 H 01/25/20 08:00 99 F 15 01/25/20 07:54 01/25/20 07:24 83 151/89 H 01/25/20 06:00 14 BP Pulse Ox Pulse Ox Pulse Ox 01/25/20 13:14 98 01/25/20 12:00 96 01/25/20 10:00 97 01/25/20 08:59 01/25/20 08:45 154/68 H 96 98 01/25/20 08:00 01/25/20 07:54 97 01/25/20 07:24 01/25/20 06:00 Weight Admit Weight 361 lb Weight 334 lb 3.532 oz Most Recent Monitor Data Heart Rate from ECG 92 NIBP 179/82 NIBP BP-Mean 114 Respiration from ECG 18 SpO2 96 I&O: 01/24/20 01/25/20 01/26/20 06:59 06:59 06:59 Intake Total 2950.8 2862.5 1485 Output Total 1764 2645 1530 Balance 1186.8 217.5 -45 Result Diagrams: 01/25/20 03:30 01/25/20 03:30 Additional Labs: Accuchecks 01/25/20 01/25/20 01/24/20 16:15 09:32 23:52 POC Glucose 140 H 153 H 114 H 01/24/20 01/24/20 20:07 18:09 POC Glucose 123 H 136 H Microbiology 01/22/19 11:40 Stool Stool Occult Blood (CAROL) - Final 01/14/20 14:54 Urine pillai catheter Urine Culture - Final NO GROWTH AT 48 HOURS Laboratory Tests 01/22/19 01/22/19 01/23/19 05:13 13:25 03:51 WBC 13.2 H Hgb 8.8 L Neutrophils % 91.6 H 74.9 Potassium 5.3 H Carbon Dioxide BUN 42 H Creatinine 1.83 H Iron Ferritin TSH 3rd Generation SARS-CoV-2 Rap RNA(RT-PCR) 01/14/20 01/14/20 01/15/20 16:00 22:06 04:05 WBC Hgb Neutrophils % Potassium Carbon Dioxide BUN Creatinine Iron 11 L Ferritin TSH 3rd Generation 1.1967 SARS-CoV-2 Rap RNA(RT-PCR) Not Detected 01/15/20 01/15/20 01/16/20 04:05 11:02 03:55 WBC 11.2 H Hgb 7.0 L Neutrophils % Potassium Carbon Dioxide BUN Creatinine 2.27 H Iron Ferritin 127.01 TSH 3rd Generation SARS-CoV-2 Rap RNA(RT-PCR) 01/16/20 01/17/20 01/17/20 03:55 03:20 03:30 WBC 10.4 13.7 H Hgb 6.8 L 7.4 L Neutrophils % Potassium Carbon Dioxide BUN Creatinine 2.67 H Iron Ferritin TSH 3rd Generation SARS-CoV-2 Rap RNA(RT-PCR) 01/18/20 01/18/20 01/19/20 04:35 04:35 03:55 WBC 13.6 H Hgb 7.2 L Neutrophils % Potassium Carbon Dioxide 30 H BUN 58 H Creatinine 2.72 H 2.46 H Iron Ferritin TSH 3rd Generation SARS-CoV-2 Rap RNA(RT-PCR) 01/19/20 01/20/20 03:55 04:00 WBC Hgb 6.5 L Neutrophils % 83.9 H 86.2 H Potassium Carbon Dioxide BUN Creatinine Iron Ferritin TSH 3rd Generation SARS-CoV-2 Rap RNA(RT-PCR) Radiology Reviewed by me: Yes (PCXR - vasc prominence, lines/tubes in position) EKG Reviewed by me: Yes (Tele - SR) Hospitalist ROS - Medication Medications: Active Medications Generic Name Dose Route Start Last Admin Trade Name Freq PRN Reason Stop Dose Admin Acetaminophen 650 mg 01/14/20 17:39 01/20/20 14:13 Acetaminophen 650 Mg/20.3 Ml Udcup PO 650 mg Q6H PRN Administration Fever > 101 or Mild Pain Albuterol/Ipratropium 3 ml 01/14/20 19:00 01/25/20 13:14 Ipratropium/Albuterol Sulfate 3 Ml Neb NEB 3 ml [id number] JONATHAN Administration Amlodipine Besylate 5 mg 01/18/20 09:00 01/25/20 08:59 Amlodipine 5 Mg Tab PO 5 mg BID JONATHAN Administration Aspirin 81 mg 01/15/20 09:00 01/25/20 08:59 Aspirin Chewable 81 Mg Tab PO 81 mg DAILY JONATHAN Administration Bisacodyl 10 mg 01/14/20 17:39 01/16/20 05:33 Bisacodyl 10 Mg Supp SC 10 mg DAILYPRN PRN Administration Constipation Carvedilol 25 mg 01/20/20 17:00 01/25/20 16:43 Carvedilol 25 Mg Tab PO 25 mg BID-WM JONATHAN Administration Cyanocobalamin 1,000 mcg 01/16/20 09:00 01/25/20 09:14 Cyanocobalamin (Vitamin B-12) 1,000 Mcg Tab PER TUBE 1,000 mcg DAILY JONATHAN Administration Enoxaparin Sodium 30 mg 01/17/20 21:00 01/24/20 20:05 Enoxaparin Sodium 30 Mg/0.3 Ml Syringe SC 30 mg 2100 JONATHAN Administration Folic Acid 1 mg 01/16/20 09:00 01/25/20 08:59 Folic Acid 1 Mg Tab PER TUBE 1 mg DAILY JONATHAN Administration Hydralazine HCl 20 mg 01/20/20 14:13 01/24/20 22:14 Hydralazine 20 Mg/Ml Vial SLOW IVP 20 mg Q4H PRN Administration SBP Greater Than 180 Insulin Glargine 20 units/ 0.2 mls @ 0.1 mls/hr 01/19/20 21:00 01/25/20 09:01 Miscellaneous Medication SC 0.2 mls Q12HR JONATHAN Administration Insulin Human Regular 0 units 01/14/20 17:45 01/15/20 20:36 Insulin Regular 300 Units/3 Ml Vial SC 3 units .BEDTIME SLIDING SC PRN Administration Bedtime Correctional Scale Insulin Human Regular 0 units 01/14/20 19:07 01/20/20 18:21 Insulin Regular 300 Units/3 Ml Vial SC 3 unit .AGGRESSIVE SLIDING PRN Administration Aggressive Correctional Scale Labetalol HCl 10 mg 01/14/20 20:15 01/21/20 22:24 Labetalol Hcl 100 Mg/20 Ml Vial SLOW IVP 10 mg Q4H PRN Administration Systolic BP > 180 Multivitamins 1 tab 01/16/20 09:00 01/25/20 09:00 Multivit, Therapeutic 1 Tab PER TUBE 1 tab DAILY JONATHAN Administration Nitroglycerin 0.5 inch 01/21/20 15:15 01/25/20 16:43 Nitroglycerin 2% Ointment 1 Inch/1 Gm Packet TOP 0.5 inch Q8H JONATHAN Administration Pantoprazole Sodium 40 mg 01/19/20 09:00 01/25/20 08:59 Pantoprazole 40 Mg Granules Packet PER TUBE 40 mg DAILY JONATHAN Administration Venlafaxine HCl 75 mg 01/21/20 09:00 01/25/20 09:00 Venlafaxine Hcl 75 Mg Tab PO 75 mg DAILY JONATHAN Administration - Exam General Appearance: NAD, awake alert General - other findings: talkative, smiling Eye: PERRL, anicteric sclera ENT: normocephalic atraumatic, no oropharyngeal lesions Neck: supple, symmetric, no JVD, no thyromegaly, no lymphadenopathy Heart: RRR, no murmur, no gallops, no rubs, normal peripheral pulses Heart - other findings: S1, S2 Respiratory: no ronchi, normal chest expansion, no tachypnea Respiratory - other findings: diminished in bases Gastrointestinal: soft, non-tender, non-distended, normal bowel sounds, no palpable masses Gastrointestinal - other findings: obese Extremities: no cyanosis, 1+ LE edema Skin: normal turgor, no lesions Neurological: cranial nerve grossly intact, no new deficit Musculoskeletal: normal tone, generalized weakness Psychiatric: normal affect, A&O x 3 Hosp A/P (1) Acute respiratory failure with hypoxia Code(s): J96.01 - ACUTE RESPIRATORY FAILURE WITH HYPOXIA Status: Acute Plan: s/p mech ventilation and successful extubation 01/25/20, continue O2 @ 2L/min NC (2) Acute on chronic diastolic (congestive) heart failure Code(s): I50.33 - ACUTE ON CHRONIC DIASTOLIC (CONGESTIVE) HEART FAILURE Status: Acute Plan: Improved, holding Lasix due to CARLA/dehydration/hypernatremia, approx 30lb weight loss (3) Obesity hypoventilation syndrome Code(s): E66.2 - MORBID (SEVERE) OBESITY WITH ALVEOLAR HYPOVENTILATION Status: Chronic (4) CARLA (acute kidney injury) Code(s): N17.9 - ACUTE KIDNEY FAILURE, UNSPECIFIED Status: Acute (5) CKD (chronic kidney disease), stage III Code(s): N18.3 - CHRONIC KIDNEY DISEASE, STAGE 3 (MODERATE) * DO NOT USE * Status: Chronic Qualifiers: Chronic kidney disease stage 3 subtype: stage 3a (GFR 45-59) Qualified Code(s): N18.31 - Chronic kidney disease, stage 3a (6) DM type 2 (diabetes mellitus, type 2) Status: Chronic Qualifiers: Diabetes mellitus fci insulin use: with fci use Diabetes mellitus complication status: with kidney complications Diabetes mellitus complication detail: with chronic kidney disease Chronic kidney disease stage: stage 3 (moderate) (7) Iron deficiency anemia Code(s): D50.9 - IRON DEFICIENCY ANEMIA, UNSPECIFIED Status: Chronic Qualifiers: Iron deficiency anemia type: inadequate dietary iron intake Qualified Code(s): D50.8 - Other iron deficiency anemias (8) Hypernatremia Code(s): E87.0 - HYPEROSMOLALITY AND HYPERNATREMIA Status: Acute Plan: Likely iatrogenic due to Lasix, hold diuretics and monitor improvement - Plan PT/OT, hospice social worker, respiratory therapy, out of bed/ambulate, DVT proph w/SCDs Continue critical support s/p 1u PRBC's s/p IV Iron infusion Continue Lantus 20u BID D/c abx Protonix 40mg po daily Lasix held due to CARLA/hypernatremia Hydralazine 20mg IV q4h PRN O2 @ 2L/min NC AM lab: BMP Likely transition to medical floor in am
[2020-01-25] MEDS: hydrALAZINE 20 MG/ML VIAL SLOW IVP PRN (18:52)
[2020-01-25] MEDS: Enoxaparin Sodium 30 MG/0.3 ML SYRINGE SC SCH (20:18)
[2020-01-25] MEDS: Labetalol HCl 100 MG/20 ML VIAL SLOW IVP PRN (23:02)
[2020-01-26] MEDS ORDERED: cloNIDine 0.1 MG TAB PO SCH (00:45)
[2020-01-26] MEDS: hydrALAZINE 20 MG/ML VIAL SLOW IVP PRN ×2 (01:04→09:08)
[2020-01-26] MEDS: Labetalol HCl 100 MG/20 ML VIAL SLOW IVP PRN (03:03)
[2020-01-26] MEDS: Acetaminophen 325 MG TAB PO PRN (03:05)
[2020-01-26 06:11] VITALS: BMI 47.7
[2020-01-26 06:20] LABS: Anion Gap 13 mmol/L (10-20); BUN (Urea Nitrogen) 41 mg/dL (9.8-20.1); Calc. Creatinine Clearance 123 mL/min (70-130); Calcium 9.4 mg/dL (7.8-10.44); Carbon Dioxide 33 mmol/L (22-29); Chloride 104 mmol/L (98-107); Glucose 126 mg/dL (70-105); Potassium 3.8 mmol/L (3.5-5.1); Sodium 146 mmol/L (136-145)
--- NOTE | 2020-01-26 07:40 | PRG ---
DATE OF SERVICE: 01/26/2020 SUBJECTIVE: The patient is doing great today. I extubated her without difficulty yesterday. She has been able to eat and has no complaints. OBJECTIVE: VITAL SIGNS: Her temperature is 98.4, pulse 95, blood pressure 172/70, O2 saturation 99%. HEENT: Unremarkable. NECK: No JVD. LUNGS: Clear anteriorly. CARDIAC: S1, S2. Regular. ABDOMEN: Soft. EXTREMITIES: No edema. LABORATORY DATA: Sodium 146, potassium of 3.8, BUN 41, creatinine 1.2, glucose 126. ASSESSMENT: 1. Status post prolonged respiratory failure, requiring mechanical ventilation. 2. Recovery of left hemiparesis. 3. Morbid obesity. 4. Diastolic heart dysfunction. 5. Renal insufficiency, which has improved. 6. Hypertension. 7. Mild hyponatremia, which has also improved. PLAN: She can be transferred to the medical floor. I have started her back on the lisinopril, but her chemistry will need to be checked in a couple of days to make sure that this does not affect her BUN and creatinine. Main issue now is rehabilitative in nature. Pulmonary will be available as needed. Job ID: [id number]
[2020-01-26] MEDS: Carvedilol 25 MG TAB PO SCH ×2 (08:15→16:31)
[2020-01-26] MEDS: Cyanocobalamin (Vitamin B-12) 1,000 MCG TAB PER TUBE SCH (09:00)
[2020-01-26] MEDS: Pantoprazole 40 MG GRANULES PACKET PER TUBE SCH (09:06)
[2020-01-26] MEDS: Multivit, Therapeutic 1 TAB PER TUBE SCH (09:07)
[2020-01-26] MEDS: Folic Acid 1 MG TAB PER TUBE SCH (09:07)
[2020-01-26] MEDS: Aspirin Chewable 81 MG TAB PO SCH (09:07)
[2020-01-26] MEDS: Insulin Glargine 20 UNITS in Pre-Filled Syringe 1 EACH SC SCH ×2 (09:09→20:24)
[2020-01-26] MEDS: NIFEdipine XL 60 MG TAB PO SCH (09:14)
[2020-01-26] MEDS: hydrALAZINE 25 MG TAB PO SCH ×4 (09:14→20:24)
--- NOTE | 2020-01-26 09:58 | PRG ---
DATE OF SERVICE: 01/26/2020 SUBJECTIVE: Patient was seen and examined at bedside and overnight events noted. Patient denies any shortness of breath or chest pain or palpitation. No history of nausea or vomiting or diarrhea or fever or chills or cramps. OBJECTIVE: General: This is well-built female, in no apparent distress. Vital Signs: Temperature 98.4. Heart Rate 102. Respiratory rate 22. Blood pressure 220/106. HEENT: Atraumatic, normocephalic. Oral mucosa is moist. Neck: Supple. Cardiovascular: S1, S2 heard. Rate and rhythm regular. Respiratory: Clear to auscultation. Gastrointestinal: Abdomen is soft. Musculoskeletal: No tenderness. No edema. Dermatologic: No skin rash. Neurologic: Alert and awake and oriented x3. No focal neurologic deficits. Moving all the extremities. Psychiatric: Mood and affect normal. LABORATORY DATA: Sodium 146, potassium 3.8, BUN is 41, and creatinine is 1.2. ASSESSMENT AND PLAN: 1. Acute kidney injury on chronic kidney disease, stage 3, stable. 2. Hypernatremia, better. 3. Alkalosis. 4. Edema. 5. Cardiorenal syndrome. 6. Acute hypoxic respiratory failure, extubated. The patient was extubated, doing well. Agree with starting on Procardia. Monitor blood pressure. Job ID: [id number]
--- NOTE | 2020-01-26 10:39 | PDOC.HOSPP ---
- Subjective Encounter Date: 01/26/20 Encounter Time: 07:00 Subjective: Patient seen and examined bedside today, no overnight event, no new complaint, patient's blood pressure is running high, - Objective Vital Signs & Weight: Vital Signs (12 hours) Temp Pulse Resp BP Pulse Ox 01/26/20 09:14 97 220/106 H 01/26/20 09:08 97 220/106 H 01/26/20 08:14 97 22 H 94 L 01/26/20 07:47 98 01/26/20 03:03 104 H 186/90 H 01/26/20 01:26 104 H 18 94 L 01/26/20 01:04 93 201/94 H 01/26/20 00:41 190/96 H 01/26/20 00:00 98.4 F 01/25/20 23:02 105 H 187/84 H Weight Admit Weight 361 lb Weight 332 lb 7.313 oz Most Recent Monitor Data Heart Rate from ECG 102 NIBP 220/106 NIBP BP-Mean 144 Respiration from ECG 22 SpO2 99 I&O: 01/25/20 01/26/20 01/27/20 06:59 06:59 06:59 Intake Total 2862.5 2800 Output Total 2645 2810 60 Balance 217.5 -10 -60 Result Diagrams: 01/25/20 03:30 01/26/20 05:00 Additional Labs: Accuchecks 01/26/20 01/25/20 08:32 16:15 POC Glucose 117 H 140 H Radiology Reviewed by me: Yes EKG Reviewed by me: Yes Hospitalist ROS - Review of Systems Constitutional: reports: weakness. denies: fever, chills, sweats, malaise, other ENT: denies: ear pain, ear discharge, nose pain, nose discharge, nose congestion, mouth pain, mouth swelling, throat pain, throat swelling, other Respiratory: denies: cough, dry, shortness of breath, hemoptysis, SOB with excertion, pleuritic pain, sputum, wheezing, other Cardiovascular: denies: chest pain, palpitations, orthopnea, paroxysmal noc. dyspnea, edema, light headedness, other Gastrointestinal: denies: nausea, vomiting, abdominal pain, diarrhea, constipation, melena, hematochezia, other Genitourinary: denies: dysuria, frequency, incontinence, hematuria, retention, other Musculoskeletal: denies: neck pain, shoulder pain, arm pain, back pain, hand pain, leg pain, foot pain, other - Medication Medications: Active Medications Generic Name Dose Route Start Last Admin Trade Name Freq PRN Reason Stop Dose Admin Acetaminophen 650 mg 01/14/20 17:39 01/20/20 14:13 Acetaminophen 650 Mg/20.3 Ml Udcup PO 650 mg Q6H PRN Administration Fever > 101 or Mild Pain Albuterol/Ipratropium 3 ml 01/14/20 19:00 01/26/20 08:14 Ipratropium/Albuterol Sulfate 3 Ml Neb NEB 3 ml [id number] JONATHAN Administration Aspirin 81 mg 01/15/20 09:00 01/26/20 09:07 Aspirin Chewable 81 Mg Tab PO 81 mg DAILY JONATHAN Administration Bisacodyl 10 mg 01/14/20 17:39 01/16/20 05:33 Bisacodyl 10 Mg Supp MO 10 mg DAILYPRN PRN Administration Constipation Carvedilol 25 mg 01/20/20 17:00 01/26/20 08:15 Carvedilol 25 Mg Tab PO 25 mg BID-WM JONATHAN Administration Cyanocobalamin 1,000 mcg 01/16/20 09:00 01/25/20 09:14 Cyanocobalamin (Vitamin B-12) 1,000 Mcg Tab PER TUBE 1,000 mcg DAILY JONATHAN Administration Enoxaparin Sodium 30 mg 01/17/20 21:00 01/25/20 20:18 Enoxaparin Sodium 30 Mg/0.3 Ml Syringe SC 30 mg 2100 JONATHAN Administration Folic Acid 1 mg 01/16/20 09:00 01/26/20 09:07 Folic Acid 1 Mg Tab PER TUBE 1 mg DAILY JONATHAN Administration Hydralazine HCl 20 mg 01/20/20 14:13 01/26/20 09:08 Hydralazine 20 Mg/Ml Vial SLOW IVP 20 mg Q4H PRN Administration SBP Greater Than 180 Hydralazine HCl 25 mg 01/26/20 09:00 01/26/20 09:14 Hydralazine 25 Mg Tab PO 25 mg QID JONATHAN Administration Insulin Glargine 20 units/ 0.2 mls @ 0.1 mls/hr 01/19/20 21:00 01/26/20 09:09 Miscellaneous Medication SC 0.2 mls Q12HR JONATHAN Administration Insulin Human Regular 0 units 01/14/20 17:45 01/15/20 20:36 Insulin Regular 300 Units/3 Ml Vial SC 3 units .BEDTIME SLIDING SC PRN Administration Bedtime Correctional Scale Insulin Human Regular 0 units 01/14/20 19:07 01/20/20 18:21 Insulin Regular 300 Units/3 Ml Vial SC 3 unit .AGGRESSIVE SLIDING PRN Administration Aggressive Correctional Scale Isosorbide Mononitrate 60 mg 01/26/20 09:00 01/26/20 09:15 Isosorbide Mononitrate Er 60 Mg Tab PO 60 mg DAILY JONATHAN Administration Labetalol HCl 10 mg 01/14/20 20:15 01/26/20 03:03 Labetalol Hcl 100 Mg/20 Ml Vial SLOW IVP 10 mg Q4H PRN Administration Systolic BP > 180 Multivitamins 1 tab 01/16/20 09:00 01/26/20 09:07 Multivit, Therapeutic 1 Tab PER TUBE 1 tab DAILY JONATHAN Administration Nifedipine 60 mg 01/26/20 09:00 01/26/20 09:14 Nifedipine Xl 60 Mg Tab PO 60 mg DAILY JONATHAN Administration Pantoprazole Sodium 40 mg 01/19/20 09:00 01/26/20 09:06 Pantoprazole 40 Mg Granules Packet PER TUBE 40 mg DAILY JONATHAN Administration Venlafaxine HCl 75 mg 01/21/20 09:00 01/26/20 09:08 Venlafaxine Hcl 75 Mg Tab PO 75 mg DAILY JONATHAN Administration - Exam General Appearance: NAD, awake alert Eye: PERRL, anicteric sclera ENT: normocephalic atraumatic, no oropharyngeal lesions Neck: supple, symmetric, no JVD Heart: RRR, no murmur, no gallops, no rubs Respiratory: no wheezes, no rales, no ronchi Gastrointestinal: soft, non-tender, non-distended, normal bowel sounds Gastrointestinal - other findings: Morbid obesity noted, Pillai catheter in place Extremities: no cyanosis, no clubbing, no edema Skin: normal turgor, no lesions Neurological: no new deficit Musculoskeletal: normal tone, normal strength, no muscle wasting Psychiatric: normal affect, normal behavior, A&O x 3 Hosp A/P (1) Acute respiratory failure with hypoxia Code(s): J96.01 - ACUTE RESPIRATORY FAILURE WITH HYPOXIA Status: Acute (2) Acute on chronic diastolic (congestive) heart failure Code(s): I50.33 - ACUTE ON CHRONIC DIASTOLIC (CONGESTIVE) HEART FAILURE Status: Acute (3) CARLA (acute kidney injury) Code(s): N17.9 - ACUTE KIDNEY FAILURE, UNSPECIFIED Status: Resolved (4) CKD (chronic kidney disease), stage III Code(s): N18.3 - CHRONIC KIDNEY DISEASE, STAGE 3 (MODERATE) * DO NOT USE * Status: Chronic Qualifiers: Chronic kidney disease stage 3 subtype: stage 3a (GFR 45-59) Qualified Code(s): N18.31 - Chronic kidney disease, stage 3a (5) DM type 2 (diabetes mellitus, type 2) Status: Chronic Qualifiers: Diabetes mellitus long wall shear operator insulin use: with long wall shear operator use Diabetes mellitus complication status: with kidney complications Diabetes mellitus complication detail: with chronic kidney disease Chronic kidney disease stage: stage 3 (moderate) (6) HTN (hypertension) Code(s): I10 - ESSENTIAL (PRIMARY) HYPERTENSION Status: Chronic Qualifiers: Hypertension type: essential hypertension (7) Obesity hypoventilation syndrome Code(s): E66.2 - MORBID (SEVERE) OBESITY WITH ALVEOLAR HYPOVENTILATION Status: Chronic (8) Vitamin D deficiency Code(s): E55.9 - VITAMIN D DEFICIENCY, UNSPECIFIED Status: Chronic (9) GENOVEVA (obstructive sleep apnea) Code(s): G47.33 - OBSTRUCTIVE SLEEP APNEA (ADULT) (PEDIATRIC) Status: Suspected (10) Iron deficiency anemia Code(s): D50.9 - IRON DEFICIENCY ANEMIA, UNSPECIFIED Status: Chronic Qualifiers: Iron deficiency anemia type: inadequate dietary iron intake Qualified Code(s): D50.8 - Other iron deficiency anemias - Plan old records reviewed/req, pillai catheter, PT/OT, licensed clinical social worker Plan Patient's blood pressure is not well controlled, today I have discontinued amlodipine and instead I have started Procardia XL 60 mg p.o. daily I have discontinued Nitropatch and started Imdur 60 mg p.o. daily Continue Coreg We will also start hydralazine 25 mg p.o. 4 times daily Patient is plan for transfer to medical floor After that patient will need PT OT evaluation and will consider Pillai catheter removal depending upon her ambulation Medication reviewed and continue to provide symptomatic and supportive care Her renal function has been stabilized to baseline level,
[2020-01-26] MEDS ORDERED: Lisinopril 20 MG TAB PO SCH (11:30)
[2020-01-26] MEDS: Enoxaparin Sodium 40 MG/0.4 ML SYRINGE SC SCH (20:24)
[2020-01-27] MEDS: Acetaminophen 325 MG TAB PO PRN ×2 (01:36→15:42)
[2020-01-27] MEDS: Nitroglycerin 2% Ointment 1 INCH/1 GM Packet TOP SCH (07:24)
[2020-01-27] MEDS: Aspirin Chewable 81 MG TAB PO SCH (08:23)
[2020-01-27] MEDS: Pantoprazole 40 MG GRANULES PACKET PER TUBE SCH (08:24)
[2020-01-27] MEDS: NIFEdipine XL 60 MG TAB PO SCH (08:24)
[2020-01-27] MEDS: Folic Acid 1 MG TAB PER TUBE SCH (08:24)
[2020-01-27] MEDS: Cyanocobalamin (Vitamin B-12) 1,000 MCG TAB PER TUBE SCH (08:25)
[2020-01-27] MEDS: hydrALAZINE 25 MG TAB PO SCH ×4 (08:25→22:45)
[2020-01-27] MEDS: Insulin Glargine 20 UNITS in Pre-Filled Syringe 1 EACH SC SCH ×2 (08:26→22:46)
[2020-01-27] MEDS: Multivit, Therapeutic 1 TAB PER TUBE SCH (08:26)
[2020-01-27] MEDS: Carvedilol 25 MG TAB PO SCH ×2 (08:26→16:48)
[2020-01-27] MEDS: Lisinopril 20 MG TAB PO SCH (08:26)
[2020-01-27 08:51] LABS: Anion Gap 14 mmol/L (10-20); BUN (Urea Nitrogen) 35 mg/dL (9.8-20.1); Calc. Creatinine Clearance 119 mL/min (70-130); Calcium 9.3 mg/dL (7.8-10.44); Carbon Dioxide 32 mmol/L (22-29); Chloride 101 mmol/L (98-107); Glucose 114 mg/dL (70-105); Potassium 3.8 mmol/L (3.5-5.1); Sodium 143 mmol/L (136-145)
--- NOTE | 2020-01-27 09:52 | PRG ---
DATE OF SERVICE: 01/27/2020 SUBJECTIVE: Patient was seen and examined at bedside and overnight events noted. Patient denies any shortness of breath or chest pain or palpitation. No history of nausea or vomiting or diarrhea or fever or chills or cramps. OBJECTIVE: GENERAL: This is a well-built female, in no apparent distress. VITAL SIGNS: Temperature 98.2, heart rate 86, respiratory rate 18, and blood pressure 152/76. HEENT: Atraumatic, normocephalic. Oral mucosa is moist. NECK: Supple. CARDIOVASCULAR: S1, S2 heard. Rate and rhythm regular. RESPIRATORY: Clear to auscultation. GASTROINTESTINAL: Abdomen is soft. MUSCULOSKELETAL: No tenderness. No edema. DERMATOLOGIC: No skin rash. NEUROLOGIC: Alert and awake and oriented x3. No focal neurologic deficits. Moving all the extremities. PSYCHIATRIC: Mood and affect normal. LABORATORY DATA: Not done today. ASSESSMENT AND PLAN: 1. Acute kidney injury on chronic kidney disease stage 3. We will monitor labs. 2. Hypernatremia. 3. Alkalosis. 4. Edema. 5. Cardiorenal syndrome. 6. Acute hypoxic respiratory failure, extubated. 7. We will recheck labs. Job ID: [id number]
--- NOTE | 2020-01-27 10:04 | PDOC.HOSPP ---
- Subjective Encounter Date: 01/27/20 Encounter Time: 07:40 Subjective: Patient seen and examined bedside today, this morning patient was appeared sleepy, no overnight event, she does not have any fever or chills or any headache, - Objective Vital Signs & Weight: Vital Signs (12 hours) Temp Pulse Resp BP BP Pulse Ox 01/27/20 08:26 181/82 H 01/27/20 08:25 86 01/27/20 08:24 86 01/27/20 08:07 86 16 98 01/27/20 07:16 98.2 F 86 22 H 185/70 H 98 01/27/20 04:58 97.5 F L 86 18 152/76 H 100 01/27/20 00:12 90 16 97 01/26/20 23:45 97.9 F 87 18 166/82 H 95 Weight Admit Weight 361 lb Weight 332 lb 8 oz Most Recent Monitor Data Heart Rate from ECG 98 NIBP 145/75 NIBP BP-Mean 98 Respiration from ECG 20 SpO2 99 I&O: 01/26/20 01/27/20 01/28/20 06:59 06:59 06:59 Intake Total 2800 464 Output Total 2810 470 Balance -10 -6 Result Diagrams: 01/25/20 03:30 01/27/20 08:11 Additional Labs: Accuchecks 01/27/20 01/26/20 01/26/20 04:47 20:22 16:33 POC Glucose 103 H 138 H 130 H 01/26/20 01/25/20 11:19 20:22 POC Glucose 134 H 100 Hospitalist ROS - Review of Systems Constitutional: reports: weakness. denies: fever, chills, sweats, malaise, other ENT: denies: ear pain, ear discharge, nose pain, nose discharge, nose congestion, mouth pain, mouth swelling, throat pain, throat swelling, other Respiratory: denies: cough, dry, shortness of breath, hemoptysis, SOB with excertion, pleuritic pain, sputum, wheezing, other Cardiovascular: denies: chest pain, palpitations, orthopnea, paroxysmal noc. dyspnea, edema, light headedness, other Gastrointestinal: denies: nausea, vomiting, abdominal pain, diarrhea, constipation, melena, hematochezia, other Genitourinary: denies: dysuria, frequency, incontinence, hematuria, retention, other - Medication Medications: Active Medications Generic Name Dose Route Start Last Admin Trade Name Freq PRN Reason Stop Dose Admin Acetaminophen 650 mg 01/14/20 17:39 01/20/20 14:13 Acetaminophen 650 Mg/20.3 Ml Udcup PO 650 mg Q6H PRN Administration Fever > 101 or Mild Pain Acetaminophen 650 mg 01/14/20 20:17 01/27/20 01:36 Acetaminophen 325 Mg Tab PO 650 mg Q4H PRN Administration Headache/Fever/Mild Pain (1-3) Albuterol/Ipratropium 3 ml 01/14/20 19:00 01/27/20 08:07 Ipratropium/Albuterol Sulfate 3 Ml Neb NEB 3 ml [id number] JONATHAN Administration Aspirin 81 mg 01/15/20 09:00 01/27/20 08:23 Aspirin Chewable 81 Mg Tab PO 81 mg DAILY JONATHAN Administration Bisacodyl 10 mg 01/14/20 17:39 01/16/20 05:33 Bisacodyl 10 Mg Supp [place] 10 mg DAILYPRN PRN Administration Constipation Carvedilol 25 mg 01/20/20 17:00 01/27/20 08:26 Carvedilol 25 Mg Tab PO 25 mg BID-WM JONATHAN Administration Cyanocobalamin 1,000 mcg 01/16/20 09:00 01/27/20 08:25 Cyanocobalamin (Vitamin B-12) 1,000 Mcg Tab PER TUBE 1,000 mcg DAILY JONATHAN Administration Enoxaparin Sodium 40 mg 01/26/20 21:00 01/26/20 20:24 Enoxaparin Sodium 40 Mg/0.4 Ml Syringe SC 40 mg 2100 JONATHAN Administration Folic Acid 1 mg 01/16/20 09:00 01/27/20 08:24 Folic Acid 1 Mg Tab PER TUBE 1 mg DAILY JONATHAN Administration Hydralazine HCl 20 mg 01/20/20 14:13 01/26/20 09:08 Hydralazine 20 Mg/Ml Vial SLOW IVP 20 mg Q4H PRN Administration SBP Greater Than 180 Hydralazine HCl 25 mg 01/26/20 09:00 01/27/20 08:25 Hydralazine 25 Mg Tab PO 25 mg QID JONATHAN Administration Insulin Glargine 20 units/ 0.2 mls @ 0.1 mls/hr 01/19/20 21:00 01/27/20 08:26 Miscellaneous Medication SC 0.2 mls Q12HR JONATHAN Administration Insulin Human Regular 0 units 01/14/20 17:45 01/15/20 20:36 Insulin Regular 300 Units/3 Ml Vial SC 3 units .BEDTIME SLIDING SC PRN Administration Bedtime Correctional Scale Insulin Human Regular 0 units 01/14/20 19:07 01/20/20 18:21 Insulin Regular 300 Units/3 Ml Vial SC 3 unit .AGGRESSIVE SLIDING PRN Administration Aggressive Correctional Scale Isosorbide Mononitrate 60 mg 01/26/20 09:00 01/27/20 08:26 Isosorbide Mononitrate Er 60 Mg Tab PO 60 mg DAILY JONATHAN Administration Labetalol HCl 10 mg 01/14/20 20:15 01/26/20 03:03 Labetalol Hcl 100 Mg/20 Ml Vial SLOW IVP 10 mg Q4H PRN Administration Systolic BP > 180 Lisinopril 20 mg 01/27/20 09:00 01/27/20 08:26 Lisinopril 20 Mg Tab PO 20 mg DAILY JONATHAN Administration Multivitamins 1 tab 01/16/20 09:00 01/27/20 08:26 Multivit, Therapeutic 1 Tab PER TUBE 1 tab DAILY JONATHAN Administration Nifedipine 60 mg 01/26/20 09:00 01/27/20 08:24 Nifedipine Xl 60 Mg Tab PO 60 mg DAILY JONATHAN Administration Pantoprazole Sodium 40 mg 01/19/20 09:00 01/27/20 08:24 Pantoprazole 40 Mg Granules Packet PER TUBE 40 mg DAILY JONATHAN Administration Sodium Chloride 10 ml 01/14/20 17:39 01/26/20 20:25 Flush - Normal Saline 10 Ml Syringe IVF 10 ml PRN PRN Administration Saline Flush Venlafaxine HCl 75 mg 01/21/20 09:00 01/27/20 08:26 Venlafaxine Hcl 75 Mg Tab PO 75 mg DAILY JONATHAN Administration - Exam General Appearance: NAD, awake alert Eye: PERRL ENT: normocephalic atraumatic, no oropharyngeal lesions Neck: symmetric, no JVD Neck - other findings: Short neck Heart: RRR, no murmur, no gallops, no rubs Respiratory: no wheezes, no rales, no ronchi Respiratory - other findings: Morbid obesity limiting examination Gastrointestinal: soft, non-tender, non-distended, normal bowel sounds Gastrointestinal - other findings: Obesity Extremities: no clubbing, no edema Skin: normal turgor, no lesions Neurological: no focal deficits Musculoskeletal: normal tone, normal strength Psychiatric: normal affect, normal behavior Hosp A/P (1) Acute respiratory failure with hypoxia Code(s): J96.01 - ACUTE RESPIRATORY FAILURE WITH HYPOXIA Status: Acute (2) Acute on chronic diastolic (congestive) heart failure Code(s): I50.33 - ACUTE ON CHRONIC DIASTOLIC (CONGESTIVE) HEART FAILURE Status: Acute (3) CARLA (acute kidney injury) Code(s): N17.9 - ACUTE KIDNEY FAILURE, UNSPECIFIED Status: Resolved (4) CKD (chronic kidney disease), stage III Code(s): N18.3 - CHRONIC KIDNEY DISEASE, STAGE 3 (MODERATE) * DO NOT USE * Status: Chronic Qualifiers: Chronic kidney disease stage 3 subtype: stage 3a (GFR 45-59) Qualified Code(s): N18.31 - Chronic kidney disease, stage 3a (5) DM type 2 (diabetes mellitus, type 2) Status: Chronic Qualifiers: Diabetes mellitus care home insulin use: with terminal make up operator use Diabetes mellitus complication status: with kidney complications Diabetes mellitus complication detail: with chronic kidney disease Chronic kidney disease stage: stage 3 (moderate) (6) HTN (hypertension) Code(s): I10 - ESSENTIAL (PRIMARY) HYPERTENSION Status: Chronic Qualifiers: Hypertension type: essential hypertension (7) Obesity hypoventilation syndrome Code(s): E66.2 - MORBID (SEVERE) OBESITY WITH ALVEOLAR HYPOVENTILATION Status: Chronic (8) Vitamin D deficiency Code(s): E55.9 - VITAMIN D DEFICIENCY, UNSPECIFIED Status: Chronic (9) GENOVEVA (obstructive sleep apnea) Code(s): G47.33 - OBSTRUCTIVE SLEEP APNEA (ADULT) (PEDIATRIC) Status: Suspected (10) Iron deficiency anemia Code(s): D50.9 - IRON DEFICIENCY ANEMIA, UNSPECIFIED Status: Chronic Qualifiers: Iron deficiency anemia type: inadequate dietary iron intake Qualified Code(s): D50.8 - Other iron deficiency anemias - Plan old records reviewed/req, PT/OT, DVT proph w/lovenox Plan Blood pressure is better controlled with the current regimen, continue Procardia XL, Imdur 60, Coreg and hydralazine, lisinopril added today Continue PT OT DC Ureña catheter CPAP while at sleep Outpatient sleep study Rehab evaluation
--- NOTE | 2020-01-27 10:57 | PDOC.PALPN ---
Palliative Progress Note - Subjective Resting comfortably, O2 via nc. Arousable but lethargic. Denies any complaints. - Objective Vital Signs: Vital Signs - Most Recent Temp Pulse Resp BP Pulse Ox 98.2 F 86 16 181/82 H 98 01/27/20 07:16 01/27/20 08:25 01/27/20 08:07 01/27/20 08:26 01/27/20 08:07 - Physical Exam Constitutional: NAD HEENT: EOMI, moist MMs, sclera anicteric Cardiovascular: RRR Gastrointestinal: soft, non-tender Deviation from normal: Obese Genitourinary: pillai catheter Musculoskeletal: pulses present Neurology: moves all 4 limbs, no focal deficits Skin: cap refill <2 seconds Psychiatric: A&O x 3 - Assessment (1) Palliative care encounter Code(s): Z51.5 - ENCOUNTER FOR PALLIATIVE CARE Current Visit: Yes Status: Acute (2) Acute on chronic diastolic (congestive) heart failure Code(s): I50.33 - ACUTE ON CHRONIC DIASTOLIC (CONGESTIVE) HEART FAILURE Current Visit: No Status: Acute (3) Acute respiratory failure with hypoxia Code(s): J96.01 - ACUTE RESPIRATORY FAILURE WITH HYPOXIA Current Visit: No Status: Acute (4) DM type 2 (diabetes mellitus, type 2) Current Visit: No Status: Chronic Qualifiers: Diabetes mellitus middle or intermediate school principal insulin use: with middle or intermediate school principal use Diabetes mellitus complication status: with kidney complications Diabetes mellitus complication detail: with chronic kidney disease Chronic kidney disease stage: stage 3 (moderate) - Plan Plan: Plan to have rehab evaluation, with hopeful transition to rehab then home. Discussed with patient and previously daughter consideration of home health after rehab. Continue with DNAR. Directives complete, MPOA. Palliative Care will follow at a distance as Goal of care also identified, seeking Rehab eval. If not able to transition to rehab will assist in revisiting Goal of care. [35] minutes spent on this encounter with >50% of the time in counseling and coordination of care. - ROS Constitutional: weakness ENT: other (Denies throat irritation) Respiratory: other (Denies short of breath, cough) Gastrointestinal: other (Negative fo rnausea, vomiting) Skin: other (Negative for rash, puritis)
[2020-01-27] MEDS: Enoxaparin Sodium 40 MG/0.4 ML SYRINGE SC SCH (22:46)
[2020-01-28] MEDS: Lisinopril 20 MG TAB PO SCH (08:27)
[2020-01-28] MEDS: Folic Acid 1 MG TAB PER TUBE SCH (08:27)
[2020-01-28] MEDS: NIFEdipine XL 60 MG TAB PO SCH (08:27)
[2020-01-28] MEDS: Aspirin Chewable 81 MG TAB PO SCH (08:27)
[2020-01-28] MEDS: Acetaminophen 325 MG TAB PO PRN ×2 (08:28→20:53)
[2020-01-28] MEDS: hydrALAZINE 25 MG TAB PO SCH ×4 (08:28→20:49)
[2020-01-28] MEDS: Pantoprazole 40 MG GRANULES PACKET PER TUBE SCH (08:29)
[2020-01-28] MEDS: Carvedilol 25 MG TAB PO SCH ×2 (08:29→17:12)
[2020-01-28] MEDS: Multivit, Therapeutic 1 TAB PER TUBE SCH (08:29)
[2020-01-28] MEDS: Cyanocobalamin (Vitamin B-12) 1,000 MCG TAB PER TUBE SCH (08:30)
[2020-01-28] MEDS: Insulin Glargine 20 UNITS in Pre-Filled Syringe 1 EACH SC SCH ×2 (08:30→20:57)
--- NOTE | 2020-01-28 11:29 | PRG ---
DATE OF SERVICE: 01/28/2020 SUBJECTIVE: Patient was seen and examined at bedside and overnight events noted. Patient denies any shortness of breath or chest pain or palpitation. No history of nausea or vomiting or diarrhea or fever or chills or cramps. OBJECTIVE: GENERAL: This is a morbidly obese female, in no apparent distress. VITAL SIGNS: Temperature . Heart Rate 93. Respiratory rate . Blood pressure 156/77. HEENT: Atraumatic, normocephalic. Oral mucosa is moist. NECK: Supple. CARDIOVASCULAR: S1, S2 heard. Rate and rhythm regular. RESPIRATORY: Clear to auscultation. GASTROINTESTINAL: Abdomen is soft. MUSCULOSKELETAL: No tenderness. No edema. DERMATOLOGIC: No skin rash. NEUROLOGIC: Alert and awake and oriented x3. No focal neurologic deficits. Moving all the extremities. PSYCHIATRIC: Mood and affect normal. LABORATORY DATA: No labs done today. ASSESSMENT AND PLAN: 1. Acute kidney injury on chronic kidney disease stage 3, stable. 2. Hypernatremia. 3. Alkalosis. 4. Edema. 5. Cardiorenal syndrome. 6. Acute hypoxic respiratory failure, extubated. 7. Labs are looking better, monitor. We will follow. Job ID: [id number]
--- NOTE | 2020-01-28 14:26 | EKG ---
Test Reason : Blood Pressure : / mmHG Vent. Rate : 073 BPM Atrial Rate : 073 BPM P-R Int : 136 ms QRS Dur : 078 ms QT Int : 410 ms P-R-T Axes : 073 067 053 degrees QTc Int : 451 ms Normal sinus rhythm Normal ECG Confirmed by SIRIA CHAVARRIA DO ([id number]), photography editor MIO FELIX ([id number]) on 01/28/2020 2:26:19 PM Referred By: Confirmed By:SIRIA CHAVARRIA DO
--- NOTE | 2020-01-28 19:10 | PDOC.HOSPP ---
- Subjective Encounter Date: 01/28/20 Encounter Time: 13:45 Subjective: Patient seen and examined for respiratory failure/hypertensive crisis. Denies any new complaints. No chest pain, shortness of breath at rest or palpitations reported. No new focal deficit. - Objective Vital Signs & Weight: Vital Signs (12 hours) Temp Pulse Resp BP BP Pulse Ox 01/28/20 17:12 92 01/28/20 15:58 97.6 F 92 20 151/70 H 100 01/28/20 14:15 85 01/28/20 11:22 98.0 F 85 20 157/78 H 95 01/28/20 08:31 99.1 F 93 20 156/77 H 94 L 01/28/20 08:28 93 01/28/20 08:27 93 160/72 H 01/28/20 08:00 94 L 01/28/20 07:48 93 16 Weight Admit Weight 361 lb Weight 330 lb 14.621 oz Most Recent Monitor Data Heart Rate from ECG 98 NIBP 145/75 NIBP BP-Mean 98 Respiration from ECG 20 SpO2 99 I&O: 01/27/20 01/28/20 01/29/20 06:59 06:59 06:59 Intake Total 464 Output Total 470 300 Balance -6 -300 Result Diagrams: 01/25/20 03:30 01/27/20 08:11 Additional Labs: Accuchecks 01/28/20 01/28/20 01/28/20 15:59 11:21 04:18 POC Glucose 156 H 106 H 89 01/27/20 20:11 POC Glucose 134 H Radiology Reviewed by me: Yes (Last chest x-ray reviewed) Hospitalist ROS - Review of Systems Cardiovascular: denies: chest pain, palpitations, orthopnea, paroxysmal noc. dyspnea, edema, light headedness, other Gastrointestinal: denies: nausea, vomiting, abdominal pain, diarrhea, constipation, melena, hematochezia, other - Medication Medications: Active Medications Generic Name Dose Route Start Last Admin Trade Name Freq PRN Reason Stop Dose Admin Acetaminophen 650 mg 01/14/20 17:39 01/20/20 14:13 Acetaminophen 650 Mg/20.3 Ml Udcup PO 650 mg Q6H PRN Administration Fever > 101 or Mild Pain Acetaminophen 650 mg 01/14/20 20:17 12/05/20 08:28 Acetaminophen 325 Mg Tab PO 650 mg Q4H PRN Administration Headache/Fever/Mild Pain (1-3) Albuterol/Ipratropium 3 ml 01/14/20 19:00 01/28/20 14:39 Ipratropium/Albuterol Sulfate 3 Ml Neb NEB Not Given [id number] JONATHAN Aspirin 81 mg 01/15/20 09:00 01/28/20 08:27 Aspirin Chewable 81 Mg Tab PO 81 mg DAILY JONATHAN Administration Bisacodyl 10 mg 01/14/20 17:39 01/16/20 05:33 Bisacodyl 10 Mg Supp [place] 10 mg DAILYPRN PRN Administration Constipation Carvedilol 25 mg 01/20/20 17:00 01/28/20 17:12 Carvedilol 25 Mg Tab PO 25 mg BID-WM JONATHAN Administration Cyanocobalamin 1,000 mcg 01/16/20 09:00 01/28/20 08:30 Cyanocobalamin (Vitamin B-12) 1,000 Mcg Tab PER TUBE 1,000 mcg DAILY JONATHAN Administration Enoxaparin Sodium 40 mg 01/26/20 21:00 01/27/20 22:46 Enoxaparin Sodium 40 Mg/0.4 Ml Syringe SC 40 mg 2100 JONATHAN Administration Folic Acid 1 mg 01/16/20 09:00 01/28/20 08:27 Folic Acid 1 Mg Tab PER TUBE 1 mg DAILY JONATHAN Administration Hydralazine HCl 20 mg 01/20/20 14:13 01/26/20 09:08 Hydralazine 20 Mg/Ml Vial SLOW IVP 20 mg Q4H PRN Administration SBP Greater Than 180 Hydralazine HCl 25 mg 01/26/20 09:00 01/28/20 17:12 Hydralazine 25 Mg Tab PO 25 mg QID JONATHAN Administration Insulin Glargine 20 units/ 0.2 mls @ 0.1 mls/hr 01/19/20 21:00 01/28/20 08:30 Miscellaneous Medication SC 0.2 mls Q12HR JONATHAN Administration Insulin Human Regular 0 units 01/14/20 17:45 01/15/20 20:36 Insulin Regular 300 Units/3 Ml Vial SC 3 units .BEDTIME SLIDING SC PRN Administration Bedtime Correctional Scale Insulin Human Regular 0 units 01/14/20 19:07 01/20/20 18:21 Insulin Regular 300 Units/3 Ml Vial SC 3 unit .AGGRESSIVE SLIDING PRN Administration Aggressive Correctional Scale Isosorbide Mononitrate 60 mg 01/26/20 09:00 01/28/20 08:29 Isosorbide Mononitrate Er 60 Mg Tab PO 60 mg DAILY JONATHAN Administration Labetalol HCl 10 mg 01/14/20 20:15 01/26/20 03:03 Labetalol Hcl 100 Mg/20 Ml Vial SLOW IVP 10 mg Q4H PRN Administration Systolic BP > 180 Lisinopril 20 mg 01/27/20 09:00 01/28/20 08:27 Lisinopril 20 Mg Tab PO 20 mg DAILY JONATHAN Administration Multivitamins 1 tab 01/16/20 09:00 01/28/20 08:29 Multivit, Therapeutic 1 Tab PER TUBE 1 tab DAILY JONATHAN Administration Nifedipine 60 mg 01/26/20 09:00 01/28/20 08:27 Nifedipine Xl 60 Mg Tab PO 60 mg DAILY JONATHAN Administration Pantoprazole Sodium 40 mg 01/19/20 09:00 01/28/20 08:29 Pantoprazole 40 Mg Granules Packet PER TUBE 40 mg DAILY JONATHAN Administration Sodium Chloride 10 ml 01/14/20 17:39 01/26/20 20:25 Flush - Normal Saline 10 Ml Syringe IVF 10 ml PRN PRN Administration Saline Flush Venlafaxine HCl 75 mg 01/21/20 09:00 01/28/20 08:30 Venlafaxine Hcl 75 Mg Tab PO 75 mg DAILY JONATHAN Administration - Exam General Appearance: NAD Heart: RRR, no gallops Respiratory: no wheezes, no ronchi Gastrointestinal: non-tender, normal bowel sounds Extremities: no cyanosis, no clubbing Hosp A/P - Plan DVT proph w/SCDs Acute hypoxic and hypercapnic respiratory failure status post mechanical venti lation Acute on chronic diastolic heart failure exacerbation Acute asthma exacerbation Hypertension with hypertensive urgency on admission CARLA on CKD stage III Diabetes mellitus type 2 Hypomagnesemia/hypokalemia Obstructive sleep apnea Morbid obesity with a BMI 51.2 Chronic anemia with hemoglobin 8.1 due to iron deficiency Hyperlipidemia Anxiety Penicillin allergy Plan: Continue current dose of lisinopril, carvedilol, hydralazine, Procardia XL and isosorbide mononitrate. Continue current dose of Lantus with sliding scale. Patient will require a sleep study as outpatient. Basic metabolic profile in a.m. Continue with therapy. Await placement
[2020-01-28] MEDS: Enoxaparin Sodium 40 MG/0.4 ML SYRINGE SC SCH (20:49)
[2020-01-29 06:54] LABS: Anion Gap 13 mmol/L (10-20); BUN (Urea Nitrogen) 31 mg/dL (9.8-20.1); Calc. Creatinine Clearance 93 mL/min (70-130); Carbon Dioxide 31 mmol/L (22-29); Chloride 102 mmol/L (98-107); Glucose 93 mg/dL (70-105); Potassium 3.6 mmol/L (3.5-5.1); Sodium 142 mmol/L (136-145)
[2020-01-29] MEDS: Aspirin Chewable 81 MG TAB PO SCH (08:39)
[2020-01-29] MEDS: Insulin Glargine 20 UNITS in Pre-Filled Syringe 1 EACH SC SCH ×2 (08:40→20:46)
[2020-01-29] MEDS: Folic Acid 1 MG TAB PER TUBE SCH (08:40)
[2020-01-29] MEDS: Carvedilol 25 MG TAB PO SCH ×2 (08:40→17:10)
[2020-01-29] MEDS: hydrALAZINE 25 MG TAB PO SCH ×4 (08:40→20:46)
[2020-01-29] MEDS: Cyanocobalamin (Vitamin B-12) 1,000 MCG TAB PER TUBE SCH (08:40)
[2020-01-29] MEDS: Lisinopril 20 MG TAB PO SCH (08:41)
[2020-01-29] MEDS: Multivit, Therapeutic 1 TAB PER TUBE SCH (08:41)
[2020-01-29] MEDS: NIFEdipine XL 60 MG TAB PO SCH ×2 (08:41→20:46)
[2020-01-29] MEDS: Pantoprazole 40 MG GRANULES PACKET PER TUBE SCH (08:41)
--- NOTE | 2020-01-29 14:21 | PRG ---
DATE OF SERVICE: 01/29/2020 SUBJECTIVE: Patient was seen and examined at bedside and overnight events noted. Patient denies any shortness of breath or chest pain or palpitation. No history of nausea or vomiting or diarrhea or fever or chills or cramps. OBJECTIVE: GENERAL: This is an obese female, in no acute distress. VITAL SIGNS: Temperature 98.7. Pulse 82. Respiratory rate 18, blood pressure 171/83. HEENT: Atraumatic, normocephalic. Oral mucosa is moist. NECK: Supple. CARDIOVASCULAR: S1, S2 heard. Rate and rhythm regular. RESPIRATORY: Clear to auscultation. GASTROINTESTINAL: Abdomen is soft. MUSCULOSKELETAL: No tenderness. No edema. DERMATOLOGIC: No skin rash. NEUROLOGIC: Alert and awake and oriented x3. No focal neurologic deficits. Moving all the extremities. PSYCHIATRIC: Mood and affect normal. LABORATORY DATA: Potassium 3.6, BUN is 31, and creatinine is 1.63. ASSESSMENT AND PLAN: 1. Acute kidney injury on chronic kidney stage 3, stable. 2. .. 3. Alkalosis. 4. Edema. 5. Cardiorenal syndrome. 6. Acute hypoxic respiratory failure. 7. Renal function is stable. Creatinine with slight bump today. Encourage p.o. intake and we will monitor labs. Avoid nephrotoxins. Job ID: [id number]
--- NOTE | 2020-01-29 18:55 | PDOC.HOSPP ---
- Subjective Encounter Date: 01/29/20 Encounter Time: 11:00 Subjective: Patient seen and examined for respiratory failure requiring mechanical ventilation. Blood pressure better controlled. Denies any nausea, vomiting or chest pain. - Objective Vital Signs & Weight: Vital Signs (12 hours) Temp Pulse Resp BP BP Pulse Ox 01/29/20 17:10 89 174/91 H 01/29/20 16:12 98.2 F 89 18 174/91 H 95 01/29/20 12:55 82 164/72 H 01/29/20 10:51 98.7 F 82 18 171/83 H 97 01/29/20 08:41 87 172/75 H 01/29/20 08:40 87 172/75 H 01/29/20 08:00 100 01/29/20 07:54 99.0 F 87 20 172/75 H 100 Weight Admit Weight 361 lb Weight 330 lb 11.094 oz Most Recent Monitor Data Heart Rate from ECG 98 NIBP 145/75 NIBP BP-Mean 98 Respiration from ECG 20 SpO2 99 I&O: 01/28/20 01/29/20 01/30/20 06:59 06:59 06:59 Output Total 300 Balance -300 Result Diagrams: 01/25/20 03:30 01/29/20 06:15 Additional Labs: Accuchecks 01/29/20 01/29/20 01/28/20 10:41 04:30 20:26 POC Glucose 83 88 147 H Hospitalist ROS - Review of Systems Respiratory: denies: cough, dry, shortness of breath, hemoptysis, SOB with excertion, pleuritic pain, sputum, wheezing, other Cardiovascular: denies: chest pain, palpitations, orthopnea, paroxysmal noc. dyspnea, edema, light headedness, other - Medication Medications: Active Medications Generic Name Dose Route Start Last Admin Trade Name Freq PRN Reason Stop Dose Admin Acetaminophen 650 mg 01/14/20 17:39 01/20/20 14:13 Acetaminophen 650 Mg/20.3 Ml Udcup PO 650 mg Q6H PRN Administration Fever > 101 or Mild Pain Acetaminophen 650 mg 01/14/20 20:17 01/28/20 20:53 Acetaminophen 325 Mg Tab PO 650 mg Q4H PRN Administration Headache/Fever/Mild Pain (1-3) Albuterol/Ipratropium 3 ml 01/14/20 19:00 01/29/20 13:30 Ipratropium/Albuterol Sulfate 3 Ml Neb NEB 3 ml [id number] JONATHAN Administration Aspirin 81 mg 01/15/20 09:00 01/29/20 08:39 Aspirin Chewable 81 Mg Tab PO 81 mg DAILY JONATHAN Administration Bisacodyl 10 mg 01/14/20 17:39 01/16/20 05:33 Bisacodyl 10 Mg Supp [place] 10 mg DAILYPRN PRN Administration Constipation Carvedilol 25 mg 01/20/20 17:00 01/29/20 17:10 Carvedilol 25 Mg Tab PO 25 mg BID-WM JONATHAN Administration Cyanocobalamin 1,000 mcg 01/16/20 09:00 01/29/20 08:40 Cyanocobalamin (Vitamin B-12) 1,000 Mcg Tab PER TUBE 1,000 mcg DAILY JONATHAN Administration Enoxaparin Sodium 40 mg 01/26/20 21:00 01/28/20 20:49 Enoxaparin Sodium 40 Mg/0.4 Ml Syringe SC 40 mg 2100 JONATHAN Administration Folic Acid 1 mg 01/16/20 09:00 01/29/20 08:40 Folic Acid 1 Mg Tab PER TUBE 1 mg DAILY JONATHAN Administration Hydralazine HCl 20 mg 01/20/20 14:13 01/26/20 09:08 Hydralazine 20 Mg/Ml Vial SLOW IVP 20 mg Q4H PRN Administration SBP Greater Than 180 Hydralazine HCl 25 mg 01/26/20 09:00 01/29/20 17:10 Hydralazine 25 Mg Tab PO 25 mg QID JONATHAN Administration Insulin Glargine 20 units/ 0.2 mls @ 0.1 mls/hr 01/19/20 21:00 01/29/20 08:40 Miscellaneous Medication SC 0.2 mls Q12HR JONATHAN Administration Insulin Human Regular 0 units 01/14/20 17:45 01/15/20 20:36 Insulin Regular 300 Units/3 Ml Vial SC 3 units .BEDTIME SLIDING SC PRN Administration Bedtime Correctional Scale Insulin Human Regular 0 units 01/14/20 19:07 01/20/20 18:21 Insulin Regular 300 Units/3 Ml Vial SC 3 unit .AGGRESSIVE SLIDING PRN Administration Aggressive Correctional Scale Isosorbide Mononitrate 60 mg 01/26/20 09:00 01/29/20 08:40 Isosorbide Mononitrate Er 60 Mg Tab PO 60 mg DAILY JONATHAN Administration Labetalol HCl 10 mg 01/14/20 20:15 01/26/20 03:03 Labetalol Hcl 100 Mg/20 Ml Vial SLOW IVP 10 mg Q4H PRN Administration Systolic BP > 180 Lisinopril 20 mg 01/27/20 09:00 01/29/20 08:41 Lisinopril 20 Mg Tab PO 20 mg DAILY JONATHAN Administration Multivitamins 1 tab 01/16/20 09:00 01/29/20 08:41 Multivit, Therapeutic 1 Tab PER TUBE 1 tab DAILY JONATHAN Administration Pantoprazole Sodium 40 mg 01/19/20 09:00 01/29/20 08:41 Pantoprazole 40 Mg Granules Packet PER TUBE 40 mg DAILY JONATHAN Administration Sodium Chloride 10 ml 01/14/20 17:39 01/26/20 20:25 Flush - Normal Saline 10 Ml Syringe IVF 10 ml PRN PRN Administration Saline Flush Venlafaxine HCl 75 mg 01/21/20 09:00 01/29/20 08:41 Venlafaxine Hcl 75 Mg Tab PO 75 mg DAILY JONATHAN Administration - Exam General Appearance: NAD Neck: supple, no JVD Heart: RRR, no gallops Respiratory: no wheezes, no ronchi Gastrointestinal: soft, non-distended Extremities: 2+ LE edema Skin: normal turgor Neurological: no new deficit Hosp A/P - Plan DVT proph w/SCDs Acute hypoxic and hypercapnic respiratory failure status post mechanical ventilation Acute on chronic diastolic heart failure exacerbation Acute asthma exacerbation Hypertension with hypertensive urgency on admission CARLA on CKD stage III Diabetes mellitus type 2 Hypomagnesemia/hypokalemia Obstructive sleep apnea Morbid obesity with a BMI 47.4 Chronic anemia with hemoglobin 8.1 due to iron deficiency Hyperlipidemia Anxiety Penicillin allergy Physical deconditioning Plan: Await placement. Continue current hypertensive medications. Creatinine slightly elevated. Recheck labs in a.m. Procardia XL dose increased. Continue carvedilol, hydralazine and isosorbide mononitrate. Continue current dose of lisinopril. Continue Lantus with sliding scale. Change sliding scale to moderate. Continue other medications as above. Sleep study as outpatient.
[2020-01-29] MEDS ORDERED: Insulin Regular 300 UNITS/3 ML VIAL SC PRN (18:57)
[2020-01-29] MEDS: Enoxaparin Sodium 40 MG/0.4 ML SYRINGE SC SCH (20:46)
[2020-01-29] MEDS: Acetaminophen 325 MG TAB PO PRN (20:50)
[2020-01-30 06:14] LABS: Anion Gap 15 mmol/L (10-20); BUN (Urea Nitrogen) 27 mg/dL (9.8-20.1); Calc. Creatinine Clearance 120 mL/min (70-130); Carbon Dioxide 27 mmol/L (22-29); Chloride 103 mmol/L (98-107); Glucose 92 mg/dL (70-105); Potassium 3.9 mmol/L (3.5-5.1); Sodium 141 mmol/L (136-145)
[2020-01-30] MEDS: Pantoprazole 40 MG GRANULES PACKET PER TUBE SCH (08:32)
[2020-01-30] MEDS: Multivit, Therapeutic 1 TAB PER TUBE SCH (08:32)
[2020-01-30] MEDS: Insulin Glargine 20 UNITS in Pre-Filled Syringe 1 EACH SC SCH (08:32)
[2020-01-30] MEDS: Cyanocobalamin (Vitamin B-12) 1,000 MCG TAB PER TUBE SCH (08:33)
[2020-01-30] MEDS: Aspirin Chewable 81 MG TAB PO SCH (08:33)
[2020-01-30] MEDS: hydrALAZINE 25 MG TAB PO SCH ×4 (08:33→20:22)
[2020-01-30] MEDS: Lisinopril 20 MG TAB PO SCH (08:33)
[2020-01-30] MEDS: NIFEdipine XL 60 MG TAB PO SCH ×2 (08:33→20:22)
[2020-01-30] MEDS: Carvedilol 25 MG TAB PO SCH ×2 (08:33→16:16)
[2020-01-30] MEDS: Folic Acid 1 MG TAB PER TUBE SCH (08:33)
[2020-01-30] MEDS: Insulin Glargine 15 UNITS in Pre-Filled Syringe 1 EACH SC SCH (08:59)
--- NOTE | 2020-01-30 10:26 | PRG ---
DATE OF SERVICE: 01/30/2020 OBJECTIVE: GENERAL: Morbidly obese female, in no apparent distress. VITAL SIGNS: Temperature 98.3, pulse 85, respiratory rate 14, blood pressure 174/91. LABORATORY DATA: Potassium 3.9, BUN is 27, creatinine is 1.3. ASSESSMENT AND PLAN: 1. Acute kidney injury on chronic kidney stage 3, stable. 2. Alkalosis, stable. 3. Edema. 4. Cardiorenal syndrome. 5. Acute hypoxic respiratory failure. Labs are stable. We will follow. Avoid nephrotoxins. Job ID: [id number]
[2020-01-30] MEDS: Acetaminophen 325 MG TAB PO PRN (16:19)
--- NOTE | 2020-01-30 19:38 | PDOC.HOSPP ---
- Subjective Encounter Date: 01/30/20 Encounter Time: 10:30 Subjective: Patient seen and examined for respiratory failure due to heart failure exacerbation. Denies any chest pain, shortness of breath or palpitations. No nausea, vomiting reported. - Objective Vital Signs & Weight: Vital Signs (12 hours) Temp Pulse Resp BP BP Pulse Ox 01/30/20 17:45 88 146/75 H 01/30/20 16:15 88 212/92 H 01/30/20 16:09 97.6 F 88 20 212/92 H 92 L 01/30/20 13:57 90 16 01/30/20 13:06 78 156/80 H 01/30/20 11:02 98.0 F 78 18 156/80 H 96 01/30/20 08:33 85 174/91 H 01/30/20 08:06 85 14 94 L Weight Admit Weight 361 lb Weight 358 lb 3 oz Most Recent Monitor Data Heart Rate from ECG 98 NIBP 145/75 NIBP BP-Mean 98 Respiration from ECG 20 SpO2 99 Result Diagrams: 01/25/20 03:30 01/30/20 05:46 Additional Labs: Accuchecks 01/30/20 01/30/20 01/29/20 11:04 05:20 20:08 POC Glucose 99 84 106 H 01/29/20 01/27/20 01/27/20 16:00 15:44 11:27 POC Glucose 68 L 179 H 141 H Hospitalist ROS - Review of Systems Cardiovascular: denies: chest pain, palpitations, orthopnea, paroxysmal noc. dyspnea, edema, light headedness, other Gastrointestinal: denies: nausea, vomiting, abdominal pain, diarrhea, constipation, melena, hematochezia, other - Medication Medications: Active Medications Generic Name Dose Route Start Last Admin Trade Name Freq PRN Reason Stop Dose Admin Acetaminophen 650 mg 01/14/20 17:39 01/20/20 14:13 Acetaminophen 650 Mg/20.3 Ml Udcup PO 650 mg Q6H PRN Administration Fever > 101 or Mild Pain Acetaminophen 650 mg 01/14/20 20:17 01/30/20 16:19 Acetaminophen 325 Mg Tab PO 650 mg Q4H PRN Administration Headache/Fever/Mild Pain (1-3) Albuterol/Ipratropium 3 ml 01/14/20 19:00 01/30/20 13:57 Ipratropium/Albuterol Sulfate 3 Ml Neb NEB 3 ml [id number] JONATHAN Administration Aspirin 81 mg 01/15/20 09:00 01/30/20 08:33 Aspirin Chewable 81 Mg Tab PO 81 mg DAILY JONATHAN Administration Bisacodyl 10 mg 01/14/20 17:39 01/16/20 05:33 Bisacodyl 10 Mg Supp WI 10 mg DAILYPRN PRN Administration Constipation Carvedilol 25 mg 01/20/20 17:00 01/30/20 16:16 Carvedilol 25 Mg Tab PO 25 mg BID-WM JONATHAN Administration Cyanocobalamin 1,000 mcg 01/16/20 09:00 01/30/20 08:33 Cyanocobalamin (Vitamin B-12) 1,000 Mcg Tab PER TUBE 1,000 mcg DAILY JONATHAN Administration Enoxaparin Sodium 40 mg 01/26/20 21:00 01/29/20 20:46 Enoxaparin Sodium 40 Mg/0.4 Ml Syringe SC 40 mg 2100 JONATHAN Administration Folic Acid 1 mg 01/16/20 09:00 01/30/20 08:33 Folic Acid 1 Mg Tab PER TUBE 1 mg DAILY JONATHAN Administration Hydralazine HCl 20 mg 01/20/20 14:13 01/26/20 09:08 Hydralazine 20 Mg/Ml Vial SLOW IVP 20 mg Q4H PRN Administration SBP Greater Than 180 Hydralazine HCl 25 mg 01/26/20 09:00 01/30/20 16:15 Hydralazine 25 Mg Tab PO 25 mg QID JONATHAN Administration Insulin Glargine 15 units/ 0.15 mls @ 0 mls/hr 01/30/20 09:00 01/30/20 08:59 Miscellaneous Medication SC Not Given [facility] Insulin Human Regular 0 units 01/14/20 17:45 01/15/20 20:36 Insulin Regular 300 Units/3 Ml Vial SC 3 units .BEDTIME SLIDING SC PRN Administration Bedtime Correctional Scale Isosorbide Mononitrate 60 mg 01/26/20 09:00 01/30/20 08:34 Isosorbide Mononitrate Er 60 Mg Tab PO 60 mg DAILY JONATHAN Administration Labetalol HCl 10 mg 01/14/20 20:15 01/26/20 03:03 Labetalol Hcl 100 Mg/20 Ml Vial SLOW IVP 10 mg Q4H PRN Administration Systolic BP > 180 Lisinopril 20 mg 01/27/20 09:00 01/30/20 08:33 Lisinopril 20 Mg Tab PO 20 mg DAILY JONATHAN Administration Multivitamins 1 tab 01/16/20 09:00 01/30/20 08:32 Multivit, Therapeutic 1 Tab PER TUBE 1 tab DAILY JONATHAN Administration Nifedipine 60 mg 01/29/20 21:00 01/30/20 08:33 Nifedipine Xl 60 Mg Tab PO 60 mg BID JONATHAN Administration Pantoprazole Sodium 40 mg 01/19/20 09:00 01/30/20 08:32 Pantoprazole 40 Mg Granules Packet PER TUBE 40 mg DAILY JONATHAN Administration Sodium Chloride 10 ml 01/14/20 17:39 01/26/20 20:25 Flush - Normal Saline 10 Ml Syringe IVF 10 ml PRN PRN Administration Saline Flush Venlafaxine HCl 75 mg 01/21/20 09:00 01/30/20 08:32 Venlafaxine Hcl 75 Mg Tab PO 75 mg DAILY JONATHAN Administration - Exam General Appearance: NAD Heart: RRR, no gallops Respiratory: no wheezes, no ronchi Gastrointestinal: soft, non-tender, normal bowel sounds Extremities: no cyanosis Neurological: no new deficit Hosp A/P - Plan DVT proph w/SCDs Acute hypoxic and hypercapnic respiratory failure status post mechanical ventilation Acute on chronic diastolic heart failure exacerbation Acute asthma exacerbation Hypertension with hypertensive urgency on admission CARLA on CKD stage III Diabetes mellitus type 2 Hypomagnesemia/hypokalemia Obstructive sleep apnea Morbid obesity with a BMI 47.4 Chronic anemia with hemoglobin 8.1 due to iron deficiency Hyperlipidemia Anxiety Penicillin allergy Physical deconditioning Plan: Reduce Lantus dose. Await placement. Continue aspirin, carvedilol, hydralazine, lisinopril, isosorbide mononitrate and Procardia XL. Check CBC in a.m. Patient is stable for discharge. Continue other medications as above. Continue with therapy
[2020-01-30] MEDS: Enoxaparin Sodium 40 MG/0.4 ML SYRINGE SC SCH (20:22)
[2020-01-31] MEDS: Acetaminophen 325 MG TAB PO PRN ×3 (00:11→14:12)
[2020-01-31 06:11] LABS: #Basophils 0.1 thou/uL (0.0-0.2); #Eosinphils 0.2 thou/uL (0.0-0.7); #Monocytes 0.5 thou/uL (0.11-0.59); #Neutrophils 5.9 thou/uL (1.40-6.50); %Basophils 1.3 % (0.0-1.0); %Eosinophils 2.5 % (0.0-10.0); %Monocytes 6.9 % (0.0-10.0); %Neutrophils 76.2 % (42.0-75.0); Hemoglobin 7.7 g/dL (12.0-16.0); Mean Corpuscular HGB CONC 30.3 g/dL (32.0-36.0); Mean Corpuscular Hemoglobin 24.2 pg (27.0-31.0); Mean Platelet Volume 11.4 fL (7.4-10.4); Platelet Count 275 thou/uL (130-400); RBC Distribution Width 19.1 % (11.5-14.5); Red Blood Cell (RBC) Count 3.17 mill/uL (4.20-5.40); White Blood Cell (WBC) Count 7.7 thou/uL (4.8-10.8)
[2020-01-31 06:33] LABS: Anion Gap 14 mmol/L (10-20); BUN (Urea Nitrogen) 23 mg/dL (9.8-20.1); Calc. Creatinine Clearance 120 mL/min (70-130); Calcium 9.3 mg/dL (7.8-10.44); Carbon Dioxide 30 mmol/L (22-29); Chloride 102 mmol/L (98-107); Glucose 111 mg/dL (70-105); Potassium 3.7 mmol/L (3.5-5.1); Sodium 142 mmol/L (136-145)
[2020-01-31] MEDS: hydrALAZINE 25 MG TAB PO SCH ×2 (08:41→14:10)
[2020-01-31] MEDS: Cyanocobalamin (Vitamin B-12) 1,000 MCG TAB PER TUBE SCH (08:42)
[2020-01-31] MEDS: Aspirin Chewable 81 MG TAB PO SCH (08:42)
[2020-01-31] MEDS: Folic Acid 1 MG TAB PER TUBE SCH (08:42)
[2020-01-31] MEDS: Pantoprazole 40 MG GRANULES PACKET PER TUBE SCH (08:42)
[2020-01-31] MEDS: Multivit, Therapeutic 1 TAB PER TUBE SCH (08:42)
[2020-01-31] MEDS: NIFEdipine XL 60 MG TAB PO SCH (08:43)
[2020-01-31] MEDS: Carvedilol 25 MG TAB PO SCH (08:43)
[2020-01-31] MEDS: Insulin Glargine 15 UNITS in Pre-Filled Syringe 1 EACH SC SCH (09:04)
--- NOTE | 2020-01-31 10:20 | PRG ---
DATE OF SERVICE: 01/31/2020 SUBJECTIVE: This morning, she is awake, alert, and responsive, DNR, in no distress, sitting on the side of the bed, creatinine 1.37. OBJECTIVE: VITAL SIGNS: Temperature 97, pulse 83, sats on 1 L, and blood pressure 167/86. CHEST: No wheezing. No crackles. CARDIAC: Normal S1, S2. No gallops. ABDOMEN: No masses. IMPRESSION: Status post respiratory failure, congestive heart failure, chronic obstructive pulmonary disease, renal failure, morbid obesity, and encephalopathy. PLAN: Pulmonary [place], stable. Home any time. Pulmonary will follow at a distance. Job ID: [id number]
[2020-01-31] MEDS: Lisinopril 20 MG TAB PO SCH (11:35)
[2020-01-31 13:34] VITALS: BP 176/62; TEMP 97.9
--- NOTE | 2020-01-31 17:15 | PDOC.DS.DS ---
Provider - Provider Date of Admission: 01/14/20 17:21 Date of Discharge: 01/31/20 Admitting Provider: Daryn Steward MD Consultations: Cardiology, Nephrology, Neurology, Pulmonary Primary Care Physician: Fabby Castillo Course - Hospital Course Hospital Course: Patient is a 54-year-old female with chronic diastolic heart failure, obstructive sleep apnea not on CPAP, morbid obesity, asthma and hypertension presented to the emergency room with worsening shortness of breath on 01/13. Her blood pressure in the emergency room was 240/130. Her O2 saturation was 89% on room air. Please refer to the history and physical for further details The patient was admitted to the hospital with a diagnosis of acute hypoxic and hypercapnic respiratory failure requiring mechanical ventilation. She was monitored in the intensive care unit. She was seen by bottling attendant and argon tester. She was placed on IV diuretics along with multiple antihyperte nsives. The CODE STATUS was changed to DO NOT RESUSCITATE after discussing with the family. Echocardiogram showed ejection fraction 50 to 55%. Patient was subsequently extubated and transferred to the medical floor. She also was seen by nephrology for acute kidney injury that has stabilized. She was also evaluated by neurology due to worsening encephalopathy. EEG showed diffuse slowing without any seizure activity. Patient appears stable for discharge to inpatient rehabilitation. She needs a sleep study as outpatient as soon as possible. Final diagnosis: Acute hypoxic and hypercapnic respiratory failure status post mechanical ventilation Acute on chronic diastolic heart failure exacerbation Acute asthma exacerbation Hypertension with hypertensive urgency on admission CARLA on CKD stage III Diabetes mellitus type 2 Hypomagnesemia/hypokalemia Obstructive sleep apnea Morbid obesity with a BMI 47.4 Chronic anemia with hemoglobin 8.1 due to iron deficiency Hyperlipidemia Anxiety Penicillin allergy Physical deconditioning Time coordinating the discharge of this patient was 38 minutes. Resuscitation Status: 01/23/20 16:05 Resuscitation Status Routine Resuscitation Status: DNAR: NO Resuscitation Discussed with: pt. daughter and son - Labs Lab Results: 01/31/20 05:53 01/31/20 05:53 Abnormal Lab Results - Last 48 hrs 01/30/20 05:46: BUN 27 H, Creatinine 1.38 H 01/31/20 05:53: Carbon Dioxide 30 H, BUN 23 H, Creatinine 1.37 H 01/31/20 05:53: RBC 3.17 L, Hgb 7.7 L, Hct 25.4 L, MCH 24.2 L, MCHC 30.3 L, RDW 19.1 H, MPV 11.4 H, Neutrophils % 76.2 H, Lymphocytes % 13.0 L, Basophils % 1.3 H, Lymphocytes # 1.0 L Microbiology - Entire Visit 01/19/20 19:30 Stool Stool Occult Blood (CAROL) - Final 01/14/20 14:54 Urine pillai catheter Urine Culture - Final NO GROWTH AT 48 HOURS - Physical Exam Vitals: Vital Signs (12 hours) Temp Pulse Resp BP BP BP Pulse Ox 01/31/20 12:00 97.9 F 85 20 176/62 H 93 L 01/31/20 11:35 160/73 H 01/31/20 08:06 83 18 94 L 01/31/20 08:00 97.8 F 90 18 167/86 H 93 L Weight Admit Weight 361 lb Weight 358 lb 3 oz Most Recent Monitor Data Heart Rate from ECG 98 NIBP 145/75 NIBP BP-Mean 98 Respiration from ECG 20 SpO2 99 Physical Exam: The patient was seen and examined on the day of discharge. Plan - Discharge Medications Home Medications: Medication Instructions Recorded Confirmed Type Atorvastatin Calcium [Lipitor] 40 mg PO DAILY 01/21/19 01/19/20 History Ergocalciferol (Vitamin D2) 5,000 unit PO Q7DAYS 01/21/19 01/19/20 History [Vitamin D2] Pantoprazole Sodium 40 mg PO DAILY 01/21/19 01/19/20 History Albuterol Sulfate [Proair 90 mcg IH DAILY PRN 02/08/19 01/19/20 History Respiclick] Venlafaxine HCl [Effexor] 75 mg PO DAILY 02/08/19 01/19/20 History Ferrous Sulfate [Feosol] 325 mg PO QAM-WM #30 tab 02/10/19 01/19/20 Rx Ipratropium/Albuterol Sulfate 3 ml NEB QID PRN #30 neb 02/10/19 01/19/20 Rx [DuoNeb] Lisinopril 20 mg PO DAILY 10/03/19 01/19/20 History Acetaminophen [Tylenol Elixir] 650 mg PO Q6H PRN udcup 01/31/20 Rx Aspirin Chewable [Aspirin Chewable 81 mg PO DAILY tab 01/31/20 Rx Tablet] Carvedilol [Coreg] 25 mg PO BID-WM tab 01/31/20 Rx Cyanocobalamin (Vitamin B-12) 1,000 mcg PER TUBE DAILY tab 01/31/20 Rx [Vitamin B-12] Folic Acid [Folvite] 1 mg PO DAILY tab 01/31/20 Rx Furosemide 40 mg PO BID PRN #0 01/31/20 01/19/20 Rx Isosorbide Mononitrate [Imdur] 60 mg PO DAILY tab 01/31/20 Rx Multivit, Therapeutic [Theragran] 1 tab PER TUBE DAILY tab 01/31/20 Rx NIFEdipine [Procardia XL] 60 mg PO BID tab 01/31/20 Rx hydrALAZINE [Apresoline] 25 mg PO QID tab 01/31/20 Rx Allergies: Penicillins Allergy (Verified 01/19/20 03:23) Hives - Discharge Instructions Discharge Instructions:: Sleep study JOHN BMP after 1 week Fall/Aspiration/decubitus ulcer precautions - Follow up Plan Referrals: Carol Fry MD [Primary Care Provider] - 7 Days Norm Calderón MD [Active] - 14 Days Audrey Joseph MD [Active] - 14 Days Disposition: REHABILITATION INPATIENT Quality - Care Measures CORE MEASURES:: HF
--- NOTE | 2020-01-31 17:24 | PRG ---
DATE OF SERVICE: 01/31/2020 SUBJECTIVE: Patient was seen and examined at bedside and overnight events noted. Patient denies any shortness of breath or chest pain or palpitation. No history of nausea or vomiting or diarrhea or fever or chills or cramps. OBJECTIVE: General: This is an obese female, in no apparent distress. Vital Signs: Temperature 97.9. Heart Rate 84. Respiratory rate . Blood pressure 176/62. HEENT: Atraumatic, normocephalic. Oral mucosa is moist. Neck: Supple. Cardiovascular: S1, S2 heard. Rate and rhythm regular. Respiratory: Clear to auscultation. Gastrointestinal: Abdomen is soft. Musculoskeletal: No tenderness. No edema. Dermatologic: No skin rash. Neurologic: Alert and awake and oriented x3. No focal neurologic deficits. Moving all the extremities. Psychiatric: Mood and affect normal. LABORATORY DATA: Potassium 3.7, BUN is , creatinine is 1.37. ASSESSMENT AND PLAN: 1. Acute kidney injury on chronic kidney stage 3, stable. 2. Alkalosis. 3. Edema. 4. History of hypertension. 5. Cardiorenal syndrome. 6. Morbid obesity. Labs are stable. I will sign off. Advised to follow up with the clinic in 1 to 2 weeks. Job ID: [id number]
--- NOTE | 2020-02-02 11:16 | PQF ---
Q17 2018 [facility] Updated: CLINICAL DOCUMENTATION CLARIFICATION FORM: Please check appropriate box(es): [ ] Cerebral Infarction: [ ] Cerebral [ ] Pre-Cerebral [ ] Thrombosis [ ] Embolism [ ] Unspecified occlusion or stenosis [ ] Venous Thrombosis [ ] Other Cerebral Infarction Laterality: [ ] Right [ ] Left [ ] Bilateral [ ] Pre-Cerebral Artery: [ ] Vertebral [ ] Carotid [ ] Other Pre-Cerebral Artery [ ] Cerebral Artery: [ ] Middle [ ] Anterior [ ] Posterior [ ] Cerebellar [ ] Other Cerebral Artery [ ] Unspecified Cerebral Artery [ ] CVA Ruled in/ Ruled out [ ] Cerebral artery occlusion without infarction [ ] TIA [ ] Other diagnosis [ ] Unable to determine In addition, please specify: Present on Admission (POA): [ ] Yes [ ] No [ x ] Unable to determine To be completed by CDI/Coding staff for physician review: Present Clinical Indicators - Signs / Symptoms / Labs Results and Location in Medical Record [ ] Speech or swallowing difficulty (aphasia, dysarthria, dysphagia) [x ] Changes in mental status, confusion AMS-ER report, 01/17 Radiology report [x ] [place] Coma Scale E2,V1,M1 ER report [ ] NIHHS Score [ x ] Changes in motor strength (plegia, paresis) 01/25 PN-recovery of left hemiparesis, 01/22 PN-neuromuscular weakness, 01/21 PN- History of unilateral weakness, 01/20 PN-CVA, 01/18-01/19 PN-CVA [ ] Impaired vision (blurred, photophobia, dimming) [ ] Numbness of extremities or the face [ ] Loss of coordination [ ] CT/MRI/Doppler results: thrombosis, embolism, occlusion, stenosis [ ] Increased intracranial pressure [ ] Sudden intense headache [ ] Changes in white matter, old linear / lacunar infarcts [ ] Seizures [x ] High blood pressure HTN-H&P, PN Present Risk Factors Results and Location in Medical Record [ ] Arrhythmias (A-Fib, Sick Sinus Syndrome, A-Flutter new onset) [ ] Carotid stenosis [ ] Valvular disease (rheumatic, calcified, endocarditis) [x ] Heart disease (recent LA, ventricular aneurysm, uncontrolled HTN, CHF, PFO ) Cardiorenal syndrome, Diastolic CHF-H&P, PN, DS HTN [ ] Abuse/dependence: alcohol, tobacco, drugs Present Treatments Results and Location in Medical Record [ ] Anti-thrombolytic (Plavix, Coumadin, TPA) [ x ] CAT Scan-CT Brain Small lacunar infarction in region of right corpus striatum of indeterminate age, possible acute or subacute. Incidental finding of old lacunar infarction in right external capsule. [ ] Neuro checks [x ] Neuro consult EEG-showed diffuse slowing, but no epileptiform features 01/16 Consult [ x ] Antihypertensives Lisinopril H&P [ ] PT/INR CDS/Dog Obedience Instructor Signature: Catherine Restrepo Phone #: [phone] Date/Time: 02/02/2020 This is a permanent part of the Medical Record [facility]
== END 2020-01-31 15:05 | DRG 207 ==
LOC: ERS 14:14 → CCU 17:21 → T4-A 01-26 10:40
PROVIDERS: ADMIT Internal Medicine; ATTEND Internal Medicine
PROC: 5A1955Z Respiratory Ventilation, Greater than 96 Consecutive Hours (ICD-10-PCS; principal; 2020-01-14)
PROC: 4A143B0 Monitoring of Venous Pressure, Central, Percutaneous Approach (ICD-10-PCS; 2020-01-14)
PROC: 0XH833Z Insertion of Infusion Device into Right Upper Arm, Percutaneous Approach (ICD-10-PCS; 2020-01-14)
PROC: 0BH17EZ Insertion of Endotracheal Airway into Trachea, Via Natural or Artificial Opening (ICD-10-PCS; 2020-01-14)
PROC: 02HV33Z Insertion of Infusion Device into Superior Vena Cava, Percutaneous Approach (ICD-10-PCS; 2020-01-14)
PROC: 0T9B70Z Drainage of Bladder with Drainage Device, Via Natural or Artificial Opening (ICD-10-PCS; 2020-01-14)
PROC: 30233N1 Transfusion of Nonautologous Red Blood Cells into Peripheral Vein, Percutaneous Approach (ICD-10-PCS; 2020-01-19)
PROC: 5A09457 Assistance with Respiratory Ventilation, 24-96 Consecutive Hours, Continuous Positive Airway Pressure (ICD-10-PCS; 2020-01-27)
DX: J96.21 Acute and chronic respiratory failure with hypoxia (principal); I50.33 Acute on chronic diastolic (congestive) heart failure; G92 Toxic encephalopathy; I63.9 Cerebral infarction, unspecified; I13.0 Hypertensive heart and chronic kidney disease with heart failure and stage 1 through stage 4 chronic kidney disease, or unspecified chronic kidney disease; N17.9 Acute kidney failure, unspecified; E66.2 Morbid (severe) obesity with alveolar hypoventilation; J45.21 Mild intermittent asthma with (acute) exacerbation; E87.3 Alkalosis; E87.0 Hyperosmolality and hypernatremia; Z68.43 Body mass index [BMI] 50.0-59.9, adult; Z20.828 Contact with and (suspected) exposure to other viral communicable diseases; Z51.5 Encounter for palliative care; Z66 Do not resuscitate; I16.0 Hypertensive urgency; J96.22 Acute and chronic respiratory failure with hypercapnia; N18.30 Chronic kidney disease, stage 3 unspecified; E11.22 Type 2 diabetes mellitus with diabetic chronic kidney disease; D50.9 Iron deficiency anemia, unspecified; E78.5 Hyperlipidemia, unspecified; F41.9 Anxiety disorder, unspecified; J44.9 Chronic obstructive pulmonary disease, unspecified; E55.9 Vitamin D deficiency, unspecified; E83.42 Hypomagnesemia; E87.6 Hypokalemia; T42.75XA Adverse effect of unspecified antiepileptic and sedative-hypnotic drugs, initial encounter; E83.39 Other disorders of phosphorus metabolism; E88.09 Other disorders of plasma-protein metabolism, not elsewhere classified; E87.5 Hyperkalemia; R29.713 NIHSS score 13; Z90.49 Acquired absence of other specified parts of digestive tract; Z28.21 Immunization not carried out because of patient refusal; Z99.81 Dependence on supplemental oxygen; Z86.73 Personal history of transient ischemic attack (TIA), and cerebral infarction without residual deficits; Z88.0 Allergy status to penicillin; Z78.1 Physical restraint status; Z98.51 Tubal ligation status; Z85.72 Personal history of non-Hodgkin lymphomas; Z79.4 Long term (current) use of insulin; Z79.899 Other long term (current) drug therapy; Z92.21 Personal history of antineoplastic chemotherapy; Z83.3 Family history of diabetes mellitus; Z82.49 Family history of ischemic heart disease and other diseases of the circulatory system
CPT/HCPCS: 31500; 36415; 36416; 36430; 36556; 36600; 36680; 51702; 70450; 71045; 80048; 80053; 81003; 81015; 82140; 82274; 82533; 82728; 82805; 83540; 83550; 83735; 83880; 84100; 84439; 84443; 84484; 85025; 85046; 85610; 85730; 86850; 86900; 86901; 87086; 93005; 93306; 94002; 94003; 94640; 95816; 95819; 96360; 96361; 96365; 96367; 96375; J0360; J0456; J0696; J1650; J1815; J1940; J2060; J2704; J2916; J2920; J3010; J3475; J3480; J3490; J7050; J7620; P9016; P9047; U0002

== ENCOUNTER 2020-02-07 03:44 | Inpatient (IN) | payer MEDICARE ==
[2020-02-07 04:19] LABS: Actual Bicarbonate (HCO3a) 28.4 mEq/L (22-28); Analyzer IN Cardio ER; Base Excess (BEa) -0.7 mEq/L (-2.0 to +3.0); Calcium, Ionized (arterial) 1.26 mmol/L (1.12-1.30); Carboxyhemoglobin (COHb) 0.6 gm% (0.0-3.0); O2 Tension (PaO2), arterial 263.9 mmHg (80.0-100.0); Potassium - ABG Lab 4.62 mmol/L (3.70-5.30)
[2020-02-07 04:22] LABS: CO2 Tension 77.2 mmHg (35.0-45.0); Puncture Site LRA; pH, Arterial 7.18 (7.35-7.45)
[2020-02-07] MEDS ORDERED: Furosemide 40 MG/4 ML VIAL ONE (04:45)
[2020-02-07 04:56] LABS: #Basophils 0.1 thou/uL (0.0-0.2); #Eosinphils 0.2 thou/uL (0.0-0.7); #Lymphocytes 0.9 thou/uL (1.20-3.40); #Monocytes 0.5 thou/uL (0.11-0.59); %Basophils 0.8 % (0.0-1.0); %Eosinophils 2.1 % (0.0-10.0); %Lymphocytes 8.4 % (21.0-51.0); %Monocytes 4.6 % (0.0-10.0); %Neutrophils 84.1 % (42.0-75.0); Hemoglobin 8.2 g/dL (12.0-16.0); Mean Corpuscular HGB CONC 29.6 g/dL (32.0-36.0); Mean Corpuscular Hemoglobin 24.5 pg (27.0-31.0); Mean Corpuscular Volume 82.7 fL (78.0-98.0); Mean Platelet Volume 10.4 fL (7.4-10.4); Platelet Count 344 thou/uL (130-400); RBC Distribution Width 19.6 % (11.5-14.5); Red Blood Cell (RBC) Count 3.35 mill/uL (4.20-5.40); White Blood Cell (WBC) Count 10.7 thou/uL (4.8-10.8)
[2020-02-07 04:58] LABS: INR-International Normal Ratio 1.2; Prothrombin Time 15.3 sec (12.0-14.7)
[2020-02-07 04:59] LABS: PTT 32.8 sec (22.9-36.1)
[2020-02-07 05:20] LABS: ALT (SGPT) 16 U/L (8-55); AST (SGOT) 12 U/L (5-34); Alkaline Phosphatase 108 U/L (40-110); Anion Gap 13 mmol/L (10-20); BUN (Urea Nitrogen) 24 mg/dL (9.8-20.1); Bilirubin, Total 0.5 mg/dL (0.2-1.2); Calc. Creatinine Clearance 0 mL/min (70-130); Calcium 9.3 mg/dL (7.8-10.44); Carbon Dioxide 33 mmol/L (22-29); Chloride 101 mmol/L (98-107); Globulin 2.9 g/dL (2.4-3.5); Glucose 172 mg/dL (70-105); Lipase 8 U/L (8-78); Potassium 4.7 mmol/L (3.5-5.1); Protein, Total 6.9 g/dL (6.0-8.3); Sodium 142 mmol/L (136-145)
[2020-02-07] MEDS ORDERED: Electrolyte Replacement Protocol 1 EACH IVPB SCH (06:42)
[2020-02-07] MEDS ORDERED: Mag-Al 1200 mg/1200 mg/30 ML UDCUP PO PRN (06:42)
[2020-02-07] MEDS ORDERED: Insulin Regular 300 UNITS/3 ML VIAL SC PRN (06:42)
[2020-02-07] MEDS ORDERED: Bisacodyl 5 MG TAB PO PRN (06:42)
[2020-02-07] MEDS ORDERED: Norepinephrine 8 MG/0.9% NS 250 ML IVPB PRN (06:42)
[2020-02-07] MEDS ORDERED: Ondansetron PF 4 MG/2 ML Vial IVP PRN (06:42)
[2020-02-07] MEDS ORDERED: Azithromycin 500 MG in Syringe 0 ML IVPB SCH (06:45)
[2020-02-07] MEDS ORDERED: cloNIDine 0.1 MG TAB PO PRN (06:45)
--- NOTE | 2020-02-07 06:52 | PDOC.HHP ---
Hospitalist HPI - History of Present Illness Respiratory failure History of Present Illness: Patient is 54-year-old female with chronic diastolic heart failure, asthma, obstructive sleep apnea and hypertension brought to ED from rehab facility for shortness of breath. Patient was recently admitted to this hospital with a diagnosis of acute hypoxic and hypercapnic respiratory failure requiring mechanical ventilation. She was weaned from vent and sent to rehab facility, today she decompensated there became short of breath, was transferred here on NRB, was found by ED physician short of breath in severe respiratory distress, wheezing diffusely. was in respiratory acidosis. imaging was concerning for v olume overload with known history of diastolic CHF, given lasix and admitted to CCU for further management. Last admission, Echocardiogram showed ejection fraction 50 to 55%. She needs a sleep study as outpatient as soon as possible. PAST MEDICAL HISTORY: Bronchial asthma, chronic diastolic heart failure, obstructive sleep apneacurrently not on CPAP, ?Obesity hypoventilation, hypertension, diabetes mellitus type 2, morbid obesity, chronic anemia, history of non-Hodgkin's lymphoma completed chemotherapy, chronic hypoxic respiratory failure on home oxygen PAST SURGICAL HISTORY: Cholecystectomy, tubal ligation, Port-A-Cath, lymph node removal SOCIAL HISTORY: Currently lives at home close to her family. Patient is disabled. She ambulates with the help of a walker. No tobacco, alcohol or drug use FAMILY HISTORY: Diabetes and hypertension runs in her family. Breast cancer in her mother. Father in his 60s from massive [place]. Hospitalist ROS - Review of Systems ROS unobtainable: due to mental status Other: unable to obtain, patient on BIPAP - Medication Medications: reviewed, see transfer documents in chart Hospitalist History - Past Medical History Other Medical History: Flu vaccine up to date, Pneumococcal vaccine up to date, Tetanus not up to date, Past medical history includes cardiac history, congestive heart failure, Past medical history includes hematological history, Anemia, hypertension, which has been treated, Patient is compliant, malignancy, Non-hodgkins lymphoma, pulmonary disease, chronic obstructive pulmonary disease. diabetes, Type II, obesity. - Past Surgical History Other Surgical History: LYMPHNODES REMOVED FROM RIGHT GROIN 2012- NON HODGKINS LYMPHOMA DIAGNOSIS AT THIS TIME., Surgical history of cholecystectomy, Surgical history of tubal ligation, Patient has no surgical history. - Family History Family History: reports: no pertinent history - Social History Smoking Status: Never smoker Alcohol: reports: None Drugs: reports: none - Exam General Appearance: NAD, awake alert General - other findings: on BIPAP, awake alert and communicating with head movements Eye: PERRL, anicteric sclera ENT: normocephalic atraumatic, no oropharyngeal lesions, moist mucosa Neck: supple, symmetric, no JVD, no thyromegaly, no lymphadenopathy, no carotid bruit Heart: RRR, no murmur, no gallops, no rubs, normal peripheral pulses Respiratory: CTAB, no wheezes, no rales, no ronchi, normal chest expansion, no tachypnea, normal percussion Gastrointestinal: soft, non-tender, non-distended, normal bowel sounds, no palpable masses, no hepatomegaly, no splenomegaly, no bruit Extremities: no cyanosis, no clubbing, no edema Skin: normal turgor, no lesions, no rashes Neurological: cranial nerve grossly intact, normal sensation to touch, no weakness, no focal deficits, no new deficit Musculoskeletal: normal tone, normal strength, no muscle wasting Psychiatric - other findings: unable to evaluate Hospitalist Results - Labs Result Diagrams: 02/07/20 04:25 02/07/20 04:25 Lab results: WBC 10.7 thou/uL (4.8-10.8) 02/07/20 04:25 Hgb 8.2 g/dL (12.0-16.0) L 02/07/20 04:25 Hct 27.7 % (36.0-47.0) L 02/07/20 04:25 MCV 82.7 fL (78.0-98.0) 02/07/20 04:25 Plt Count 344 thou/uL (130-400) 02/07/20 04:25 Neutrophils % 84.1 % (42.0-75.0) H 02/07/20 04:25 ABG pH 7.18 (7.35-7.45) L* 02/07/20 04:11 ABG pCO2 77.2 mmHg (35.0-45.0) H* 02/07/20 04:11 ABG pO2 263.9 mmHg (80.0-100.0) H 02/07/20 04:11 Sodium 142 mmol/L (136-145) 02/07/20 04:25 Potassium 4.7 mmol/L (3.5-5.1) 02/07/20 04:25 Chloride 101 mmol/L (98-107) 02/07/20 04:25 Carbon Dioxide 33 mmol/L (22-29) H 02/07/20 04:25 BUN 24 mg/dL (9.8-20.1) H 02/07/20 04:25 Creatinine 1.63 mg/dL (0.6-1.1) H 02/07/20 04:25 Glucose 172 mg/dL (70-105) H 02/07/20 04:25 Lactic Acid 0.7 mmol/L (0.5-2.2) 02/07/20 04:34 Calcium 9.3 mg/dL (7.8-10.44) 02/07/20 04:25 Total Bilirubin 0.5 mg/dL (0.2-1.2) 02/07/20 04:25 AST 12 U/L (5-34) 02/07/20 04:25 ALT 16 U/L (8-55) 02/07/20 04:25 Alkaline Phosphatase 108 U/L (40-110) 02/07/20 04:25 Troponin I 0.019 ng/mL (< 0.028) 02/07/20 04:25 B-Natriuretic Peptide 269.1 pg/mL (0-100) H 02/07/20 04:25 Serum Total Protein 6.9 g/dL (6.0-8.3) 02/07/20 04:25 Albumin 4.0 g/dL (3.5-5.0) 02/07/20 04:25 Lipase 8 U/L (8-78) 02/07/20 04:25 Additional comment: labs, imaging, microbioogy review by id Hospitalist H&P A/P - Plan Plan: Patient is 54-year-old female with chronic diastolic heart failure, asthma, obstructive sleep apnea and hypertension brought to ED from rehab facility for shortness of breath. Patient was recently admitted to this hospital with a diagnosis of acute hypoxic and hypercapnic respiratory failure requiring mechanical ventilation. # acute hypercapnic respiratory failure - on BIPAP # acute and chronic diastolic CHF # anemia # asthma?COPD # obstructive sleep apnea # hypertension - admit to CCU - consult pulmonary - continue BIPAP - IV steroids, abx, nebs (once COVID test negatieVE) - follow up final imp # CARLA - diurese and recheck in AM, may need pillai if retaining 42 minutes critical care time
[2020-02-07] MEDS ORDERED: Norepinephrine 8 MG in Dextrose 5% in Water 242 ML IVPB PRN (07:00)
[2020-02-07] MEDS ORDERED: Magnesium 2 GM/50 ML 2 GM in Premix Bag 1 BAG IVPB SCH (07:30)
[2020-02-07 08:02] LABS: SARS-CoV-2 NAA Rapid Test Not Detected (NotDetected)
--- NOTE | 2020-02-07 08:03 | RAD ---
PORTABLE CHEST: HISTORY: Shortness of breath. COMPARISON: 02/01/2020. FINDINGS: Bilateral effusions and bibasilar infiltrates. Upper lung ahmadi are clear. Heart size upper normal and stable. IMPRESSION: Bilateral effusions and bibasilar infiltrates, more pronounced than on the 02/01/2020 exam. POS: AGW
[2020-02-07] MEDS ORDERED: Magnesium 2 GM/50 ML BAG (IN WATER) ONE (08:16)
[2020-02-07] MEDS ORDERED: cefTRIAXone\\ROCEPHIN 2 GM VIAL ONE (08:16)
[2020-02-07 08:25] LABS: Troponin I 0.021 ng/mL (< 0.028)
[2020-02-07] MEDS: cefTRIAXone\\ROCEPHIN 2 GM in Sodium Chloride 0.9% 100 ML IVPB SCH (08:29)
[2020-02-07] MEDS: Famotidine 20 MG TAB PO SCH (10:20)
[2020-02-07] MEDS ORDERED: Azithromycin 500 MG VIAL ONE (10:32)
[2020-02-07] MEDS: Azithromycin 500 MG in Sodium Chloride 0.9% 250 ML 250 ML IVPB SCH (10:51)
[2020-02-07 11:20] LABS: Troponin I 0.017 ng/mL (< 0.028)
[2020-02-07] MEDS ORDERED: methylPREDNISolone Sod Succ 40 MG VIAL ONE (12:07)
[2020-02-07] MEDS: methylPREDNISolone Sod Succ 40 MG VIAL IVP SCH ×2 (12:17→18:17)
[2020-02-07] MEDS: Enoxaparin Sodium 40 MG/0.4 ML SYRINGE SC SCH (21:14)
[2020-02-07] MEDS: hydrALAZINE 20 MG/ML VIAL SLOW IVP PRN (21:49)
[2020-02-07] MEDS ORDERED: cloNIDine 0.1 MG TAB PO SCH (23:45)
[2020-02-08] MEDS: methylPREDNISolone Sod Succ 40 MG VIAL IVP SCH ×2 (00:37→06:05)
[2020-02-08] MEDS: hydrALAZINE 20 MG/ML VIAL SLOW IVP PRN ×2 (02:55→09:26)
[2020-02-08] MEDS ORDERED: NIFEdipine XL 30 MG TAB PO SCH (04:15)
[2020-02-08 04:19] LABS: Anion Gap 21 mmol/L (10-20); BUN (Urea Nitrogen) 24 mg/dL (9.8-20.1); Calc. Creatinine Clearance 119 mL/min (70-130); Calcium 9.1 mg/dL (7.8-10.44); Carbon Dioxide 22 mmol/L (22-29); Chloride 102 mmol/L (98-107); Glucose 128 mg/dL (70-105); Magnesium 1.9 mg/dL (1.6-2.6); Potassium 5.7 mmol/L (3.5-5.1); Sodium 139 mmol/L (136-145)
[2020-02-08 04:24] LABS: #Lymphocytes 0.5 thou/uL (1.20-3.40); #Monocytes 0.1 thou/uL (0.11-0.59); #Neutrophils 7.8 thou/uL (1.40-6.50); %Basophils 0.2 % (0.0-1.0); %Eosinophils 0.2 % (0.0-10.0); %Lymphocytes 6.2 % (21.0-51.0); %Monocytes 1.5 % (0.0-10.0); %Neutrophils 91.8 % (42.0-75.0); Hemoglobin 8.5 g/dL (12.0-16.0); Mean Corpuscular HGB CONC 28.8 g/dL (32.0-36.0); Mean Corpuscular Volume 83.4 fL (78.0-98.0); Mean Platelet Volume 9.7 fL (7.4-10.4); Platelet Count 211 thou/uL (130-400); RBC Distribution Width 20.3 % (11.5-14.5); Red Blood Cell (RBC) Count 3.54 mill/uL (4.20-5.40); White Blood Cell (WBC) Count 8.5 thou/uL (4.8-10.8)
[2020-02-08] MEDS: cefTRIAXone\\ROCEPHIN 2 GM in Sodium Chloride 0.9% 100 ML IVPB SCH (06:05)
[2020-02-08] MEDS ORDERED: Magnesium 2 GM/50 ML 2 GM in Premix Bag 1 BAG IVPB SCH (06:30)
--- NOTE | 2020-02-08 08:20 | RAD ---
PORTABLE CHEST: Date: 02/08/2020 HISTORY: [facility] follow-up. Ventilator. COMPARISON: 02/07/2020. FINDINGS: Bibasilar infiltrates again noted. Probable bilateral effusions associated with the bibasilar consoli dation. IMPRESSION: Not significantly changed from yesterday. POS: AGW
--- NOTE | 2020-02-08 08:26 | CON ---
DATE OF CONSULTATION: HISTORY OF PRESENT ILLNESS: A 54-year-old morbidly obese female, comes to the ER with shortness of breath, hypoxemia, saturations were in the 70s 4 L. X-ray showed bilateral pleural effusions and bilateral lower lung infiltrates. She was given Lasix in the ER. She was placed on noninvasive ventilation and she is better. She is now in the MICU. Awake, alert, and responsive. Denies any pain or discomfort. She is from [place]. PAST MEDICAL HISTORY: Congestive heart failure, respiratory failure, history of COPD, history of sleep apnea, history of non-Hodgkin lymphoma, diabetes, obesity. PREVIOUS SURGERIES: Lymph node biopsy, cholecystectomy, tubal ligation. SOCIAL HISTORY: No alcohol. No drug abuse. ALLERGIES: PENICILLIN. HOME MEDICATIONS: Include: 1. Norvasc 10. 2. Neb. 3. Lipitor 40. 4. Effexor 75. 5. Lasix 20. She is now started on antibiotic and steroids. REVIEW OF SYSTEMS: Otherwise, 10-point negative. PHYSICAL EXAMINATION: VITAL SIGNS: Temperature 97, saturations 100% on BiPAP, respirations 17, she is now saturating 95% on 4 L. CHEST: Decreased breath sounds without any wheezing. CARDIAC: Normal S1 and S2. No gallops. ABDOMEN: No masses. LABORATORY DATA: Coronavirus test is negative. Influenza is negative. Creatinine is 1.6, glucose 172. White count 6000, H and H of 7 and 25, platelet count 256. ASSESSMENT: Respiratory failure, congestive heart failure, morbid obesity, sleep apnea, possible superimposed pneumonia, renal failure. She likely has diastolic dysfunction. I agree with diuretics, supportive care, PT. Nocturnal ventilation at nighttime. Outpatient sleep study. We will notify Dr. Calderón who has seen the patient in the past. TIME SPENT: Consultation note, 70 minutes, 50% direct patient care. Job ID: [id number]
[2020-02-08] MEDS ORDERED: acetaZOLAMIDE Sodium 500 MG in Sodium Chloride 0.9% 50 ML IVPB SCH (09:00)
[2020-02-08] MEDS: Azithromycin 500 MG in Sodium Chloride 0.9% 250 ML 250 ML IVPB SCH (09:26)
[2020-02-08] MEDS: Famotidine 20 MG TAB PO SCH (09:26)
--- NOTE | 2020-02-08 09:50 | PRG ---
DATE OF SERVICE: 02/08/2020 SUBJECTIVE: Ms. Mcdonald feels better this morning and is off the BiPAP. OBJECTIVE: VITAL SIGNS: Temperature 97.6, pulse 99, O2 saturation 100%. Her last recorded blood pressure was 194/90. HEENT: Unremarkable. NECK: No JVD. LUNGS: She has few crackles in the bases. CARDIAC: S1 and S2, regular. ABDOMEN: Obese, soft, nontender. EXTREMITIES: No edema. LABORATORY DATA: Sodium 139, potassium 5.7, chloride 102, CO2 of 22, BUN 24, creatinine 1.3, and glucose 128. White blood cell count 8.5, hematocrit 29.5, and platelet count 211. If you look back at her blood pressures at the time of admission, she was having systolic as high as 254 and diastolic as high as 116 and ran consistently over 200 for the first 24 hours of her admission. ASSESSMENT: This patient is suffering from diastolic heart dysfunction exacerbated by uncontrolled hypertension. One could make an argument that she had a hypertensive emergency at the time of admission and probably needed to be on IV nicardipine briefly. This situation may be exacerbated by underlying sleep apnea, but uncontrolled hypertension is the major issue at this point. I do not think the patient has pneumonia. RECOMMENDATIONS: 1. I would stop her antibiotics. 2. I would get subspecialty consultation for recommendations regarding her antihypertensives because what she is taking right now is clearly not enough. 3. Needs a sleep study as an outpatient. 4. Would stop the IV steroids. Job ID: [id number]
[2020-02-08] MEDS ORDERED: Amlodipine 10 MG TAB PO SCH (10:15)
[2020-02-08] MEDS: AcetaZOLAMIDE ER 500 MG CAP PO SCH (10:53)
[2020-02-08] MEDS: Metoprolol Tartrate 25 MG TAB PO SCH ×2 (10:54→20:02)
[2020-02-08] MEDS: Amlodipine 10 MG TAB PO SCH (10:54)
--- NOTE | 2020-02-08 11:52 | PDOC.HOSPP ---
- Subjective Encounter Date: 02/08/20 Encounter Time: 11:40 Subjective: f/u for resp failure/HTN urgency tx with BiPAP NIMV initially now on NC. Overall feels much better. No CP or fever. - Objective Vital Signs & Weight: Vital Signs (12 hours) Temp Pulse Resp BP BP Pulse Ox 02/08/20 11:21 98.8 F 02/08/20 10:57 220/99 H 02/08/20 10:56 100 02/08/20 10:54 100 02/08/20 09:26 100 02/08/20 09:01 194/90 H 02/08/20 08:13 100 21 H 100 02/08/20 08:00 100 02/08/20 07:52 97.6 F 02/08/20 06:10 185/86 H 02/08/20 04:35 178/78 H 02/08/20 04:31 96 216/97 H 02/08/20 03:56 98.2 F 02/08/20 03:50 228/107 H 02/08/20 02:55 96 216/97 H 02/08/20 02:45 216/97 H 02/08/20 02:27 96 16 96 02/08/20 02:26 99 16 98 02/08/20 01:30 209/95 H 02/08/20 00:37 241/109 H 02/08/20 00:35 241/109 H 02/07/20 23:56 97.2 F L Weight Weight 352 lb Most Recent Monitor Data Heart Rate from ECG 101 NIBP 277/128 NIBP BP-Mean 177 Respiration from ECG 27 SpO2 100 I&O: 02/07/20 02/08/20 02/09/20 06:59 06:59 06:59 Intake Total 960 240 Output Total 900 Balance 60 240 Result Diagrams: 02/08/20 03:29 02/08/20 03:29 Additional Labs: Accuchecks 02/08/20 02/07/20 02/07/20 05:35 23:32 18:30 POC Glucose 161 H 129 H 113 H Microbiology 02/07/20 04:34 Venous blood - Right Arm Blood Culture - Preliminary Specimen has been received and culture in progress. No Growth to date. 02/07/20 04:34 Venous blood - Right Arm Blood Culture - Preliminary Specimen has been received and culture in progress. No Growth to date. Laboratory Tests 02/06/20 02/07/20 02/07/20 06:30 04:25 04:25 Hgb 8.2 L Creatinine 1.63 H Lactic Acid B-Natriuretic Peptide 235.5 H Influenza A RNA INAAT Influenza B RNA INAAT SARS-CoV-2 Rap RNA(RT-PCR) 02/07/20 02/07/20 02/07/20 04:25 04:34 04:35 Hgb Creatinine Lactic Acid 0.7 B-Natriuretic Peptide 269.1 H Influenza A RNA INAAT Not Detected Influenza B RNA INAAT Not Detected SARS-CoV-2 Rap RNA(RT-PCR) Not Detected Radiology Reviewed by me: Yes (PCXR - bilat pleural effusions) EKG Reviewed by me: Yes (Tele - SR) Hospitalist ROS - Medication Medications: Active Medications Generic Name Dose Route Start Last Admin Trade Name Freq PRN Reason Stop Dose Admin Acetazolamide 500 mg 02/08/20 09:00 02/08/20 10:53 Acetazolamide Er 500 Mg Cap PO 02/10/20 09:01 500 mg DAILY JONATHAN Administration Albuterol/Ipratropium 3 ml 02/07/20 07:00 02/08/20 08:13 Ipratropium/Albuterol Sulfate 3 Ml Neb NEB 3 ml [id number] JONATHAN Administration Amlodipine Besylate 10 mg 02/08/20 09:00 02/08/20 10:54 Amlodipine 10 Mg Tab PO 10 mg DAILY JONATHAN Administration Amlodipine Besylate 10 mg 02/08/20 10:15 02/08/20 10:56 Amlodipine 10 Mg Tab PO 02/08/20 12:00 Not Given NOW JONATHAN Enoxaparin Sodium 40 mg 02/07/20 21:00 02/07/20 21:14 Enoxaparin Sodium 40 Mg/0.4 Ml Syringe SC 40 mg 2100 JONATHAN Administration Famotidine 20 mg 02/07/20 09:00 02/08/20 09:26 Famotidine 20 Mg Tab PO 20 mg DAILY JONATHAN Administration Hydralazine HCl 10 mg 02/07/20 21:39 02/08/20 09:26 Hydralazine 20 Mg/Ml Vial SLOW IVP 10 mg Q4H PRN Administration SBP > 180 Metoprolol Tartrate 12.5 mg 02/08/20 09:00 02/08/20 10:54 Metoprolol Tartrate 25 Mg Tab PO 12.5 mg BID JONATHAN Administration Sodium Chloride 10 ml 02/07/20 09:00 02/08/20 10:59 Flush - Normal Saline 10 Ml Syringe IVF 10 ml Q12HR JONATHAN Administration - Exam General Appearance: NAD, awake alert Eye: PERRL, anicteric sclera ENT: normocephalic atraumatic, no oropharyngeal lesions Neck: supple, symmetric, no JVD, no thyromegaly, no lymphadenopathy Heart: RRR, no murmur, no gallops, no rubs, normal peripheral pulses Heart - other findings: S1, S2 Respiratory: tachypneic Respiratory - other findings: diminished in bases, few crackles Gastrointestinal: soft, non-tender, non-distended, normal bowel sounds, no palpable masses Gastrointestinal - other findings: obese Extremities: no cyanosis, 1+ LE edema Skin: normal turgor, no lesions Neurological: cranial nerve grossly intact, no new deficit Musculoskeletal: normal tone, generalized weakness Psychiatric: normal affect, A&O x 3 Hosp A/P (1) Acute respiratory failure with hypoxia Code(s): J96.01 - ACUTE RESPIRATORY FAILURE WITH HYPOXIA Status: Acute Plan: s/p BiPAP NIMV, continue O2 via NC, likely multifactorial given CHF/GENOVEVA/HTN urgency (2) Hypertensive urgency Code(s): I16.0 - HYPERTENSIVE URGENCY Status: Acute Plan: Improved, titrate BP regimen for more optimal response, add Hydralazine 25mg TID, continue Norvasc/Metoprolol (3) Acute on chronic diastolic (congestive) heart failure Code(s): I50.33 - ACUTE ON CHRONIC DIASTOLIC (CONGESTIVE) HEART FAILURE Statu s: Acute Plan: Mild exacerbation, EF 50-55% by echo on 01/12 (4) CARLA (acute kidney injury) Code(s): N17.9 - ACUTE KIDNEY FAILURE, UNSPECIFIED Status: Acute Plan: mild, monitor renal function, avoid nephrotoxic meds and limit contrast (5) Hyperkalemia Code(s): E87.5 - HYPERKALEMIA Status: Acute Plan: Lasix 40mg po x 1 now, then 20mg po BID (6) Morbid obesity with BMI of 50.0-59.9, adult Code(s): E66.01 - MORBID (SEVERE) OBESITY DUE TO EXCESS CALORIES; Z68.43 - BODY MASS INDEX [BMI] 50.0-59.9, ADULT Status: Chronic (7) Obesity hypoventilation syndrome Code(s): E66.2 - MORBID (SEVERE) OBESITY WITH ALVEOLAR HYPOVENTILATION Status: Chronic Plan: Outpt sleep study, nocturnal CPAP - Plan plan discussed w/ family, perinatal social worker, respiratory therapy, DVT proph w/SCDs Stable overall Resume Lasix 20mg BID, give 40mg po x 1 now Add Hydralazine 25mg TID OOB/ambulate Resume home meds AM lab: BMP, CBC
[2020-02-08] MEDS ORDERED: Furosemide 20 MG TAB PO PRN (12:01)
[2020-02-08] MEDS ORDERED: Furosemide 20 MG TAB PO SCH (12:15)
[2020-02-08] MEDS: hydrALAZINE 25 MG TAB PO SCH ×2 (14:12→20:01)
[2020-02-08] MEDS: Enoxaparin Sodium 40 MG/0.4 ML SYRINGE SC SCH (20:01)
[2020-02-08] MEDS: Acetaminophen 325 MG TAB PO PRN (21:59)
[2020-02-09] MEDS: cloNIDine 0.1 MG TAB PO PRN (01:24)
[2020-02-09] MEDS: hydrALAZINE 20 MG/ML VIAL SLOW IVP PRN (01:30)
[2020-02-09 06:29] LABS: #Basophils 0.1 thou/uL (0.0-0.2); #Eosinphils 0.1 thou/uL (0.0-0.7); #Lymphocytes 1.3 thou/uL (1.20-3.40); #Monocytes 0.5 thou/uL (0.11-0.59); #Neutrophils 4.2 thou/uL (1.40-6.50); %Basophils 1.3 % (0.0-1.0); %Eosinophils 1.9 % (0.0-10.0); %Lymphocytes 21.4 % (21.0-51.0); %Monocytes 8.3 % (0.0-10.0); Hemoglobin 8.1 g/dL (12.0-16.0); Mean Corpuscular HGB CONC 29.9 g/dL (32.0-36.0); Mean Corpuscular Hemoglobin 24.5 pg (27.0-31.0); Mean Corpuscular Volume 82.1 fL (78.0-98.0); Mean Platelet Volume 11.8 fL (7.4-10.4); Platelet Count 215 thou/uL (130-400); RBC Distribution Width 21.1 % (11.5-14.5); Red Blood Cell (RBC) Count 3.28 mill/uL (4.20-5.40); White Blood Cell (WBC) Count 6.2 thou/uL (4.8-10.8)
[2020-02-09 06:43] LABS: Anion Gap 15 mmol/L (10-20); BUN (Urea Nitrogen) 26 mg/dL (9.8-20.1); Calc. Creatinine Clearance 104 mL/min (70-130); Calcium 9.1 mg/dL (7.8-10.44); Carbon Dioxide 30 mmol/L (22-29); Chloride 101 mmol/L (98-107); Glucose 128 mg/dL (70-105); Potassium 4.3 mmol/L (3.5-5.1); Sodium 142 mmol/L (136-145)
--- NOTE | 2020-02-09 08:44 | RAD ---
AP CHEST: HISTORY: CCU followup. COMPARISON: 02/08/2020. FINDINGS: Bibasilar opacification obscures the diaphragms consistent with bilateral effusions and bibasilar inf iltrates and atelectasis. Upper lung zones are clear. No significant interval change. POS: AGW
[2020-02-09] MEDS: Amlodipine 10 MG TAB PO SCH (09:22)
[2020-02-09] MEDS: Metoprolol Tartrate 25 MG TAB PO SCH ×2 (09:23→20:06)
[2020-02-09] MEDS: hydrALAZINE 25 MG TAB PO SCH ×3 (09:23→20:06)
[2020-02-09] MEDS: Famotidine 20 MG TAB PO SCH (09:23)
[2020-02-09] MEDS: AcetaZOLAMIDE ER 500 MG CAP PO SCH (09:24)
--- NOTE | 2020-02-09 10:01 | PRG ---
DATE OF SERVICE: 02/09/2020 SUBJECTIVE: The patient feels much better. Has no acute complaints. OBJECTIVE: VITAL SIGNS: Temperature 96.9, respirations 20, O2 saturation 98%, pulse 91, and blood pressure 150/70. HEENT: Unremarkable. NECK: No JVD. LUNGS: Clear. CARDIAC: S1 and S2, regular. ABDOMEN: Soft and obese. EXTREMITIES: Trace edema. LABORATORY DATA: Chest x-ray shows cardiomegaly with some pulmonary edema. White blood cell count 6.2, hematocrit 26.9, and platelet count 215. Sodium 142, potassium 4.3, chloride 101, CO2 of 30, BUN 26, creatinine 1.5, and glucose 128. ASSESSMENT: 1. Diastolic heart failure. 2. Uncontrolled hypertension leading to flash pulmonary edema. RECOMMENDATIONS: 1. Can transfer to the medical floor. 2. Continue antihypertensives and diuretics. Job ID: [id number]
--- NOTE | 2020-02-09 10:50 | PDOC.HOSPP ---
- Subjective Encounter Date: 02/09/20 Encounter Time: 10:40 Subjective: f/u for resp failure likely multifactorial with HTN urgency/CHF exacerbation on previous BiPAP now on 3L O2 NC. Overall feeling better. - Objective Vital Signs & Weight: Vital Signs (12 hours) Temp Pulse Resp BP BP Pulse Ox 02/09/20 09:23 96 152/70 H 02/09/20 09:22 93 152/70 H 02/09/20 07:44 98 02/09/20 07:19 96.9 F L 02/09/20 06:44 85 16 100 02/09/20 06:30 165/78 H 02/09/20 04:20 178/79 H 02/09/20 03:39 97.0 F L 02/09/20 03:00 171/89 H 02/09/20 02:20 97 16 97 02/09/20 01:30 77 180/85 H 02/09/20 01:24 170/79 H 02/09/20 01:15 170/79 H 02/09/20 00:45 77 16 100 02/09/20 00:34 97.2 F L Weight Weight 348 lb 9.6 oz Most Recent Monitor Data Heart Rate from ECG 91 NIBP 277/128 NIBP BP-Mean 177 Respiration from ECG 20 SpO2 98 I&O: 02/08/20 02/09/20 02/10/20 06:59 06:59 06:59 Intake Total 960 2190 Output Total 900 700 Balance 60 1490 Result Diagrams: 02/09/20 05:54 02/09/20 05:54 Additional Labs: Accuchecks 02/09/20 02/08/20 02/08/20 06:00 23:48 17:29 POC Glucose 130 H 134 H 150 H 02/08/20 12:22 POC Glucose 165 H Microbiology 02/07/20 04:34 Venous blood - Right Arm Blood Culture - Preliminary Specimen has been received and culture in progress. No Growth to date. 02/07/20 04:34 Venous blood - Right Arm Blood Culture - Preliminary Specimen has been received and culture in progress. No Growth to date. Laboratory Tests 02/06/20 02/07/20 02/07/20 06:30 04:25 04:25 Hgb 8.2 L Creatinine 1.63 H Lactic Acid B-Natriuretic Peptide 235.5 H Influenza A RNA INAAT Influenza B RNA INAAT SARS-CoV-2 Rap RNA(RT-PCR) 02/07/20 02/07/20 02/07/20 04:25 04:34 04:35 Hgb Creatinine Lactic Acid 0.7 B-Natriuretic Peptide 269.1 H Influenza A RNA INAAT Not Detected Influenza B RNA INAAT Not Detected SARS-CoV-2 Rap RNA(RT-PCR) Not Detected Radiology Reviewed by me: Yes (PCXR - bibasilar effusions) EKG Reviewed by me: Yes (Tele - SR) Hospitalist ROS - Medication Medications: Active Medications Generic Name Dose Route Start Last Admin Trade Name Freq PRN Reason Stop Dose Admin Acetaminophen 650 mg 02/08/20 20:12 02/08/20 21:59 Acetaminophen 325 Mg Tab PO 650 mg Q4H PRN Administration Headache/Fever/Mild Pain (1-3) Acetazolamide 500 mg 02/08/20 09:00 02/09/20 09:24 Acetazolamide Er 500 Mg Cap PO 02/10/20 09:01 500 mg DAILY JONATHAN Administration Albuterol/Ipratropium 3 ml 02/07/20 07:00 02/09/20 06:44 Ipratropium/Albuterol Sulfate 3 Ml Neb NEB 3 ml [id number] JONATHAN Administration Amlodipine Besylate 10 mg 02/08/20 09:00 02/09/20 09:22 Amlodipine 10 Mg Tab PO 10 mg DAILY JONATHAN Administration Clonidine 0.1 mg 02/07/20 23:31 02/09/20 01:24 Clonidine 0.1 Mg Tab PO 0.1 mg BIDPRN PRN Administration SBP > 160, use second Enoxaparin Sodium 40 mg 02/07/20 21:00 02/08/20 20:01 Enoxaparin Sodium 40 Mg/0.4 Ml Syringe SC 40 mg 2100 JONATHAN Administration Famotidine 20 mg 02/07/20 09:00 02/09/20 09:23 Famotidine 20 Mg Tab PO 20 mg DAILY JONATHAN Administration Hydralazine HCl 10 mg 02/07/20 21:39 02/09/20 01:30 Hydralazine 20 Mg/Ml Vial SLOW IVP 10 mg Q4H PRN Administration SBP > 180 Hydralazine HCl 25 mg 02/08/20 15:00 02/09/20 09:23 Hydralazine 25 Mg Tab PO 25 mg TID JONATHAN Administration Metoprolol Tartrate 12.5 mg 02/08/20 09:00 02/09/20 09:23 Metoprolol Tartrate 25 Mg Tab PO 12.5 mg BID JONATHAN Administration Sodium Chloride 10 ml 02/07/20 09:00 02/09/20 09:24 Flush - Normal Saline 10 Ml Syringe IVF 10 ml Q12HR JONATHAN Administration - Exam General Appearance: NAD, awake alert Eye: PERRL, anicteric sclera ENT: normocephalic atraumatic, no oropharyngeal lesions Neck: supple, symmetric, no JVD, no thyromegaly, no lymphadenopathy, no carotid bruit Heart: RRR, no gallops, no rubs, normal peripheral pulses Heart - other findings: S1, S2 Respiratory - other findings: diminished in bases, + crackles Gastrointestinal: soft, non-tender, non-distended, normal bowel sounds, no palpable masses Gastrointestinal - other findings: obese Extremities: no cyanosis, no clubbing, 1+ LE edema Skin: normal turgor, no lesions Neurological: cranial nerve grossly intact, no new deficit Musculoskeletal: normal tone, generalized weakness Psychiatric: normal affect, A&O x 3 Hosp A/P (1) Acute respiratory failure with hypoxia Code(s): J96.01 - ACUTE RESPIRATORY FAILURE WITH HYPOXIA Status: Acute Plan: Multifactorial including CHF/HTN urgency/GENOVEVA, continue current O2 supplementation 3L/min NC (2) Hypertensive urgency Code(s): I16.0 - HYPERTENSIVE URGENCY Status: Acute Plan: Resolved, continue current BP regimen, titrate to optimal response (3) Acute on chronic diastolic (congestive) heart failure Code(s): I50.33 - ACUTE ON CHRONIC DIASTOLIC (CONGESTIVE) HEART FAILURE Status: Acute (4) CARLA (acute kidney injury) Code(s): N17.9 - ACUTE KIDNEY FAILURE, UNSPECIFIED Status: Acute Plan: Stable, monitor renal function and avoid nephrotoxic meds (5) Hyperkalemia Code(s): E87.5 - HYPERKALEMIA Status: Acute Plan: Resolved (6) Morbid obesity with BMI of 50.0-59.9, adult Code(s): E66.01 - MORBID (SEVERE) OBESITY DUE TO EXCESS CALORIES; Z68.43 - BODY MASS INDEX [BMI] 50.0-59.9, ADULT Status: Chronic (7) Obesity hypoventilation syndrome Code(s): E66.2 - MORBID (SEVERE) OBESITY WITH ALVEOLAR HYPOVENTILATION Status: Chronic Plan: Outpatient sleep study for home CPAP - Plan PT/OT, social worker health services, respiratory therapy, out of bed/ambulate Stable overall Resume Lasix 20mg BID Lasix 40mg IV x 1 now Add Hydralazine 25mg TID OOB/ambulate Outpatient sleep study for home CPAP Resume home meds AM lab: BMP Transfer to Medical Floor
[2020-02-09] MEDS ORDERED: Furosemide 40 MG/4 ML VIAL SLOW IVP SCH (11:15)
[2020-02-09] MEDS: Enoxaparin Sodium 40 MG/0.4 ML SYRINGE SC SCH (20:07)
[2020-02-10 06:07] LABS: Anion Gap 16 mmol/L (10-20); BUN (Urea Nitrogen) 20 mg/dL (9.8-20.1); Calc. Creatinine Clearance 104 mL/min (70-130); Calcium 9.2 mg/dL (7.8-10.44); Carbon Dioxide 29 mmol/L (22-29); Chloride 100 mmol/L (98-107); Glucose 125 mg/dL (70-105); Potassium 4.2 mmol/L (3.5-5.1); Sodium 141 mmol/L (136-145)
[2020-02-10] MEDS: Metoprolol Tartrate 25 MG TAB PO SCH ×2 (09:02→21:25)
[2020-02-10] MEDS: hydrALAZINE 25 MG TAB PO SCH ×3 (09:02→21:23)
[2020-02-10] MEDS: Famotidine 20 MG TAB PO SCH (09:02)
[2020-02-10] MEDS: Amlodipine 10 MG TAB PO SCH (09:04)
[2020-02-10] MEDS ORDERED: AcetaZOLAMIDE ER 500 MG CAP PO SCH (09:15)
[2020-02-10] MEDS: AcetaZOLAMIDE ER 500 MG CAP PO SCH (09:47)
[2020-02-10] MEDS: hydrALAZINE 20 MG/ML VIAL SLOW IVP PRN (12:48)
--- NOTE | 2020-02-10 12:55 | PDOC.HOSPP ---
- Subjective Encounter Date: 02/10/20 Encounter Time: 12:20 Subjective: f/u for HTN urgency/CHF initially managed on BiPAP NIMV now on RA. Overall feeling better but BP labile. - Objective Vital Signs & Weight: Vital Signs (12 hours) Temp Pulse Resp BP Pulse Ox 02/10/20 11:05 98.4 F 88 18 194/112 H 98 02/10/20 09:04 88 02/10/20 09:02 88 02/10/20 07:35 97.9 F 88 14 185/103 H 98 02/10/20 07:24 85 18 100 02/10/20 06:25 100 02/10/20 03:46 98.4 F 85 20 154/91 H 100 Weight Weight 351 lb 3.2 oz Most Recent Monitor Data Heart Rate from ECG 90 NIBP 159/73 NIBP BP-Mean 101 Respiration from ECG 24 SpO2 99 I&O: 02/09/20 02/10/20 02/11/20 06:59 06:59 06:59 Intake Total 2190 1380 Output Total 700 3950 Balance 1490 -2570 Result Diagrams: 02/09/20 05:54 02/10/20 05:18 Additional Labs: Accuchecks 02/10/20 02/10/20 02/10/20 11:11 05:23 00:24 POC Glucose 163 H 122 H 135 H 02/09/20 17:22 POC Glucose 132 H Microbiology 02/07/20 04:34 Venous blood - Right Arm Blood Culture - Preliminary Specimen has been received and culture in progress. No Growth to date. 02/07/20 04:34 Venous blood - Right Arm Blood Culture - Preliminary Specimen has been received and culture in progress. No Growth to date. Laboratory Tests 02/06/20 02/07/20 02/07/20 06:30 04:25 04:25 Hgb 8.2 L Creatinine 1.63 H Lactic Acid B-Natriuretic Peptide 235.5 H Influenza A RNA INAAT Influenza B RNA INAAT SARS-CoV-2 Rap RNA(RT-PCR) 02/07/20 02/07/20 02/07/20 04:25 04:34 04:35 Hgb Creatinine Lactic Acid 0.7 B-Natriuretic Peptide 269.1 H Influenza A RNA INAAT Not Detected Influenza B RNA INAAT Not Detected SARS-CoV-2 Rap RNA(RT-PCR) Not Detected Hospitalist ROS - Medication Medications: Active Medications Generic Name Dose Route Start Last Admin Trade Name Freq PRN Reason Stop Dose Admin Acetaminophen 650 mg 02/08/20 20:12 02/08/20 21:59 Acetaminophen 325 Mg Tab PO 650 mg Q4H PRN Administration Headache/Fever/Mild Pain (1-3) Albuterol/Ipratropium 3 ml 02/07/20 07:00 02/10/20 07:24 Ipratropium/Albuterol Sulfate 3 Ml Neb NEB 3 ml [id number] JONATHAN Administration Amlodipine Besylate 10 mg 02/08/20 09:00 02/10/20 09:04 Amlodipine 10 Mg Tab PO 10 mg DAILY JONATHAN Administration Clonidine 0.1 mg 02/07/20 23:31 02/09/20 01:24 Clonidine 0.1 Mg Tab PO 0.1 mg BIDPRN PRN Administration SBP > 160, use second Enoxaparin Sodium 40 mg 02/07/20 21:00 02/09/20 20:07 Enoxaparin Sodium 40 Mg/0.4 Ml Syringe SC 40 mg 2100 JONATHAN Administration Famotidine 20 mg 02/07/20 09:00 02/10/20 09:02 Famotidine 20 Mg Tab PO 20 mg DAILY JONATHAN Administration Hydralazine HCl 10 mg 02/07/20 21:39 02/09/20 01:30 Hydralazine 20 Mg/Ml Vial SLOW IVP 10 mg Q4H PRN Administration SBP > 180 Metoprolol Tartrate 12.5 mg 02/08/20 09:00 02/10/20 09:02 Metoprolol Tartrate 25 Mg Tab PO 12.5 mg BID JONATHAN Administration Sodium Chloride 10 ml 02/07/20 09:00 02/10/20 09:07 Flush - Normal Saline 10 Ml Syringe IVF 10 ml Q12HR JONATHAN Administration - Exam General Appearance: NAD, awake alert Eye: PERRL, anicteric sclera ENT: normocephalic atraumatic, no oropharyngeal lesions Neck: supple, symmetric, no JVD, no thyromegaly, no lymphadenopathy Heart: RRR, no murmur, no gallops, no rubs, normal peripheral pulses Heart - other findings: S1, S2 Respiratory: CTAB, no wheezes, no rales, no ronchi Respiratory - other findings: diminished in bases Gastrointestinal: soft, non-tender, non-distended, normal bowel sounds, no palpable masses Gastrointestinal - other findings: obese Extremities: no cyanosis, no clubbing, 1+ LE edema Skin: normal turgor, no lesions Neurological: cranial nerve grossly intact, no new deficit Musculoskeletal: normal tone, normal strength, no muscle wasting Psychiatric: normal affect, A&O x 3 Hosp A/P (1) Acute respiratory failure with hypoxia Code(s): J96.01 - ACUTE RESPIRATORY FAILURE WITH HYPOXIA Status: Acute Plan: Improved, continue O2 supplementation 2L/min (2) Hypertensive urgency Code(s): I16.0 - HYPERTENSIVE URGENCY Status: Acute Plan: Resolved, overall BP labile, increase Hydralazine 50mg TID, increase Metoprolol 25mg BID, continue Norvasc 10mg daily (3) Acute on chronic diastolic (congestive) heart failure Code(s): I50.33 - ACUTE ON CHRONIC DIASTOLIC (CONGESTIVE) HEART FAILURE Status: Acute (4) CARLA (acute kidney injury) Code(s): N17.9 - ACUTE KIDNEY FAILURE, UNSPECIFIED Status: Acute (5) Hyperkalemia Code(s): E87.5 - HYPERKALEMIA Status: Acute (6) Morbid obesity with BMI of 50.0-59.9, adult Code(s): E66.01 - MORBID (SEVERE) OBESITY DUE TO EXCESS CALORIES; Z68.43 - BODY MASS INDEX [BMI] 50.0-59.9, ADULT Status: Chronic (7) Obesity hypoventilation syndrome Code(s): E66.2 - MORBID (SEVERE) OBESITY WITH ALVEOLAR HYPOVENTILATION Status: Chronic Plan: Outpt sleep study after d/c - Plan social security specialist, out of bed/ambulate, DVT proph w/SCDs Stable overall Resume Lasix 20mg po BID Increase Hydralazine 50mg TID Increase Metoprolol 25mg BID Continue Norvasc 10mg daily OOB/ambulate Outpatient sleep study for home CPAP Resume home meds Likely home in 24h if BP trend stabilizing
--- NOTE | 2020-02-10 14:30 | PDOC.FMACP ---
Advance Care Planning - Note Participants: patient, palliative care Summary: Palliative Care revisited Advanced Care Planning. The diagnosis, prognosis and goals of care were discussed. Appropriate forms and documentation to accomplish the goals of care were discussed. All questions were answered. *Ms Mcdonald has complete directives in the past. *OOHDNAR was noted to be done inaccurately last hospital stay, document was renewed and physician signature was obtained. *Confirmed MPOA and Directives *Transition to Cardiac measures only if needed while in the hospital, however desires to remain with an OOHDNAR in place. Palliative care will sign off as directives were addressed. If we can assist in the future with revisiting Goal of Care, complex decision making, coping or support please reconsult our team. Thank you for this very appropriate consult. Time Spent (mins): 20
[2020-02-10] MEDS: Furosemide 20 MG TAB PO SCH (21:23)
[2020-02-10] MEDS: Enoxaparin Sodium 40 MG/0.4 ML SYRINGE SC SCH (21:26)
[2020-02-10] MEDS: Acetaminophen 325 MG TAB PO PRN (21:34)
[2020-02-11 05:32] VITALS: BMI 51.0
[2020-02-11 07:44] VITALS: TEMP 98.4
[2020-02-11] MEDS: hydrALAZINE 25 MG TAB PO SCH (08:34)
[2020-02-11] MEDS: Amlodipine 10 MG TAB PO SCH (08:35)
[2020-02-11] MEDS: Furosemide 20 MG TAB PO SCH (08:35)
[2020-02-11] MEDS: Metoprolol Tartrate 25 MG TAB PO SCH (08:35)
[2020-02-11] MEDS: Famotidine 20 MG TAB PO SCH (08:35)
--- NOTE | 2020-02-11 10:50 | PDOC.DS.DS ---
Provider - Provider Date of Admission: 02/07/20 07:01 Date of Discharge: 02/11/20 Admitting Provider: Estuardo Reed MD Consultations: Pulmonary Primary Care Physician: Fabby Castillo Course - Hospital Course Hospital Course: HISTORY OF PRESENT ILLNESS AND BRIEF HOSPITAL COURSE: Patient is a pleasant 54 years old -[place] female who has significant past medical histories of chronic diastolic heart failure, asthma, obstructive sleep apnea, uncontrolled hypertension, who was sent from rehab facility for worsening dyspnea. Patient was recently admitted to the hospital for acute hypoxic respiratory failure and required mechanical ventilation. See was doing well and subsequently discharged to rehab. While there, she became decompensated, and more short of breath. In the ED, further work-up, found that patient was in respiratory distress, and wheezing diffusely. She was subsequently admitted for acute on chronic diastolic heart failure. She was given IV Lasix and admitted to CCU for further management. Her last echo EF 50- 55%. She has been diuresed well, and her oxygen had weaned down to her home O2 which is 3 L continuous. Patient stated her breathing has back to baseline, and is request to be discharged home. Should be noted that, her blood pressure was uncontrolled, we have adjusted her home medication. Patient was advised to keep a log of her blood pressure and take it with her to follow-up with her PCP. She also had appointment for sleep study early next week. At this time, patient is stable to discharge home, and follow-up with her PCP PROCEDURE PERFORMED: NONE DISCHARGE CONDITION: STABLE DISPOSITION: HOME PHYSICAL EXAM: General Appearance: Alert, oriented, resting comfortably, no apparent distress, well developed/nourished. HEENT: Normocephalic/atraumatic, moist mucous membrane, normal ENT inspection, normal tones. PERRLA, no scleral icterus, normal conjunctiva Neck: Supple, normal inspection, no JVD Respiratory: Lungs are clear bilaterally, normal breath sounds, no accessory muscle use Cardiovascular: Regular rate, regular rhythm, no murmur, no rubs Abdomen: Soft, nontender, nondistended, normal bowel sounds, no organomegaly, no guarding no rebound Back: Normal inspection, no CVA tenderness Extremities: No clubbing, no cyanosis, no edema Psych/Mental Status: Normal affect, speech, non-pressured, AAO x 3 Neurologic: CN II-XII are intact. Skin: Warm/Dry, Normal Color, no rashes DISCHARGE TIME SPENT: >30 MINUTES Resuscitation Status: 02/10/20 11:50 Resuscitation Status Routine Resuscitation Status: PRTL: Cardiac only Discussed with: Patient - Labs Lab Results: 02/09/20 05:54 02/10/20 05:18 Abnormal Lab Results - Last 48 hrs 02/10/20 05:18: Creatinine 1.56 H Microbiology - Entire Visit 02/07/20 04:34 Venous blood - Right Arm Blood Culture - Preliminary NO GROWTH AT 48 HOURS 02/07/20 04:34 Venous blood - Right Arm Blood Culture - Preliminary NO GROWTH AT 48 HOURS - Physical Exam Vitals: Vital Signs (12 hours) Temp Pulse Resp BP BP Pulse Ox 02/11/20 08:35 100 169/94 H 91 L 02/11/20 08:34 100 169/94 H 02/11/20 07:38 98.4 F 100 18 169/94 H 91 L 02/11/20 06:53 87 18 100 02/11/20 04:19 100 02/11/20 04:02 97.7 F 96 20 157/83 H 100 02/10/20 23:45 99 02/10/20 23:08 98.7 F 96 19 127/70 97 02/10/20 22:59 133/76 Weight Weight 345 lb 6.4 oz Most Recent Monitor Data Heart Rate from ECG 90 NIBP 159/73 NIBP BP-Mean 101 Respiration from ECG 24 SpO2 99 Physical Exam: The patient was seen and examined on the day of discharge. Problem - Problem (1) Acute on chronic diastolic (congestive) heart failure Code(s): I50.33 - ACUTE ON CHRONIC DIASTOLIC (CONGESTIVE) HEART FAILURE Status: Acute (2) Acute respiratory failure with hypoxia Code(s): J96.01 - ACUTE RESPIRATORY FAILURE WITH HYPOXIA Status: Acute (3) Hyperkalemia Code(s): E87.5 - HYPERKALEMIA Status: Acute (4) Hypernatremia Code(s): E87.0 - HYPEROSMOLALITY AND HYPERNATREMIA Status: Acute (5) Hypomagnesemia Code(s): E83.42 - HYPOMAGNESEMIA Status: Acute (6) Asthma Code(s): J45.909 - UNSPECIFIED ASTHMA, UNCOMPLICATED Status: Chronic Qualifiers: Asthma severity: mild Asthma persistence: intermittent Asthma complicat ion type: uncomplicated Qualified Code(s): J45.20 - Mild intermittent asthma, uncomplicated (7) CKD (chronic kidney disease), stage III Code(s): N18.3 - CHRONIC KIDNEY DISEASE, STAGE 3 (MODERATE) * DO NOT USE * Status: Chronic Qualifiers: Chronic kidney disease stage 3 subtype: stage 3a (GFR 45-59) Qualified Code(s): N18.31 - Chronic kidney disease, stage 3a (8) DM type 2 (diabetes mellitus, type 2) Status: Chronic Qualifiers: Diabetes mellitus [facility] insulin use: with exterminator helper 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 use Diabetes mellitus complication status: with kidney complications Diabetes mellitus complication detail: with chronic kidney disease Chronic kidney disease stage: stage 3 (moderate) (9) HTN (hypertension) Code(s): I10 - ESSENTIAL (PRIMARY) HYPERTENSION Status: Chronic Qualifiers: Hypertension type: essential hypertension Qualified Code(s): I10 - Essential (primary) hypertension (10) Morbid obesity with BMI of 50.0-59.9, adult Code(s): E66.01 - MORBID (SEVERE) OBESITY DUE TO EXCESS CALORIES; Z68.43 - BODY MASS INDEX [BMI] 50.0-59.9, ADULT Status: Chronic (11) Obesity hypoventilation syndrome Code(s): E66.2 - MORBID (SEVERE) OBESITY WITH ALVEOLAR HYPOVENTILATION Status: Chronic Plan - Discharge Medications Prescriptions: cloNIDine [Catapres] 0.1 mg PO BID PRN #30 tab PRN Reason: hypertension hydrALAZINE HCl [Hydralazine HCl] 50 mg PO TID #90 tablet Metoprolol Succinate [Toprol XL] 50 mg PO DAILY #30 tab Home Medications: Medication Instructions Recorded Confirmed Type Atorvastatin Calcium [Lipitor] 40 mg PO DAILY 01/21/19 02/07/20 History Venlafaxine HCl [Effexor] 75 mg PO DAILY 02/08/19 02/07/20 History Ipratropium/Albuterol Sulfate 3 ml NEB QID PRN #30 neb 02/10/19 02/07/20 Rx [DuoNeb] Amlodipine [Norvasc] 10 mg PO DAILY 02/07/20 02/07/20 History Furosemide 20 mg PO BID PRN 02/07/20 02/07/20 History Metoprolol Succinate [Toprol XL] 50 mg PO DAILY #30 tab 02/11/20 Rx cloNIDine [Catapres] 0.1 mg PO BID PRN #30 tab 02/11/20 Rx hydrALAZINE HCl [Hydralazine HCl] 50 mg PO TID #90 tablet 02/11/20 Rx Allergies: Penicillins Allergy (Verified 02/07/20 16:05) Hives - Discharge Instructions Discharge Instructions:: Follow up with your PCP next week Keep your BP 110-150/50-80 range keep a log of your BP and take it to your PCP to adjust your medications if needed Obtain sleep study Activity:: Activity as Tolerated Nourishment:: Heart Healthy Diet, Low Sodium Diet - Follow up Plan Referrals: Carol Fry MD [Primary Care Provider] - Disposition: HOME HEALTH Quality - Care Measures CORE MEASURES:: N/A
[2020-02-11] MEDS: cloNIDine 0.1 MG TAB PO PRN (11:50)
[2020-02-11 11:51] VITALS: BP 166/87
--- NOTE | 2020-02-11 13:29 | EKG ---
Test Reason : Blood Pressure : / mmHG Vent. Rate : 086 BPM Atrial Rate : 086 BPM P-R Int : 120 ms QRS Dur : 082 ms QT Int : 366 ms P-R-T Axes : 053 022 054 degrees QTc Int : 437 ms Normal sinus rhythm Normal ECG Confirmed by MELISA MARQUIS M.D. ([id number]), acquisitions editor MIO FELIX ([id number] on 02/11/2020 1:29:32 PM Referred By: Confirmed By:MELISA MARQUIS M.D.
== END 2020-02-11 12:45 | disposition home health service (06) | DRG 291 ==
LOC: ERS 03:44 → ERHOLD 07:01 → IMCU/EMU 15:10 → SURG A 02-09 18:16
PROVIDERS: ADMIT Internal Medicine; ATTEND Family Medicine
PROC: 5A09357 Assistance with Respiratory Ventilation, Less than 24 Consecutive Hours, Continuous Positive Airway Pressure (ICD-10-PCS; principal; 2020-02-07)
DX: I13.0 Hypertensive heart and chronic kidney disease with heart failure and stage 1 through stage 4 chronic kidney disease, or unspecified chronic kidney disease (principal); I50.33 Acute on chronic diastolic (congestive) heart failure; J96.21 Acute and chronic respiratory failure with hypoxia; J96.22 Acute and chronic respiratory failure with hypercapnia; E87.0 Hyperosmolality and hypernatremia; Z68.43 Body mass index [BMI] 50.0-59.9, adult; E66.2 Morbid (severe) obesity with alveolar hypoventilation; N17.9 Acute kidney failure, unspecified; I16.1 Hypertensive emergency; Z20.828 Contact with and (suspected) exposure to other viral communicable diseases; Z51.5 Encounter for palliative care; E83.42 Hypomagnesemia; E87.5 Hyperkalemia; J45.20 Mild intermittent asthma, uncomplicated; N18.31 Chronic kidney disease, stage 3a; E11.22 Type 2 diabetes mellitus with diabetic chronic kidney disease; J44.9 Chronic obstructive pulmonary disease, unspecified; Z28.21 Immunization not carried out because of patient refusal; Z85.72 Personal history of non-Hodgkin lymphomas; Z92.21 Personal history of antineoplastic chemotherapy; Z99.81 Dependence on supplemental oxygen; Z90.49 Acquired absence of other specified parts of digestive tract; Z98.51 Tubal ligation status; Z83.3 Family history of diabetes mellitus; Z82.49 Family history of ischemic heart disease and other diseases of the circulatory system; Z80.3 Family history of malignant neoplasm of breast; Z88.0 Allergy status to penicillin; Z79.899 Other long term (current) drug therapy
CPT/HCPCS: 0240U; 36415; 36416; 36600; 71045; 80048; 80053; 82805; 83605; 83690; 83735; 83880; 84484; 85025; 85610; 85730; 87040; 93005; 94640; 94660; 96374; J0360; J0456; J0696; J1650; J1940; J2920; J3475; J3490; J7050; J7620